=== PATIENT | female | born 1960 | race African-American/Black ===

== ENCOUNTER 2018-07-25 09:43 | Emergency (ER) | payer OTHER ==
[2018-07-25 09:51] VITALS: TEMP 98.4; BMI 38.4
[2018-07-25 10:44] LABS: BASO % 0.9 % (0-2.0); EOS % 3.1 % (0-4.5); HEMATOCRIT 34.9 % (32.4-45.2); HEMOGLOBIN 11.8 GM/dL (10.7-15.3); LYMPH % 41.3 % (8-40); MCHC 33.8 g/dl (32.0-36.0); MEAN CELL VOLUME 82.7 fl (80-96); MONO % 10.3 % (3.8-10.2); NEUT % 44.4 % (42.8-82.8); PLATELET COUNT 227 K/MM3 (134-434); RBC 4.22 M/mm3 (3.60-5.2); RDW 12.9 % (11.6-15.6); WHITE BLOOD COUNT 4.7 K/mm3 (4.0-10.0)
[2018-07-25 11:07] LABS: INR 0.94 (0.83-1.09); PROTHROMBIN TIME (PATIENT) 11.1 SEC (9.7-13.0)
[2018-07-25 11:10] LABS: ACTIVATED PTT 24.5 SECONDS (25.2-36.5)
[2018-07-25] MEDS ORDERED: ACETAMINOPHEN 1000 MG/100 ML VIAL (NON FORMULARY) IVPB ONE (11:18)
[2018-07-25 11:19] LABS: N-TERMINAL BNP 11.7 pg/ml (5-125)
[2018-07-25 11:36] LABS: ALBUMIN 3.7 g/dl (3.4-5.0); ALK PHOS 89 U/L (45-117); ANION GAP 11 MMOL/L (8-16); BILIRUBIN,TOTAL 0.4 mg/dL (0.2-1); BLOOD UREA NITROGEN 14 mg/dL (7-18); CALCIUM 9.1 mg/dL (8.5-10.1); CHLORIDE 97 mmol/L (98-107); CO2 27 mmol/L (21-32); CREATININE 1.1 mg/dL (0.55-1.3); POTASSIUM 4.6 mmol/L (3.5-5.1); SGOT/AST 25 U/L (15-37); SGPT/ALT 38 U/L (13-61); SODIUM 135 mmol/L (136-145); TOT PROT 7.6 g/dl (6.4-8.2)
[2018-07-25] MEDS ORDERED: ACETAMINOPHEN INJECTION 100 ML IVPB ONE (11:37)
[2018-07-25] MEDS ORDERED: FAMOTIDINE 20 MG/50 ML IVPB 20 MG/50 ML MG IVPB ONE ×2 (12:04→12:10)
[2018-07-25] MEDS ORDERED: MAG HYDROX/AL HYDROX/SIMETH 30 ML UNIT-DOSE CUP PO ONE (12:04)
[2018-07-25 12:06] LABS: GLUCOSE,RANDOM 386 mg/dL (74-106)
[2018-07-25] MEDS ORDERED: MAG HYDROX/AL HYDROX/SIMETH 30 ML UNIT-DOSE CUP ONE (12:10)
--- NOTE | 2018-07-25 12:11 | PDOC ---
History of Present Illness - General Chief Complaint: Pain, Acute Stated Complaint: CHEST PAIN Time Seen by Provider: 07/25/18 09:53 - History of Present Illness Initial Comments: 07/25/18 12:06 58 F with h/o HTN, HLD, DM presenting to ED with 2 days of L sided chest pain. Pt states that it radiates from her epigastric region to her throat. Denies SOB. Denies pleuritic nature or exertional component to pain. Denies leg swelling. Pt states that she has h/o GERD. Pt has had similar symptoms in the past and was evaluated in ED but does not know what the cause of her pain was. Pt is followed by a technical translator and states she had a recent stress test that was normal. Past History - Past Medical History Allergies/Adverse Reactions: Allergies Allergy/AdvReac Type Severity Reaction Status Date / Time duloxetine HCl AdvReac Intermediate jaw Verified 06/12/12 14:27 [From Cymbalta] locked, stiff joints Home Medications: Ambulatory Orders Montelukast Na [Singulair -] 10 mg PO HS #0 tablet 04/16/12 metFORMIN HCL [Glucophage -] 1,000 mg PO BIDAC #0 tablet 04/16/12 Dexlansoprazole [Dexilant] 60 mg PO DAILY 11/27/12 Insulin Lispro [Humalog] unit SQ ASDIR 11/27/12 Lisinopril/Hydrochlorothiazide [Lisinopril-Hctz 20-25 mg Tab] 1 each PO DAILY Pregabalin [Lyrica] 100 mg PO DAILY 11/27/12 Atorvastatin Ca [Lipitor] 20 mg PO HS 07/25/18 Anemia: No Asthma: Yes Cancer: No Cardiac Disorders: No CVA: No COPD: No CHF: No Dementia: No Diabetes: Yes (IDDM, uses pump) GI Disorders: No Disorders: No HTN: Yes Hypercholesterolemia: Yes Liver Disease: No Seizures: No Thyroid Disease: No - Surgical History Abdominal Surgery: No Appendectomy: No Cardiac Surgery: No Cholecystectomy: No Lung Surgery: No Neurologic Surgery: No Orthopedic Surgery: Yes (R Knee) - Suicide/Smoking/Psychosocial Hx Smoking Status: No Smoking History: Former smoker Have you smoked in the past 12 months: No Number of Cigarettes Smoked Daily: 0 Information on smoking cessation initiated: No Hx Alcohol Use: No Drug/Substance Use Hx: No Substance Use Type: None Hx Substance Use Treatment: No Review of Systems - Review of Systems Comments:: 07/25/18 12:11 "GENERAL/CONSTITUTIONAL: No fever or chills. No weakness. HEAD, EYES, EARS, NOSE AND THROAT: No change in vision. No ear pain or discharge. No sore throat. CARDIOVASCULAR: + L sided chest pain, no shortness of breath, no loss of consciousness RESPIRATORY: No cough, wheezing, or hemoptysis. GASTROINTESTINAL: + epigastric pain, No nausea, vomiting, diarrhea or constipation. GENITOURINARY: No dysuria, frequency, or change in urination. MUSCULOSKELETAL: No joint or muscle swelling or pain. No neck or back pain. SKIN: No rash NEUROLOGIC: No vertigo, no change in strength/sensation. ENDOCRINE: No increased thirst. No abnormal weight change. HEMATOLOGIC/LYMPHATIC: No anemia, easy bleeding, or history of blood clots. ALLERGIC/IMMUNOLOGIC: No hives or skin allergy. *Physical Exam - Vital Signs Last Vital Signs Temp Pulse Resp BP Pulse Ox 98.4 F 71 19 119/73 100 07/25/18 09:50 07/25/18 11:58 07/25/18 11:58 07/25/18 11:58 07/25/18 11:58 - Physical Exam Comments: 07/25/18 12:12 "GENERAL: Awake, alert, and fully oriented, in no acute distress. HEAD: No signs of trauma EYES: PERRLA, EOMI, sclera anicteric, conjunctiva clear ENT: Auricles normal inspection, hearing grossly normal, nares patent, oropharynx clear without exudates. Moist mucosa NECK: Nontender, no stepoffs, Normal ROM, supple, no lymphadenopathy, JVD, or masses LUNGS: Breath sounds equal, clear to auscultation bilaterally. No wheezes, and no crackles HEART: Regular rate and rhythm, normal S1 and S2, no murmurs, rubs or gallops ABDOMEN: + epigastric TTP, normoactive bowel sounds. No guarding, no rebound. No masses EXTREMITIES: Normal range of motion, no edema. No clubbing or cyanosis. No cords, erythema, or tenderness NEUROLOGICAL: Cranial nerves II through XII intact. 5/5 strength and sensation in all extremities, Normal speech, normal gait, normal cerebellar function SKIN: Warm, Dry, normal turgor, no rashes or lesions noted. Moderate Sedation - Procedure Monitoring Vital Signs: Procedure Monitoring Vital Signs Temperature 98.4 F 07/25/18 09:50 Pulse Rate 71 07/25/18 11:58 Respiratory Rate 19 07/25/18 11:58 Blood Pressure 119/73 07/25/18 11:58 O2 Sat by Pulse Oximetry (%) 100 07/25/18 11:58 Heart Score/ECG Review - History History: Slightly suspicious - Electrocardiogram EKG: Normal - Age Age: 45-65 - Risk Factors Risk Factors Heart Score: Yes Hx Hypercholesterolemia, Yes Hx Hypertension, Yes Hx Diabetes Based on the list above the patient has:: >/=3 risk factors or Hx atherosclerotic disease - Troponin Troponin: </= normal limit - Score Heart Score - Total: 3 - ECG Impressions Comment:: 07/25/18 12:13 NSR, no JONNY/STDs, no TWIs, no changes since prior EKG in 2011, rate 79 ED Treatment Course - LABORATORY CBC & Chemistry Diagram: 07/25/18 10:30 07/25/18 10:30 - ADDITIONAL ORDERS Additional order review: Laboratory Results 07/25/18 07/25/18 07/25/18 10:30 10:30 10:30 PT with INR 11.10 INR 0.94 PTT (Actin FS) 24.5 L Sodium 135 L Potassium 4.6 Chloride 97 L Carbon Dioxide 27 Anion Gap 11 BUN 14 Creatinine 1.1 Creat Clearance w eGFR 51.38 Random Glucose 386 H* Calcium 9.1 Total Bilirubin 0.4 AST 25 ALT 38 Alkaline Phosphatase 89 Creatine Kinase 103 Troponin I < 0.02 B-Natriuretic Peptide 11.7 Total Protein 7.6 Albumin 3.7 07/25/18 10:30 RBC 4.22 MCV 82.7 MCHC 33.8 RDW 12.9 MPV 12.0 H D Neutrophils % 44.4 D Lymphocytes % 41.3 H D Monocytes % 10.3 H Eosinophils % 3.1 D Basophils % 0.9 D - RADIOLOGY Radiology Studies Ordered: Category Date Time Status CHEST PA & LAT [RAD] Stat Radiology 07/25/18 10:30 Completed - Medications Given in the ED: ED Medications Discontinued Medications Generic Name Dose Route Start Last Admin Trade Name Freq PRN Reason Stop Dose Admin Acetaminophen 1,000 mg 07/25/18 11:18 07/25/18 11:47 Ofirmev Injection - IVPB 07/25/18 11:19 1,000 mg ONCE ONE Administration Medical Decision Making - Medical Decision Making 07/25/18 12:14 58 F with L sided chest pain radiating from epigastrum to throat. Likely gastritis vs GERD given epigastric TTP on exam. Pt with no ischemic changes on EKG. - Labs, trop, lipase - CXR - GI cocktail 07/25/18 12:39 Labs wnl Trop negative - given duration of symptoms for 48 hours, single trop sufficient to r/o ACS. Pt with some relief of pain with GI cocktail 07/25/18 12:54 Lipase negative Labs normal, EKG unchanged, CXR clear Pt reassessed - now feels significantly better. Suspect GI vs msk etiology of pt's pain. Given improvement with GI meds, likely gastritis vs PUD. No evidence of ACS on EKG or bloodwork. Ddimer negative, making PE and dissection unlikely. Pt is well appearing, with normal vitals. Clinically stable for DC at this time. I discussed the physical exam findings, ancillary test results and final diagnoses with the patient. I answered all of the patient's questions. The patient was satisfied with the care received and felt comfortable with the discharge plan and treatment plan. The patient agrees to follow up with the primary care physician within 24-72 hours. *DC/Admit/Observation/Transfer Diagnosis at time of Disposition: Epigastric pain, Chest pain, Gastritis - Discharge Dispostion Disposition: HOME - Referrals Referrals: Chino Balderrama MD [Primary Care Provider] - Reuben Huang MD [Staff Physician] - Ben Ibarra MD [Staff Physician] - - Patient Instructions Printed Discharge Instructions: DI for Abdominal Pain-Adult, DI for Atypical Chest Pain Additional Instructions: Your bloodwork, EKG, and chest X ray were all normal today. However, this does not rule out all serious heart problems. You must follow up with your technical translator within 48 hours for further evaluation of your chest pain. You may have gastritis or stomach ulcers. Call Dr. Huang to schedule a follow up appointment. If you experience worsening pain, shortness of breath, vomiting, fevers, or any other concerning symptoms, return to the ER immediately. - Post Discharge Activity - Attestations Physician Attestion: 07/25/18 13:03 I, Dr. Gerardo Gallego MD, attest that this document has been prepared under my direction and personally reviewed by me in its entirety. I further attest, that it accurately reflects all work, treatment, procedures and medical decision -making performed by me.
[2018-07-25 12:42] LABS: LIPASE 235 U/L (73-393)
[2018-07-25 14:07] VITALS: BP 101/71; PULSE 82
--- NOTE | 2018-07-26 19:03 | EKG ---
Test Reason : Blood Pressure : / mmHG Vent. Rate : 079 BPM Atrial Rate : 079 BPM P-R Int : 164 ms QRS Dur : 098 ms QT Int : 376 ms P-R-T Axes : 050 -03 008 degrees QTc Int : 431 ms NORMAL SINUS RHYTHM POSSIBLE LEFT ATRIAL ENLARGEMENT NONSPECIFIC T WAVE ABNORMALITY ABNORMAL ECG WHEN COMPARED WITH ECG OF 12-APR-2012 18:16, NONSPECIFIC T WAVE ABNORMALITY NOW EVIDENT IN LATERAL LEADS Confirmed by CONNIE BALBUENA, AYANNA ([id number]) on 07/26/2018 7:03:08 PM Referred By: Confirmed By:AYANNA ROSALES MD
== END 2018-07-25 14:08 | disposition home or self-care (01) ==
LOC: JER 09:43
PROC: 3E033GC Introduction of Other Therapeutic Substance into Peripheral Vein, Percutaneous Approach (ICD-10-PCS; principal; 2018-07-25)
PROC: 3E033NZ Introduction of Analgesics, Hypnotics, Sedatives into Peripheral Vein, Percutaneous Approach (ICD-10-PCS; 2018-07-25)
DX: K29.70 Gastritis, unspecified, without bleeding (principal); I10 Essential (primary) hypertension; E78.00 Pure hypercholesterolemia, unspecified; E11.9 Type 2 diabetes mellitus without complications; Z79.4 Long term (current) use of insulin; Z96.41 Presence of insulin pump (external) (internal); J45.909 Unspecified asthma, uncomplicated; Z87.891 Personal history of nicotine dependence
CPT/HCPCS: 36415; 71046-TC-FY; 80053; 82550; 83690; 83880; 84484; 85025; 85379; 85610; 85730; 93005; 93010; 99284-25; J0131

== ENCOUNTER 2018-10-10 11:49 | Inpatient (IN) | payer OTHER ==
[2018-10-10 12:53] LABS: BASO % 1.1 % (0-2.0); EOS % 4.9 % (0-4.5); HEMATOCRIT 34.2 % (32.4-45.2); HEMOGLOBIN 11.3 GM/dL (10.7-15.3); LYMPH % 32.1 % (8-40); MCH 28.3 pg (25.7-33.7); MEAN CELL VOLUME 85.8 fl (80-96); MEAN PLT VOLUME 9.7 fl (7.5-11.1); NEUT % 50.9 % (42.8-82.8); PLATELET COUNT 282 K/MM3 (134-434); RBC 3.99 M/mm3 (3.60-5.2); RDW 13.5 % (11.6-15.6); WHITE BLOOD COUNT 6.1 K/mm3 (4.0-10.0)
--- NOTE | 2018-10-10 12:56 | PDOC ---
History of Present Illness - General Chief Complaint: Chest Pain Stated Complaint: CHEST PAIN Time Seen by Provider: 10/10/18 12:11 History Source: Patient Exam Limitations: No Limitations - History of Present Illness Initial Comments: 10/10/18 12:38 58 yo female pmh of HTN, HLD, DM, GERD and Asthma BIBA with sudden onset CP while at work. 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 ASA and 1 sublingual Nitro given by EMS with relief of pain for 10 min. The pain is right sided, described as dull with radiation down the right arm and to the right upper back. Denies recent travel, calf tenderness, hx of WI or family hx of [place], F/C/N/V, abdominal pain or changes in bowel or bladder habits. Of note, pt seen in the ED 07/25/2018 with CP which feels similar in quality and intensity. Trops and EKG unremarkable and Stress test done which was normal. 10/10/18 12:56 Pt also admits to 2 days of cough with clear sputum and new onset OJEDA. Denies sore throat, ear pain/discharge, nasal congestion, sinus pain or sick contacts. Past History - Past Medical History Allergies/Adverse Reactions: Allergies Allergy/AdvReac Type Severity Reaction Status Date / Time duloxetine HCl AdvReac Intermediate jaw Verified 06/12/12 14:27 [From Cymbalta] locked, stiff joints Home Medications: Ambulatory Orders Montelukast Na [Singulair -] 10 mg PO HS #0 tablet 04/16/12 metFORMIN HCL [Glucophage -] 1,000 mg PO BIDAC #0 tablet 04/16/12 Dexlansoprazole [Dexilant] 60 mg PO DAILY 11/27/12 Insulin Lispro [Humalog] unit SQ ASDIR 11/27/12 Lisinopril/Hydrochlorothiazide [Lisinopril-Hctz 20-25 mg Tab] 1 each PO DAILY Pregabalin [Lyrica] 100 mg PO DAILY 11/27/12 Atorvastatin Ca [Lipitor] 20 mg PO HS 07/25/18 Anemia: No Asthma: Yes Cancer: No Cardiac Disorders: No CVA: No COPD: No CHF: No Dementia: No Diabetes: Yes GI Disorders: No Disorders: No HTN: Yes Hypercholesterolemia: Yes Liver Disease: No Seizures: No Thyroid Disease: No - Surgical History Abdominal Surgery: No Appendectomy: No Cardiac Surgery: No Cholecystectomy: No Lung Surgery: No Neurologic Surgery: No Orthopedic Surgery: Yes (R Knee) - Suicide/Smoking/Psychosocial Hx Smoking Status: No Smoking History: Unknown if ever smoked Have you smoked in the past 12 months: No Number of Cigarettes Smoked Daily: 0 Information on smoking cessation initiated: No Hx Alcohol Use: No Drug/Substance Use Hx: No Substance Use Type: None Hx Substance Use Treatment: No Review of Systems - Review of Systems Constitutional: No: Chills, Fever Respiratory: Yes: SOB with Exertion, Productive cough (clear sputum). No: Wheezing Cardiac (ROS): Yes: Chest Pain. No: Edema ABD/GI: Yes: Other (denies abdominal pain). No: Constipated, Diarrhea, Nausea, Vomiting : No: Burning, Dysuria, Flank Pain Musculoskeletal: Yes: Back Pain (right upper back new since yesterday) Neurological: Yes: Headache. No: Numbness, Paresthesia, Weakness *Physical Exam - Vital Signs Last Vital Signs Temp Pulse Resp BP Pulse Ox 98.2 F 93 H 16 158/67 99 10/10/18 11:50 10/10/18 11:50 10/10/18 11:50 10/10/18 11:50 10/10/18 11:50 - Physical Exam General Appearance: Yes: Nourished, Appropriately Dressed. No: Apparent Distress HEENT: positive: EOMI. negative: Pharyngeal Erythema, Nasal Congestion, TM Bulging, TM Erythema Neck: positive: Supple Respiratory/Chest: positive: Lungs Clear, Normal Breath Sounds. negative: Accessory Muscle Use, Crackles, Rales, Rhonchi, Stridor, Wheezing Cardiovascular: positive: Regular Rhythm, Regular Rate, S1, S2. negative: Edema , JVD, Murmur Vascular Pulses: Dorsalis-Pedis (R): 4+, Doralis-Pedis (L): 4+ Comments:: 10/10/18 14:35 equal radial pulses and BP bilateral Gastrointestinal/Abdominal: positive: Flat, Soft. negative: Pulsatile Mass, Distended, Guarding, Rebound, Tenderness Extremity: positive: Normal Capillary Refill Integumentary: positive: Normal Color, Dry, Warm Neurologic: positive: Fully Oriented, Alert, Normal Mood/Affect, Normal Response Moderate Sedation - Procedure Monitoring Vital Signs: Procedure Monitoring Vital Signs Temperature 98.2 F 10/10/18 11:50 Pulse Rate 93 H 10/10/18 11:50 Respiratory Rate 16 10/10/18 11:50 Blood Pressure 158/67 10/10/18 11:50 O2 Sat by Pulse Oximetry (%) 99 10/10/18 11:50 Heart Score/ECG Review - History History: Moderately suspicious - Electrocardiogram EKG: Normal - Age Age: 45-65 - Risk Factors Risk Factors Heart Score: Yes Hx Hypercholesterolemia, Yes Hx Hypertension, Yes Hx Diabetes, No Smoking History, No Positive family hx of cardiac disease, Yes Hx Obesity Based on the list above the patient has:: >/=3 risk factors or Hx atherosclerotic disease - Troponin Troponin: </= normal limit - Score Heart Score - Total: 4 - ECG Intrepretation Rhythm: Regular Rhythm - ECG Impressions Normal ECG: Yes Non-specific ST Elevation: No Ischemic Changes: No ED Treatment Course - LABORATORY CBC & Chemistry Diagram: 10/10/18 12:40 10/10/18 12:40 Medical Decision Making - Medical Decision Making 58 yo female with many cardiac risk factors presents to the ED with CP and radiation to upper back with SOB. Vitals stable Labs WNL, neg trop Admits to OJEDA CTA abdomen pelvis to R/O dissection was negative 10/10/18 18:34 Spoke with PCP who agrees to have pt admitted R/O ACS with heart score of 4 *DC/Admit/Observation/Transfer Diagnosis at time of Disposition: Chest pain Qualifiers: Chest pain type: unspecified Qualified Code(s): R07.9 - Chest pain, unspecified - Discharge Dispostion Decision to Admit order: Yes - Referrals - Patient Instructions - Post Discharge Activity
[2018-10-10] MEDS ORDERED: ACETAMINOPHEN 325 MG TABLET (FP) PO ONE (13:20)
--- NOTE | 2018-10-10 13:32 | PDOC ---
Attending Attestation - Resident Resident Name: Evens Andrade - ED Attending Attestation I have performed the following: I have examined & evaluated the patient, The case was reviewed & discussed with the resident, I agree w/resident's findings & plan, Exceptions are as noted - HPI HPI: 10/10/18 13:27 The patient is a 58 year old female, with a significant PMH of DM, HTN, GERD, HLD, who was BIBA to the emergency department for evaluation of sudden onset, intermittent, dull, R sided chest pain. 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 She also notes diaphoresis, SOB and a productive cough producing clear sputum. As per EMS, patient received aspirin and sublingual nitroglycerin, which the patient states relieved the pain but pain had returned upon arrival to the hospital. 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 Patient denies sick contact. The patient denies headache and dizziness. Denies fever, chills, nausea, vomit, diarrhea and constipation. Denies dysuria, frequency, urgency and hematuria. Allergies: Duloxetine Past surgical history: R knee surgery Social history: Former smoker PCP: Dr. Balderrama - Physicial Exam PE: 10/10/18 13:29 GENERAL: Awake, alert, and fully oriented, in no acute distress EYES: PERRLA, EOMI, sclera anicteric, conjunctiva clear ENT:Oropharynx clear without exudates. Moist mucosa NECK: Normal ROM, supple, no lymphadenopathy, JVD, or masses LUNGS: Breath sounds equal, clear to auscultation bilaterally. No wheezes, and no crackles HEART: Regular rate and rhythm, normal S1 and S2, no murmurs, rubs or gallops ABDOMEN: Soft, nontender, normoactive bowel sounds. No guarding, no rebound. No masses EXTREMITIES: Normal range of motion, no edema. No cords, erythema, or tenderness. 2+ pulses b/l. NEUROLOGICAL: Normal speech, cranial nerves intact, equal strength and sensation b/l SKIN: Warm, Dry, normal turgor, no rashes or lesions noted. - Medical Decision Making 10/10/18 13:31 58yo F hx DM, HTN, GERD, HLD presents to the ED with R sided chest pain. Pt poor historian and gives varying histories on multiple evaluations. Vitals unremarkable. Exam wnl. EKG with LVH, no change compared to previous EKG. DDx includes but not limited to ACS vs Aortic dissection vs PNA. Plan -labs -CTA chest, abd, pelvis -CXR -anticipate admission Heart Score/ECG Review - History History: Moderately suspicious - Electrocardiogram EKG: Normal - Age Age: 45-65 - Risk Factors Based on the list above the patient has:: >/=3 risk factors or Hx atherosclerotic disease - Troponin Troponin: </= normal limit - Score Heart Score - Total: 4 #1 10/10/18 13:33 Twelve-lead EKG was performed and reviewed by me. Normal sinus rhythm, rate 94. Normal axis. No ST elevations. +LVH. When compared to previous EKG, no significant changes.
[2018-10-10] MEDS ORDERED: ACETAMINOPHEN 325 MG TABLET (FP) ONE (13:37)
[2018-10-10 13:39] LABS: ALBUMIN 3.4 g/dl (3.4-5.0); ALK PHOS 63 U/L (45-117); ANION GAP 8 MMOL/L (8-16); BILIRUBIN,TOTAL 0.2 mg/dL (0.2-1); BLOOD UREA NITROGEN 22 mg/dL (7-18); CALCIUM 9.6 mg/dL (8.5-10.1); CHLORIDE 104 mmol/L (98-107); CO2 28 mmol/L (21-32); CREATININE 1.1 mg/dL (0.55-1.3); GLUCOSE,RANDOM 233 mg/dL (74-106); LIPASE 191 U/L (73-393); N-TERMINAL BNP 27.6 pg/ml (5-125); POTASSIUM 4.2 mmol/L (3.5-5.1); SGOT/AST 7 U/L (15-37); SGPT/ALT 23 U/L (13-61); SODIUM 140 mmol/L (136-145); TOT PROT 7.3 g/dl (6.4-8.2)
--- NOTE | 2018-10-10 15:36 | EKG ---
Test Reason : Blood Pressure : / mmHG Vent. Rate : 094 BPM Atrial Rate : 094 BPM P-R Int : 158 ms QRS Dur : 098 ms QT Int : 378 ms P-R-T Axes : 050 -08 077 degrees QTc Int : 472 ms NORMAL SINUS RHYTHM POSSIBLE LEFT ATRIAL ENLARGEMENT LEFT VENTRICULAR HYPERTROPHY ABNORMAL ECG WHEN COMPARED WITH ECG OF 25-JUL-2018 09:50, NO SIGNIFICANT CHANGE WAS FOUND Confirmed by STUART BALBUENA, CARMELO ([id number]) on 10/10/2018 3:36:26 PM Referred By: Confirmed By:CARMELO DAVIDSON MD
--- NOTE | 2018-10-11 00:50 | HP ---
Admitting History and Physical - Past Medical History ...: No - Smoking History Smoking history: Unknown if ever smoked Have you smoked in the past 12 months: No Aproximately how many cigarettes per day: 0 - Alcohol/Substance Use Hx Alcohol Use: No Home Medications - Allergies Allergies/Adverse Reactions: Allergies Allergy/AdvReac Type Severity Reaction Status Date / Time duloxetine HCl AdvReac Intermediate jaw Verified 06/12/12 14:27 [From Cymbalta] locked, stiff joints - Home Medications Home Medications: Ambulatory Orders Montelukast Na [Singulair -] 10 mg PO HS #0 tablet 04/16/12 metFORMIN HCL [Glucophage -] 1,000 mg PO BIDAC #0 tablet 04/16/12 Dexlansoprazole [Dexilant] 60 mg PO DAILY 11/27/12 Insulin Lispro [Humalog] unit SQ ASDIR 11/27/12 Lisinopril/Hydrochlorothiazide [Lisinopril-Hctz 20-25 mg Tab] 1 each PO DAILY Pregabalin [Lyrica] 100 mg PO DAILY 11/27/12 Atorvastatin Ca [Lipitor] 20 mg PO HS 07/25/18 Physical Examination Vital Signs: Vital Signs Temperature 98.1 F 10/10/18 18:16 Pulse Rate 94 H 10/10/18 18:16 Respiratory Rate 20 10/10/18 18:16 Blood Pressure 131/85 10/10/18 18:16 O2 Sat by Pulse Oximetry (%) 97 10/10/18 18:29 Labs: CBC, BMP 10/10/18 12:40 10/10/18 12:40
[2018-10-11] MEDS ORDERED: MECLIZINE HCL 25 MG TABLET (FP) PO PRN (02:04)
[2018-10-11] MEDS: INSULIN SLIDING SCALE (NOVOLOG) 1 VIAL SQ SCH ×4 (06:50→21:26)
[2018-10-11] MEDS ORDERED: metFORMIN HCL 500 MG TABLET (FP) PO SCH (07:00)
[2018-10-11 07:37] LABS: BASO % 0.7 % (0-2.0); EOS % 5.7 % (0-4.5); HEMATOCRIT 30.6 % (32.4-45.2); HEMOGLOBIN 10.2 GM/dL (10.7-15.3); LYMPH % 39.3 % (8-40); MCH 28.3 pg (25.7-33.7); MCHC 33.4 g/dl (32.0-36.0); MEAN CELL VOLUME 84.6 fl (80-96); MEAN PLT VOLUME 9.7 fl (7.5-11.1); MONO % 9.6 % (3.8-10.2); NEUT % 44.7 % (42.8-82.8); PLATELET COUNT 257 K/MM3 (134-434); RBC 3.62 M/mm3 (3.60-5.2); RDW 13.4 % (11.6-15.6); WHITE BLOOD COUNT 4.9 K/mm3 (4.0-10.0)
--- NOTE | 2018-10-11 08:37 | CON.CARD ---
Consult Consult Specialty:: Cardiology Referred by:: Dr. Flowers Reason for Consultation:: chest pain - History of Present Illness Chief Complaint: right sided chest pain, cough History of Present Illness: 58 F DM, HTN , non obstx CAD 2013 presents with right sided chest pressure, cough, headache for several days. + chronic CARRERA, denies palps or edema No PND/orthopnea No syncope. Describes right sided chest pain, with and without exertion for last 2-[address] Escobar as outpatient: nuclear stress 07/2018 mild apical ischemia--> managed medically due to atypical sx - History Source History Provided By: Patient, Medical Record - Past Medical History Cardio/Vascular: Yes: HTN Pulmonary: Yes: Asthma ...: No Endocrine: Yes: Diabetes Mellitus - Past Surgical History Additional Surgical History: knee surgery - Alcohol/Substance Use Hx Alcohol Use: No - Smoking History Smoking history: Unknown if ever smoked Have you smoked in the past 12 months: No Aproximately how many cigarettes per day: 0 - Social History Place of : [facility] Home Medications - Allergies Allergies/Adverse Reactions: Allergies Allergy/AdvReac Type Severity Reaction Status Date / Time duloxetine HCl AdvReac Intermediate jaw Verified 06/12/12 14:27 [From Cymbalta] locked, stiff joints - Home Medications Home Medications: Ambulatory Orders Montelukast Na [Singulair -] 10 mg PO HS #0 tablet 04/16/12 metFORMIN HCL [Glucophage -] 1,000 mg PO BIDAC #0 tablet 04/16/12 Dexlansoprazole [Dexilant] 60 mg PO DAILY 11/27/12 Insulin Lispro [Humalog] unit SQ ASDIR 11/27/12 Lisinopril/Hydrochlorothiazide [Lisinopril-Hctz 20-25 mg Tab] 1 each PO DAILY Pregabalin [Lyrica] 100 mg PO DAILY 11/27/12 Atorvastatin Ca [Lipitor] 20 mg PO HS 07/25/18 Family Disease History - Family Disease History Family History: Unremarkable (noncontributory) Review of Systems Findings/Remarks: see HPI - Review of Systems Constitutional: reports: No Symptoms Eyes: reports: No Symptoms HENT: reports: No Symptoms Cardiovascular: reports: Chest Pain, Shortness of Breath Respiratory: reports: Cough Gastrointestinal: denies: No Symptoms, Abdominal Pain, Bloating, Constipation, Diarrhea, Dysphagia, Indigestion, Melena, Nausea, Rectal Bleeding, Vomiting, Vomiting Blood, Other Genitourinary: denies: No Symptoms, Burning, Discharge, Dysuria, Flank Pain, Frequency, Hematuria, Incontinence, Lesions, Menses, Pain, Testicular Mass, Testicular Pain, Testicular Swelling, Urgency, Vaginal Bleeding, Other Breasts: denies: No Symptoms Reported, See HPI, Breast Implants, Discharge from Nipple, Lumps, Pain, Skin Changes, Other Musculoskeletal: denies: No Symptoms, Back Pain, Crepitus, Decreased ROM, Extremity Pain, Joint Pain, Joint Swelling, Muscle Pain, Muscle Cramps, Muscle Weakness, Other Integumentary: denies: No Symptoms, Blister, Bruising, Change in Color, Eczema, Erythema, Incision, Lesions, Lump, Pallor, Pruritis, Rash, Wound, Other Neurological: denies: No Symptoms, Change in LOC, Change in Speech, Confusion, Dizziness, Headache, Incoordination, Numbness, Parasthesia, Pre-Existing Deficit , Seizure, Syncope, Tremors, Unsteady Gait, Weakness, Other Endocrine: denies: No Symptoms, Excessive Sweating, Flushing, Increased Hunger, Increased Thirst, Intolerance to Cold, Intolerance to Heat, Unexplained Weight Gain, Unexplained Weight Loss, Other Psychiatric: denies: No Symptoms, Altered Sleep Pattern, Anxiety, Depression, Hallucinations, Panic, Paranoia, Suicidal, Other - Risk Factors Known Risk Factors: Yes: Diabetes Mellitus, Hypertension Vital Signs: Vital Signs Temperature 97.6 F 10/11/18 02:00 Pulse Rate 82 10/11/18 02:00 Respiratory Rate 18 10/11/18 02:00 Blood Pressure 145/86 10/11/18 02:00 O2 Sat by Pulse Oximetry (%) 96 10/11/18 00:03 Constitutional: Yes: No Distress, Calm Eyes: Yes: Conjunctiva Clear, EOM Intact Neck: Yes: Trachea Midline Respiratory: Yes: Rhonchi Gastrointestinal: Yes: Soft, Abdomen, Obese Cardiovascular: Yes: Regular Rate and Rhythm JVD: No Carotid Bruit: No PMI: Non-Displaced Heart Sounds: Yes: S1, S2 Edema: No Peripheral Pulses WNL: Yes Neurological: Yes: Alert, Oriented - Other Data Labs, Other Data: CBC, BMP 10/11/18 06:00 Troponin, BNP 10/10/18 10/11/18 12:40 01:30 Troponin I 0.03 0.02 B-Natriuretic Peptide 27.6 Troponin, BNP 10/10/18 10/11/18 12:40 01:30 Troponin I 0.03 0.02 B-Natriuretic Peptide 27.6 Laboratory Tests 07/25/18 10/10/18 10/10/18 10:30 12:40 13:31 WBC Hgb Plt Count D-Dimer 435 Sodium Potassium BUN Creatinine Creatine Kinase 105 Troponin I 0.03 Influenza A (Rapid) Negative Influenza B (Rapid) Negative 10/11/18 10/11/18 10/11/18 01:30 06:00 06:00 WBC 4.9 Hgb 10.2 L Plt Count 257 D-Dimer Sodium 141 Potassium 4.0 BUN 22 H Creatinine 0.9 Creatine Kinase 83 Troponin I 0.02 Influenza A (Rapid) Influenza B (Rapid) Echo: Pending Ejection Fraction %: LVEF > or = 40 % Imaging - Results Cat Scan: Image Reviewed EKG: Image Reviewed (TELE NSR ECG: NSR, LAE, LVH, no acute ST changes) Problem List - Problems (1) Chest pain Code(s): R07.9 - CHEST PAIN, UNSPECIFIED Qualifiers: Chest pain type: unspecified Qualified Code(s): R07.9 - Chest pain, unspecified (2) Hypercholesterolemia Code(s): E78.0 - PURE HYPERCHOLESTEROLEMIA * DO NOT USE * Assessment/Plan IMP: Atypical chest pain Suspected URI, mild bronchitis Multiple CV risk factors REC: 1. Serial cardiac enzymes and ECG 2. Echo 3. Recent stress MPI in 07/2018 was abnormal with mild apical ischemia. 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 Definitive coronary assessment with Cath recommended- timing to be determined based on clinical course over next 24 hours.
[2018-10-11 08:38] LABS: ALBUMIN 3.1 g/dl (3.4-5.0); ALK PHOS 57 U/L (45-117); ANION GAP 7 MMOL/L (8-16); BILIRUBIN,TOTAL 0.2 mg/dL (0.2-1); BLOOD UREA NITROGEN 22 mg/dL (7-18); CALCIUM 9.2 mg/dL (8.5-10.1); CHLORIDE 105 mmol/L (98-107); CO2 29 mmol/L (21-32); CREATININE 0.9 mg/dL (0.55-1.3); GLUCOSE,RANDOM 220 mg/dL (74-106); SGOT/AST 8 U/L (15-37); SGPT/ALT 20 U/L (13-61); SODIUM 141 mmol/L (136-145); TOT PROT 6.6 g/dl (6.4-8.2)
[2018-10-11] MEDS: HEPARIN NA (PORCINE) 5,000 UNITS/ML 1ML VIAL SQ SCH ×2 (09:52→21:26)
[2018-10-11] MEDS: PREGABALIN 100 MG CAPSULE PO SCH (09:52)
[2018-10-11] MEDS: PANTOPRAZOLE 40 MG TABLET (FP) PO SCH (09:52)
[2018-10-11] MEDS: HYDROCHLOROTHIAZIDE 25 MG TABLET (FP) PO SCH (09:52)
[2018-10-11] MEDS: LISINOPRIL 20 MG TABLET (FP) PO SCH (09:53)
[2018-10-11] MEDS ORDERED: PATIENT'S OWN MEDICATION (NON-FORMULARY) (Lisinopril/Hydrochlorothiazide [Lisinopril-Hctz PO SCH (10:00)
[2018-10-11] MEDS: guaiFENesin/D-M SUGAR-FREE/ACLHOL-FREE 118 ML BOTTLE PO PRN ×2 (11:05→18:13)
--- NOTE | 2018-10-11 12:52 | CONSULT ---
Consult - text type - Consultation Consultation Note: NEUROLOGY CONSULT APPRECIATED: This 58 yo single RH female lives with her son and works at [employer]. Examined with her daughter, Althea, at the bedside. She is well known to me with Migraines, Restless limb syndrome, B/L carpal tunnel syndrome and chronic low back pain. She reports 3-4 days of progressive cough and flu-like symptoms with episodic "dizziness" when bending down and getting up quickly as well as some lightheadedness with coughing. Yesterday while at work, she had coughing attack associated with "pains" in her chest that radiated to her right arm and felt "hot." She then leaned downward to grab something and felt "dizziness" and recurrence of brief R sided temporal headache with "pressure" and photophobia. The headache and dizziness remain with change in position, but are brief. She believes these are similar to the headaches she has had in the past which improved on topiramate. It was noted on previous hospitalization, there may have been adverse side effect that caused a "rash." PMHX:HTN, DM, asthma, GERD, OA Medications: metformin, diltiazem, singular, lisinopril, pregabalin Surgical hx: R TKR Review of systems significant for pain in L hip and constant "numbness" in left 3 middle toes. She recalls seeing ENT Dr. Quintero a few years ago, with reports that she may have hearing loss in the R ear. Head CT: mild atrophic changes Influenza negative CTA of the chest and pelvis Neg for dissection JOON: BPs 130/80 without orthostatic changes, Obese, Cor reg, (-) bruit, neck supple, (-) SLR, (-) Andrew's NEURO EXAM: In NAD Mentation/Speech: Normal. CN II-XII: EOM full without nystagmus. Full vazquez appreciated. Gross hearing intact. Motor: No drift. Normal strength, tone and bulk throughout. Areflexic at AJ' s B/L. Toes downgoing. Coordination: No FTN dystaxia. Romberg - Sensation: Normal to vibration. Gait: Normal including heels, toes. 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 Cardiac eval and Rx as per Dr. Villegas Due to the brief duration of Migraine, abortive treatment may not be effective, Can consider alternative prophylactic agent such as Depakote 250 ER qhs. Follow up with ENT as out patient Resumption of ropinirole 0.25 mg po qhs as discussed with patient at last office visit 10/02/18 and discontinue pregabalin. Neuro f/u as outpatient for EMG/NCS for carpal tunnel and RLS, also EEG Thank you very much, Pedro Mane MD
--- NOTE | 2018-10-11 15:00 | ECHO ---
Version: 1 Name: GIBRAN FRANCISCO Exam: Adult Echocardiogram Study Date: 10/11/2018, 2:15 PM Age: 58 Years MMode/2D Measurements & Calculations IVSd: 0.97 cm LVIDs: 2.9 cm LVIDd: 4.6 cm LVPWd: 1.07 cm LVOT diam: 2.02 cm Ao root diam: 2.7 cm LA dimension: 3.8 cm Doppler Measurements & Calculations MV E max elmer: 97.5 cm/sec Med E/e': 21.3 MV A max elmer: 105.7 cm/sec Med Peak E' Elmer: 4.6 cm/sec MV E/A: 0.92 Lat E/e': 16.0 Lat Peak E' Elmer: 6.1 cm/sec TR max elmer: 247.3 cm/sec TR max P.5 mmHg Left Ventricle Ejection Fraction = 55-60%. Right Ventricle The right ventricle is normal in size and function. Atria Normal left and right atrial size and function. Mitral Valve There is moderate mitral annular calcification. There is no mitral valve stenosis. There is mild marti ral regurgitation. Tricuspid Valve The tricuspid valve is normal in structure and function. There is mild tricuspid regurgitation. Aortic Valve There is mild aortic sclerosis.;. No hemodynamically significant valvular aortic stenosis. No aortic regurgitation is present. Pulmonic Valve The pulmonic valve is not well seen, but is grossly normal. There is no pulmonic valvular stenosis. Great Vessels The aortic root is normal size. Pericardium/Pleura There is no pericardial effusion. Summary Statements Ejection Fraction = 55-60%. The right ventricle is normal in size and function. There is moderate mitral annular calcification. There is mild mitral regurgitation. There is mild tricuspid regurgitation. The aortic root is normal size. There is no pericardial effusion. MD Hung *Nelly 10/11/2018, 3:00 PM Ordering Physician: Augusta Flowers Performed By: Marnie Copeland
[2018-10-11] MEDS: MONTELUKAST NA 10 MG TABLET PO SCH (21:26)
[2018-10-11] MEDS: ATORVASTATIN CA 20 MG TABLET (FP) PO SCH (21:26)
--- NOTE | 2018-10-11 21:58 | PN ---
Progress Note, Physician - Current Medication List Current Medications: Active Medications Atorvastatin Calcium (Lipitor -) 20 mg PO HS REPLACED BY [facility] Last Admin: 10/11/18 21:26 Dose: 20 mg Guaifenesin (Diabetic Tussin Dm -) 5 ml PO Q6H PRN PRN Reason: COUGH Last Admin: 10/11/18 18:13 Dose: 5 ml Heparin Sodium (Porcine) (Heparin -) 5,000 unit SQ BID REPLACED BY [facility] Last Admin: 10/11/18 21:26 Dose: 5,000 unit Hydrochlorothiazide (Hctz -) 25 mg PO DAILY REPLACED BY [facility] Last Admin: 10/11/18 09:52 Dose: 25 mg Insulin Aspart (Novolog Vial Sliding Scale -) 1 vial SQ [facility] REPLACED BY [facility]; Protocol Last Admin: 10/11/18 21:26 Dose: 8 units Lisinopril (Prinivil) 20 mg PO DAILY REPLACED BY [facility] Last Admin: 10/11/18 09:53 Dose: 20 mg Meclizine HCl (Antivert -) 25 mg PO TID PRN PRN Reason: VERTIGO Montelukast Sodium (Singulair -) 10 mg PO [facility] Last Admin: 10/11/18 21:26 Dose: 10 mg Pantoprazole Sodium (Protonix -) 40 mg PO DAILY REPLACED BY [facility] Last Admin: 10/11/18 09:52 Dose: 40 mg Pregabalin (Lyrica -) 100 mg PO DAILY REPLACED BY [facility] Last Admin: 10/11/18 09:52 Dose: 100 mg - Objective Vital Signs: Vital Signs Temperature 98.0 F 10/11/18 18:15 Pulse Rate 90 10/11/18 18:15 Respiratory Rate 18 10/11/18 18:15 Blood Pressure 149/78 10/11/18 18:15 O2 Sat by Pulse Oximetry (%) 97 10/11/18 10:00 Labs: CBC, BMP 10/11/18 06:00 10/11/18 06:00
[2018-10-12] MEDS: INSULIN SLIDING SCALE (NOVOLOG) 1 VIAL SQ SCH ×4 (07:00→22:23)
[2018-10-12] MEDS ORDERED: PT OWN MED DRAWER 7, Y5N ONE ×2 (09:19→22:13)
[2018-10-12] MEDS: HEPARIN NA (PORCINE) 5,000 UNITS/ML 1ML VIAL SQ SCH ×2 (09:23→22:23)
[2018-10-12] MEDS: PANTOPRAZOLE 40 MG TABLET (FP) PO SCH (09:23)
[2018-10-12] MEDS: HYDROCHLOROTHIAZIDE 25 MG TABLET (FP) PO SCH (09:23)
[2018-10-12] MEDS: guaiFENesin/D-M SUGAR-FREE/ACLHOL-FREE 118 ML BOTTLE PO PRN ×2 (09:23→22:24)
[2018-10-12] MEDS: LISINOPRIL 20 MG TABLET (FP) PO SCH (09:23)
[2018-10-12] MEDS: PREGABALIN 100 MG CAPSULE PO SCH (09:23)
--- NOTE | 2018-10-12 12:07 | PN ---
Progress Note, Physician Chief Complaint: Pt A&Ox3; + sharp chest pain when she coughs forcibly. History of Present Illness: 58 yo black female pmh of HTN, HLD, DM, GERD and Asthma BIBA with sudden onset CP while at work. 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 ASA and 1 sublingual Nitro given by EMS with relief of pain for 10 min. The pain is right sided, described as dull with radiation down the right arm and to the right upper back. Denies recent travel, calf tenderness, hx of [place] or family hx of [place], F/C/N/V, abdominal pain or changes in bowel or bladder habits. Of note, pt seen in the ED 07/25/2018 with CP which feels similar in quality and intensity. Trops and EKG unremarkable and Stress test done which was normal. 10/10/18 12:56 Pt also admits to 2 days of cough with clear sputum and new onset OJEDA. Denies sore throat, ear pain/discharge, nasal congestion, sinus pain or sick contacts. - Current Medication List Current Medications: Active Medications Atorvastatin Calcium (Lipitor -) 20 mg PO HS [facility] Last Admin: 10/11/18 21:26 Dose: 20 mg Guaifenesin (Diabetic Tussin Dm -) 5 ml PO Q6H PRN PRN Reason: COUGH Last Admin: 10/12/18 09:23 Dose: 5 ml Heparin Sodium (Porcine) (Heparin -) 5,000 unit SQ BID [facility] Last Admin: 10/12/18 09:23 Dose: 5,000 unit Hydrochlorothiazide (Hctz -) 25 mg PO DAILY [facility] Last Admin: 10/12/18 09:23 Dose: 25 mg Insulin Aspart (Novolog Vial Sliding Scale -) 1 vial SQ ACHS [facility]; Protocol Last Admin: 10/12/18 12:04 Dose: 6 units Lisinopril (Prinivil) 20 mg PO DAILY [facility] Last Admin: 10/12/18 09:23 Dose: 20 mg Meclizine HCl (Antivert -) 25 mg PO TID PRN PRN Reason: VERTIGO Montelukast Sodium (Singulair -) 10 mg PO HS [facility] Last Admin: 10/11/18 21:26 Dose: 10 mg Pantoprazole Sodium (Protonix -) 40 mg PO DAILY [facility] Last Admin: 10/12/18 09:23 Dose: 40 mg Pregabalin (Lyrica -) 100 mg PO DAILY [facility] Last Admin: 10/12/18 09:23 Dose: 100 mg - Objective Vital Signs: Vital Signs Temperature 98 F 10/12/18 06:00 Pulse Rate 88 10/12/18 06:00 Respiratory Rate 18 10/12/18 06:00 Blood Pressure 152/74 10/12/18 06:00 O2 Sat by Pulse Oximetry (%) 97 10/11/18 21:00 Constitutional: Yes: Anxious, Obese Eyes: Yes: WNL HENT: Yes: WNL Neck: Yes: WNL Cardiovascular: Yes: S1, S2, S4 Respiratory: Yes: WNL Gastrointestinal: Yes: Soft ...Rectal Exam: Yes: Deferred Genitourinary: No: Anuria Breast(s): Yes: WNL, Nipple Inversion Extremities: Yes: WNL Edema: No Peripheral Pulses WNL: Yes Integumentary: Yes: WNL Neurological: Yes: WNL Psychiatric: Yes: Alert, Oriented, Other (anxeity) Labs: CBC, BMP 10/11/18 06:00 10/11/18 06:00 Abnormal Lab Results 10/12/18 21:25 Troponin I 0.26 H - ....Imaging EKG: Image Reviewed Other: Image Reviewed (telemetry: NSR; no arrhythmias) Problem List - Problems (1) Atypical chest pain Assessment/Plan: Chest pain with coughing. TNI < 0.02 x 2 EKG NSR; LVH. Telemetry: no arrhythmias. ECHO: normal LVEF. Recent (07/2018) stress MIBI: mild ischemia. Plan: Continue lisinopirl; ASA; statin (f/u lipid profile). Serial EKGs. For coronary angiogram: timing dependent on evolution of signs, symptoms, cardiac enzymes, EKG. Code(s): R07.89 - OTHER CHEST PAIN (2) Hypercholesterolemia Assessment/Plan: on statin. Code(s): E78.0 - PURE HYPERCHOLESTEROLEMIA * DO NOT USE * (4) Low back pain Code(s): M54.5 - LOW BACK PAIN (6) Gastritis Code(s): K29.70 - GASTRITIS, UNSPECIFIED, WITHOUT BLEEDING (7) Obesity Assessment/Plan: Pt requests nutritional help to understand how to lose weight. She often skips breakfast. Code(s): E66.9 - OBESITY, UNSPECIFIED
--- NOTE | 2018-10-12 19:05 | PN ---
Progress Note (short form) - Note Progress Note: Neurology follow-up: Events reviewed, Pt. examined. No headaches, no vertigo today Pt c/o persistent cough with occ lightheadedness. Exam Unchanged. IMP: Post-tussive (vasovagal) presyncope Migraine headaches Restless Limbs Syndrome Suggest: Cough suppressant and Rx of Bronchitis Will resume topiramate 50 BID if migraines return Will resume Ropinirole as out patient once light headedness and cough resolve. Thank you very much, Pedro Mane MD
[2018-10-12] MEDS: MONTELUKAST NA 10 MG TABLET PO SCH (22:23)
[2018-10-12] MEDS: ATORVASTATIN CA 20 MG TABLET (FP) PO SCH (22:23)
[2018-10-12] MEDS ORDERED: ASPIRIN 325 MG TABLET PO ONE (22:37)
[2018-10-12] MEDS ORDERED: HEPARIN NA (PORCINE) 5,000 UNITS/ML 1ML VIAL IVPUSH PRN (22:38)
[2018-10-12] MEDS ORDERED: LISINOPRIL 20 MG TABLET (FP) PO ONE (22:45)
[2018-10-12] MEDS ORDERED: CLOPIDOGREL BISULFATE 75 MG TABLET (FP) PO ONE (22:48)
[2018-10-12] MEDS ORDERED: ATORVASTATIN CA 20 MG TABLET (FP) PO ONE (22:52)
--- NOTE | 2018-10-12 22:57 | PN ---
Progress Note, Physician - Current Medication List Current Medications: Active Medications Aspirin (Asa -) 81 mg PO DAILY [facility] Atorvastatin Calcium (Lipitor -) 60 mg PO ONCE ONE Stop: 10/12/18 22:53 Atorvastatin Calcium (Lipitor -) 80 mg PO HS [facility] Clopidogrel Bisulfate (Plavix -) 75 mg PO DAILY [facility] Clopidogrel Bisulfate (Plavix -) 75 mg PO ONCE ONE Stop: 10/12/18 22:49 Guaifenesin (Diabetic Tussin Dm -) 5 ml PO Q6H PRN PRN Reason: COUGH Last Admin: 10/12/18 22:24 Dose: 5 ml Heparin Sodium (Porcine) (Heparin -) 1,000 unit IVPUSH PRN PRN PRN Reason: Heparin Heparin Sodium (Porcine) (Heparin -) 5,000 unit IVPUSH PRN PRN PRN Reason: Heparin Hydrochlorothiazide (Hctz -) 25 mg PO DAILY [facility] Last Admin: 10/12/18 09:23 Dose: 25 mg Heparin Sodium/Dextrose (Heparin Infusion -) 25,000 units in 500 mls @ 20 mls/ hr IVPB TITR [facility]; Protocol Insulin Aspart (Novolog Vial Sliding Scale -) 1 vial SQ ACHS [facility]; Protocol Last Admin: 10/12/18 22:23 Dose: 10 units Lisinopril (Prinivil) 40 mg PO DAILY [facility] Meclizine HCl (Antivert -) 25 mg PO TID PRN PRN Reason: VERTIGO Montelukast Sodium (Singulair -) 10 mg PO HS [facility] Last Admin: 10/12/18 22:23 Dose: 10 mg Pantoprazole Sodium (Protonix -) 40 mg PO DAILY [facility] Last Admin: 10/12/18 09:23 Dose: 40 mg Pregabalin (Lyrica -) 100 mg PO DAILY [facility] Last Admin: 10/12/18 09:23 Dose: 100 mg - Objective Vital Signs: Vital Signs Temperature 97.8 F 10/12/18 18:00 Pulse Rate 91 H 10/12/18 18:00 Respiratory Rate 16 10/12/18 18:00 Blood Pressure 150/79 10/12/18 18:00 O2 Sat by Pulse Oximetry (%) 97 10/12/18 09:00 Labs: CBC, BMP 10/11/18 06:00 10/11/18 06:00
[2018-10-12] MEDS ORDERED: ISOSORBIDE MONONITRATE 60 MG TAB.SR.24H (FP) PO ONE (23:02)
[2018-10-12] MEDS ORDERED: NITROGLYCERIN SUBLINGUAL 1/150 0.4 MG TAB SL PRN (23:02)
[2018-10-12] MEDS: HEPARIN INFUSION - 25,000 UNITS/500 ML INFUS.BAG IVPB SCH (23:32)
[2018-10-13] MEDS: HEPARIN INFUSION - 25,000 UNITS/500 ML INFUS.BAG IVPB SCH ×2 (00:13→21:59)
[2018-10-13] MEDS: INSULIN SLIDING SCALE (NOVOLOG) 1 VIAL SQ SCH ×4 (06:07→21:59)
[2018-10-13] MEDS: HYDROCHLOROTHIAZIDE 25 MG TABLET (FP) PO SCH (09:57)
[2018-10-13] MEDS: PREGABALIN 100 MG CAPSULE PO SCH (09:57)
[2018-10-13] MEDS: LISINOPRIL 20 MG TABLET (FP) PO SCH (09:57)
[2018-10-13] MEDS: CLOPIDOGREL BISULFATE 75 MG TABLET (FP) PO SCH (09:57)
[2018-10-13] MEDS: ASPIRIN 81 MG CHEWABLE TABLETS PO SCH (09:57)
[2018-10-13] MEDS: ISOSORBIDE MONONITRATE 30 MG TAB.SR.24H (FP) PO SCH (09:57)
[2018-10-13] MEDS: PANTOPRAZOLE 40 MG TABLET (FP) PO SCH (09:57)
[2018-10-13] MEDS: HEPARIN NA (PORCINE) 5,000 UNITS/ML 1ML VIAL IVPUSH PRN ×2 (10:30→17:58)
[2018-10-13 12:53] VITALS: BMI 38.4
--- NOTE | 2018-10-13 16:49 | PN ---
Progress Note, Physician Chief Complaint: Pt A&Ox3; still with sharp chest pain when she coughs forcibly, as well as an occasionl dull chest ache. History of Present Illness: 58 yo black female pmh of HTN, HLD, DM, GERD, obesity, and Asthma BIBA with sudden onset CP while at work. 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 ASA and 1 sublingual Nitro given by EMS with relief of pain for 10 min. The pain is right sided, described as dull with radiation down the right arm and to the right upper back. Denies recent travel, calf tenderness, hx of [place] or family hx of [place], F/C/N/V, abdominal pain or changes in bowel or bladder habits. Of note , pt seen in the ED 07/25/2018 with CP which feels similar in quality and intensity. Trops and EKG unremarkable and Stress test done which was normal. 10/10/18 12:56 Pt also admits to 2 days of cough with clear sputum and new onset OJEDA. Denies sore throat, ear pain/discharge, nasal congestion, sinus pain or sick contacts. - Current Medication List Current Medications: Active Medications Aspirin (Asa -) 81 mg PO DAILY [facility] Last Admin: 10/13/18 09:57 Dose: 81 mg Atorvastatin Calcium (Lipitor -) 80 mg PO HS [facility] Clopidogrel Bisulfate (Plavix -) 75 mg PO DAILY [facility] Last Admin: 10/13/18 09:57 Dose: 75 mg Guaifenesin (Diabetic Tussin Dm -) 5 ml PO Q6H PRN PRN Reason: COUGH Last Admin: 10/12/18 22:24 Dose: 5 ml Heparin Sodium (Porcine) (Heparin -) 1,000 unit IVPUSH PRN PRN PRN Reason: Heparin Last Admin: 10/13/18 10:30 Dose: 1,000 unit Heparin Sodium (Porcine) (Heparin -) 5,000 unit IVPUSH PRN PRN PRN Reason: Heparin Hydrochlorothiazide (Hctz -) 25 mg PO DAILY [facility] Last Admin: 10/13/18 09:57 Dose: 25 mg Heparin Sodium/Dextrose (Heparin Infusion -) 25,000 units in 500 mls @ 20 mls/ hr IVPB TITR [facility]; Protocol Last Titration: 10/13/18 10:30 Dose: 1,100 units/hr, 22 mls/hr Insulin Aspart (Novolog Vial Sliding Scale -) 1 vial SQ ACHS [facility]; Protocol Last Admin: 10/13/18 12:00 Dose: 4 units Isosorbide Mononitrate (Imdur -) 30 mg PO DAILY [facility] Last Admin: 10/13/18 09:57 Dose: 30 mg Lisinopril (Prinivil) 40 mg PO DAILY [facility] Last Admin: 10/13/18 09:57 Dose: 40 mg Meclizine HCl (Antivert -) 25 mg PO TID PRN PRN Reason: VERTIGO Montelukast Sodium (Singulair -) 10 mg PO HS [facility] Last Admin: 10/12/18 22:23 Dose: 10 mg Nitroglycerin (Nitrostat -) 0.4 mg SL Q5M PRN PRN Reason: FOR CHEST PAIN Pantoprazole Sodium (Protonix -) 40 mg PO DAILY [facility] Last Admin: 10/13/18 09:57 Dose: 40 mg Pregabalin (Lyrica -) 100 mg PO DAILY [facility] Last Admin: 10/13/18 09:57 Dose: 100 mg - Objective Vital Signs: Vital Signs Temperature 97.7 F 10/13/18 05:52 Pulse Rate 98 H 10/13/18 05:52 Respiratory Rate 18 10/13/18 09:00 Blood Pressure 131/67 10/13/18 05:52 O2 Sat by Pulse Oximetry (%) 100 10/13/18 09:00 Constitutional: Yes: Anxious, Obese Eyes: Yes: WNL HENT: Yes: WNL Neck: Yes: WNL Cardiovascular: Yes: S1, S2 Respiratory: Yes: WNL Gastrointestinal: Yes: Soft, Abdomen, Obese ...Rectal Exam: Yes: Deferred Genitourinary: No: Anuria Breast(s): Yes: WNL Musculoskeletal: Yes: WNL Extremities: Yes: WNL Edema: No Peripheral Pulses WNL: Yes Integumentary: Yes: WNL Neurological: Yes: WNL Psychiatric: Yes: WNL Labs: CBC, BMP 10/11/18 06:00 10/11/18 06:00 Abnormal Lab Results 10/13/18 10/13/18 10/13/18 06:00 08:50 16:00 PTT (Actin FS) 45.5 H 46.0 H Troponin I 1.16 H* 10/14/18 00:01 PTT (Actin FS) 54.2 H Troponin I - ....Imaging EKG: Image Reviewed (Normal study) Problem List - Problems (1) Atypical chest pain Assessment/Plan: Pt had further chest pain overnight; TNI increased from 0.02-->0.26 last night-- >1.16 this morning. CK WNL. EKG today: NSR; no acute ST-T changes. On IV heparin, ASA, ACEI (dose increased), atorvastatin, clopidogrel, Imdur. ( Asthma precludes use of beta blockers). Plan for coronary angiogram. Code(s): R07.89 - OTHER CHEST PAIN (2) Hypercholesterolemia Assessment/Plan: Now on high-dose statin (LDL 87 mg/dL; triglycerides mildly elevated). Code(s): E78.0 - PURE HYPERCHOLESTEROLEMIA * DO NOT USE * (4) Low back pain Code(s): M54.5 - LOW BACK PAIN (6) Gastritis Code(s): K29.70 - GASTRITIS, UNSPECIFIED, WITHOUT BLEEDING (7) Obesity Assessment/Plan: Pt requests nutritional help to understand how to lose weight. She often skips breakfast. Code(s): E66.9 - OBESITY, UNSPECIFIED (8) Vascular calcification Assessment/Plan: CTA: vascular calcifications, including coronary arteries. Code(s): I99.8 - OTHER DISORDER OF CIRCULATORY SYSTEM (9) Bronchial asthma Code(s): J45.909 - UNSPECIFIED ASTHMA, UNCOMPLICATED (10) Acute bronchitis Assessment/Plan: On antibiotics. Code(s): J20.9 - ACUTE BRONCHITIS, UNSPECIFIED (11) HTN (hypertension) Assessment/Plan: On lisinopril (dose increased; BP now better-controlled) and HCTZ. Code(s): I10 - ESSENTIAL (PRIMARY) HYPERTENSION
[2018-10-13] MEDS ORDERED: PT OWN MED DRAWER 7, Y5N ONE (20:36)
[2018-10-13] MEDS: MONTELUKAST NA 10 MG TABLET PO SCH (21:59)
[2018-10-13] MEDS ORDERED: ATORVASTATIN CA 80 MG TABLET (FP) PO SCH (22:00)
[2018-10-13] MEDS: guaiFENesin/D-M SUGAR-FREE/ACLHOL-FREE 118 ML BOTTLE PO PRN (22:00)
--- NOTE | 2018-10-13 22:04 | EKG ---
Test Reason : Blood Pressure : / mmHG Vent. Rate : 099 BPM Atrial Rate : 099 BPM P-R Int : 154 ms QRS Dur : 094 ms QT Int : 358 ms P-R-T Axes : 061 004 051 degrees QTc Int : 459 ms NORMAL SINUS RHYTHM NORMAL ECG WHEN COMPARED WITH ECG OF 12-OCT-2018 21:15, NO SIGNIFICANT CHANGE WAS FOUND Confirmed by LIMA CHEEK MD ([id number]) on 10/13/2018 10:04:15 PM Referred By: Marah PIMENTEL Confirmed By:LIMA CHEEK MD
--- NOTE | 2018-10-13 22:10 | EKG ---
Test Reason : Blood Pressure : / mmHG Vent. Rate : 089 BPM Atrial Rate : 089 BPM P-R Int : 174 ms QRS Dur : 100 ms QT Int : 382 ms P-R-T Axes : 053 006 008 degrees QTc Int : 464 ms NORMAL SINUS RHYTHM NONSPECIFIC ST ABNORMALITY ABNORMAL ECG WHEN COMPARED WITH ECG OF 10-OCT-2018 12:00, Confirmed by LIMA CHEEK MD ([id number]) on 10/13/2018 10:09:52 PM Referred By: Confirmed By:LIMA CHEEK MD
--- NOTE | 2018-10-13 23:22 | PN ---
Progress Note, Physician History of Present Illness: Pt denies any chest pain - Current Medication List Current Medications: Active Medications Aspirin (Asa -) 81 mg PO DAILY [facility] Last Admin: 10/13/18 09:57 Dose: 81 mg Atorvastatin Calcium (Lipitor -) 80 mg PO HS [facility] Last Admin: 10/13/18 21:59 Dose: 80 mg Clopidogrel Bisulfate (Plavix -) 75 mg PO DAILY [facility] Last Admin: 10/13/18 09:57 Dose: 75 mg Guaifenesin (Diabetic Tussin Dm -) 5 ml PO Q6H PRN PRN Reason: COUGH Last Admin: 10/13/18 22:00 Dose: 5 ml Heparin Sodium (Porcine) (Heparin -) 1,000 unit IVPUSH PRN PRN PRN Reason: Heparin Last Admin: 10/13/18 17:58 Dose: 1,000 unit Heparin Sodium (Porcine) (Heparin -) 5,000 unit IVPUSH PRN PRN PRN Reason: Heparin Hydrochlorothiazide (Hctz -) 25 mg PO DAILY [facility] Last Admin: 10/13/18 09:57 Dose: 25 mg Heparin Sodium/Dextrose (Heparin Infusion -) 25,000 units in 500 mls @ 20 mls/ hr IVPB TITR [facility]; Protocol Last Admin: 10/13/18 21:59 Dose: 1,200 units/hr, 24 mls/hr Insulin Aspart (Novolog Vial Sliding Scale -) 1 vial SQ ACHS [facility]; Protocol Last Admin: 10/13/18 21:59 Dose: 8 units Isosorbide Mononitrate (Imdur -) 30 mg PO DAILY [facility] Last Admin: 10/13/18 09:57 Dose: 30 mg Lisinopril (Prinivil) 40 mg PO DAILY [facility] Last Admin: 10/13/18 09:57 Dose: 40 mg Meclizine HCl (Antivert -) 25 mg PO TID PRN PRN Reason: VERTIGO Montelukast Sodium (Singulair -) 10 mg PO HS [facility] Last Admin: 10/13/18 21:59 Dose: 10 mg Nitroglycerin (Nitrostat -) 0.4 mg SL Q5M PRN PRN Reason: FOR CHEST PAIN Pantoprazole Sodium (Protonix -) 40 mg PO DAILY [facility] Last Admin: 10/13/18 09:57 Dose: 40 mg Pregabalin (Lyrica -) 100 mg PO DAILY [facility] Last Admin: 10/13/18 09:57 Dose: 100 mg - Objective Vital Signs: Vital Signs Temperature 97.9 F 10/13/18 18:00 Pulse Rate 91 H 10/13/18 18:00 Respiratory Rate 18 10/13/18 18:00 Blood Pressure 131/72 10/13/18 18:00 O2 Sat by Pulse Oximetry (%) 100 10/13/18 09:00 Constitutional: Yes: Well Nourished Neck: Yes: WNL, Supple Cardiovascular: Yes: WNL, Regular Rate and Rhythm Respiratory: Yes: WNL, Regular, CTA Bilaterally Gastrointestinal: Yes: WNL, Normal Bowel Sounds, Soft Labs: CBC, BMP 10/11/18 06:00 10/11/18 06:00 Problem List - Problems (1) Chest pain Assessment/Plan: Pt w/ increased troponin Pt started on IV heparin Cont asa/plavix Possible cardiac cath as per cardio Code(s): R07.9 - CHEST PAIN, UNSPECIFIED Qualifiers: Chest pain type: unspecified Qualified Code(s): R07.9 - Chest pain, unspecified (2) HTN (hypertension) Assessment/Plan: BP stable Cont hctz//imdur/lisinopril Code(s): I10 - ESSENTIAL (PRIMARY) HYPERTENSION (3) HLD (hyperlipidemia) Assessment/Plan: Cont lipitor Code(s): E78.5 - HYPERLIPIDEMIA, UNSPECIFIED (4) Diabetes Assessment/Plan: Cont sliding scale w/ coverage Code(s): E11.9 - TYPE 2 DIABETES MELLITUS WITHOUT COMPLICATIONS (5) Vertigo Assessment/Plan: Cont meclizine CT scan head unremarkable Code(s): R42 - DIZZINESS AND GIDDINESS (6) Bronchitis Assessment/Plan: Will start levaquin Cont robitussin Code(s): J40 - BRONCHITIS, NOT SPECIFIED ACUTE OR CHRONIC
[2018-10-14 05:30] VITALS: BP 139/64; PULSE 87; TEMP 97.9
[2018-10-14] MEDS: INSULIN SLIDING SCALE (NOVOLOG) 1 VIAL SQ SCH ×2 (06:05→11:56)
[2018-10-14] MEDS: guaiFENesin/D-M SUGAR-FREE/ACLHOL-FREE 118 ML BOTTLE PO PRN (06:06)
[2018-10-14] MEDS ORDERED: PT OWN MED DRAWER 7, Y5N ONE (06:16)
[2018-10-14 07:55] LABS: BASO % 0.6 % (0-2.0); EOS % 5.9 % (0-4.5); HEMATOCRIT 31.4 % (32.4-45.2); HEMOGLOBIN 10.7 GM/dL (10.7-15.3); LYMPH % 47.2 % (8-40); MCH 28.9 pg (25.7-33.7); MCHC 34.1 g/dl (32.0-36.0); MEAN CELL VOLUME 84.7 fl (80-96); MONO % 7.7 % (3.8-10.2); NEUT % 38.6 % (42.8-82.8); PLATELET COUNT 246 K/MM3 (134-434); RBC 3.71 M/mm3 (3.60-5.2); RDW 13.1 % (11.6-15.6); WHITE BLOOD COUNT 4.9 K/mm3 (4.0-10.0)
[2018-10-14 08:17] LABS: ALBUMIN 3.1 g/dl (3.4-5.0); ALK PHOS 55 U/L (45-117); ANION GAP 4 MMOL/L (8-16); BILIRUBIN,TOTAL 0.2 mg/dL (0.2-1); BLOOD UREA NITROGEN 28 mg/dL (7-18); CHLORIDE 102 mmol/L (98-107); CO2 31 mmol/L (21-32); CREATININE 1.1 mg/dL (0.55-1.3); GLUCOSE,RANDOM 285 mg/dL (74-106); POTASSIUM 4.1 mmol/L (3.5-5.1); SGOT/AST 14 U/L (15-37); SGPT/ALT 24 U/L (13-61); SODIUM 137 mmol/L (136-145); TOT PROT 6.6 g/dl (6.4-8.2)
--- NOTE | 2018-10-14 08:34 | PN ---
Progress Note, Physician Chief Complaint: Over w/e, more chest pain and + TnI History of Present Illness: TELE: NSR - Current Medication List Current Medications: Active Medications Aspirin (Asa -) 81 mg PO DAILY [facility] Last Admin: 10/13/18 09:57 Dose: 81 mg Atorvastatin Calcium (Lipitor -) 80 mg PO HS [facility] Last Admin: 10/13/18 21:59 Dose: 80 mg Clopidogrel Bisulfate (Plavix -) 75 mg PO DAILY [facility] Last Admin: 10/13/18 09:57 Dose: 75 mg Guaifenesin (Diabetic Tussin Dm -) 5 ml PO Q6H PRN PRN Reason: COUGH Last Admin: 10/14/18 06:06 Dose: 5 ml Heparin Sodium (Porcine) (Heparin -) 1,000 unit IVPUSH PRN PRN PRN Reason: Heparin Last Admin: 10/13/18 17:58 Dose: 1,000 unit Heparin Sodium (Porcine) (Heparin -) 5,000 unit IVPUSH PRN PRN PRN Reason: Heparin Hydrochlorothiazide (Hctz -) 25 mg PO DAILY [facility] Last Admin: 10/13/18 09:57 Dose: 25 mg Heparin Sodium/Dextrose (Heparin Infusion -) 25,000 units in 500 mls @ 20 mls/ hr IVPB TITR [facility]; Protocol Last Admin: 10/13/18 21:59 Dose: 1,200 units/hr, 24 mls/hr Insulin Aspart (Novolog Vial Sliding Scale -) 1 vial SQ ACHS [facility]; Protocol Last Admin: 10/14/18 06:05 Dose: 6 units Isosorbide Mononitrate (Imdur -) 30 mg PO DAILY [facility] Last Admin: 10/13/18 09:57 Dose: 30 mg Levofloxacin (Levaquin -) 500 mg PO DAILY@0600 [facility] Last Admin: 10/14/18 06:03 Dose: 500 mg Lisinopril (Prinivil) 40 mg PO DAILY [facility] Last Admin: 10/13/18 09:57 Dose: 40 mg Meclizine HCl (Antivert -) 25 mg PO TID PRN PRN Reason: VERTIGO Montelukast Sodium (Singulair -) 10 mg PO HS [facility] Last Admin: 10/13/18 21:59 Dose: 10 mg Nitroglycerin (Nitrostat -) 0.4 mg SL Q5M PRN PRN Reason: FOR CHEST PAIN Pantoprazole Sodium (Protonix -) 40 mg PO DAILY [facility] Last Admin: 10/13/18 09:57 Dose: 40 mg Pregabalin (Lyrica -) 100 mg PO DAILY [facility] Last Admin: 10/13/18 09:57 Dose: 100 mg - Objective Vital Signs: Vital Signs Temperature 97.9 F 10/14/18 05:30 Pulse Rate 87 10/14/18 05:30 Respiratory Rate 18 10/14/18 08:31 Blood Pressure 139/64 10/14/18 05:30 O2 Sat by Pulse Oximetry (%) 97 10/14/18 08:31 Constitutional: Yes: No Distress Eyes: Yes: Conjunctiva Clear Cardiovascular: Yes: Regular Rate and Rhythm Respiratory: Yes: CTA Bilaterally Gastrointestinal: Yes: Soft Edema: No Neurological: Yes: Alert, Oriented Labs: CBC, BMP 10/14/18 06:40 10/14/18 06:40 Laboratory Tests 10/14/18 10/14/18 10/14/18 06:40 06:40 06:40 WBC 4.9 Hgb 10.7 Plt Count 246 PTT (Actin FS) 54.8 H Sodium 137 Potassium 4.1 BUN 28 H Creatinine 1.1 Creatine Kinase Troponin I 10/14/18 06:40 WBC Hgb Plt Count PTT (Actin FS) Sodium Potassium BUN Creatinine Creatine Kinase 49 Troponin I 0.16 H - ....Imaging EKG: Image Reviewed Problem List - Problems (1) Chest pain Code(s): R07.9 - CHEST PAIN, UNSPECIFIED Qualifiers: Chest pain type: unspecified Qualified Code(s): R07.9 - Chest pain, unspecified (2) Hypercholesterolemia Code(s): E78.0 - PURE HYPERCHOLESTEROLEMIA * DO NOT USE * Assessment/Plan IMP: Chest pain syndrome, + TnI Possible/ suspected NSTEMI REC: Case d/w Dr. Hyatt, covered weekend. Agree w/ DAPT, heparin gtts. Have d/w patient cardiac cath for definitive diagnosis presence/ extent CAD and she agrees to transfer
[2018-10-14] MEDS: CLOPIDOGREL BISULFATE 75 MG TABLET (FP) PO SCH (09:39)
[2018-10-14] MEDS: PANTOPRAZOLE 40 MG TABLET (FP) PO SCH (09:39)
[2018-10-14] MEDS: HYDROCHLOROTHIAZIDE 25 MG TABLET (FP) PO SCH (09:39)
[2018-10-14] MEDS: LISINOPRIL 20 MG TABLET (FP) PO SCH (09:39)
[2018-10-14] MEDS: ISOSORBIDE MONONITRATE 30 MG TAB.SR.24H (FP) PO SCH (09:39)
[2018-10-14] MEDS: ASPIRIN 81 MG CHEWABLE TABLETS PO SCH (09:39)
[2018-10-14] MEDS: PREGABALIN 100 MG CAPSULE PO SCH (09:39)
== END 2018-10-14 13:36 | disposition short-term general hospital (02) | DRG 282 ==
LOC: JER 11:49 → JERBED 16:04 → J4S 17:59 → OBSVTOIN 23:14
PROVIDERS: ADMIT Internal Medicine; ATTEND Internal Medicine
DX: I21.4 Non-ST elevation (NSTEMI) myocardial infarction (principal); I25.110 Atherosclerotic heart disease of native coronary artery with unstable angina pectoris; J20.9 Acute bronchitis, unspecified; E87.5 Hyperkalemia; I10 Essential (primary) hypertension; E11.9 Type 2 diabetes mellitus without complications; Z79.84 Long term (current) use of oral hypoglycemic drugs; Z79.4 Long term (current) use of insulin; R07.89 Other chest pain; E66.9 Obesity, unspecified; Z68.38 Body mass index [BMI] 38.0-38.9, adult; K21.9 Gastro-esophageal reflux disease without esophagitis; J45.909 Unspecified asthma, uncomplicated; E78.5 Hyperlipidemia, unspecified; K29.70 Gastritis, unspecified, without bleeding; G43.909 Migraine, unspecified, not intractable, without status migrainosus; G25.81 Restless legs syndrome; M54.5 Low back pain
CPT/HCPCS: 36415; 70450-TC; 71275-TC; 74174-TC; 80053; 80061; 82550; 82962; 83690; 83721; 83880; 84443; 84484; 85025; 85730; 87081; 87804; 93005; 93010; 93306-TC; 93880-TC; 99282-25; G0378; J1644

== ENCOUNTER 2019-05-06 10:09 | Inpatient (IN) | payer OTHER ==
--- NOTE | 2019-05-06 10:51 | PDOC ---
History of Present Illness - General Chief Complaint: Pain Stated Complaint: ABD PAIN Time Seen by Provider: 05/06/19 10:34 History Source: Patient Exam Limitations: No Limitations Past History - Past Medical History Allergies/Adverse Reactions: Allergies Allergy/AdvReac Type Severity Reaction Status Date / Time duloxetine HCl AdvReac Intermediate jaw Verified 06/12/12 14:27 [From Cymbalta] locked, stiff joints Home Medications: Ambulatory Orders Montelukast Na [Singulair -] 10 mg PO HS #0 tablet 04/16/12 metFORMIN HCL [Glucophage -] 1,000 mg PO BIDAC #0 tablet 04/16/12 Dexlansoprazole [Dexilant] 60 mg PO DAILY 11/27/12 Insulin Lispro [Humalog] unit SQ ASDIR 11/27/12 Lisinopril/Hydrochlorothiazide [Lisinopril-Hctz 20-25 mg Tab] 1 each PO DAILY Pregabalin [Lyrica] 100 mg PO DAILY 11/27/12 Atorvastatin Ca [Lipitor] 20 mg PO HS 07/25/18 Anemia: No Asthma: Yes Cancer: No Cardiac Disorders: No CVA: No COPD: No CHF: No Dementia: No Diabetes: Yes GI Disorders: No Disorders: No HTN: Yes Hypercholesterolemia: Yes Liver Disease: No Seizures: No Thyroid Disease: No - Surgical History Abdominal Surgery: No Appendectomy: No Cardiac Surgery: No Cholecystectomy: No Lung Surgery: No Neurologic Surgery: No Orthopedic Surgery: Yes (R Knee) - Suicide/Smoking/Psychosocial Hx Smoking Status: No Smoking History: Unknown if ever smoked Have you smoked in the past 12 months: No Number of Cigarettes Smoked Daily: 0 Information on smoking cessation initiated: No Hx Alcohol Use: No Drug/Substance Use Hx: No Substance Use Type: None Hx Substance Use Treatment: No *Physical Exam - Vital Signs Last Vital Signs Temp Pulse Resp BP Pulse Ox 97.4 F L 82 16 167/63 100 05/06/19 10:10 05/06/19 10:10 05/06/19 10:10 05/06/19 10:10 05/06/19 10:10 *DC/Admit/Observation/Transfer - Referrals Referrals: Chino Balderrama MD [Primary Care Provider] - - Patient Instructions - Post Discharge Activity
[2019-05-06] MEDS ORDERED: ONDANSETRON 4 MG/2 ML VIAL IVPUSH ONE (10:54)
[2019-05-06] MEDS ORDERED: ACETAMINOPHEN 1000 MG/100 ML VIAL (NON FORMULARY) IVPB ONE (10:54)
[2019-05-06] MEDS ORDERED: ACETAMINOPHEN INJECTION 100 ML IVPB ONE (11:09)
[2019-05-06] MEDS ORDERED: ONDANSETRON 4 MG/2 ML VIAL ONE (11:10)
[2019-05-06 11:44] LABS: BASO % 0.4 % (0-2.0); EOS % 3.4 % (0-4.5); HEMATOCRIT 30.9 % (32.4-45.2); HEMOGLOBIN 10.1 GM/dL (10.7-15.3); LYMPH % 28.7 % (8-40); MCH 27.3 pg (25.7-33.7); MCHC 32.5 g/dl (32.0-36.0); MEAN CELL VOLUME 83.9 fl (80-96); MEAN PLT VOLUME 9.8 fl (7.5-11.1); MONO % 8.1 % (3.8-10.2); NEUT % 59.4 % (42.8-82.8); PLATELET COUNT 274 K/MM3 (134-434); RBC 3.68 M/mm3 (3.60-5.2); RDW 14.1 % (11.6-15.6); WHITE BLOOD COUNT 5.8 K/mm3 (4.0-10.0)
[2019-05-06 11:56] LABS: ALBUMIN 3.4 g/dl (3.4-5.0); BILIRUBIN,TOTAL 0.2 mg/dL (0.2-1); BLOOD UREA NITROGEN 26.6 mg/dL (7-18); CALCIUM 9.5 mg/dL (8.5-10.1); POTASSIUM 4.1 mmol/L (3.5-5.1); TOT PROT 6.6 g/dl (6.4-8.2)
[2019-05-06] MEDS ORDERED: DEXTROSE 50%-WATER - 25 GM/50 ML VIAL IVPUSH ONE (13:38)
--- NOTE | 2019-05-06 15:02 | PDOC ---
Documentation entered by Felix Qiu SCRIBE, acting as scribe for Deepak Murry MD. Deepak Murry MD: This documentation has been prepared by the Lazarus kaur Renju, SCRIBE, under my direction and personally reviewed by me in its entirety. I confirm that the documentation accurately reflects all work, treatment, procedures, and medical decision making performed by me. Attending Attestation - Resident Resident Name: Rodger Winchester - ED Attending Attestation I have performed the following: I have examined & evaluated the patient, The case was reviewed & discussed with the resident, I agree w/resident's findings & plan, Exceptions are as noted - HPI HPI: 05/06/19 11:16 The patient is a 59 year old female with a past medical history of HTN, DM, GERD , gastritis, HLD, and who presents to the emergency department for evaluation of abdominal pain which started this morning. Patient reports acute onset of diffuse epigastric pain which started this morning. Patient also endorses mild substernal chest pain which radiates to her abdomen and back. Denies shortness of breath, headache, dizziness, vomiting, diarrhea, and constipation. Allergies: Duloxetine HCl - Physicial Exam PE: 05/06/19 11:15 ROS: A complete review of 10 out of 10 review of systems is taken and is negative apart from what is previously mentioned below and in the HPI. Vitals: Triage Vital signs reviewed General Appearance: no acute distress, well nourished well developed, Head: Atraumatic, Eyes: Pupils equal reactive round, extraocular movement intact Neck: Supple; Chest Wall: Nontender Cardiac: Regular rate and rhythm, no murmurs, no rubs, no gallops, Lungs: Clear to auscultation bilaterally, good air movement bilaterally, Abdomen: (+)Diffuse upper abdominal tenderness, RUQ > LUQ. Extremities: Full range of motion to all extremities, no cyanosis, clubbing, or edema Skin: Warm and dry, no rashes or lesions, no rash, no petechiae Neuro: Strength intact to all extremities, Sensation intact to all extremities, gait normal Psych: normal mood, normal affect - Medical Decision Making 05/06/19 17:34 The patient is a 59 year old female with a past medical history of HTN, DM, GERD , gastritis, HLD, and who presents to the emergency department for evaluation of abdominal pain which started this morning. Patient reports acute onset of diffuse epigastric pain which started this morning. Patient also endorses mild substernal chest pain which radiates to her abdomen and back. Denies shortness of breath, headache, dizziness, vomiting, diarrhea, and constipation. Differential Dx: Includes ACS, GI, Dissection Plan: Labs imaging pain meds MDM: No acute pathology on CT, labs wnl Reval continued RUQ pain, given US with dilated CBD will admit to medicine for GI consultation for evaluation for choledocolithiasis
[2019-05-06 15:21] LABS: PH,URINE 5.5 (5.0-8.0); URINE APPEARANCE CLEAR; URINE BILIRUBIN NEGATIVE (NEGATIVE); URINE COLOR YELLOW; URINE GLUCOSE (UA) 3+ (NEGATIVE); URINE KETONE NEGATIVE (NEGATIVE); URINE LEUK ESTERASE NEGATIVE (NEGATIVE); URINE NITRITE NEGATIVE (NEGATIVE); URINE PROTEIN TRACE (NEGATIVE); URINE UROBILINOGEN 0.2 mg/dL (0.2-1.0)
[2019-05-06] MEDS ORDERED: ONDANSETRON 4 MG/2 ML VIAL IVPUSH PRN (15:42)
[2019-05-06 16:27] VITALS: BMI 39.4
--- NOTE | 2019-05-06 16:28 | EKG ---
Test Reason : Blood Pressure : / mmHG Vent. Rate : 086 BPM Atrial Rate : 086 BPM P-R Int : 166 ms QRS Dur : 094 ms QT Int : 404 ms P-R-T Axes : -03 055 115 degrees QTc Int : 483 ms NORMAL SINUS RHYTHM NONSPECIFIC ST AND T WAVE ABNORMALITY PROLONGED QT ABNORMAL ECG WHEN COMPARED WITH ECG OF 13-OCT-2018 09:39, ST ELEVATION NOW PRESENT IN INFERIOR LEADS NONSPECIFIC T WAVE ABNORMALITY NOW EVIDENT IN INFERIOR LEADS NONSPECIFIC T WAVE ABNORMALITY, WORSE IN LATERAL LEADS Confirmed by Damián Rebollar ([id number]) on 05/06/2019 4:28:06 PM Referred By: Confirmed By:Damián Rebollar
[2019-05-06] MEDS: DEXTROSE 5%-0.45% SALINE 1,000 ML IV SCH (16:47)
[2019-05-06] MEDS: INSULIN SLIDING SCALE (NOVOLOG) 1 VIAL SQ SCH ×2 (16:48→21:49)
[2019-05-06] MEDS ORDERED: DEXTROSE 50%-WATER 25 GM/50 ML DISP.SYRIN ONE (16:57)
[2019-05-06] MEDS ORDERED: DEXTROSE 50%-WATER 25 GM/50 ML DISP.SYRIN IVPUSH STA (17:06)
[2019-05-06] MEDS ORDERED: PNEUMOCOCCAL 23 VACCINE 0.5 ML VIAL IM ONE (19:30)
[2019-05-06] MEDS: HEPARIN NA (PORCINE) 5,000 UNITS/ML 1ML VIAL SQ SCH (21:40)
[2019-05-06] MEDS: PANTOPRAZOLE SODIUM 40 MG VIAL IVPB SCH (21:40)
[2019-05-06] MEDS ORDERED: PNEUMOC 13-VAL CONJ-DIP CRM/PF 0.5 ML DISP.SYRIN IM ONE (22:00)
[2019-05-06] MEDS ORDERED: PANTOPRAZOLE SODIUM 40 MG in SODIUM CHLORIDE 100 ML IVPB SCH (22:00)
--- NOTE | 2019-05-06 23:42 | HP ---
Admitting History and Physical - Past Medical History Cardiovascular: Yes: HTN, Hyperlipdemia Pulmonary: Yes: Asthma Gastrointestinal: Yes: GERD ...LMP Comment: post menapuase ...: No Endocrine: Yes: Diabetes Mellitus - Smoking History Smoking history: Unknown if ever smoked Have you smoked in the past 12 months: No Aproximately how many cigarettes per day: 0 - Alcohol/Substance Use Hx Alcohol Use: No Home Medications - Allergies Allergies/Adverse Reactions: Allergies Allergy/AdvReac Type Severity Reaction Status Date / Time duloxetine HCl AdvReac Intermediate jaw Verified 06/12/12 14:27 [From Cymbalta] locked, stiff joints - Home Medications Home Medications: Ambulatory Orders Montelukast Na [Singulair -] 10 mg PO HS #0 tablet 04/16/12 metFORMIN HCL [Glucophage -] 1,000 mg PO BIDAC #0 tablet 04/16/12 Dexlansoprazole [Dexilant] 60 mg PO DAILY 11/27/12 Insulin Lispro [Humalog] 2 unit SQ ASDIR PRN 11/27/12 Lisinopril/Hydrochlorothiazide [Lisinopril-Hctz 20-25 mg Tab] 1 each PO DAILY Pregabalin [Lyrica] 100 mg PO DAILY 11/27/12 Atorvastatin Ca [Lipitor] 20 mg PO HS 07/25/18 Physical Examination Vital Signs: Vital Signs Temperature 98.8 F 05/06/19 14:15 Pulse Rate 76 05/06/19 16:13 Respiratory Rate 20 05/06/19 16:13 Blood Pressure 146/76 05/06/19 16:13 O2 Sat by Pulse Oximetry (%) 99 05/06/19 18:53 Labs: CBC, BMP 05/06/19 11:15 05/06/19 11:15
[2019-05-07] MEDS: DEXTROSE 5%-0.45% SALINE 1,000 ML IV SCH ×2 (06:33→15:45)
[2019-05-07] MEDS: INSULIN SLIDING SCALE (NOVOLOG) 1 VIAL SQ SCH ×5 (06:34→23:57)
[2019-05-07 07:22] LABS: BASO % 0.6 % (0-2.0); EOS % 3.7 % (0-4.5); HEMATOCRIT 27.8 % (32.4-45.2); LYMPH % 44.6 % (8-40); MCH 27.5 pg (25.7-33.7); MCHC 32.4 g/dl (32.0-36.0); MEAN CELL VOLUME 84.8 fl (80-96); MEAN PLT VOLUME 10.1 fl (7.5-11.1); MONO % 8.1 % (3.8-10.2); PLATELET COUNT 235 K/MM3 (134-434); RBC 3.28 M/mm3 (3.60-5.2); RDW 13.7 % (11.6-15.6); WHITE BLOOD COUNT 4.9 K/mm3 (4.0-10.0)
[2019-05-07 07:39] LABS: BILIRUBIN,TOTAL 0.2 mg/dL (0.2-1); BLOOD UREA NITROGEN 16.8 mg/dL (7-18); CALCIUM 8.8 mg/dL (8.5-10.1); CREATININE 0.9 mg/dL (0.55-1.3); POTASSIUM 4.1 mmol/L (3.5-5.1)
--- NOTE | 2019-05-07 07:56 | CON.GI ---
Consult Consult Specialty:: GI Referred by:: Dr. Flowers Reason for Consultation:: Abdominal Pain - History of Present Illness Chief Complaint: Abdominal Pain History of Present Illness: Patient is a 59 y/o female with past medical history of HTN, DM, GERD, gastritis , HLD. Patient complain of RUQ pain that began yesterday morning. Pain is described as sharp, non-radiating and accompanied with nausea, poor appetite and bloating. She says there are no alleviating or exacerbating factors for her pain. Abdominal CTA results reviewed. Ultrasound shows borderline hepatomegaly with fatty infiltration vs hepatocellular disease, adenomyomatosis of gallbladder, and dilated CBD at 9mm. No elevated of LFTs noted in lab results. - History Source History Provided By: Patient Limitations to Obtaining History: No Limitations - Past Medical History Cardio/Vascular: Yes: HTN, Hyperlipdemia Pulmonary: Yes: Asthma Gastrointestinal: Yes: GERD ...LMP Comment: post menapuase ...: No Endocrine: Yes: Diabetes Mellitus - Past Surgical History Past Surgical History: Yes: - Alcohol/Substance Use Hx Alcohol Use: No - Smoking History Smoking history: Unknown if ever smoked Have you smoked in the past 12 months: No Aproximately how many cigarettes per day: 0 - Social History ADL: Independent History of Recent Travel: No Home Medications - Allergies Allergies/Adverse Reactions: Allergies Allergy/AdvReac Type Severity Reaction Status Date / Time duloxetine HCl AdvReac Intermediate jaw Verified 06/12/12 14:27 [From Cymbalta] locked, stiff joints - Home Medications Home Medications: Ambulatory Orders Montelukast Na [Singulair -] 10 mg PO HS #0 tablet 04/16/12 metFORMIN HCL [Glucophage -] 1,000 mg PO BIDAC #0 tablet 04/16/12 Dexlansoprazole [Dexilant] 60 mg PO DAILY 11/27/12 Insulin Lispro [Humalog] 2 unit SQ ASDIR PRN 11/27/12 Lisinopril/Hydrochlorothiazide [Lisinopril-Hctz 20-25 mg Tab] 1 each PO DAILY Pregabalin [Lyrica] 100 mg PO DAILY 11/27/12 Atorvastatin Ca [Lipitor] 20 mg PO HS 07/25/18 Review of Systems - Review of Systems Constitutional: reports: Loss of Appetite Eyes: reports: No Symptoms HENT: reports: No Symptoms Neck: reports: No Symptoms Cardiovascular: reports: No Symptoms Respiratory: reports: No Symptoms Gastrointestinal: reports: Abdominal Pain, Bloating, Nausea Genitourinary: reports: No Symptoms Breasts: reports: No Symptoms Reported Musculoskeletal: reports: No Symptoms Integumentary: reports: No Symptoms Neurological: reports: Headache Endocrine: reports: No Symptoms Hematology/Lymphatic: reports: No Symptoms Psychiatric: reports: No Symptoms Physical Exam-GI Vital Signs: Vital Signs Temperature 97.8 F 05/07/19 06:00 Pulse Rate 83 05/07/19 06:00 Respiratory Rate 20 05/07/19 06:00 Blood Pressure 138/68 05/07/19 06:00 O2 Sat by Pulse Oximetry (%) 99 05/06/19 22:00 Constitutional: Yes: No Distress, Calm Eyes: Yes: Conjunctiva Clear HENT: Yes: Atraumatic Cardiovascular: Yes: Regular Rate and Rhythm Respiratory: Yes: Regular, CTA Bilaterally Gastrointestinal Inspection: Yes: WNL. No: Ascites, Distention, Hernia, Scars, Other ...Auscultate: Yes: Normoactive Bowel Sounds. No: Hyperactive Bowel Sounds, Hypoactive Bowel Sounds, No Bowel Sounds, Other ...Palpate: Yes: Soft, Tenderness (RUQ), Tenderness, Epigastium. No: Firm/Rigid , Guarding, Hepatomegaly, Mass, Pulsatile Mass, Splenomegaly, Tenderness, Rebound, Other ...Percussion: Yes: Tympanitic. No: Dullness, Fluid Wave, Other Neurological: Yes: Alert, Oriented Psychiatric: Yes: Alert, Oriented Labs: CBC, BMP 05/07/19 06:20 05/07/19 06:20 Active Medications Generic Name Dose Route Start Last Admin Trade Name Freq PRN Reason Stop Dose Admin Heparin Sodium (Porcine) 5,000 unit 05/06/19 22:00 05/06/19 21:40 Heparin - SQ 5,000 unit BID [facility] Administration Hydrochlorothiazide 25 mg 05/07/19 10:00 Hctz - PO DAILY [facility] Dextrose/Sodium Chloride 1,000 mls @ 75 mls/hr 05/06/19 15:45 05/07/19 06:33 D5-1/2ns - IV 75 mls/hr ASDIR [facility] Administration Insulin Aspart 1 vial 05/06/19 16:30 05/07/19 06:34 Novolog Vial Sliding Scale - SQ 4 units ACHS [facility] Administration Protocol Lisinopril 20 mg 05/07/19 10:00 Prinivil PO DAILY [facility] Pantoprazole Sodium 40 mg 05/06/19 22:00 05/06/19 21:40 Protonix Iv IVPB 40 mg BID [facility] Administration Pregabalin 100 mg 05/07/19 10:00 Lyrica - PO DAILY [facility] Imaging - Results Cat Scan: Report Reviewed Ultrasound: Report Reviewed Problem List - Problems (1) Abdominal pain Assessment/Plan: >US results reviewed >clear liquid diet >IV hydration >pending Abdominal MRI, if MRI with negative results will order HIDA scan with EF to R/O Gallbladder Dyskinesia Code(s): R10.9 - UNSPECIFIED ABDOMINAL PAIN (2) Dilated cbd, acquired Assessment/Plan: >pending Abdominal MRI Code(s): K83.8 - OTHER SPECIFIED DISEASES OF BILIARY TRACT
[2019-05-07] MEDS ORDERED: HYDROCHLOROTHIAZIDE 12.5 MG CAPSULE (FP) PO SCH (10:00)
[2019-05-07] MEDS ORDERED: PATIENT'S OWN MEDICATION (NON-FORMULARY) (Lisinopril/Hydrochlorothiazide [Lisinopril-Hctz PO SCH (10:00)
[2019-05-07] MEDS: SIMETHICONE 80 MG TAB.CHEW (FP) PO PRN ×2 (10:36→21:57)
[2019-05-07] MEDS: PANTOPRAZOLE SODIUM 40 MG VIAL IVPB SCH ×2 (10:40→21:58)
[2019-05-07] MEDS: HEPARIN NA (PORCINE) 5,000 UNITS/ML 1ML VIAL SQ SCH ×2 (10:40→21:57)
[2019-05-07] MEDS: ACETAMINOPHEN 1000 MG/100 ML VIAL (NON FORMULARY) IVPB PRN ×2 (10:49→21:55)
[2019-05-07] MEDS: LISINOPRIL 20 MG TABLET (FP) PO SCH ×2 (10:50→11:22)
[2019-05-07] MEDS: HYDROCHLOROTHIAZIDE 25 MG TABLET (FP) PO SCH ×2 (10:50→11:22)
[2019-05-07] MEDS: PREGABALIN 100 MG CAPSULE PO SCH ×2 (10:50→11:22)
--- NOTE | 2019-05-07 15:41 | CON.CARD ---
Cardiology Consult (text) - Consultation Consultation Note: Chief Complaint: abd pain History of Present Illness: 59 F DM, HTN ,cad s/p nstemi 09/2018 and cath then w/o stenting (no stent needed per pt) here with abd pain. Also with n/v. No cp sob palps dizzy loc pnd orthopnea le edema. Evaluating for dilated cbd. - History Source History Provided By: Patient, Medical Record - Past Medical History Cardio/Vascular: Yes: HTN Pulmonary: Yes: Asthma ...: No Endocrine: Yes: Diabetes Mellitus - Past Surgical History Additional Surgical History: knee surgery - Alcohol/Substance Use Hx Alcohol Use: No Have you smoked in the past 12 months: No Aproximately how many cigarettes per day: 0 - Social History Place of : [facility] Home Medications - Allergies Allergies/Adverse Reactions: Allergies Allergy/AdvReac Type Severity Reaction Status Date / Time duloxetine HCl AdvReac Intermediate jaw Verified 06/12/12 14:27 [From Cymbalta] locked, stiff joints Home Medications Medication Instructions Recorded Montelukast Na [Singulair -] 10 mg PO HS #0 tablet 04/16/12 metFORMIN HCL [Glucophage -] 1,000 mg PO BIDAC #0 tablet 04/16/12 Dexlansoprazole [Dexilant] 60 mg PO DAILY 11/27/12 Insulin Lispro [Humalog] 2 unit SQ ASDIR PRN 11/27/12 Lisinopril/Hydrochlorothiazide 1 each PO DAILY 11/27/12 [Lisinopril-Hctz 20-25 mg Tab] Pregabalin [Lyrica] 100 mg PO DAILY 11/27/12 Atorvastatin Ca [Lipitor] 20 mg PO HS 07/25/18 Family Disease History - Family Disease History Family History: Unremarkable (noncontributory) Review of Systems Findings/Remarks: see HPI, all others nl - Risk Factors Known Risk Factors: Yes: Diabetes Mellitus, Hypertension Vital Signs: Vital Signs Period Temp Pulse Resp BP Sys/Brothers Pulse Ox Last 24 Hr 97.6 F-97.8 F 70-92 20-20 138-164/68-79 99-99 Constitutional: Yes: No Distress, Calm Eyes: Yes: Conjunctiva Clear Neck: Yes: Trachea Midline Respiratory: Yes: Rhonchi Gastrointestinal: Yes: Soft, Abdomen, Obese Cardiovascular: Yes: Regular Rate and Rhythm JVD: No Carotid Bruit: No PMI: Non-Displaced Heart Sounds: Yes: S1, S2 Edema: No Peripheral Pulses WNL: Yes Neurological: Yes: Alert, Oriented no jaundice diaphoresis - Other Data Labs, Other Data: Laboratory Last Values WBC 4.9 K/mm3 (4.0-10.0) 05/07/19 06:20 RBC 3.28 M/mm3 (3.60-5.2) L 05/07/19 06:20 Hgb 9.0 GM/dL (10.7-15.3) L 05/07/19 06:20 Hct 27.8 % (32.4-45.2) L 05/07/19 06:20 MCV 84.8 fl (80-96) 05/07/19 06:20 MCH 27.5 pg (25.7-33.7) 05/07/19 06:20 MCHC 32.4 g/dl (32.0-36.0) 05/07/19 06:20 RDW 13.7 % (11.6-15.6) 05/07/19 06:20 Plt Count 235 K/MM3 (134-434) 05/07/19 06:20 MPV 10.1 fl (7.5-11.1) 05/07/19 06:20 Absolute Neuts (auto) 2.1 K/mm3 (1.5-8.0) 05/07/19 06:20 Neutrophils % 43.0 % (42.8-82.8) D 05/07/19 06:20 Lymphocytes % 44.6 % (8-40) H D 05/07/19 06:20 Monocytes % 8.1 % (3.8-10.2) 05/07/19 06:20 Eosinophils % 3.7 % (0-4.5) 05/07/19 06:20 Basophils % 0.6 % (0-2.0) 05/07/19 06:20 Nucleated RBC % 0 % (0-0) 05/07/19 06:20 Sodium 139 mmol/L (136-145) 05/07/19 06:20 Potassium 4.1 mmol/L (3.5-5.1) 05/07/19 06:20 Chloride 105 mmol/L (98-107) 05/07/19 06:20 Carbon Dioxide 31 mmol/L (21-32) 05/07/19 06:20 Anion Gap 3 MMOL/L (8-16) L 05/07/19 06:20 BUN 16.8 mg/dL (7-18) 05/07/19 06:20 Creatinine 0.9 mg/dL (0.55-1.3) 05/07/19 06:20 Est GFR (CKD-EPI)AfAm 82.26 05/07/19 06:20 Est GFR (CKD-EPI)NonAf 70.98 05/07/19 06:20 POC Glucometer 316 UNITS (80-120) 05/07/19 12:07 Random Glucose 242 mg/dL (74-106) H 05/07/19 06:20 Calcium 8.8 mg/dL (8.5-10.1) 05/07/19 06:20 Total Bilirubin 0.2 mg/dL (0.2-1) 05/07/19 06:20 AST 20 U/L (15-37) 05/07/19 06:20 ALT 31 U/L (13-61) 05/07/19 06:20 Alkaline Phosphatase 56 U/L (45-117) 05/07/19 06:20 Creatine Kinase 122 U/L (26-192) 05/06/19 11:15 Troponin I < 0.02 ng/ml (0.00-0.05) 05/06/19 11:15 Total Protein 6.0 g/dl (6.4-8.2) L 05/07/19 06:20 Albumin 3.0 g/dl (3.4-5.0) L 05/07/19 06:20 Lipase 80 U/L (73-393) 05/06/19 11:15 Urine Color Yellow 05/06/19 14:30 Urine Appearance Clear 05/06/19 14:30 Urine pH 5.5 (5.0-8.0) 05/06/19 14:30 Ur Specific [place] 1.019 (1.010-1.035) 05/06/19 14:30 Urine Protein Trace (NEGATIVE) 05/06/19 14:30 Urine Glucose (UA) 3+ (NEGATIVE) H 05/06/19 14:30 Urine Ketones Negative (NEGATIVE) 05/06/19 14:30 Urine Blood Negative (NEGATIVE) 05/06/19 14:30 Urine Nitrite Negative (NEGATIVE) 05/06/19 14:30 Urine Bilirubin Negative (NEGATIVE) 05/06/19 14:30 Urine Urobilinogen 0.2 mg/dL (0.2-1.0) 05/06/19 14:30 Ur Leukocyte Esterase Negative (NEGATIVE) 05/06/19 14:30 cta chest: no dissection, aneurysm, chf, pe ecg: sr nl intervals (nl manual qtc) nonspec tw changes, no st changes Assessment/Plan 59 F DM, HTN ,cad s/p nstemi 09/2018 and cath then w/o stenting (no stent needed per pt) here with abd pain. abd pain: -has dilated cbd -eval per GI -ecg reviewed and by manual calculation qtc wnl. zofran can be used if needed, would repeat ecg day after starting to monitor for change in qtc. htn: -cont current meds hld: -statin held for now due to GI issues cad, nstemi: -no angina, no signs acs -cont bp control. resume statin and asa when possible.
--- NOTE | 2019-05-07 17:17 | CONSULT ---
Consult Consult Specialty:: Surgery Reason for Consultation:: dilated CBD - History of Present Illness Chief Complaint: abdominal pain History of Present Illness: The patient is a 59 year old female with a past medical history of HTN, DM, GERD , gastritis, HLD, and who presents to the emergency department for evaluation of abdominal pain. Patient reports acute onset of diffuse epigastric pain and mild substernal chest pain which radiates to her abdomen and back. Denies shortness of breath, headache, dizziness, vomiting, diarrhea, and constipation. - Past Medical History Cardio/Vascular: Yes: HTN, Hyperlipdemia Pulmonary: Yes: Asthma Gastrointestinal: Yes: GERD ...LMP Comment: post menapuase ...: No Endocrine: Yes: Diabetes Mellitus - Past Surgical History Past Surgical History: Yes: - Alcohol/Substance Use Hx Alcohol Use: No - Smoking History Smoking history: Unknown if ever smoked Have you smoked in the past 12 months: No Aproximately how many cigarettes per day: 0 - Social History ADL: Independent History of Recent Travel: No Home Medications - Allergies Allergies/Adverse Reactions: Allergies Allergy/AdvReac Type Severity Reaction Status Date / Time duloxetine HCl AdvReac Intermediate jaw Verified 06/12/12 14:27 [From Cymbalta] locked, stiff joints - Home Medications Home Medications: Ambulatory Orders Montelukast Na [Singulair -] 10 mg PO HS #0 tablet 04/16/12 metFORMIN HCL [Glucophage -] 1,000 mg PO BIDAC #0 tablet 04/16/12 Dexlansoprazole [Dexilant] 60 mg PO DAILY 11/27/12 Insulin Lispro [Humalog] 2 unit SQ ASDIR PRN 11/27/12 Lisinopril/Hydrochlorothiazide [Lisinopril-Hctz 20-25 mg Tab] 1 each PO DAILY Pregabalin [Lyrica] 100 mg PO DAILY 11/27/12 Atorvastatin Ca [Lipitor] 20 mg PO HS 07/25/18 Review of Systems - Review of Systems Eyes: reports: No Symptoms Neck: reports: No Symptoms Cardiovascular: reports: No Symptoms Respiratory: reports: No Symptoms Gastrointestinal: reports: Abdominal Pain (RUQ and epigastric) Genitourinary: reports: No Symptoms Physical Exam Vital Signs: Vital Signs Temperature 97.9 F 05/07/19 14:00 Pulse Rate 87 05/07/19 14:00 Respiratory Rate 20 05/07/19 14:00 Blood Pressure 148/82 05/07/19 14:00 O2 Sat by Pulse Oximetry (%) 96 05/07/19 10:00 Constitutional: Yes: Obese Eyes: Yes: Conjunctiva Clear HENT: Yes: Normocephalic Neck: Yes: Supple Cardiovascular: Yes: Regular Rate and Rhythm Respiratory: Yes: CTA Bilaterally Gastrointestinal: Yes: Soft, Abdomen, Obese, Tenderness (RUQ and epigastric regions) ...Rectal Exam: Yes: Deferred Extremities: Yes: WNL Labs: CBC, BMP 05/07/19 06:20 05/07/19 06:20 Imaging - Results Cat Scan: Report Reviewed, Image Reviewed Ultrasound: Report Reviewed, Image Reviewed MRI: Report Reviewed (No CBD dilatation, no choledocholithiasis, focal adenomyosis of the GB), Image Reviewed Problem List - Problems (1) Abdominal pain Assessment/Plan: Gallbladder adenomyomatosis - unclear if cause of symptoms Agree with HIDA scan with EF to r/o biliary dyskinesia Code(s): R10.9 - UNSPECIFIED ABDOMINAL PAIN
--- NOTE | 2019-05-07 20:56 | PN ---
Progress Note, Physician History of Present Illness: Pt still w/ abdominal pain mostly left sided - Current Medication List Current Medications: Active Medications Acetaminophen (Ofirmev Injection -) 1,000 mg IVPB Q6H PRN PRN Reason: PAIN LEVEL 4 - 6 Last Admin: 05/07/19 10:49 Dose: 1,000 mg Heparin Sodium (Porcine) (Heparin -) 5,000 unit SQ BID [facility] Last Admin: 05/07/19 10:40 Dose: 5,000 unit Hydrochlorothiazide (Hctz -) 25 mg PO DAILY [facility] Last Admin: 05/07/19 11:22 Dose: 25 mg Dextrose/Sodium Chloride (D5-1/2ns -) 1,000 mls @ 75 mls/hr IV ASDIR [facility] Last Admin: 05/07/19 15:45 Dose: Not Given Insulin Aspart (Novolog Vial Sliding Scale -) 1 vial SQ ACHS [facility]; Protocol Last Admin: 05/07/19 17:40 Dose: 6 units Lisinopril (Prinivil) 20 mg PO DAILY [facility] Last Admin: 05/07/19 11:22 Dose: 20 mg Pantoprazole Sodium (Protonix Iv) 40 mg IVPB BID [facility] Last Admin: 05/07/19 10:40 Dose: 40 mg Pregabalin (Lyrica -) 100 mg PO DAILY [facility] Last Admin: 05/07/19 11:22 Dose: 100 mg Simethicone (Mylicon -) 80 mg PO QID PRN PRN Reason: NAUSEA Last Admin: 05/07/19 10:36 Dose: 80 mg - Objective Vital Signs: Vital Signs Temperature 97.4 F L 05/07/19 18:42 Pulse Rate 67 05/07/19 18:42 Respiratory Rate 20 05/07/19 18:42 Blood Pressure 152/91 05/07/19 18:42 O2 Sat by Pulse Oximetry (%) 96 05/07/19 10:00 HENT: Yes: WNL Neck: Yes: WNL, Supple Cardiovascular: Yes: WNL, Regular Rate and Rhythm Respiratory: Yes: WNL, Regular, CTA Bilaterally Gastrointestinal: Yes: Normal Bowel Sounds, Soft, Abdomen, Obese, Other ((+) minimal tenderness on palpation Lt side of abdomen) Extremities: Yes: WNL Labs: CBC, BMP 05/07/19 06:20 05/07/19 06:20 Problem List - Problems (1) Abdominal pain Assessment/Plan: Dilated CBD MRCP did not show any gallstones ?Gastroparesis component Surgical/GI consults noted Cont clear liquids Check HIDA scan Code(s): R10.9 - UNSPECIFIED ABDOMINAL PAIN (2) IDDM Assessment/Plan: Pt's insulin pump was dc'ed No further hypoglycemia Cont sliding scale w/ coverage Check HgA1c in am (3) HTN (hypertension) Assessment/Plan: BP stable Cont lisinopril/hctz Code(s): I10 - ESSENTIAL (PRIMARY) HYPERTENSION (4) Obesity Code(s): E66.9 - OBESITY, UNSPECIFIED
[2019-05-08] MEDS ORDERED: INSULIN SLIDING SCALE (NOVOLOG) 1 VIAL SQ SCH (07:00)
--- NOTE | 2019-05-08 07:46 | PN ---
Progress Note, Physician History of Present Illness: GI FOLLOW UP NOTE Patient examined and case discussed with Dr Huang Patient continues to have RUQ pain accompanied with nausea. MRCP done yesterday showing no evidence of cholelithiasis or choledocolithiasis, no CBD or panreatic ductal dilatation, 3mm pancreatic tail cyst in additional few scattered tiny cyst likely minimally ectatic pancreatic side branches, findings could be benign or represent early IPMNT. Patient to have HIDA scan with EF today. Denies vomiting, diarrhea, rectal bleeding, or melena. - Current Medication List Current Medications: Active Medications Acetaminophen (Ofirmev Injection -) 1,000 mg IVPB Q6H PRN PRN Reason: PAIN LEVEL 4 - 6 Last Admin: 05/07/19 21:55 Dose: 1,000 mg Heparin Sodium (Porcine) (Heparin -) 5,000 unit SQ BID [facility] Last Admin: 05/07/19 21:57 Dose: 5,000 unit Hydrochlorothiazide (Hctz -) 25 mg PO DAILY [facility] Last Admin: 05/07/19 11:22 Dose: 25 mg Dextrose/Sodium Chloride (D5-1/2ns -) 1,000 mls @ 75 mls/hr IV ASDIR [facility] Last Admin: 05/07/19 15:45 Dose: Not Given Insulin Aspart (Novolog Vial Sliding Scale -) 1 vial SQ ACHS [facility]; Protocol Last Admin: 05/08/19 06:51 Dose: Not Given Lisinopril (Prinivil) 20 mg PO DAILY [facility] Last Admin: 05/07/19 11:22 Dose: 20 mg Pantoprazole Sodium (Protonix Iv) 40 mg IVPB BID [facility] Last Admin: 05/07/19 21:58 Dose: 40 mg Pregabalin (Lyrica -) 100 mg PO DAILY [facility] Last Admin: 05/07/19 11:22 Dose: 100 mg Simethicone (Mylicon -) 80 mg PO QID PRN PRN Reason: NAUSEA Last Admin: 05/07/19 21:57 Dose: 80 mg - Objective Vital Signs: Vital Signs Temperature 97.6 F 05/08/19 06:00 Pulse Rate 77 05/08/19 06:00 Respiratory Rate 20 05/08/19 06:00 Blood Pressure 130/69 05/08/19 06:00 O2 Sat by Pulse Oximetry (%) 96 09/18/19 10:00 Constitutional: Yes: No Distress, Calm Eyes: Yes: Conjunctiva Clear HENT: Yes: Atraumatic Cardiovascular: Yes: Regular Rate and Rhythm Respiratory: Yes: Regular, CTA Bilaterally Gastrointestinal: Yes: Normal Bowel Sounds, Soft, Tenderness (RUQ, LUQ), Tenderness, Epigastrium Neurological: Yes: Alert, Oriented Psychiatric: Yes: Alert, Oriented Labs: CBC, BMP 05/07/19 06:20 05/07/19 06:20 Problem List - Problems (1) Abdominal pain Assessment/Plan: >MRCP reviewed >Surgery on board, recommendation appreciated >patient for HIDA Scan with EF to R/O Gallbladder Dyskinesia >mild dilatation of common hepatic duct etiology clear unknown, most likely secondary to dilatation sphincter of [place] dyskinesia Code(s): R10.9 - UNSPECIFIED ABDOMINAL PAIN (2) Dilated cbd, acquired Assessment/Plan: >MRCP reviewed and show no evidence CBD dilatation Code(s): K83.8 - OTHER SPECIFIED DISEASES OF BILIARY TRACT (3) Pancreatic cyst Assessment/Plan: >will repeat MRCP in 1 year >will need outpatient follow up for endoscopic US >AFP, CEA, CA 19-9 Code(s): K86.2 - CYST OF PANCREAS
[2019-05-08 08:36] LABS: BASO % 0.6 % (0-2.0); EOS % 4.6 % (0-4.5); HEMATOCRIT 27.7 % (32.4-45.2); LYMPH % 49.9 % (8-40); MCH 27.4 pg (25.7-33.7); MCHC 32.5 g/dl (32.0-36.0); MEAN CELL VOLUME 84.2 fl (80-96); NEUT % 34.9 % (42.8-82.8); PLATELET COUNT 242 K/MM3 (134-434); RBC 3.29 M/mm3 (3.60-5.2); RDW 13.4 % (11.6-15.6); WHITE BLOOD COUNT 3.8 K/mm3 (4.0-10.0)
[2019-05-08 09:07] LABS: ALBUMIN 3.2 g/dl (3.4-5.0); BILIRUBIN,TOTAL 0.4 mg/dL (0.2-1); BLOOD UREA NITROGEN 9.9 mg/dL (7-18); CALCIUM 9.4 mg/dL (8.5-10.1); CREATININE 0.9 mg/dL (0.55-1.3); POTASSIUM 4.2 mmol/L (3.5-5.1); TOT PROT 6.3 g/dl (6.4-8.2)
[2019-05-08] MEDS: SIMETHICONE 80 MG TAB.CHEW (FP) PO PRN ×2 (11:10→22:04)
[2019-05-08] MEDS: PANTOPRAZOLE SODIUM 40 MG VIAL IVPB SCH ×2 (11:10→21:59)
[2019-05-08] MEDS: ACETAMINOPHEN 1000 MG/100 ML VIAL (NON FORMULARY) IVPB PRN ×2 (11:20→22:03)
[2019-05-08] MEDS: PREGABALIN 100 MG CAPSULE PO SCH (11:22)
[2019-05-08] MEDS: HEPARIN NA (PORCINE) 5,000 UNITS/ML 1ML VIAL SQ SCH ×2 (11:22→22:00)
[2019-05-08] MEDS: LISINOPRIL 20 MG TABLET (FP) PO SCH (11:22)
[2019-05-08] MEDS: HYDROCHLOROTHIAZIDE 25 MG TABLET (FP) PO SCH (11:22)
[2019-05-08] MEDS: INSULIN SLIDING SCALE (NOVOLOG) 1 VIAL SQ SCH ×3 (11:32→21:59)
[2019-05-08] MEDS: DEXTROSE 5%-0.45% SALINE 1,000 ML IV SCH (14:51)
--- NOTE | 2019-05-08 15:46 | PN ---
Progress Note (short form) - Note Progress Note: s: no chest pain, palps, dizziness, dyspnea. nausea improving, still has abd pain Vital Signs Period Temp Pulse Resp BP Sys/Brothers Pulse Ox Last 24 Hr 97.4 F-98.6 F 67-95 20-20 130-171/69-95 Constitutional: Yes: No Distress, Calm Eyes: Yes: Conjunctiva Clear Neck: Yes: Trachea Midline Respiratory: Yes: Rhonchi Gastrointestinal: Yes: Soft, Abdomen, Obese Cardiovascular: Yes: Regular Rate and Rhythm JVD: No Carotid Bruit: No PMI: Non-Displaced Heart Sounds: Yes: S1, S2 Edema: No Peripheral Pulses WNL: Yes Neurological: Yes: Alert, Oriented no jaundice diaphoresis Current Medications Acetaminophen (Ofirmev Injection -) 1,000 mg IVPB Q6H PRN PRN Reason: PAIN LEVEL 4 - 6 Last Admin: 05/08/19 11:20 Dose: 1,000 mg Heparin Sodium (Porcine) (Heparin -) 5,000 unit SQ BID [facility] Last Admin: 05/08/19 11:22 Dose: 5,000 unit Hydrochlorothiazide (Hctz -) 25 mg PO DAILY [facility] Last Admin: 05/08/19 11:22 Dose: 25 mg Dextrose/Sodium Chloride (D5-1/2ns -) 1,000 mls @ 75 mls/hr IV ASDIR [facility] Last Admin: 05/08/19 14:51 Dose: 75 mls/hr Insulin Aspart (Novolog Vial Sliding Scale -) 1 vial SQ ACHS [facility]; Protocol Last Admin: 05/08/19 11:32 Dose: 6 units Ketorolac Tromethamine (Toradol Injection -) 30 mg IVPUSH Q8H-IV [facility] Stop: 05/13/19 15:29 Lisinopril (Prinivil) 20 mg PO DAILY [facility] Last Admin: 05/08/19 11:22 Dose: 20 mg Pantoprazole Sodium (Protonix Iv) 40 mg IVPB BID [facility] Last Admin: 05/08/19 11:10 Dose: 40 mg Pregabalin (Lyrica -) 100 mg PO DAILY [facility] Last Admin: 05/08/19 11:22 Dose: 100 mg Simethicone (Mylicon -) 80 mg PO QID PRN PRN Reason: NAUSEA Last Admin: 05/08/19 11:10 Dose: 80 mg cta chest: no dissection, aneurysm, chf, pe ecg: sr nl intervals (nl manual qtc) nonspec tw changes, no st changes Assessment/Plan 59 F DM, HTN ,cad s/p nstemi 09/2018 and cath then w/o stenting (no stent needed per pt) here with abd pain. abd pain: -has dilated cbd -eval per GI -ecg reviewed and by manual calculation qtc wnl. - zofran can be used if needed, has not taken. would repeat ecg day if starting to monitor for change in qtc. htn: -cont current meds hld: -statin held for now due to GI issues cad, nstemi: -no angina, no signs acs -cont bp control. resume statin and asa when possible.
[2019-05-08] MEDS: KETOROLAC TROMETHAMINE 30 MG/1 ML VIAL IVPUSH SCH ×2 (15:49→17:26)
--- NOTE | 2019-05-08 22:56 | PN ---
Progress Note, Physician - Current Medication List Current Medications: Active Medications Heparin Sodium (Porcine) (Heparin -) 5,000 unit SQ BID [facility] Last Admin: 05/08/19 22:00 Dose: 5,000 unit Hydrochlorothiazide (Hctz -) 25 mg PO DAILY [facility] Last Admin: 05/08/19 11:22 Dose: 25 mg Dextrose/Sodium Chloride (D5-1/2ns -) 1,000 mls @ 75 mls/hr IV ASDIR [facility] Last Admin: 05/08/19 14:51 Dose: 75 mls/hr Insulin Aspart (Novolog Vial Sliding Scale -) 1 vial SQ ACHS [facility]; Protocol Last Admin: 05/08/19 21:59 Dose: 6 units Ketorolac Tromethamine (Toradol Injection -) 30 mg IVPUSH Q8H-IV [facility] Stop: 05/13/19 15:29 Last Admin: 05/08/19 17:26 Dose: Not Given Lisinopril (Prinivil) 20 mg PO DAILY [facility] Last Admin: 05/08/19 11:22 Dose: 20 mg Pantoprazole Sodium (Protonix Iv) 40 mg IVPB BID [facility] Last Admin: 05/08/19 21:59 Dose: 40 mg Pregabalin (Lyrica -) 100 mg PO DAILY [facility] Last Admin: 05/08/19 11:22 Dose: 100 mg Simethicone (Mylicon -) 80 mg PO QID PRN PRN Reason: NAUSEA Last Admin: 05/08/19 22:04 Dose: 80 mg - Objective Vital Signs: Vital Signs Temperature 97.6 F 05/08/19 18:30 Pulse Rate 74 05/08/19 18:30 Respiratory Rate 20 05/08/19 18:30 Blood Pressure 144/63 05/08/19 18:30 O2 Sat by Pulse Oximetry (%) 96 05/08/19 11:05 Labs: CBC, BMP 05/08/19 07:50 05/08/19 07:50 Problem List - Problems (1) Abdominal pain Code(s): R10.9 - UNSPECIFIED ABDOMINAL PAIN (3) HTN (hypertension) Code(s): I10 - ESSENTIAL (PRIMARY) HYPERTENSION (4) Obesity Code(s): E66.9 - OBESITY, UNSPECIFIED
[2019-05-09] MEDS: DEXTROSE 5%-0.45% SALINE 1,000 ML IV SCH ×2 (01:27→19:44)
[2019-05-09] MEDS: KETOROLAC TROMETHAMINE 30 MG/1 ML VIAL IVPUSH SCH ×3 (01:29→19:43)
[2019-05-09] MEDS: INSULIN SLIDING SCALE (NOVOLOG) 1 VIAL SQ SCH ×4 (06:41→21:44)
--- NOTE | 2019-05-09 08:36 | PN ---
Progress Note, Physician History of Present Illness: GI FOLLOW UP NOTE Patient examined and case discussed with Dr Huang Patient continues to have RUQ pain accompanied with nausea. HIDA scan performed yesterday. Patient complains of constipation. Denies vomiting, rectal bleeding , blood in stool. - Current Medication List Current Medications: Active Medications Heparin Sodium (Porcine) (Heparin -) 5,000 unit SQ BID [facility] Last Admin: 05/08/19 22:00 Dose: 5,000 unit Hydrochlorothiazide (Hctz -) 25 mg PO DAILY [facility] Last Admin: 05/08/19 11:22 Dose: 25 mg Dextrose/Sodium Chloride (D5-1/2ns -) 1,000 mls @ 75 mls/hr IV ASDIR [facility] Last Admin: 05/09/19 01:27 Dose: 75 mls/hr Insulin Aspart (Novolog Vial Sliding Scale -) 1 vial SQ ACHS [facility]; Protocol Last Admin: 05/09/19 06:41 Dose: 4 units Ketorolac Tromethamine (Toradol Injection -) 30 mg IVPUSH Q8H-IV [facility] Stop: 05/13/19 15:29 Last Admin: 05/09/19 01:29 Dose: 30 mg Lisinopril (Prinivil) 20 mg PO DAILY [facility] Last Admin: 05/08/19 11:22 Dose: 20 mg Pantoprazole Sodium (Protonix Iv) 40 mg IVPB BID [facility] Last Admin: 05/08/19 21:59 Dose: 40 mg Pregabalin (Lyrica -) 100 mg PO DAILY [facility] Last Admin: 05/08/19 11:22 Dose: 100 mg Simethicone (Mylicon -) 80 mg PO QID PRN PRN Reason: NAUSEA Last Admin: 05/08/19 22:04 Dose: 80 mg - Objective Vital Signs: Vital Signs Temperature 98.1 F 05/09/19 07:09 Pulse Rate 70 05/09/19 07:09 Respiratory Rate 20 05/09/19 07:09 Blood Pressure 171/93 H 05/09/19 07:09 O2 Sat by Pulse Oximetry (%) 96 05/08/19 21:00 Constitutional: Yes: No Distress, Calm Eyes: Yes: Conjunctiva Clear HENT: Yes: Atraumatic Cardiovascular: Yes: Regular Rate and Rhythm Respiratory: Yes: Regular, CTA Bilaterally Gastrointestinal: Yes: Normal Bowel Sounds, Soft, Tenderness (RUQ), Tenderness, Epigastrium Neurological: Yes: Alert, Oriented Psychiatric: Yes: Alert, Oriented Labs: CBC, BMP 05/08/19 07:50 05/08/19 07:50 Problem List - Problems (1) Abdominal pain Code(s): R10.9 - UNSPECIFIED ABDOMINAL PAIN (2) Dilated cbd, acquired Code(s): K83.8 - OTHER SPECIFIED DISEASES OF BILIARY TRACT (3) Pancreatic cyst Code(s): K86.2 - CYST OF PANCREAS
[2019-05-09] MEDS ORDERED: PT OWN MED DRAWER 7, Y5N ONE (10:31)
[2019-05-09] MEDS: LISINOPRIL 20 MG TABLET (FP) PO SCH (10:50)
[2019-05-09] MEDS: HEPARIN NA (PORCINE) 5,000 UNITS/ML 1ML VIAL SQ SCH ×2 (10:50→21:45)
[2019-05-09] MEDS: SIMETHICONE 80 MG TAB.CHEW (FP) PO PRN (10:50)
[2019-05-09] MEDS: HYDROCHLOROTHIAZIDE 25 MG TABLET (FP) PO SCH (10:50)
[2019-05-09] MEDS: PREGABALIN 100 MG CAPSULE PO SCH (10:50)
[2019-05-09] MEDS: PANTOPRAZOLE SODIUM 40 MG VIAL IVPB SCH ×2 (10:50→21:45)
[2019-05-09] MEDS ORDERED: INSULIN (NOVOLOG) ASPART 100 UNITS/ML 10ML VIAL ONE (12:31)
--- NOTE | 2019-05-09 14:19 | PN ---
Progress Note (short form) - Note Progress Note: s: no chest pain, palps, dizziness, dyspnea. nausea improving, still has abd pain, less Current Medications Generic Name Dose Route Start Last Admin Trade Name Rylee PRN Reason Stop Dose Admin Heparin Sodium (Porcine) 5,000 unit 05/06/19 22:00 05/09/19 10:50 Heparin - SQ 5,000 unit BID [facility] Administration Hydrochlorothiazide 25 mg 05/07/19 10:00 05/09/19 10:50 Hctz - PO 25 mg DAILY [facility] Administration Dextrose/Sodium Chloride 1,000 mls @ 75 mls/hr 05/06/19 15:45 05/09/19 01:27 D5-1/2ns - IV 75 mls/hr ASDIR [facility] Administration Insulin Aspart 1 vial 05/08/19 11:00 05/09/19 12:32 Novolog Vial Sliding Scale - SQ 6 units ACHS [facility] Administration Protocol Ketorolac Tromethamine 30 mg 05/08/19 15:30 05/09/19 10:56 Toradol Injection - IVPUSH 05/13/19 15:29 30 mg Q8H-IV [facility] Administration Lisinopril 20 mg 05/07/19 10:00 05/09/19 10:50 Prinivil PO 20 mg DAILY [facility] Administration Pantoprazole Sodium 40 mg 05/06/19 22:00 05/09/19 10:50 Protonix Iv IVPB 40 mg BID [facility] Administration Pregabalin 100 mg 05/07/19 10:00 05/09/19 10:50 Lyrica - PO 100 mg DAILY [facility] Administration Simethicone 80 mg 05/07/19 09:55 05/09/19 10:50 Mylicon - PO 80 mg QID PRN Administration NAUSEA Vital Signs Period Temp Pulse Resp BP Sys/Brothers Pulse Ox Last 24 Hr 97.6 F-98.1 F 70-74 20-20 144-171/63-93 96-96 Constitutional: Yes: No Distress, Calm Eyes: Yes: Conjunctiva Clear Neck: Yes: Trachea Midline Respiratory: Yes: Rhonchi Gastrointestinal: Yes: Soft, Abdomen, Obese Cardiovascular: Yes: Regular Rate and Rhythm JVD: No Carotid Bruit: No PMI: Non-Displaced Heart Sounds: Yes: S1, S2 Edema: No Peripheral Pulses WNL: Yes Neurological: Yes: Alert, Oriented no jaundice diaphoresis CBC, BMP 05/08/19 07:50 05/08/19 07:50 cta chest: no dissection, aneurysm, chf, pe ecg: sr nl intervals (nl manual qtc) nonspec tw changes, no st changes Assessment/Plan 59 F DM, HTN ,cad s/p nstemi 09/2018 and cath then w/o stenting (no stent needed per pt) here with abd pain. abd pain: -Gi following, HIDA unremarkable -ok to stop asa if felt adding to GI upset htn: -cont current meds hld: -statin held for now due to GI issues cad, nstemi: -no angina, no signs acs -cont current meds -will resume plavix (holding asa now)
--- NOTE | 2019-05-09 23:27 | PN ---
Progress Note, Physician - Current Medication List Current Medications: Active Medications Clopidogrel Bisulfate (Plavix -) 75 mg PO DAILY [facility] Heparin Sodium (Porcine) (Heparin -) 5,000 unit SQ BID [facility] Last Admin: 05/09/19 21:45 Dose: 5,000 unit Hydrochlorothiazide (Hctz -) 25 mg PO DAILY [facility] Last Admin: 05/09/19 10:50 Dose: 25 mg Dextrose/Sodium Chloride (D5-1/2ns -) 1,000 mls @ 75 mls/hr IV ASDIR [facility] Last Admin: 05/09/19 19:44 Dose: 75 mls/hr Insulin Aspart (Novolog Vial Sliding Scale -) 1 vial SQ ACHS [facility]; Protocol Last Admin: 05/09/19 21:44 Dose: 10 units Ketorolac Tromethamine (Toradol Injection -) 30 mg IVPUSH Q8H-IV [facility] Stop: 05/13/19 15:29 Last Admin: 05/09/19 19:43 Dose: 30 mg Lisinopril (Prinivil) 20 mg PO DAILY [facility] Last Admin: 05/09/19 10:50 Dose: 20 mg Pantoprazole Sodium (Protonix Iv) 40 mg IVPB BID [facility] Last Admin: 05/09/19 21:45 Dose: 40 mg Pregabalin (Lyrica -) 100 mg PO DAILY [facility] Last Admin: 05/09/19 10:50 Dose: 100 mg Simethicone (Mylicon -) 80 mg PO QID PRN PRN Reason: NAUSEA Last Admin: 05/09/19 10:50 Dose: 80 mg - Objective Vital Signs: Vital Signs Temperature 98.1 F 05/09/19 21:41 Pulse Rate 82 05/09/19 21:41 Respiratory Rate 18 05/09/19 21:41 Blood Pressure 179/108 H 05/09/19 21:41 O2 Sat by Pulse Oximetry (%) 96 05/09/19 09:00 Labs: CBC, BMP 05/08/19 07:50 05/08/19 07:50 Problem List - Problems (1) Abdominal pain Code(s): R10.9 - UNSPECIFIED ABDOMINAL PAIN (3) HTN (hypertension) Code(s): I10 - ESSENTIAL (PRIMARY) HYPERTENSION (4) Obesity Code(s): E66.9 - OBESITY, UNSPECIFIED
[2019-05-10] MEDS: DOCUSATE SODIUM 100 MG CAPSULE (FP) PO SCH ×4 (00:15→13:31)
[2019-05-10] MEDS: KETOROLAC TROMETHAMINE 30 MG/1 ML VIAL IVPUSH SCH ×2 (02:45→11:19)
[2019-05-10] MEDS: INSULIN SLIDING SCALE (NOVOLOG) 1 VIAL SQ SCH ×3 (06:53→17:43)
[2019-05-10 08:07] LABS: CARCINOEMBRYONIC ANTIGEN 1.3 ng/mL (0.0-4.7)
[2019-05-10] MEDS ORDERED: CLOPIDOGREL BISULFATE 75 MG TABLET (FP) PO SCH (10:00)
[2019-05-10] MEDS ORDERED: PANTOPRAZOLE 40 MG TABLET (FP) PO SCH (10:00)
[2019-05-10] MEDS: HYDROCHLOROTHIAZIDE 25 MG TABLET (FP) PO SCH (11:18)
[2019-05-10] MEDS: PREGABALIN 100 MG CAPSULE PO SCH (11:18)
[2019-05-10] MEDS: SIMETHICONE 80 MG TAB.CHEW (FP) PO PRN (11:18)
[2019-05-10] MEDS: HEPARIN NA (PORCINE) 5,000 UNITS/ML 1ML VIAL SQ SCH (11:18)
[2019-05-10] MEDS: LISINOPRIL 20 MG TABLET (FP) PO SCH (11:18)
[2019-05-10 15:26] VITALS: BP 178/89; PULSE 80; TEMP 97.1
[2019-05-10] MEDS ORDERED: SODIUM PHOSPHATE/NA BIPHOS 133 ML ENEMA RC ONE (16:15)
== END 2019-05-10 17:45 | disposition home or self-care (01) | DRG 392 ==
LOC: JER 10:09 → JERBED 14:09 → J5S 15:50
PROVIDERS: ADMIT Internal Medicine; ATTEND Internal Medicine
DX: R10.11 Right upper quadrant pain (principal); K86.2 Cyst of pancreas; K83.8 Other specified diseases of biliary tract; I10 Essential (primary) hypertension; K21.9 Gastro-esophageal reflux disease without esophagitis; E11.9 Type 2 diabetes mellitus without complications; E78.5 Hyperlipidemia, unspecified; J45.909 Unspecified asthma, uncomplicated; I25.10 Atherosclerotic heart disease of native coronary artery without angina pectoris; K59.09 Other constipation; I25.2 Old myocardial infarction; K29.70 Gastritis, unspecified, without bleeding; E66.8 Other obesity; Z68.39 Body mass index [BMI] 39.0-39.9, adult
CPT/HCPCS: 36415; 71275-TC; 74175-TC; 74182-TC; 76705-TC; 78226-TC; 80053; 81003; 82105; 82378; 82550; 82962; 83036; 83690; 84484; 85025; 86301; 87086; 90732; 93005; 93010; 99284-25; A9537; G0009; J0131; J1644

== ENCOUNTER 2019-07-07 00:48 | Observation (INO) | payer OTHER ==
--- NOTE | 2019-07-07 01:28 | PDOC ---
Documentation entered by Litzy Borrego SCRIBE, acting as scribe for Deepak Murry MD. Deepak Murry MD: This documentation has been prepared by the ignaciaibElmo briggs Lincy, SCRIBE, under my direction and personally reviewed by me in its entirety. I confirm that the documentation accurately reflects all work, treatment, procedures, and medical decision making performed by me. History of Present Illness - General Chief Complaint: Chest Pain Stated Complaint: CHEST PAIN Time Seen by Provider: 07/07/19 01:05 - History of Present Illness Initial Comments: 07/07/19 08:51 59 years old with past medical history significant for hypertension high cholesterol diabetes non-STEMI in September was cath but no stents were placed on Plavix but has missed last few doses of Plavix was walking a short distance after which she developed bilateral arm and chest discomfort as well as generalized weakness Symptoms lasted greater than 30 minutes associated very mild nausea relieved with time Past History - Past Medical History Allergies/Adverse Reactions: Allergies Allergy/AdvReac Type Severity Reaction Status Date / Time duloxetine HCl AdvReac Intermediate jaw Verified 07/07/19 01:05 [From [facility]] locked, stiff joints Home Medications: Ambulatory Orders Montelukast Na [Singulair -] 10 mg PO HS #0 tablet 04/16/12 metFORMIN HCL [Glucophage -] 1,000 mg PO BIDAC #0 tablet 04/16/12 Insulin Lispro [Humalog] 2 unit SQ ASDIR PRN 11/27/12 Pregabalin [Lyrica] 100 mg PO DAILY 11/27/12 Atorvastatin Ca [Lipitor] 40 mg PO HS 07/25/18 Aspirin [Aspirin EC] 81 mg PO DAILY 05/09/19 Clopidogrel Bisulfate [Clopidogrel] 75 mg PO DAILY 05/09/19 Fenofibrate Nanocrystallized [Fenofibrate] 145 mg PO DAILY 05/09/19 Furosemide [Lasix] 40 mg PO DAILY 05/09/19 Losartan Potassium 50 mg PO DAILY 05/09/19 Meclizine HCl 25 mg PO BID 05/09/19 Ropinirole HCl 0.5 mg PO BID 05/09/19 Spironolactone 25 mg PO DAILY 05/09/19 Clopidogrel Bisulfate [Plavix -] 75 mg PO DAILY #30 tablet 05/10/19 Docusate Sodium [Colace -] 100 mg PO TID #90 capsule 05/10/19 Hydrochlorothiazide [Hctz -] 25 mg PO DAILY #30 tablet 05/10/19 Lisinopril [Prinivil] 20 mg PO DAILY #30 tablet 05/10/19 Pantoprazole Sodium [Protonix -] 40 mg PO DAILY #30 tablet.ec 05/10/19 Polyethylene Glycol 3350 [Miralax (For Daily Use) -] 17 gm PO BID #1 bottle Anemia: No Asthma: Yes Cancer: No Cardiac Disorders: No CVA: No COPD: No CHF: No Dementia: No Diabetes: Yes GI Disorders: No Disorders: No HTN: Yes Hypercholesterolemia: Yes Liver Disease: No Seizures: No Thyroid Disease: No - Surgical History Abdominal Surgery: No Appendectomy: No Cardiac Surgery: No Cholecystectomy: No Lung Surgery: No Neurologic Surgery: No Orthopedic Surgery: Yes (R Knee) - Psycho Social/Smoking Cessation Hx Smoking Status: No Smoking History: Never smoked Have you smoked in the past 12 months: No Number of Cigarettes Smoked Daily: 0 Hx Alcohol Use: No Drug/Substance Use Hx: No Substance Use Type: None Hx Substance Use Treatment: No Cardiac Specific PMH - Complaint Specific PMHX Angina: No Cardiac Arrhythmia: No GERD: No Pacemaker: No Peripheral Vascular Disease: No Review of Systems - Review of Systems Comments:: 07/07/19 08:51 ROS: A complete review of 10 out of 10 review of systems is taken and is negative apart from what is previously mentioned below and in the HPI. *Physical Exam - Vital Signs Last Vital Signs Temp Pulse Resp BP Pulse Ox 98.8 F 80 18 126/60 99 07/07/19 07:14 07/07/19 07:14 07/07/19 07:14 07/07/19 07:14 07/07/19 07:14 - Physical Exam Comments: 07/07/19 08:49 Vitals: Triage Vital signs reviewed General Appearance: No acute distress, well nourished well developed, Head: Atraumatic, Cardiac: Regular rate and rhythym, no murmurs, no rubs, no gallops, Lungs: Clear to auscultation bilateral, good air movement bilaterally, Abdomen: Soft, non distended, normal bowel sounds, non tender to palpation Extremities: Full range of motion to all extremities, no cyanosis, clubbing, or edema Skin: Warm and dry, no rashes or lesions, no rash, no petechiae Psych: Normal mood, normal affect Heart Score/ECG Review - ECG Impressions Comment:: 07/07/19 08:52 EKG performed at 109 demonstrates sinus rhythm 86 beats per minutes no ST elevations or T wave inversions Interpreted by me. ED Treatment Course - LABORATORY CBC & Chemistry Diagram: 07/07/19 02:20 07/07/19 02:20 - ADDITIONAL ORDERS Additional order review: Laboratory Results 07/07/19 02:20 Sodium 138 Potassium 4.1 Chloride 104 Carbon Dioxide 28 Anion Gap 6 L BUN 32.4 H Creatinine 1.3 Est GFR (CKD-EPI)AfAm 52.74 Est GFR (CKD-EPI)NonAf 45.50 Random Glucose 286 H Calcium 9.4 Total Bilirubin 0.1 L AST 18 ALT 27 Alkaline Phosphatase 55 Creatine Kinase 133 Troponin I 0.02 Total Protein 6.8 Albumin 3.4 07/07/19 02:20 RBC 3.62 MCV 84.7 MCHC 32.4 RDW 13.4 MPV 9.8 Neutrophils % 34.6 L Lymphocytes % 52.4 H Monocytes % 9.2 Eosinophils % 2.9 Basophils % 0.9 - RADIOLOGY Radiology Studies Ordered: Category Date Time Status CXRPORT [CHEST X-RAY PORTABLE*] [RAD] Stat Radiology 07/07/19 01:15 Completed Medical Decision Making - Medical Decision Making 07/07/19 08:48 59 years old with multiple risk factors presents with somewhat exertional chest pressure Nonischemic EKG Interpreted by me No ST elevations or T wave inversions Heart score 4 first troponin negative Will observe for further management and cardiac workup Discharge - Discharge Information Problems reviewed: Yes Clinical Impression/Diagnosis: Chest pain Qualifiers: Chest pain type: unspecified Qualified Code(s): R07.9 - Chest pain, unspecified Condition: Fair - Admission Yes - Follow up/Referral - Patient Discharge Instructions - Post Discharge Activity
--- NOTE | 2019-07-07 01:29 | PDOC ---
History of Present Illness - General Chief Complaint: Chest Pain Stated Complaint: CHEST PAIN Time Seen by Provider: 07/07/19 01:05 - History of Present Illness Initial Comments: 07/07/19 01:28 59 years old with past medical history significant for diabetes, hypertension, CAD status post non-STEMI September 2018 cath without stenting presents to the emergency department with chest discomfort Past History - Past Medical History Allergies/Adverse Reactions: Allergies Allergy/AdvReac Type Severity Reaction Status Date / Time duloxetine HCl AdvReac Intermediate jaw Verified 07/07/19 01:05 [From [facility]] locked, stiff joints Home Medications: Ambulatory Orders Montelukast Na [Singulair -] 10 mg PO HS #0 tablet 04/16/12 metFORMIN HCL [Glucophage -] 1,000 mg PO BIDAC #0 tablet 04/16/12 Insulin Lispro [Humalog] 2 unit SQ ASDIR PRN 11/27/12 Pregabalin [Lyrica] 100 mg PO DAILY 11/27/12 Atorvastatin Ca [Lipitor] 40 mg PO HS 07/25/18 Aspirin [Aspirin EC] 81 mg PO DAILY 05/09/19 Clopidogrel Bisulfate [Clopidogrel] 75 mg PO DAILY 05/09/19 Fenofibrate Nanocrystallized [Fenofibrate] 145 mg PO DAILY 05/09/19 Furosemide [Lasix] 40 mg PO DAILY 05/09/19 Losartan Potassium 50 mg PO DAILY 05/09/19 Meclizine HCl 25 mg PO BID 05/09/19 Ropinirole HCl 0.5 mg PO BID 05/09/19 Spironolactone 25 mg PO DAILY 05/09/19 Clopidogrel Bisulfate [Plavix -] 75 mg PO DAILY #30 tablet 05/10/19 Docusate Sodium [Colace -] 100 mg PO TID #90 capsule 05/10/19 Hydrochlorothiazide [Hctz -] 25 mg PO DAILY #30 tablet 05/10/19 Lisinopril [Prinivil] 20 mg PO DAILY #30 tablet 05/10/19 Pantoprazole Sodium [Protonix -] 40 mg PO DAILY #30 tablet.ec 05/10/19 Polyethylene Glycol 3350 [Miralax (For Daily Use) -] 17 gm PO BID #1 bottle Anemia: No Asthma: Yes Cancer: No Cardiac Disorders: No CVA: No COPD: No CHF: No Dementia: No Diabetes: Yes GI Disorders: No Disorders: No HTN: Yes Hypercholesterolemia: Yes Liver Disease: No Seizures: No Thyroid Disease: No - Surgical History Abdominal Surgery: No Appendectomy: No Cardiac Surgery: No Cholecystectomy: No Lung Surgery: No Neurologic Surgery: No Orthopedic Surgery: Yes (R Knee) - Psycho Social/Smoking Cessation Hx Smoking Status: No Smoking History: Never smoked Have you smoked in the past 12 months: No Number of Cigarettes Smoked Daily: 0 Hx Alcohol Use: No Drug/Substance Use Hx: No Substance Use Type: None Hx Substance Use Treatment: No Review of Systems - Review of Systems Comments:: 07/07/19 01:28 ROS: A complete review of 10 out of 10 review of systems is taken and is negative apart from what is previously mentioned below and in the HPI. *Physical Exam - Vital Signs Last Vital Signs Temp Pulse Resp BP Pulse Ox 99.0 F 85 20 118/98 97 07/07/19 01:02 07/07/19 01:02 07/07/19 01:02 07/07/19 01:02 07/07/19 01:02 - Physical Exam Comments: 07/07/19 01:28 Vitals: Triage Vital signs reviewed General Appearance: No acute distress, well nourished well developed, Cardiac: Regular rate and rhythym, no murmurs, no rubs, no gallops, Lungs: Clear to auscultation bilateral, good air movement bilaterally, Abdomen: Soft, non distended, normal bowel sounds, non tender to palpation Extremities: Full range of motion to all extremities, no cyanosis, clubbing, or edema Skin: Warm and dry, no rashes or lesions, no rash, no petechiae Psych: Normal mood, normal affect Heart Score/ECG Review - History History: Moderately suspicious - Electrocardiogram EKG: Normal - Age Age: 45-65 - Risk Factors Risk Factors Heart Score: Yes Hx Hypercholesterolemia, Yes Hx Hypertension, Yes Hx Diabetes, Yes Hx Obesity Based on the list above the patient has:: >/=3 risk factors or Hx atherosclerotic disease - Troponin Troponin: </= normal limit - Score Heart Score - Total: 4 - ECG Impressions Comment:: 07/07/19 01:29 EKG performed at 109 demonstrates sinus rhythm [address] elevations no T wave inversions Interpreted by me. ED Treatment Course - LABORATORY CBC & Chemistry Diagram: 07/07/19 02:20 07/07/19 02:20 - RADIOLOGY Radiology Studies Ordered: Category Date Time Status CXRPORT [CHEST X-RAY PORTABLE*] [RAD] Stat Radiology 07/07/19 01:15 Ordered Medical Decision Making - Medical Decision Making 07/07/19 07:36 59 years old with exertional arm and chest discomfort nonischemic EKG recent non -STEMI was not not stented in September Troponin negative heart score 4 Will observe for further management 07/07/19 07:37 Discharge - Discharge Information Problems reviewed: Yes Clinical Impression/Diagnosis: Chest pain Qualifiers: Chest pain type: unspecified Qualified Code(s): R07.9 - Chest pain, unspecified Condition: Fair - Admission Yes - Follow up/Referral - Patient Discharge Instructions - Post Discharge Activity
[2019-07-07 02:42] LABS: BASO % 0.9 % (0-2.0); EOS % 2.9 % (0-4.5); HEMATOCRIT 30.7 % (32.4-45.2); LYMPH % 52.4 % (8-40); MCH 27.5 pg (25.7-33.7); MCHC 32.4 g/dl (32.0-36.0); MEAN CELL VOLUME 84.7 fl (80-96); MEAN PLT VOLUME 9.8 fl (7.5-11.1); MONO % 9.2 % (3.8-10.2); NEUT % 34.6 % (42.8-82.8); PLATELET COUNT 284 K/MM3 (134-434); RBC 3.62 M/mm3 (3.60-5.2); RDW 13.4 % (11.6-15.6)
[2019-07-07 03:06] LABS: ALBUMIN 3.4 g/dl (3.4-5.0); BILIRUBIN,TOTAL 0.1 mg/dL (0.2-1); BLOOD UREA NITROGEN 32.4 mg/dL (7-18); CALCIUM 9.4 mg/dL (8.5-10.1); CREATININE 1.3 mg/dL (0.55-1.3); POTASSIUM 4.1 mmol/L (3.5-5.1); TOT PROT 6.8 g/dl (6.4-8.2)
[2019-07-07] MEDS ORDERED: ASPIRIN 325 MG ENTERIC COATED TABLET (FP) PO ONE ×2 (07:02→12:10)
[2019-07-07] MEDS ORDERED: ASPIRIN 325 MG ENTERIC COATED TABLET (FP) ONE (07:48)
[2019-07-07] MEDS ORDERED: HEPARIN NA (PORCINE) 5,000 UNITS/ML 1ML VIAL SQ SCH (10:00)
[2019-07-07] MEDS ORDERED: FUROSEMIDE 40 MG TABLET (FP) PO SCH (10:00)
[2019-07-07] MEDS ORDERED: LOSARTAN POTASSIUM 50 MG TABLET (FP) PO SCH (10:00)
--- NOTE | 2019-07-07 10:01 | EKG ---
Test Reason : Blood Pressure : / mmHG Vent. Rate : 086 BPM Atrial Rate : 086 BPM P-R Int : 158 ms QRS Dur : 098 ms QT Int : 400 ms P-R-T Axes : 044 -06 015 degrees QTc Int : 478 ms NORMAL SINUS RHYTHM POSSIBLE LEFT ATRIAL ENLARGEMENT LEFT VENTRICULAR HYPERTROPHY ABNORMAL ECG WHEN COMPARED WITH ECG OF 06-MAY-2019 15:05, Confirmed by LIMA CHEEK MD ([id number]) on 07/07/2019 10:00:55 AM Referred By: Confirmed By:LIMA CHEEK MD
[2019-07-07] MEDS: ASPIRIN COATED 81 MG TABLET.EC PO SCH (11:47)
[2019-07-07] MEDS: PANTOPRAZOLE 40 MG TABLET (FP) PO SCH (11:47)
[2019-07-07] MEDS: FENOFIBRIC ACID 135 MG CAP PO SCH (11:48)
[2019-07-07] MEDS: SPIRONOLACTONE 25 MG TABLET (FP) PO SCH (11:48)
[2019-07-07] MEDS: LISINOPRIL 20 MG TABLET (FP) PO SCH (11:48)
[2019-07-07] MEDS: CLOPIDOGREL BISULFATE 75 MG TABLET (FP) PO SCH (11:48)
[2019-07-07] MEDS: PREGABALIN 100 MG CAPSULE PO SCH (11:48)
[2019-07-07] MEDS: POLYETHYLENE GLYCOL 3350 119 GM BTL PO SCH ×2 (11:49→22:50)
[2019-07-07 11:50] VITALS: BMI 38.5
--- NOTE | 2019-07-07 12:11 | CON.CARD ---
Consult Consult Specialty:: Cardiology - History of Present Illness History of Present Illness: 59 years old with past medical history significant for hypertension high cholesterol diabetes non-STEMI in September was cath but no stents were placed on Plavix but has missed last few doses of Plavix was walking a short distance after which she developed bilateral arm and chest discomfort as well as generalized weakness Symptoms lasted greater than 30 minutes associated very mild nausea relieved with time - History Source History Provided By: Patient, Medical Record - Past Medical History Cardio/Vascular: Yes: HTN, Hyperlipdemia Pulmonary: Yes: Asthma Gastrointestinal: Yes: GERD Endocrine: Yes: Diabetes Mellitus - Past Surgical History Past Surgical History: Yes: - Alcohol/Substance Use Hx Alcohol Use: No - Smoking History Smoking history: Never smoked Have you smoked in the past 12 months: No Aproximately how many cigarettes per day: 0 - Social History ADL: Independent History of Recent Travel: No Home Medications - Allergies Allergies/Adverse Reactions: Allergies Allergy/AdvReac Type Severity Reaction Status Date / Time duloxetine HCl AdvReac Intermediate jaw Verified 07/07/19 01:05 [From [facility]] locked, stiff joints - Home Medications Home Medications: Ambulatory Orders Montelukast Na [Singulair -] 10 mg PO HS #0 tablet 04/16/12 metFORMIN HCL [Glucophage -] 1,000 mg PO BIDAC #0 tablet 04/16/12 Insulin Lispro [Humalog] 2 unit SQ ASDIR PRN 11/27/12 Pregabalin [Lyrica] 100 mg PO DAILY 11/27/12 Atorvastatin Ca [Lipitor] 40 mg PO HS 07/25/18 Aspirin [Aspirin EC] 81 mg PO DAILY 05/09/19 Clopidogrel Bisulfate [Clopidogrel] 75 mg PO DAILY 05/09/19 Fenofibrate Nanocrystallized [Fenofibrate] 145 mg PO DAILY 05/09/19 Furosemide [Lasix] 40 mg PO DAILY 05/09/19 Losartan Potassium 50 mg PO DAILY 05/09/19 Meclizine HCl 25 mg PO BID 05/09/19 Ropinirole HCl 0.5 mg PO BID 05/09/19 Spironolactone 25 mg PO DAILY 05/09/19 Clopidogrel Bisulfate [Plavix -] 75 mg PO DAILY #30 tablet 05/10/19 Docusate Sodium [Colace -] 100 mg PO TID #90 capsule 05/10/19 Hydrochlorothiazide [Hctz -] 25 mg PO DAILY #30 tablet 05/10/19 Lisinopril [Prinivil] 20 mg PO DAILY #30 tablet 05/10/19 Pantoprazole Sodium [Protonix -] 40 mg PO DAILY #30 tablet.ec 05/10/19 Polyethylene Glycol 3350 [Miralax (For Daily Use) -] 17 gm PO BID #1 bottle Review of Systems - Review of Systems Constitutional: reports: No Symptoms Eyes: reports: No Symptoms HENT: reports: No Symptoms Neck: reports: No Symptoms Cardiovascular: reports: Chest Pain Respiratory: reports: No Symptoms Gastrointestinal: reports: No Symptoms Genitourinary: reports: No Symptoms Breasts: reports: No Symptoms Reported Musculoskeletal: reports: No Symptoms Integumentary: reports: No Symptoms Neurological: reports: No Symptoms Endocrine: reports: No Symptoms Hematology/Lymphatic: reports: No Symptoms Psychiatric: reports: No Symptoms Vital Signs: Vital Signs Temperature 98.8 F 07/07/19 11:19 Pulse Rate 78 07/07/19 11:19 Respiratory Rate 18 07/07/19 11:19 Blood Pressure 155/84 07/07/19 11:19 O2 Sat by Pulse Oximetry (%) 99 07/07/19 11:19 Constitutional: Yes: Well Nourished, No Distress, Calm Eyes: Yes: WNL, Conjunctiva Clear, EOM Intact HENT: Yes: WNL, Atraumatic, Normocephalic Neck: Yes: WNL, Supple, Trachea Midline Respiratory: Yes: WNL, Regular, CTA Bilaterally Gastrointestinal: Yes: WNL, Normal Bowel Sounds Renal/: Yes: WNL Cardiovascular: Yes: WNL, Regular Rate and Rhythm Heart Sounds: Yes: S1, S2 Musculoskeletal: Yes: WNL Extremities: Yes: WNL Integumentary: Yes: WNL Neurological: Yes: WNL, Alert, Oriented ...Motor Strength: WNL Psychiatric: Yes: WNL, Alert, Oriented - Other Data Labs, Other Data: CBC, BMP 07/07/19 02:20 07/07/19 02:20 Troponin, BNP 07/07/19 07/07/19 02:20 10:45 Troponin I 0.02 0.09 H Troponin, BNP 07/07/19 07/07/19 02:20 10:45 Troponin I 0.02 0.09 H Imaging - Results Chest X-ray: Image Reviewed (no i/e) EKG: Image Reviewed (sr lvh rep abn) Problem List - Problems (1) Chest pain Code(s): R07.9 - CHEST PAIN, UNSPECIFIED Qualifiers: Chest pain type: unspecified Qualified Code(s): R07.9 - Chest pain, unspecified (2) Carpal tunnel syndrome Code(s): G56.00 - CARPAL TUNNEL SYNDROME, UNSPECIFIED UPPER LIMB (4) Hypercholesterolemia Code(s): E78.0 - PURE HYPERCHOLESTEROLEMIA * DO NOT USE * (6) Knee pain Code(s): M25.569 - PAIN IN UNSPECIFIED KNEE (7) Low back pain Code(s): M54.5 - LOW BACK PAIN (9) Abdominal pain Code(s): R10.9 - UNSPECIFIED ABDOMINAL PAIN (10) Acute bronchitis Code(s): J20.9 - ACUTE BRONCHITIS, UNSPECIFIED (11) Atypical chest pain Code(s): R07.89 - OTHER CHEST PAIN (12) Bronchial asthma Code(s): J45.909 - UNSPECIFIED ASTHMA, UNCOMPLICATED (13) Bronchitis Code(s): J40 - BRONCHITIS, NOT SPECIFIED ACUTE OR CHRONIC (14) Diabetes Code(s): E11.9 - TYPE 2 DIABETES MELLITUS WITHOUT COMPLICATIONS (15) Dilated cbd, acquired Code(s): K83.8 - OTHER SPECIFIED DISEASES OF BILIARY TRACT (16) Epigastric pain Code(s): R10.13 - EPIGASTRIC PAIN (17) Gastritis Code(s): K29.70 - GASTRITIS, UNSPECIFIED, WITHOUT BLEEDING (18) HLD (hyperlipidemia) Code(s): E78.5 - HYPERLIPIDEMIA, UNSPECIFIED (19) HTN (hypertension) Code(s): I10 - ESSENTIAL (PRIMARY) HYPERTENSION (20) Obesity Code(s): E66.9 - OBESITY, UNSPECIFIED (21) Pancreatic cyst Code(s): K86.2 - CYST OF PANCREAS (22) Vascular calcification Code(s): I99.8 - OTHER DISORDER OF CIRCULATORY SYSTEM (23) Vertigo Code(s): R42 - DIZZINESS AND GIDDINESS Assessment/Plan hypertension high cholesterol diabetes non-STEMI in September was cath but no stents were placed on asa/Plavix subsequently ASA stopped admitted with r arm/chest pain first tni 0.02 second increased to 0.09 Plan restart asa plavix LMWH 1 mg/kg BID until tnis normalize trend tnis and ekgs records from [facility] regarding cardiac anatomy telemetry
[2019-07-07] MEDS ORDERED: ENOXAPARIN NA (PORCINE) 80 MG/0.8 ML DISP.SYRIN SQ SCH (12:15)
[2019-07-07] MEDS ORDERED: MECLIZINE HCL 12.5 MG TABLET PO PRN (13:15)
[2019-07-07] MEDS: DOCUSATE SODIUM 100 MG CAPSULE (FP) PO SCH ×2 (14:56→22:50)
[2019-07-07] MEDS: metFORMIN HCL 500 MG TABLET (FP) PO SCH (16:43)
[2019-07-07] MEDS: INSULIN SLIDING SCALE (NOVOLOG) 1 VIAL SQ SCH ×2 (17:17→22:50)
[2019-07-07] MEDS ORDERED: ATORVASTATIN CA 20 MG TABLET (FP) PO SCH (22:00)
[2019-07-07] MEDS ORDERED: MONTELUKAST NA 10 MG TABLET PO SCH (22:00)
--- NOTE | 2019-07-07 22:08 | HP ---
Admitting History and Physical - Admission History of Present Illness: Pt is a 59 y/o morbidly obese female w/ PMH significant for HTN, HLD,GERD, asthma and diabetes. Pt had [facility] in 10/08 and underwent cardiac cath w/out stenting. Pt now presented to the ER w/ acute onset of chest pain. Pt states that the chest pain starts in her hands/arms and then goes up to her chest/ heart. Pt denies any sob/palpitations but also complains of weakness. - Past Medical History Cardiovascular: Yes: HTN, Hyperlipdemia Pulmonary: Yes: Asthma Gastrointestinal: Yes: GERD Endocrine: Yes: Diabetes Mellitus - Past Surgical History Past Surgical History: Yes: - Smoking History Smoking history: Never smoked Have you smoked in the past 12 months: No Aproximately how many cigarettes per day: 0 - Alcohol/Substance Use Hx Alcohol Use: No - Social History ADL: Independent History of Recent Travel: No Home Medications - Allergies Allergies/Adverse Reactions: Allergies Allergy/AdvReac Type Severity Reaction Status Date / Time duloxetine HCl AdvReac Intermediate jaw Verified 07/07/19 01:05 [From [facility]] locked, stiff joints - Home Medications Home Medications: Ambulatory Orders Montelukast Na [Singulair -] 10 mg PO HS #0 tablet 04/16/12 metFORMIN HCL [Glucophage -] 1,000 mg PO BIDAC #0 tablet 04/16/12 Insulin Lispro [Humalog] 2 unit SQ ASDIR PRN 11/27/12 Pregabalin [Lyrica] 100 mg PO DAILY 11/27/12 Atorvastatin Ca [Lipitor] 40 mg PO HS 07/25/18 Aspirin [Aspirin EC] 81 mg PO DAILY 05/09/19 Clopidogrel Bisulfate [Clopidogrel] 75 mg PO DAILY 05/09/19 Fenofibrate Nanocrystallized [Fenofibrate] 145 mg PO DAILY 05/09/19 Furosemide [Lasix] 40 mg PO DAILY 05/09/19 Losartan Potassium 50 mg PO DAILY 05/09/19 Meclizine HCl 25 mg PO BID 05/09/19 Ropinirole HCl 0.5 mg PO BID 05/09/19 Spironolactone 25 mg PO DAILY 05/09/19 Clopidogrel Bisulfate [Plavix -] 75 mg PO DAILY #30 tablet 05/10/19 Docusate Sodium [Colace -] 100 mg PO TID #90 capsule 05/10/19 Hydrochlorothiazide [Hctz -] 25 mg PO DAILY #30 tablet 05/10/19 Lisinopril [Prinivil] 20 mg PO DAILY #30 tablet 05/10/19 Pantoprazole Sodium [Protonix -] 40 mg PO DAILY #30 tablet.ec 05/10/19 Polyethylene Glycol 3350 [Miralax (For Daily Use) -] 17 gm PO BID #1 bottle Family Medical History Family History: Unremarkable Review of Systems - Review of Systems Constitutional: reports: Weakness Eyes: reports: No Symptoms HENT: reports: No Symptoms Neck: reports: No Symptoms Cardiovascular: reports: Chest Pain Respiratory: reports: No Symptoms Gastrointestinal: reports: No Symptoms Genitourinary: reports: No Symptoms Physical Examination Vital Signs: Vital Signs Temperature 98.0 F 07/07/19 20:30 Pulse Rate 82 07/07/19 20:30 Respiratory Rate 18 07/07/19 20:30 Blood Pressure 110/65 07/07/19 20:30 O2 Sat by Pulse Oximetry (%) 99 07/07/19 17:00 Labs: CBC, BMP 07/07/19 02:20 07/07/19 02:20
[2019-07-07] MEDS ORDERED: INSULIN (NOVOLOG) ASPART 100 UNITS/ML 10ML VIAL ONE (22:19)
[2019-07-08] MEDS ORDERED: ACETAMINOPHEN 325 MG TABLET (FP) PO PRN (06:32)
[2019-07-08] MEDS: metFORMIN HCL 500 MG TABLET (FP) PO SCH (06:46)
[2019-07-08] MEDS: INSULIN SLIDING SCALE (NOVOLOG) 1 VIAL SQ SCH ×2 (06:46→11:19)
[2019-07-08] MEDS: DOCUSATE SODIUM 100 MG CAPSULE (FP) PO SCH ×2 (06:47→14:00)
[2019-07-08 07:04] LABS: BASO % 0.7 % (0-2.0); EOS % 3.5 % (0-4.5); HEMATOCRIT 31.7 % (32.4-45.2); HEMOGLOBIN 10.3 GM/dL (10.7-15.3); LYMPH % 43.2 % (8-40); MCH 27.3 pg (25.7-33.7); MCHC 32.4 g/dl (32.0-36.0); MEAN CELL VOLUME 84.4 fl (80-96); MEAN PLT VOLUME 10.2 fl (7.5-11.1); MONO % 9.5 % (3.8-10.2); NEUT % 43.1 % (42.8-82.8); PLATELET COUNT 285 K/MM3 (134-434); RBC 3.76 M/mm3 (3.60-5.2); RDW 13.6 % (11.6-15.6); WHITE BLOOD COUNT 4.4 K/mm3 (4.0-10.0)
[2019-07-08 08:03] LABS: ALBUMIN 3.4 g/dl (3.4-5.0); BILIRUBIN,TOTAL 0.2 mg/dL (0.2-1); BLOOD UREA NITROGEN 32.3 mg/dL (7-18); CALCIUM 9.4 mg/dL (8.5-10.1); CREATININE 1.2 mg/dL (0.55-1.3); POTASSIUM 4.8 mmol/L (3.5-5.1); TOT PROT 6.9 g/dl (6.4-8.2)
--- NOTE | 2019-07-08 08:18 | PN ---
Progress Note, Physician Chief Complaint: Pt A&Ox3; c/o central chest tenderness History of Present Illness: 59 year old woman with past medical history significant for diabetes, hypertension, CAD status post non-STEMI September 2018 cath without stenting, now presents to the emergency department with chest discomfort. - Current Medication List Current Medications: Active Medications Acetaminophen (Tylenol -) 650 mg PO Q6H PRN PRN Reason: PAIN LEVEL 1-5 Last Admin: 07/08/19 06:48 Dose: 650 mg Aspirin (Ecotrin -) 81 mg PO DAILY [facility] Last Admin: 07/07/19 11:47 Dose: Not Given Atorvastatin Calcium (Lipitor -) 40 mg PO HS [facility] Last Admin: 07/07/19 22:50 Dose: 40 mg Clopidogrel Bisulfate (Plavix -) 75 mg PO DAILY [facility] Last Admin: 07/07/19 11:48 Dose: 75 mg Docusate Sodium (Colace -) 100 mg PO TID [facility] Last Admin: 07/08/19 06:47 Dose: 100 mg Enoxaparin Sodium (Lovenox -) 80 mg SQ BID [facility] Fenofibric Acid (Trilipix -) 135 mg PO DAILY [facility] Last Admin: 07/07/19 11:48 Dose: 135 mg Furosemide (Lasix -) 40 mg PO DAILY [facility] Last Admin: 07/07/19 11:48 Dose: 40 mg Insulin Aspart (Novolog Vial Sliding Scale -) 1 vial SQ ACHS [facility]; Protocol Last Admin: 07/08/19 06:46 Dose: 8 units Lisinopril (Prinivil) 20 mg PO DAILY [facility] Last Admin: 07/07/19 11:48 Dose: 20 mg Losartan Potassium (Cozaar -) 50 mg PO DAILY [facility] Last Admin: 07/07/19 11:48 Dose: 50 mg Meclizine HCl (Antivert -) 12.5 mg PO BID PRN PRN Reason: VERTIGO Metformin HCl (Glucophage -) 1,000 mg PO BIDAC [facility] Last Admin: 07/08/19 06:46 Dose: 1,000 mg Montelukast Sodium (Singulair -) 10 mg PO HS [facility] Last Admin: 07/07/19 22:50 Dose: 10 mg Pantoprazole Sodium (Protonix -) 40 mg PO DAILY [facility] Last Admin: 07/07/19 11:47 Dose: 40 mg Polyethylene Glycol (Miralax (For Daily Use) -) 17 gm PO BID [facility] Last Admin: 07/07/19 22:50 Dose: 17 grams Pregabalin (Lyrica -) 100 mg PO DAILY [facility] Last Admin: 07/07/19 11:48 Dose: 100 mg Spironolactone (Aldactone -) 25 mg PO DAILY [facility] Last Admin: 07/07/19 11:48 Dose: 25 mg - Objective Vital Signs: Vital Signs Temperature 97.4 F L 07/08/19 06:00 Pulse Rate 81 07/08/19 06:00 Respiratory Rate 18 07/08/19 06:00 Blood Pressure 134/65 07/08/19 06:00 O2 Sat by Pulse Oximetry (%) 97 07/07/19 21:00 Constitutional: Yes: Anxious, Obese Eyes: Yes: WNL HENT: Yes: WNL Neck: Yes: WNL Cardiovascular: Yes: S1, S2 Respiratory: Yes: WNL Gastrointestinal: Yes: Soft, Abdomen, Obese ...Rectal Exam: Yes: Deferred Genitourinary: No: Anuria Breast(s): Yes: WNL Musculoskeletal: Yes: Back Pain, Other (anterior diffuse chest wall tenderness; no rash) Extremities: Yes: WNL Labs: CBC, BMP 07/08/19 06:05 07/08/19 06:05 Problem List - Problems (1) CAD (coronary artery disease) Assessment/Plan: Report of kandy [place] coronary angiorgram 09/2018 notes PTCA without stent of a small vessel (ramus); major arteries had no significant disease. Normal LVEF. EKG: NSR; no acute STT changes. TNI this admission 0.02-->0.09-->0.06; CK wnl. Pt with other contributing factors for demand ischemia, including pain, stress, CHF, HTN. echo today: no wall motion abnormalities. Plan: Discussed with pt's skein winder (Dr. Escobar). Pt will be followed up in her office Start Imdur 30 mg daily. Continue ASA and clopidogrel. Code(s): I25.10 - ATHSCL HEART DISEASE OF [place] CORONARY ARTERY W/O ANG PCTRS (3) Hypercholesterolemia Assessment/Plan: on atorvastatin and fibrate. Keep LDL < 50 mg/dl. Code(s): E78.0 - PURE HYPERCHOLESTEROLEMIA * DO NOT USE * (5) Knee pain Code(s): M25.569 - PAIN IN UNSPECIFIED KNEE (6) Low back pain Code(s): M54.5 - LOW BACK PAIN (8) Abdominal pain Code(s): R10.9 - UNSPECIFIED ABDOMINAL PAIN (9) Atypical chest pain Code(s): R07.89 - OTHER CHEST PAIN (10) Bronchial asthma Code(s): J45.909 - UNSPECIFIED ASTHMA, UNCOMPLICATED (11) HLD (hyperlipidemia) Code(s): E78.5 - HYPERLIPIDEMIA, UNSPECIFIED (12) HTN (hypertension) Code(s): I10 - ESSENTIAL (PRIMARY) HYPERTENSION (13) Obesity Assessment/Plan: nutrition consult. Code(s): E66.9 - OBESITY, UNSPECIFIED
[2019-07-08] MEDS ORDERED: ISOSORBIDE MONONITRATE 30 MG TAB.SR.24H (FP) PO SCH (10:00)
[2019-07-08 10:36] VITALS: BP 144/68; PULSE 88; TEMP 98
[2019-07-08] MEDS: ASPIRIN COATED 81 MG TABLET.EC PO SCH (10:47)
[2019-07-08] MEDS: SPIRONOLACTONE 25 MG TABLET (FP) PO SCH (10:47)
[2019-07-08] MEDS: FENOFIBRIC ACID 135 MG CAP PO SCH (10:48)
[2019-07-08] MEDS: LISINOPRIL 20 MG TABLET (FP) PO SCH (10:48)
[2019-07-08] MEDS: CLOPIDOGREL BISULFATE 75 MG TABLET (FP) PO SCH (10:48)
[2019-07-08] MEDS: PANTOPRAZOLE 40 MG TABLET (FP) PO SCH (10:48)
[2019-07-08] MEDS: PREGABALIN 100 MG CAPSULE PO SCH (10:48)
[2019-07-08] MEDS ORDERED: ACETAMINOPHEN 500 MG TABLET (FP) PO ONE (10:49)
[2019-07-08] MEDS: POLYETHYLENE GLYCOL 3350 119 GM BTL PO SCH (10:53)
[2019-07-08] MEDS ORDERED: ACETAMINOPHEN 500 MG TABLET (FP) PO SCH (11:00)
--- NOTE | 2019-07-08 11:45 | ECHO ---
Version: 1 Name: GIBRAN FRANCISCO Exam: Adult Echocardiogram Study Date: 07/08/2019, 9:25 AM Age: 59 Years MMode/2D Measurements & Calculations IVSd: 1.68 cm LVIDs: 2.08 cm LVIDd: 3.0 cm LVPWd: 1.40 cm ACS: 1.76 cm Ao root diam: 2.5 cm LVOT diam: 1.88 cm LA dimension: 4.1 cm Doppler Measurements & Calculations MV E max elmer: 81.6 cm/sec Med E/e': 8.4 MV A max elmer: 120.0 cm/sec Med Peak E' Elmer: 9.7 cm/sec MV E/A: 0.68 Lat E/e': 8.5 Lat Peak E' Elmer: 9.6 cm/sec Ao max P.0 mmHg CHRISTINA(I,D): 2.19 cm Ao mean P.9 mmHg LV V1 mean: 74.9 cm/sec Ao V2 max: 165.6 cm/sec LV V1 mean P.6 mmHg TR max elmer: 251.1 cm/sec TR max P.2 mmHg Procedure The study was technically limited with all images being suboptimal in quality. Left Ventricle The left ventricle is normal in size. The left ventricle is hyperdynamic. Ejection Fraction = >70%. The transmitral spectral Doppler flow pattern is suggestive of impaired LV relaxation. Right Ventricle The right ventricle is normal in size and function. Atria The left atrium is mildly dilated. The right atrium is mildly dilated. Mitral Valve There is mild mitral annular calcification. There is mild mitral regurgitation. Tricuspid Valve The tricuspid valve is normal. There is mild tricuspid regurgitation. Aortic Valve There is mild aortic valve thickening. Mild aortic regurgitation. Pulmonic Valve The pulmonic valve is not well visualized. Great Vessels The aortic root is normal size. Normal aortic arch, descending and ascending aorta. Pericardium/Pleura There is no pericardial effusion. Summary Statements The study was technically limited with all images being suboptimal in quality. The left ventricle is normal in size. The left ventricle is hyperdynamic. The transmitral spectral Doppler flow pattern is suggestive of impaired LV relaxation. The right ventricle is normal in size and function. The left atrium is mildly dilated. The right atrium is mildly dilated. There is mild mitral annular calcification. There is mild mitral regurgitation. The tricuspid valve is normal. There is mild tricuspid regurgitation. There is mild aortic valve thickening. Mild aortic regurgitation. The pulmonic valve is not well visualized. The aortic root is normal size. Normal aortic arch, descending and ascending aorta There is no pericardial effusion. Cr Ocasio 07/08/2019, 11:45 AM Ordering Physician: Augusta Flowers Performed By: Thea Herring
--- NOTE | 2019-07-08 12:11 | EKG ---
Test Reason : Blood Pressure : / mmHG Vent. Rate : 082 BPM Atrial Rate : 082 BPM P-R Int : 156 ms QRS Dur : 102 ms QT Int : 406 ms P-R-T Axes : 056 002 007 degrees QTc Int : 474 ms NORMAL SINUS RHYTHM NORMAL ECG WHEN COMPARED WITH ECG OF 07-JUL-2019 01:09, NO SIGNIFICANT CHANGE WAS FOUND Confirmed by MD Bill, Bart ([id number]) on 07/08/2019 12:11:24 PM Referred By: [facility] Confirmed By:Bart Khan MD
== END 2019-07-08 15:10 | disposition home health service (06) ==
LOC: JER 00:48 → UNDOADMOB 03:30 → JERBED 03:30 → OBSVTOIN 08:58 → INTOOBSV 08:58 → JERBED 10:57 → J4W 10:57 → JERBED 13:02 → J4W 13:02
PROVIDERS: ADMIT Internal Medicine; ATTEND Internal Medicine
PROC: 3E013VG Introduction of Insulin into Subcutaneous Tissue, Percutaneous Approach (ICD-10-PCS; principal; 2019-07-07)
DX: R07.89 Other chest pain (principal); I10 Essential (primary) hypertension; E78.5 Hyperlipidemia, unspecified; E11.9 Type 2 diabetes mellitus without complications; I25.2 Old myocardial infarction; I25.10 Atherosclerotic heart disease of native coronary artery without angina pectoris; J45.909 Unspecified asthma, uncomplicated; K21.9 Gastro-esophageal reflux disease without esophagitis; M54.5 Low back pain; E66.9 Obesity, unspecified; Z68.38 Body mass index [BMI] 38.0-38.9, adult; Z79.4 Long term (current) use of insulin; Z79.82 Long term (current) use of aspirin; Z79.84 Long term (current) use of oral hypoglycemic drugs; Z98.61 Coronary angioplasty status; Z79.02 Long term (current) use of antithrombotics/antiplatelets; Z88.8 Allergy status to other drugs, medicaments and biological substances
CPT/HCPCS: 36415; 71045-TC-FY; 80053; 80061; 82550; 82962; 83721; 84484; 85025; 93005; 93010; 93306-TC; 96372; 99284-25; G0378; J1644

== ENCOUNTER 2020-09-03 14:21 | Inpatient (IN) | payer OTHER ==
[2020-09-03 14:40] VITALS: BMI 43.9
[2020-09-03] MEDS ORDERED: SODIUM CHLORIDE 1,000 ML IV STA ×2 (14:44→19:57)
[2020-09-03] MEDS ORDERED: ACETAMINOPHEN 1000 MG/100 ML VIAL (NON FORMULARY) IVPB ONE ×2 (14:44→23:55)
[2020-09-03] MEDS ORDERED: ACETAMINOPHEN INJECTION 100 ML IVPB ONE (15:03)
[2020-09-03] MEDS ORDERED: morphine CARPU-JECT 4 MG/1 ML DISP.SYRIN IVPUSH ONE (16:04)
[2020-09-03] MEDS ORDERED: ONDANSETRON 4 MG/2 ML VIAL IVPUSH ONE (16:04)
[2020-09-03 16:06] LABS: EPI CELLS 23 /uL (0-25.1); HYALINE CASTS 1 /uL (0-3.1); PH,URINE 5.5 (5.0-8.0); URINE APPEARANCE CLEAR; URINE BACTERIA 208 /uL (0-1359); URINE BILIRUBIN NEGATIVE (NEGATIVE); URINE COLOR YELLOW; URINE GLUCOSE (UA) NEGATIVE (NEGATIVE); URINE KETONE NEGATIVE (NEGATIVE); URINE LEUK ESTERASE TRACE (NEGATIVE); URINE NITRITE NEGATIVE (NEGATIVE); URINE PROTEIN 3+ (NEGATIVE); URINE RBC 16 /uL (0-23.9); URINE UROBILINOGEN 0.2 mg/dL (0.2-1.0); URINE WBC 33 /uL (0-25.8)
[2020-09-03 16:06] LABS: BASO % 0.8 % (0-2.0); EOS % 3.9 % (0-4.5); HEMATOCRIT 30.5 % (32.4-45.2); HEMOGLOBIN 9.9 GM/dL (10.7-15.3); LYMPH % 35.6 % (8-40); MCH 28.1 pg (25.7-33.7); MCHC 32.6 g/dl (32.0-36.0); MEAN CELL VOLUME 86.1 fl (80-96); MEAN PLT VOLUME 9.7 fl (7.5-11.1); NEUT % 49.7 % (42.8-82.8); PLATELET COUNT 295 K/MM3 (134-434); RBC 3.54 M/mm3 (3.60-5.2); RDW 13.3 % (11.6-15.6); WHITE BLOOD COUNT 7.7 K/mm3 (4.0-10.0)
[2020-09-03 16:17] LABS: INR 0.94 (0.83-1.09); PROTHROMBIN TIME (PATIENT) 11.4 SEC (9.7-13.0)
[2020-09-03 16:23] LABS: CHLORIDE 104 mmol/L (98-107); POTASSIUM 4.2 mmol/L (3.5-5.1); SODIUM 141 mmol/L (136-145)
[2020-09-03 16:25] LABS: ALBUMIN 3.2 g/dl (3.4-5.0); CALCIUM 9.4 mg/dL (8.5-10.1); LIPASE 172 U/L (73-393)
[2020-09-03 16:26] LABS: ANION GAP 4 MMOL/L (8-16); CO2 34 mmol/L (21-32); GLUCOSE,RANDOM 57 mg/dL (74-106)
[2020-09-03 16:28] LABS: SGOT/AST 13 U/L (15-37); SGPT/ALT 24 U/L (13-61)
[2020-09-03 16:29] LABS: CREATININE 1.8 mg/dL (0.55-1.3)
[2020-09-03 16:30] LABS: BILIRUBIN,TOTAL 0.1 mg/dL (0.2-1); TOT PROT 7.2 g/dl (6.4-8.2)
[2020-09-03] MEDS ORDERED: DEXTROSE 50%-WATER 25 GM/50 ML DISP.SYRIN ONE ×2 (16:30→20:44)
[2020-09-03] MEDS ORDERED: DEXTROSE 50%-WATER - 25 GM/50 ML VIAL IVPUSH ONE ×2 (16:30→20:44)
[2020-09-03 16:32] LABS: ALK PHOS 92 U/L (45-117)
[2020-09-03] MEDS ORDERED: ONDANSETRON 4 MG/2 ML VIAL ONE (16:35)
[2020-09-03] MEDS ORDERED: morphine SULFATE 4 MG/ML VIAL ONE (16:35)
[2020-09-03] MEDS ORDERED: MAG HYDROX/AL HYDROX/SIMETH -MYLANTA- ORAL SUSPENSION PO ONE (17:03)
[2020-09-03] MEDS ORDERED: FAMOTIDINE 20 MG/50 ML IVPB 20 MG/50 ML MG IVPB ONE ×2 (17:04→17:26)
[2020-09-03] MEDS ORDERED: MAG HYDROX/AL HYDROX/SIMETH 30 ML UNIT-DOSE CUP ONE (17:26)
[2020-09-03] MEDS ORDERED: LIDOCAINE 5% TOPICAL PATCH ONE (23:44)
[2020-09-03] MEDS ORDERED: LIDOCAINE 5% TOPICAL PATCH TP ONE (23:55)
[2020-09-04] MEDS ORDERED: ACETAMINOPHEN INJECTION 100 ML IVPB ONE (00:01)
[2020-09-04] MEDS ORDERED: DOCUSATE SODIUM 100 MG CAPSULE (FP) PO ONE ×3 (06:01→13:49)
[2020-09-04] MEDS: DOCUSATE SODIUM 100 MG CAPSULE (FP) PO SCH ×3 (06:03→22:04)
[2020-09-04 08:03] LABS: BASO % 0.5 % (0-2.0); EOS % 3.8 % (0-4.5); HEMATOCRIT 28.6 % (32.4-45.2); HEMOGLOBIN 9.3 GM/dL (10.7-15.3); MCH 28.3 pg (25.7-33.7); MCHC 32.7 g/dl (32.0-36.0); MEAN CELL VOLUME 86.6 fl (80-96); MONO % 9.2 % (3.8-10.2); NEUT % 62.5 % (42.8-82.8); PLATELET COUNT 261 K/MM3 (134-434); RDW 13.2 % (11.6-15.6); WHITE BLOOD COUNT 7.3 K/mm3 (4.0-10.0)
[2020-09-04] MEDS: INSULIN SLIDING SCALE (NOVOLOG) 1 VIAL SQ SCH ×4 (08:08→22:14)
[2020-09-04 08:19] LABS: POTASSIUM 4.5 mmol/L (3.5-5.1)
[2020-09-04 08:22] LABS: CALCIUM 8.7 mg/dL (8.5-10.1)
[2020-09-04 08:23] LABS: BLOOD UREA NITROGEN 23.9 mg/dL (7-18)
[2020-09-04 08:28] LABS: BILIRUBIN,TOTAL 0.2 mg/dL (0.2-1); CREATININE 1.6 mg/dL (0.55-1.3); TOT PROT 6.6 g/dl (6.4-8.2)
[2020-09-04] MEDS ORDERED: PANTOPRAZOLE 40 MG TABLET PO SCH (10:00)
[2020-09-04] MEDS ORDERED: PREGABALIN 100 MG CAPSULE ONE (10:19)
[2020-09-04] MEDS ORDERED: FUROSEMIDE 40 MG TABLET (FP) ONE (10:19)
[2020-09-04] MEDS ORDERED: ASPIRIN COATED 81 MG TABLET.EC ONE (10:19)
[2020-09-04] MEDS ORDERED: CLOPIDOGREL BISULFATE 75 MG TABLET (FP) ONE (10:20)
[2020-09-04] MEDS ORDERED: LOSARTAN POTASSIUM 50 MG TABLET ONE (10:20)
[2020-09-04] MEDS ORDERED: ISOSORBIDE MONONITRATE 60 MG TAB.SR.24H (FP) PO ONE (10:20)
[2020-09-04] MEDS ORDERED: SPIRONOLACTONE 25 MG TABLET ONE (10:21)
[2020-09-04] MEDS: PREGABALIN 100 MG CAPSULE PO SCH (10:30)
[2020-09-04] MEDS: CLOPIDOGREL BISULFATE 75 MG TABLET (FP) PO SCH (10:30)
[2020-09-04] MEDS: ASPIRIN COATED 81 MG TABLET.EC PO SCH (10:30)
[2020-09-04] MEDS: ISOSORBIDE MONONITRATE 30 MG TAB.SR.24H (FP) PO SCH (10:30)
[2020-09-04] MEDS: FENOFIBRIC ACID 135 MG CAP PO SCH (10:30)
[2020-09-04] MEDS: LOSARTAN POTASSIUM 50 MG TABLET PO SCH (10:30)
[2020-09-04] MEDS: LISINOPRIL 20 MG TABLET PO SCH (10:30)
[2020-09-04] MEDS: SPIRONOLACTONE 25 MG TABLET PO SCH (10:30)
[2020-09-04] MEDS: FUROSEMIDE 40 MG TABLET (FP) PO SCH (10:30)
[2020-09-04] MEDS ORDERED: MORPHINE SULFATE 2 MG/ML VIAL ONE (15:22)
[2020-09-04] MEDS: MORPHINE SULFATE 2 MG/ML VIAL IVPUSH PRN ×2 (15:24→21:03)
[2020-09-04] MEDS: RIFAXIMIN 550 MG TABLET (UD) PO SCH (22:04)
[2020-09-04] MEDS: ATORVASTATIN CA 20 MG TABLET (FP) PO SCH (22:04)
[2020-09-04] MEDS: PANTOPRAZOLE 40 MG TABLET PO SCH (22:04)
[2020-09-04] MEDS: SIMETHICONE 80 MG TAB.CHEW (FP) PO SCH (22:04)
[2020-09-05] MEDS: DOCUSATE SODIUM 100 MG CAPSULE (FP) PO SCH ×3 (05:58→22:17)
[2020-09-05] MEDS: INSULIN SLIDING SCALE (NOVOLOG) 1 VIAL SQ SCH ×4 (06:04→22:38)
[2020-09-05] MEDS ORDERED: PT OWN MED DRAWER 7, Y5N ONE ×4 (08:50→16:49)
[2020-09-05] MEDS: LIPASE/PROTEASE/AMYLASE 36,000 UNIT CAPSULE PO SCH ×4 (08:54→19:40)
[2020-09-05] MEDS: LOSARTAN POTASSIUM 50 MG TABLET PO SCH (09:47)
[2020-09-05] MEDS: SPIRONOLACTONE 25 MG TABLET PO SCH (09:47)
[2020-09-05] MEDS: ASPIRIN COATED 81 MG TABLET.EC PO SCH (09:47)
[2020-09-05] MEDS: SIMETHICONE 80 MG TAB.CHEW (FP) PO SCH ×5 (09:48→22:17)
[2020-09-05] MEDS: ISOSORBIDE MONONITRATE 30 MG TAB.SR.24H (FP) PO SCH (09:48)
[2020-09-05] MEDS: FUROSEMIDE 40 MG TABLET (FP) PO SCH (09:48)
[2020-09-05] MEDS: PREGABALIN 100 MG CAPSULE PO SCH (09:48)
[2020-09-05] MEDS: FENOFIBRIC ACID 135 MG CAP PO SCH (09:49)
[2020-09-05] MEDS: CLOPIDOGREL BISULFATE 75 MG TABLET (FP) PO SCH (09:49)
[2020-09-05] MEDS: RIFAXIMIN 550 MG TABLET (UD) PO SCH ×2 (09:49→22:19)
[2020-09-05] MEDS: PANTOPRAZOLE 40 MG TABLET PO SCH ×2 (09:49→22:17)
[2020-09-05] MEDS: LISINOPRIL 20 MG TABLET PO SCH (09:49)
[2020-09-05 10:30] LABS: BASO % 0.6 % (0-2.0); EOS % 6.4 % (0-4.5); HEMATOCRIT 26.5 % (32.4-45.2); HEMOGLOBIN 8.7 GM/dL (10.7-15.3); LYMPH % 34.8 % (8-40); MCH 28.3 pg (25.7-33.7); MCHC 32.8 g/dl (32.0-36.0); MEAN CELL VOLUME 86.5 fl (80-96); MONO % 9.9 % (3.8-10.2); NEUT % 48.3 % (42.8-82.8); PLATELET COUNT 238 K/MM3 (134-434); RBC 3.06 M/mm3 (3.60-5.2); WHITE BLOOD COUNT 5.2 K/mm3 (4.0-10.0)
[2020-09-05 10:49] LABS: POTASSIUM 4.4 mmol/L (3.5-5.1)
[2020-09-05 11:05] LABS: ALBUMIN 2.8 g/dl (3.4-5.0); BLOOD UREA NITROGEN 24.7 mg/dL (7-18); CALCIUM 8.9 mg/dL (8.5-10.1)
[2020-09-05 11:08] LABS: BILIRUBIN,TOTAL 0.4 mg/dL (0.2-1); CREATININE 1.6 mg/dL (0.55-1.3)
[2020-09-05 11:09] LABS: TOT PROT 6.2 g/dl (6.4-8.2)
[2020-09-05] MEDS ORDERED: INSULIN (NOVOLOG) ASPART 100 UNITS/ML 10ML VIAL ONE (12:07)
[2020-09-05] MEDS: MORPHINE SULFATE 2 MG/ML VIAL IVPUSH PRN ×2 (12:10→22:21)
[2020-09-05] MEDS: ATORVASTATIN CA 20 MG TABLET (FP) PO SCH (22:16)
[2020-09-06] MEDS: DOCUSATE SODIUM 100 MG CAPSULE (FP) PO SCH ×3 (06:30→21:42)
[2020-09-06] MEDS: INSULIN SLIDING SCALE (NOVOLOG) 1 VIAL SQ SCH ×4 (06:41→21:40)
[2020-09-06] MEDS ORDERED: PT OWN MED DRAWER 7, Y5N ONE ×2 (09:14→21:35)
[2020-09-06] MEDS: ISOSORBIDE MONONITRATE 30 MG TAB.SR.24H (FP) PO SCH (09:21)
[2020-09-06] MEDS: SPIRONOLACTONE 25 MG TABLET PO SCH (09:21)
[2020-09-06] MEDS: FUROSEMIDE 40 MG TABLET (FP) PO SCH (09:21)
[2020-09-06] MEDS: SIMETHICONE 80 MG TAB.CHEW (FP) PO SCH ×4 (09:21→21:43)
[2020-09-06] MEDS: PREGABALIN 100 MG CAPSULE PO SCH (09:22)
[2020-09-06] MEDS: LOSARTAN POTASSIUM 50 MG TABLET PO SCH (09:22)
[2020-09-06] MEDS: LIPASE/PROTEASE/AMYLASE 36,000 UNIT CAPSULE PO SCH ×3 (09:22→16:52)
[2020-09-06] MEDS: CLOPIDOGREL BISULFATE 75 MG TABLET (FP) PO SCH (09:22)
[2020-09-06] MEDS: LISINOPRIL 20 MG TABLET PO SCH (09:22)
[2020-09-06] MEDS: ASPIRIN COATED 81 MG TABLET.EC PO SCH (09:22)
[2020-09-06] MEDS: PANTOPRAZOLE 40 MG TABLET PO SCH ×2 (09:22→21:43)
[2020-09-06] MEDS: FENOFIBRIC ACID 135 MG CAP PO SCH (09:22)
[2020-09-06] MEDS: RIFAXIMIN 550 MG TABLET (UD) PO SCH ×2 (09:22→21:43)
[2020-09-06] MEDS: MORPHINE SULFATE 2 MG/ML VIAL IVPUSH PRN ×2 (09:34→16:58)
[2020-09-06 10:04] LABS: BASO % 0.7 % (0-2.0); EOS % 6.1 % (0-4.5); HEMATOCRIT 29.3 % (32.4-45.2); HEMOGLOBIN 9.6 GM/dL (10.7-15.3); LYMPH % 27.6 % (8-40); MCH 28.2 pg (25.7-33.7); MCHC 32.6 g/dl (32.0-36.0); MEAN CELL VOLUME 86.6 fl (80-96); MEAN PLT VOLUME 9.9 fl (7.5-11.1); MONO % 8.8 % (3.8-10.2); NEUT % 56.8 % (42.8-82.8); PLATELET COUNT 260 K/MM3 (134-434); RBC 3.39 M/mm3 (3.60-5.2); RDW 13.2 % (11.6-15.6); WHITE BLOOD COUNT 5.8 K/mm3 (4.0-10.0)
[2020-09-06 10:20] LABS: POTASSIUM 4.4 mmol/L (3.5-5.1)
[2020-09-06 10:23] LABS: CALCIUM 9.8 mg/dL (8.5-10.1)
[2020-09-06 10:24] LABS: ALBUMIN 3.2 g/dl (3.4-5.0); BLOOD UREA NITROGEN 28.7 mg/dL (7-18)
[2020-09-06 10:27] LABS: CREATININE 1.7 mg/dL (0.55-1.3)
[2020-09-06 10:28] LABS: BILIRUBIN,TOTAL 0.7 mg/dL (0.2-1)
[2020-09-06 10:29] LABS: TOT PROT 6.6 g/dl (6.4-8.2)
[2020-09-06] MEDS: METOCLOPRAMIDE HCL 10 MG TABLET (FP) PO SCH ×2 (11:13→17:01)
[2020-09-06] MEDS: ACETAMINOPHEN 325 MG TABLET (FP) PO PRN (17:32)
[2020-09-06] MEDS ORDERED: INSULIN (NOVOLOG) ASPART 100 UNITS/ML 10ML VIAL ONE (21:36)
[2020-09-06] MEDS: ATORVASTATIN CA 20 MG TABLET (FP) PO SCH (21:45)
[2020-09-06] MEDS: CYCLOBENZAPRINE HCL 10 MG TABLET (FP) PO PRN (21:52)
[2020-09-07] MEDS: INSULIN SLIDING SCALE (NOVOLOG) 1 VIAL SQ SCH ×4 (06:13→21:07)
[2020-09-07] MEDS: METOCLOPRAMIDE HCL 10 MG TABLET (FP) PO SCH ×3 (06:14→16:56)
[2020-09-07] MEDS: DOCUSATE SODIUM 100 MG CAPSULE (FP) PO SCH ×3 (06:17→21:06)
[2020-09-07] MEDS ORDERED: INSULIN (NOVOLOG) ASPART 100 UNITS/ML 10ML VIAL ONE ×2 (07:34→11:37)
[2020-09-07] MEDS ORDERED: PT OWN MED DRAWER 7, Y5N ONE ×3 (08:54→16:55)
[2020-09-07] MEDS: LIPASE/PROTEASE/AMYLASE 36,000 UNIT CAPSULE PO SCH ×3 (09:00→16:56)
[2020-09-07] MEDS: FENOFIBRIC ACID 135 MG CAP PO SCH (09:04)
[2020-09-07] MEDS: ASPIRIN COATED 81 MG TABLET.EC PO SCH (09:04)
[2020-09-07] MEDS: LISINOPRIL 20 MG TABLET PO SCH (09:04)
[2020-09-07] MEDS: FUROSEMIDE 40 MG TABLET (FP) PO SCH (09:04)
[2020-09-07] MEDS: ISOSORBIDE MONONITRATE 30 MG TAB.SR.24H (FP) PO SCH (09:05)
[2020-09-07] MEDS: CLOPIDOGREL BISULFATE 75 MG TABLET (FP) PO SCH (09:05)
[2020-09-07] MEDS: LOSARTAN POTASSIUM 50 MG TABLET PO SCH (09:05)
[2020-09-07] MEDS: PREGABALIN 100 MG CAPSULE PO SCH (09:17)
[2020-09-07] MEDS: SPIRONOLACTONE 25 MG TABLET PO SCH (09:17)
[2020-09-07] MEDS: PANTOPRAZOLE 40 MG TABLET PO SCH ×2 (09:17→21:04)
[2020-09-07] MEDS: RIFAXIMIN 550 MG TABLET (UD) PO SCH ×2 (09:17→21:04)
[2020-09-07] MEDS: SIMETHICONE 80 MG TAB.CHEW (FP) PO SCH ×4 (09:17→21:04)
[2020-09-07] MEDS: ACETAMINOPHEN 325 MG TABLET (FP) PO PRN ×2 (15:07→21:05)
[2020-09-07] MEDS: CYCLOBENZAPRINE HCL 10 MG TABLET (FP) PO PRN ×2 (15:12→21:04)
[2020-09-07] MEDS: ATORVASTATIN CA 20 MG TABLET (FP) PO SCH (21:03)
[2020-09-08] MEDS: CYCLOBENZAPRINE HCL 10 MG TABLET (FP) PO PRN ×2 (06:18→12:02)
[2020-09-08] MEDS: DOCUSATE SODIUM 100 MG CAPSULE (FP) PO SCH ×2 (06:18→15:06)
[2020-09-08] MEDS: METOCLOPRAMIDE HCL 10 MG TABLET (FP) PO SCH ×3 (06:19→16:15)
[2020-09-08] MEDS: ACETAMINOPHEN 325 MG TABLET (FP) PO PRN ×2 (06:19→12:02)
[2020-09-08] MEDS: INSULIN SLIDING SCALE (NOVOLOG) 1 VIAL SQ SCH ×3 (06:20→16:39)
[2020-09-08] MEDS ORDERED: PT OWN MED DRAWER 7, Y5N ONE ×4 (07:50→17:15)
[2020-09-08] MEDS: PANTOPRAZOLE 40 MG TABLET PO SCH (09:14)
[2020-09-08] MEDS: LIPASE/PROTEASE/AMYLASE 36,000 UNIT CAPSULE PO SCH ×3 (09:14→17:18)
[2020-09-08] MEDS: SPIRONOLACTONE 25 MG TABLET PO SCH (09:14)
[2020-09-08] MEDS: LISINOPRIL 20 MG TABLET PO SCH (09:15)
[2020-09-08] MEDS: FUROSEMIDE 40 MG TABLET (FP) PO SCH (09:15)
[2020-09-08] MEDS: PREGABALIN 100 MG CAPSULE PO SCH (09:15)
[2020-09-08] MEDS: SIMETHICONE 80 MG TAB.CHEW (FP) PO SCH ×3 (09:15→17:18)
[2020-09-08] MEDS: ASPIRIN COATED 81 MG TABLET.EC PO SCH (09:16)
[2020-09-08] MEDS: LOSARTAN POTASSIUM 50 MG TABLET PO SCH (09:17)
[2020-09-08] MEDS: ISOSORBIDE MONONITRATE 30 MG TAB.SR.24H (FP) PO SCH (09:17)
[2020-09-08] MEDS: CLOPIDOGREL BISULFATE 75 MG TABLET (FP) PO SCH (09:17)
[2020-09-08] MEDS: RIFAXIMIN 550 MG TABLET (UD) PO SCH (09:17)
[2020-09-08] MEDS: FENOFIBRIC ACID 135 MG CAP PO SCH (09:18)
[2020-09-08] MEDS ORDERED: INSULIN (NOVOLOG) ASPART 100 UNITS/ML 10ML VIAL ONE ×2 (12:06→16:35)
[2020-09-08 14:35] VITALS: BP 157/76; PULSE 92; TEMP 98.2
[2020-09-08] MEDS ORDERED: MAGNESIUM CITRATE 300 ML BOTTLE PO ONE (15:02)
[2020-09-09] MEDS ORDERED: POLYETHYLENE GLYCOL 3350 119 GM BTL PO SCH (10:00)
== END 2020-09-08 18:25 | disposition home or self-care (01) | DRG 439 ==
LOC: JER 14:21 → JERBED 20:22 → J5S 09-04 19:05 → J8W 09-04 21:39
PROVIDERS: ADMIT Internal Medicine; ATTEND Internal Medicine
DX: K86.2 Cyst of pancreas (principal); Z68.41 Body mass index [BMI] 40.0-44.9, adult; J44.9 Chronic obstructive pulmonary disease, unspecified; K21.9 Gastro-esophageal reflux disease without esophagitis; I10 Essential (primary) hypertension; E66.9 Obesity, unspecified; I25.10 Atherosclerotic heart disease of native coronary artery without angina pectoris; E11.42 Type 2 diabetes mellitus with diabetic polyneuropathy; Z79.4 Long term (current) use of insulin; D64.9 Anemia, unspecified; K59.00 Constipation, unspecified
CPT/HCPCS: 36415; 71046-TC-FY; 71275-TC; 72148-TC; 74174-TC; 74181-TC; 76700-TC; 80053; 81003; 82150; 82272; 82550; 82962; 83605; 83690; 84484; 85025; 85610; 87077; 87086; 93005; 93010; 99285-25; C9803; J0131; U0003

== ENCOUNTER 2020-09-14 14:43 | Inpatient (IN) | payer OTHER ==
[2020-09-14] MEDS ORDERED: ONDANSETRON 4 MG/2 ML VIAL IVPUSH ONE (15:52)
[2020-09-14] MEDS ORDERED: MAG HYDROX/AL HYDROX/SIMETH 30 ML UNIT-DOSE CUP PO ONE (15:53)
[2020-09-14] MEDS ORDERED: PANTOPRAZOLE SODIUM 40 MG VIAL IVPB ONE (15:53)
[2020-09-14] MEDS ORDERED: ACETAMINOPHEN 1000 MG/100 ML VIAL (NON FORMULARY) IVPB ONE (15:53)
[2020-09-14] MEDS ORDERED: LIDOCAINE VISCOUS 2% ORAL/TOP 20 ML UNIT-DOSE CUP MM ONE (15:53)
[2020-09-14] MEDS ORDERED: ACETAMINOPHEN INJECTION 100 ML IVPB ONE (16:20)
[2020-09-14] MEDS ORDERED: LIDOCAINE VISCOUS 2% ORAL/TOP 20 ML UNIT-DOSE CUP ONE (16:20)
[2020-09-14] MEDS ORDERED: ONDANSETRON 4 MG/2 ML VIAL ONE (16:21)
[2020-09-14] MEDS ORDERED: PANTOPRAZOLE SODIUM 40 MG/100 ML BAG IVPB ONE (16:21)
[2020-09-14] MEDS ORDERED: MAG HYDROX/AL HYDROX/SIMETH 30 ML UNIT-DOSE CUP ONE (16:21)
[2020-09-14 16:40] LABS: BASO % 1.1 % (0-2.0); EOS % 2.6 % (0-4.5); HEMATOCRIT 36.2 % (32.4-45.2); HEMOGLOBIN 11.9 GM/dL (10.7-15.3); LYMPH % 29.2 % (8-40); MCH 28.3 pg (25.7-33.7); MCHC 32.7 g/dl (32.0-36.0); MEAN CELL VOLUME 86.4 fl (80-96); MEAN PLT VOLUME 10.7 fl (7.5-11.1); MONO % 13.8 % (3.8-10.2); NEUT % 53.3 % (42.8-82.8); PLATELET COUNT 274 K/MM3 (134-434); RBC 4.19 M/mm3 (3.60-5.2); RDW 13.1 % (11.6-15.6); WHITE BLOOD COUNT 5.5 K/mm3 (4.0-10.0)
[2020-09-14 16:44] LABS: EPI CELLS 14 /uL (0-25.1); HYALINE CASTS 1 /uL (0-3.1); PH,URINE 5.5 (5.0-8.0); URINE APPEARANCE CLEAR; URINE BACTERIA 79 /uL (0-1359); URINE BILIRUBIN NEGATIVE (NEGATIVE); URINE COLOR YELLOW; URINE GLUCOSE (UA) 3+ (NEGATIVE); URINE KETONE NEGATIVE (NEGATIVE); URINE LEUK ESTERASE NEGATIVE (NEGATIVE); URINE NITRITE NEGATIVE (NEGATIVE); URINE PROTEIN 3+ (NEGATIVE); URINE RBC 16 /uL (0-23.9); URINE UROBILINOGEN 0.2 mg/dL (0.2-1.0); URINE WBC 8 /uL (0-25.8)
[2020-09-14 16:48] LABS: CHLORIDE 94 mmol/L (98-107); POTASSIUM 4.3 mmol/L (3.5-5.1); SODIUM 136 mmol/L (136-145)
[2020-09-14 16:49] LABS: INR 0.97 (0.83-1.09); PROTHROMBIN TIME (PATIENT) 11.9 SEC (9.7-13.0)
[2020-09-14 16:50] LABS: ALBUMIN 3.6 g/dl (3.4-5.0); CALCIUM 12.6 mg/dL (8.5-10.1); LIPASE 65 U/L (73-393)
[2020-09-14 16:51] LABS: ANION GAP 12 MMOL/L (8-16); BLOOD UREA NITROGEN 32.3 mg/dL (7-18); CO2 31 mmol/L (21-32)
[2020-09-14 16:53] LABS: SGOT/AST 23 U/L (15-37); SGPT/ALT 46 U/L (13-61)
[2020-09-14 16:54] LABS: CREATININE 2.2 mg/dL (0.55-1.3)
[2020-09-14 16:55] LABS: BILIRUBIN,TOTAL 0.4 mg/dL (0.2-1)
[2020-09-14 16:56] LABS: ALK PHOS 99 U/L (45-117)
[2020-09-14 17:01] LABS: GLUCOSE,RANDOM 454 mg/dL (74-106)
[2020-09-14] MEDS ORDERED: SODIUM CHLORIDE 0.9% 500 ML INFUS.BAG IV ONE (17:21)
[2020-09-14] MEDS ORDERED: INSULIN SLIDING SCALE (NOVOLOG) 1 VIAL SQ SCH (17:30)
[2020-09-14] MEDS ORDERED: hydrALAZINE HCL 20 MG/ML VIAL IVPUSH ONE (18:47)
[2020-09-14] MEDS ORDERED: hydrALAZINE HCL 20 MG/ML VIAL ONE (18:52)
[2020-09-14] MEDS: INSULIN SLIDING SCALE (NOVOLOG) 1 VIAL SQ SCH (19:20)
[2020-09-14] MEDS ORDERED: morphine CARPU-JECT 4 MG/1 ML DISP.SYRIN IVPUSH STA (20:14)
[2020-09-14] MEDS ORDERED: morphine CARPU-JECT 4 MG/1 ML DISP.SYRIN IVPUSH ONE (20:20)
[2020-09-14] MEDS ORDERED: morphine SULFATE 4 MG/ML VIAL ONE (20:25)
[2020-09-14 21:40] LABS: AMYLASE 44 U/L (25-115)
[2020-09-14] MEDS ORDERED: ONDANSETRON 4 MG/2 ML VIAL IVPUSH PRN (22:34)
[2020-09-14] MEDS ORDERED: SODIUM CHLORIDE 0.45% 1,000 ML IV SCH (22:45)
[2020-09-15] MEDS: METOCLOPRAMIDE HCL 10 MG TABLET (FP) PO SCH ×3 (06:02→16:55)
[2020-09-15] MEDS: INSULIN SLIDING SCALE (NOVOLOG) 1 VIAL SQ SCH ×3 (06:03→17:19)
[2020-09-15 08:38] LABS: BASO % 0.9 % (0-2.0); EOS % 3.5 % (0-4.5); HEMATOCRIT 32.1 % (32.4-45.2); HEMOGLOBIN 10.6 GM/dL (10.7-15.3); MCH 28.1 pg (25.7-33.7); MCHC 32.9 g/dl (32.0-36.0); MEAN CELL VOLUME 85.2 fl (80-96); MEAN PLT VOLUME 9.9 fl (7.5-11.1); MONO % 16.7 % (3.8-10.2); NEUT % 41.9 % (42.8-82.8); PLATELET COUNT 223 K/MM3 (134-434); RBC 3.76 M/mm3 (3.60-5.2); RDW 12.8 % (11.6-15.6); WHITE BLOOD COUNT 3.8 K/mm3 (4.0-10.0)
[2020-09-15 08:57] LABS: ALBUMIN 3.1 g/dl (3.4-5.0); BLOOD UREA NITROGEN 36.7 mg/dL (7-18)
[2020-09-15 09:00] LABS: CREATININE 2.2 mg/dL (0.55-1.3)
[2020-09-15 09:01] LABS: BILIRUBIN,TOTAL 0.3 mg/dL (0.2-1); TOT PROT 6.8 g/dl (6.4-8.2)
[2020-09-15] MEDS ORDERED: FLU VACCINE (FLULAVAL) PF 60 MCG/0.5 ML SYRINGE 2020-2021 IM ONE (10:00)
[2020-09-15] MEDS: ISOSORBIDE MONONITRATE 60 MG TAB.SR.24H (FP) PO SCH (11:45)
[2020-09-15] MEDS: CYCLOBENZAPRINE HCL 10 MG TABLET (FP) PO PRN (11:46)
[2020-09-15] MEDS: CLOPIDOGREL BISULFATE 75 MG TABLET (FP) PO SCH (11:46)
[2020-09-15] MEDS: LIPASE/PROTEASE/AMYLASE 36,000 UNIT CAPSULE PO SCH ×3 (11:46→17:20)
[2020-09-15] MEDS: ENOXAPARIN NA (PORCINE) 40 MG/0.4 ML DISP.SYRIN SQ SCH (11:47)
[2020-09-15] MEDS: PANTOPRAZOLE SODIUM 40 MG VIAL IVPUSH SCH (11:47)
[2020-09-15] MEDS: SIMETHICONE 80 MG TAB.CHEW (FP) PO SCH ×4 (11:48→21:23)
[2020-09-15] MEDS: FUROSEMIDE 40 MG TABLET (FP) PO SCH (11:48)
[2020-09-15] MEDS ORDERED: SODIUM CHLORIDE 1,000 ML IV SCH ×2 (17:30)
[2020-09-15] MEDS: ATORVASTATIN CA 40 MG TABLET (FP) PO SCH (21:23)
[2020-09-16] MEDS: INSULIN (LEVEMIR) 100 UNITS/ML UNITS SQ SCH (06:06)
[2020-09-16] MEDS: INSULIN SLIDING SCALE (NOVOLOG) 1 VIAL SQ SCH ×4 (06:09→21:44)
[2020-09-16] MEDS: CYCLOBENZAPRINE HCL 10 MG TABLET (FP) PO PRN ×2 (06:11→10:52)
[2020-09-16] MEDS: METOCLOPRAMIDE HCL 10 MG TABLET (FP) PO SCH ×3 (06:12→17:53)
[2020-09-16] MEDS: PANTOPRAZOLE SODIUM 40 MG VIAL IVPUSH SCH (10:52)
[2020-09-16] MEDS: CLOPIDOGREL BISULFATE 75 MG TABLET (FP) PO SCH (10:52)
[2020-09-16] MEDS: ISOSORBIDE MONONITRATE 60 MG TAB.SR.24H (FP) PO SCH (10:52)
[2020-09-16] MEDS: ENOXAPARIN NA (PORCINE) 40 MG/0.4 ML DISP.SYRIN SQ SCH (10:52)
[2020-09-16] MEDS: FUROSEMIDE 40 MG TABLET (FP) PO SCH (10:52)
[2020-09-16] MEDS: LIPASE/PROTEASE/AMYLASE 36,000 UNIT CAPSULE PO SCH ×3 (10:53→17:52)
[2020-09-16] MEDS: SIMETHICONE 80 MG TAB.CHEW (FP) PO SCH ×4 (10:53→21:43)
[2020-09-16 15:01] VITALS: BMI 41.1
[2020-09-16] MEDS ORDERED: SODIUM CHLORIDE 1,000 ML IV SCH ×2 (18:17→18:19)
[2020-09-16 19:27] LABS: EPI CELLS 18 /uL (0-25.1); HYALINE CASTS 1 /uL (0-3.1); URINE APPEARANCE CLEAR; URINE BACTERIA 1025 /uL (0-1359); URINE BILIRUBIN NEGATIVE (NEGATIVE); URINE COLOR YELLOW; URINE GLUCOSE (UA) 2+ (NEGATIVE); URINE KETONE TRACE (NEGATIVE); URINE LEUK ESTERASE NEGATIVE (NEGATIVE); URINE NITRITE NEGATIVE (NEGATIVE); URINE PROTEIN 3+ (NEGATIVE); URINE RBC 12 /uL (0-23.9); URINE UROBILINOGEN 0.2 mg/dL (0.2-1.0); URINE WBC 26 /uL (0-25.8)
[2020-09-16] MEDS: ATORVASTATIN CA 40 MG TABLET (FP) PO SCH (21:43)
[2020-09-17] MEDS: CYCLOBENZAPRINE HCL 10 MG TABLET (FP) PO PRN ×2 (05:40→10:06)
[2020-09-17] MEDS: INSULIN (LEVEMIR) 100 UNITS/ML UNITS SQ SCH (06:10)
[2020-09-17] MEDS: INSULIN SLIDING SCALE (NOVOLOG) 1 VIAL SQ SCH ×4 (06:10→21:35)
[2020-09-17] MEDS: METOCLOPRAMIDE HCL 10 MG TABLET (FP) PO SCH ×3 (06:11→17:16)
[2020-09-17] MEDS: LIPASE/PROTEASE/AMYLASE 36,000 UNIT CAPSULE PO SCH ×3 (10:05→17:16)
[2020-09-17] MEDS: CLOPIDOGREL BISULFATE 75 MG TABLET (FP) PO SCH (10:06)
[2020-09-17] MEDS: SIMETHICONE 80 MG TAB.CHEW (FP) PO SCH ×4 (10:06→21:34)
[2020-09-17] MEDS: FUROSEMIDE 40 MG TABLET (FP) PO SCH (10:06)
[2020-09-17] MEDS: ENOXAPARIN NA (PORCINE) 40 MG/0.4 ML DISP.SYRIN SQ SCH (10:06)
[2020-09-17] MEDS: PANTOPRAZOLE SODIUM 40 MG VIAL IVPUSH SCH (10:07)
[2020-09-17] MEDS: ISOSORBIDE MONONITRATE 60 MG TAB.SR.24H (FP) PO SCH (10:07)
[2020-09-17 10:31] LABS: POTASSIUM 3.9 mmol/L (3.5-5.1)
[2020-09-17 10:49] LABS: CALCIUM 9.5 mg/dL (8.5-10.1)
[2020-09-17 10:51] LABS: ALBUMIN 3.1 g/dl (3.4-5.0)
[2020-09-17 10:53] LABS: CREATININE 1.6 mg/dL (0.55-1.3)
[2020-09-17 10:56] LABS: BILIRUBIN,TOTAL 0.4 mg/dL (0.2-1)
[2020-09-17] MEDS: ACETAMINOPHEN 325 MG TABLET (FP) PO PRN (21:34)
[2020-09-17] MEDS: ATORVASTATIN CA 40 MG TABLET (FP) PO SCH (21:34)
[2020-09-18] MEDS: ACETAMINOPHEN 325 MG TABLET (FP) PO PRN (06:12)
[2020-09-18] MEDS: CYCLOBENZAPRINE HCL 10 MG TABLET (FP) PO PRN (06:13)
[2020-09-18] MEDS: METOCLOPRAMIDE HCL 10 MG TABLET (FP) PO SCH ×2 (06:13→10:18)
[2020-09-18] MEDS: INSULIN SLIDING SCALE (NOVOLOG) 1 VIAL SQ SCH ×2 (06:14→11:21)
[2020-09-18] MEDS: INSULIN (LEVEMIR) 100 UNITS/ML UNITS SQ SCH (06:14)
[2020-09-18 08:47] LABS: BASO % 0.5 % (0-2.0); EOS % 3.4 % (0-4.5); HEMATOCRIT 28.9 % (32.4-45.2); HEMOGLOBIN 9.6 GM/dL (10.7-15.3); LYMPH % 20.5 % (8-40); MCH 28.3 pg (25.7-33.7); MCHC 33.1 g/dl (32.0-36.0); MEAN CELL VOLUME 85.5 fl (80-96); MEAN PLT VOLUME 9.8 fl (7.5-11.1); MONO % 13.4 % (3.8-10.2); NEUT % 62.2 % (42.8-82.8); PLATELET COUNT 213 K/MM3 (134-434); RBC 3.38 M/mm3 (3.60-5.2); RDW 12.7 % (11.6-15.6); WHITE BLOOD COUNT 3.5 K/mm3 (4.0-10.0)
[2020-09-18 09:25] LABS: CALCIUM 9.2 mg/dL (8.5-10.1)
[2020-09-18 09:26] LABS: BLOOD UREA NITROGEN 24.3 mg/dL (7-18)
[2020-09-18 09:29] LABS: CREATININE 1.5 mg/dL (0.55-1.3)
[2020-09-18 09:30] LABS: BILIRUBIN,TOTAL 0.4 mg/dL (0.2-1); TOT PROT 6.5 g/dl (6.4-8.2)
[2020-09-18] MEDS: LIPASE/PROTEASE/AMYLASE 36,000 UNIT CAPSULE PO SCH ×2 (10:15→11:21)
[2020-09-18] MEDS: ISOSORBIDE MONONITRATE 60 MG TAB.SR.24H (FP) PO SCH (10:16)
[2020-09-18] MEDS: PANTOPRAZOLE SODIUM 40 MG VIAL IVPUSH SCH (10:16)
[2020-09-18] MEDS: SIMETHICONE 80 MG TAB.CHEW (FP) PO SCH ×2 (10:17→14:28)
[2020-09-18] MEDS: CLOPIDOGREL BISULFATE 75 MG TABLET (FP) PO SCH (10:17)
[2020-09-18] MEDS: ENOXAPARIN NA (PORCINE) 40 MG/0.4 ML DISP.SYRIN SQ SCH (10:18)
[2020-09-18] MEDS: FUROSEMIDE 40 MG TABLET (FP) PO SCH (10:18)
[2020-09-18 14:59] VITALS: BP 142/69; PULSE 90; TEMP 97.8
== END 2020-09-18 18:15 | disposition home or self-care (01) | DRG 178 ==
LOC: JER 14:43 → JERBED 17:39 → J5WEST-2 22:28
PROVIDERS: ADMIT Internal Medicine; ATTEND Internal Medicine
DX: U07.1 COVID-19 (principal); N17.9 Acute kidney failure, unspecified; N39.0 Urinary tract infection, site not specified; I13.0 Hypertensive heart and chronic kidney disease with heart failure and stage 1 through stage 4 chronic kidney disease, or unspecified chronic kidney disease; K86.1 Other chronic pancreatitis; J44.9 Chronic obstructive pulmonary disease, unspecified; R16.0 Hepatomegaly, not elsewhere classified; K21.9 Gastro-esophageal reflux disease without esophagitis; E78.5 Hyperlipidemia, unspecified; E83.52 Hypercalcemia; G56.00 Carpal tunnel syndrome, unspecified upper limb; B96.4 Proteus (mirabilis) (morganii) as the cause of diseases classified elsewhere; E11.22 Type 2 diabetes mellitus with diabetic chronic kidney disease; N18.9 Chronic kidney disease, unspecified; I50.9 Heart failure, unspecified
CPT/HCPCS: 36415; 76705-TC; 80053; 81003; 82150; 82310; 82436; 82550; 82565; 82962; 83036; 83690; 83970; 84133; 84300; 84484; 85025; 85610; 87086; 87186; 93005; 93010; 99285-25; C9803; G0008; J0131; Q2036; U0003

== ENCOUNTER 2020-12-29 01:09 | Observation (INO) | payer OTHER ==
[2020-12-29 01:30] VITALS: BMI 32.6
[2020-12-29] MEDS ORDERED: ACETAMINOPHEN 1000 MG/100 ML BAG IVPB ONE (01:33)
[2020-12-29] MEDS ORDERED: SODIUM CHLORIDE 0.9% 500 ML INFUS.BAG IV ONE (01:33)
[2020-12-29] MEDS ORDERED: FAMOTIDINE 20 MG/50 ML IVPB 20 MG/50 ML MG IVPB ONE ×2 (01:36→01:46)
[2020-12-29] MEDS ORDERED: ACETAMINOPHEN INJECTION 100 ML IVPB ONE ×2 (01:37→10:19)
[2020-12-29 02:25] LABS: EOS % 4.7 % (0-4.5); HEMATOCRIT 30.6 % (32.4-45.2); HEMOGLOBIN 10.2 GM/dL (10.7-15.3); LYMPH % 36.5 % (8-40); MCHC 33.3 g/dl (32.0-36.0); MEAN PLT VOLUME 10.1 fl (7.5-11.1); MONO % 6.5 % (3.8-10.2); NEUT % 51.3 % (42.8-82.8); PLATELET COUNT 346 K/MM3 (134-434); RBC 3.64 M/mm3 (3.60-5.2); WHITE BLOOD COUNT 7.3 K/mm3 (4.0-10.0)
[2020-12-29 02:31] LABS: INR 0.87 (0.83-1.09); PROTHROMBIN TIME (PATIENT) 10.6 SEC (9.7-13.0)
[2020-12-29 02:33] LABS: ACTIVATED PTT 26.9 SECONDS (25.2-36.5)
[2020-12-29 02:45] LABS: CHLORIDE 100 mmol/L (98-107); SODIUM 134 mmol/L (136-145)
[2020-12-29 02:47] LABS: BLOOD UREA NITROGEN 41.8 mg/dL (7-18); CALCIUM 8.6 mg/dL (8.5-10.1)
[2020-12-29 02:48] LABS: ANION GAP 8 MMOL/L (8-16); CO2 27 mmol/L (21-32); GLUCOSE,RANDOM 287 mg/dL (74-106); LIPASE 63 U/L (73-393); MAGNESIUM 2.3 mg/dL (1.8-2.4)
[2020-12-29 02:50] LABS: SGOT/AST 31 U/L (15-37); SGPT/ALT 28 U/L (13-61)
[2020-12-29 02:51] LABS: CREATININE 2.1 mg/dL (0.55-1.3)
[2020-12-29 02:52] LABS: BILIRUBIN,TOTAL 0.2 mg/dL (0.2-1); TOT PROT 7.5 g/dl (6.4-8.2)
[2020-12-29 02:53] LABS: ALK PHOS 120 U/L (45-117)
[2020-12-29 02:56] LABS: N-TERMINAL BNP 142.9 pg/ml (5-125)
[2020-12-29] MEDS ORDERED: LIDOCAINE HCL 2% JELLY 10 ML CARTRIDGE ONE (02:57)
[2020-12-29] MEDS ORDERED: SODIUM CHLORIDE 1,000 ML IV SCH (06:00)
[2020-12-29] MEDS ORDERED: MECLIZINE HCL 12.5 MG TABLET PO PRN (08:34)
[2020-12-29] MEDS ORDERED: ONDANSETRON 4 MG/2 ML VIAL IVPUSH PRN (08:37)
[2020-12-29] MEDS ORDERED: DEXTROSE 5%-0.45% SALINE 1,000 ML IV SCH (08:45)
[2020-12-29] MEDS ORDERED: FUROSEMIDE 40 MG TABLET (FP) PO SCH (10:00)
[2020-12-29] MEDS: ACETAMINOPHEN 1000 MG/100 ML BAG IVPB PRN ×2 (10:24→19:58)
[2020-12-29 10:46] LABS: EPI CELLS 23 /uL (0-25.1); HYALINE CASTS 1 /uL (0-3.1); PH,URINE 5.5 (5.0-8.0); URINE APPEARANCE CLEAR; URINE BACTERIA 283 /uL (0-1359); URINE BILIRUBIN NEGATIVE (NEGATIVE); URINE COLOR YELLOW; URINE GLUCOSE (UA) 2+ (NEGATIVE); URINE KETONE NEGATIVE (NEGATIVE); URINE LEUK ESTERASE NEGATIVE (NEGATIVE); URINE NITRITE NEGATIVE (NEGATIVE); URINE PROTEIN 3+ (NEGATIVE); URINE RBC 11 /uL (0-23.9); URINE UROBILINOGEN 0.2 mg/dL (0.2-1.0); URINE WBC 47 /uL (0-25.8)
[2020-12-29] MEDS ORDERED: CLOPIDOGREL BISULFATE 75 MG TABLET (FP) ONE (10:52)
[2020-12-29] MEDS: CLOPIDOGREL BISULFATE 75 MG TABLET (FP) PO SCH (10:55)
[2020-12-29] MEDS: INSULIN SLIDING SCALE (NOVOLOG) 1 VIAL SQ SCH ×3 (11:22→21:14)
[2020-12-29] MEDS: LACTATED RINGERS SOLUTION 1,000 ML/1,000 ML INFUS.BAG IV SCH (12:05)
[2020-12-29] MEDS: LIPASE/PROTEASE/AMYLASE 36,000 UNIT CAPSULE PO SCH ×2 (12:50→17:39)
[2020-12-29] MEDS: ISOSORBIDE MONONITRATE 60 MG TAB.SR.24H (FP) PO SCH (12:59)
[2020-12-29] MEDS: ENOXAPARIN NA (PORCINE) 40 MG/0.4 ML DISP.SYRIN SQ SCH (13:20)
[2020-12-29] MEDS ORDERED: ENOXAPARIN NA (PORCINE) 40 MG/0.4 ML DISP.SYRIN SQ ONE (13:22)
[2020-12-29] MEDS: SIMETHICONE 80 MG TAB.CHEW (FP) PO SCH ×2 (17:37→21:13)
[2020-12-29] MEDS ORDERED: INSULIN (NOVOLOG) ASPART 100 UNITS/ML 10ML VIAL ONE (21:02)
[2020-12-29] MEDS: INSULIN (LEVEMIR) 100 UNITS/ML UNITS SQ SCH (21:13)
[2020-12-29] MEDS: ATORVASTATIN CA 20 MG TABLET (FP) PO SCH (21:13)
[2020-12-30] MEDS: INSULIN SLIDING SCALE (NOVOLOG) 1 VIAL SQ SCH ×4 (06:47→21:30)
[2020-12-30 07:07] LABS: BASO % 0.8 % (0-2.0); EOS % 6.3 % (0-4.5); HEMATOCRIT 30.8 % (32.4-45.2); HEMOGLOBIN 10.1 GM/dL (10.7-15.3); LYMPH % 33.3 % (8-40); MCH 27.8 pg (25.7-33.7); MCHC 32.9 g/dl (32.0-36.0); MEAN CELL VOLUME 84.7 fl (80-96); MEAN PLT VOLUME 10.3 fl (7.5-11.1); MONO % 11.4 % (3.8-10.2); NEUT % 48.2 % (42.8-82.8); PLATELET COUNT 303 K/MM3 (134-434); RBC 3.63 M/mm3 (3.60-5.2); RDW 14.2 % (11.6-15.6); WHITE BLOOD COUNT 4.8 K/mm3 (4.0-10.0)
[2020-12-30 07:27] LABS: CHLORIDE 103 mmol/L (98-107); SODIUM 140 mmol/L (136-145)
[2020-12-30 07:35] LABS: CALCIUM 9.2 mg/dL (8.5-10.1); GLUCOSE,RANDOM 288 mg/dL (74-106)
[2020-12-30 07:36] LABS: ALBUMIN 2.9 g/dl (3.4-5.0); ANION GAP 8 MMOL/L (8-16); BLOOD UREA NITROGEN 32.1 mg/dL (7-18); CO2 29 mmol/L (21-32)
[2020-12-30 07:38] LABS: CREATININE 1.4 mg/dL (0.55-1.3)
[2020-12-30 07:39] LABS: SGOT/AST 15 U/L (15-37); SGPT/ALT 25 U/L (13-61)
[2020-12-30 07:40] LABS: BILIRUBIN,TOTAL 0.3 mg/dL (0.2-1)
[2020-12-30 07:41] LABS: TOT PROT 6.7 g/dl (6.4-8.2)
[2020-12-30 07:45] LABS: ALK PHOS 108 U/L (45-117)
[2020-12-30] MEDS: LIPASE/PROTEASE/AMYLASE 36,000 UNIT CAPSULE PO SCH ×3 (09:12→17:39)
[2020-12-30] MEDS: SIMETHICONE 80 MG TAB.CHEW (FP) PO SCH ×4 (09:37→21:24)
[2020-12-30] MEDS: ENOXAPARIN NA (PORCINE) 40 MG/0.4 ML DISP.SYRIN SQ SCH (09:37)
[2020-12-30] MEDS: ISOSORBIDE MONONITRATE 60 MG TAB.SR.24H (FP) PO SCH (09:37)
[2020-12-30] MEDS: PANTOPRAZOLE 40 MG TABLET PO SCH (09:37)
[2020-12-30] MEDS: CLOPIDOGREL BISULFATE 75 MG TABLET (FP) PO SCH (09:37)
[2020-12-30] MEDS: LACTATED RINGERS SOLUTION 1,000 ML/1,000 ML INFUS.BAG IV SCH (12:16)
[2020-12-30] MEDS: METOCLOPRAMIDE HCL 10 MG TABLET (FP) PO SCH (18:26)
[2020-12-30] MEDS ORDERED: PT OWN MED DRAWER 7, Y5N ONE (20:32)
[2020-12-30] MEDS: ATORVASTATIN CA 20 MG TABLET (FP) PO SCH (21:24)
[2020-12-30] MEDS: RIFAXIMIN 550 MG TABLET PO SCH (21:25)
[2020-12-30] MEDS ORDERED: INSULIN (NOVOLOG) ASPART 100 UNITS/ML 10ML VIAL ONE (21:29)
[2020-12-30] MEDS: INSULIN (LEVEMIR) 100 UNITS/ML UNITS SQ SCH (21:30)
[2020-12-31] MEDS: RIFAXIMIN 550 MG TABLET PO SCH ×3 (06:41→21:34)
[2020-12-31] MEDS: INSULIN SLIDING SCALE (NOVOLOG) 1 VIAL SQ SCH ×4 (06:43→21:35)
[2020-12-31] MEDS: METOCLOPRAMIDE HCL 10 MG TABLET (FP) PO SCH ×3 (06:43→16:46)
[2020-12-31 06:53] LABS: BASO % 0.6 % (0-2.0); EOS % 4.7 % (0-4.5); HEMATOCRIT 28.2 % (32.4-45.2); HEMOGLOBIN 9.4 GM/dL (10.7-15.3); LYMPH % 20.9 % (8-40); MCH 27.9 pg (25.7-33.7); MCHC 33.3 g/dl (32.0-36.0); MEAN CELL VOLUME 83.9 fl (80-96); MEAN PLT VOLUME 9.7 fl (7.5-11.1); MONO % 10.6 % (3.8-10.2); NEUT % 63.2 % (42.8-82.8); PLATELET COUNT 303 K/MM3 (134-434); RBC 3.36 M/mm3 (3.60-5.2); RDW 13.8 % (11.6-15.6); WHITE BLOOD COUNT 5.7 K/mm3 (4.0-10.0)
[2020-12-31] MEDS ORDERED: INSULIN (LEVEMIR) 100 UNITS/ML UNITS SQ SCH ×2 (07:00→22:00)
[2020-12-31 07:19] LABS: CALCIUM 9.1 mg/dL (8.5-10.1)
[2020-12-31 07:20] LABS: ALBUMIN 2.9 g/dl (3.4-5.0); BLOOD UREA NITROGEN 24.5 mg/dL (7-18)
[2020-12-31 07:23] LABS: CREATININE 1.4 mg/dL (0.55-1.3)
[2020-12-31 07:24] LABS: BILIRUBIN,TOTAL 0.3 mg/dL (0.2-1); TOT PROT 6.6 g/dl (6.4-8.2)
[2020-12-31] MEDS: LIPASE/PROTEASE/AMYLASE 36,000 UNIT CAPSULE PO SCH ×3 (07:34→16:46)
[2020-12-31] MEDS: PANTOPRAZOLE 40 MG TABLET PO SCH (09:44)
[2020-12-31] MEDS: ENOXAPARIN NA (PORCINE) 40 MG/0.4 ML DISP.SYRIN SQ SCH (09:45)
[2020-12-31] MEDS: CLOPIDOGREL BISULFATE 75 MG TABLET (FP) PO SCH (09:45)
[2020-12-31] MEDS: ISOSORBIDE MONONITRATE 60 MG TAB.SR.24H (FP) PO SCH (09:45)
[2020-12-31] MEDS: SIMETHICONE 80 MG TAB.CHEW (FP) PO SCH ×4 (09:45→21:34)
[2020-12-31] MEDS: LACTATED RINGERS SOLUTION 1,000 ML/1,000 ML INFUS.BAG IV SCH (11:11)
[2020-12-31] MEDS ORDERED: cefTRIAXone SODIUM 1 GM VIAL ONE (11:17)
[2020-12-31] MEDS ORDERED: DEXTROSE 5%-WATER - 50 ML IVPB ONE (11:17)
[2020-12-31] MEDS: ACETAMINOPHEN 1000 MG/100 ML BAG IVPB PRN (11:27)
[2020-12-31] MEDS: CEFTRIAXONE 1 GM in DEXTROSE 5%-WATER - 50 ML IVPB SCH (12:33)
[2020-12-31] MEDS: ATORVASTATIN CA 20 MG TABLET (FP) PO SCH (21:34)
[2021-01-01] MEDS: RIFAXIMIN 550 MG TABLET PO SCH ×3 (05:36→21:32)
[2021-01-01] MEDS: METOCLOPRAMIDE HCL 10 MG TABLET (FP) PO SCH ×3 (06:02→17:13)
[2021-01-01] MEDS: INSULIN SLIDING SCALE (NOVOLOG) 1 VIAL SQ SCH ×4 (06:12→21:25)
[2021-01-01] MEDS: LIPASE/PROTEASE/AMYLASE 36,000 UNIT CAPSULE PO SCH ×3 (07:56→17:13)
[2021-01-01] MEDS: ACETAMINOPHEN 1000 MG/100 ML BAG IVPB PRN (08:18)
[2021-01-01] MEDS ORDERED: DEXTROSE 5%-WATER - 50 ML IVPB ONE (08:55)
[2021-01-01] MEDS ORDERED: cefTRIAXone SODIUM 1 GM VIAL ONE (08:55)
[2021-01-01] MEDS: CEFTRIAXONE 1 GM in DEXTROSE 5%-WATER - 50 ML IVPB SCH (09:13)
[2021-01-01] MEDS: ISOSORBIDE MONONITRATE 60 MG TAB.SR.24H (FP) PO SCH (09:13)
[2021-01-01] MEDS: SIMETHICONE 80 MG TAB.CHEW (FP) PO SCH ×4 (09:13→21:31)
[2021-01-01] MEDS: ENOXAPARIN NA (PORCINE) 40 MG/0.4 ML DISP.SYRIN SQ SCH (09:13)
[2021-01-01] MEDS: CLOPIDOGREL BISULFATE 75 MG TABLET (FP) PO SCH (09:13)
[2021-01-01] MEDS: PANTOPRAZOLE 40 MG TABLET PO SCH (09:13)
[2021-01-01] MEDS: INSULIN (LEVEMIR) 100 UNITS/ML UNITS SQ SCH ×2 (09:15→21:27)
[2021-01-01] MEDS ORDERED: PT OWN MED DRAWER 7, Y5N ONE ×2 (11:36→20:27)
[2021-01-01 11:53] LABS: BASO % 0.8 % (0-2.0); EOS % 4.6 % (0-4.5); HEMATOCRIT 26.1 % (32.4-45.2); HEMOGLOBIN 8.6 GM/dL (10.7-15.3); LYMPH % 23.1 % (8-40); MCH 27.8 pg (25.7-33.7); MEAN CELL VOLUME 84.2 fl (80-96); MEAN PLT VOLUME 9.3 fl (7.5-11.1); MONO % 10.5 % (3.8-10.2); PLATELET COUNT 283 K/MM3 (134-434); RDW 13.6 % (11.6-15.6)
[2021-01-01 12:11] LABS: ALBUMIN 2.6 g/dl (3.4-5.0); BLOOD UREA NITROGEN 21.9 mg/dL (7-18)
[2021-01-01 12:15] LABS: CREATININE 1.5 mg/dL (0.55-1.3)
[2021-01-01 12:16] LABS: BILIRUBIN,TOTAL 0.4 mg/dL (0.2-1); TOT PROT 6.4 g/dl (6.4-8.2)
[2021-01-01] MEDS: LOSARTAN 50MG/HCTZ 12.5MG 1 TAB PO SCH (13:59)
[2021-01-01] MEDS: LIDOCAINE 5% TOPICAL PATCH TP SCH (14:00)
[2021-01-01] MEDS: ATORVASTATIN CA 20 MG TABLET (FP) PO SCH (21:31)
[2021-01-01] MEDS: LIDOCAINE PATCH REMOVAL MC SCH (21:39)
[2021-01-02] MEDS: RIFAXIMIN 550 MG TABLET PO SCH ×3 (05:33→21:19)
[2021-01-02] MEDS: METOCLOPRAMIDE HCL 10 MG TABLET (FP) PO SCH ×3 (06:00→17:22)
[2021-01-02] MEDS: INSULIN SLIDING SCALE (NOVOLOG) 1 VIAL SQ SCH ×4 (06:02→21:21)
[2021-01-02 07:10] LABS: BASO % 0.6 % (0-2.0); EOS % 5.8 % (0-4.5); HEMATOCRIT 26.5 % (32.4-45.2); HEMOGLOBIN 8.8 GM/dL (10.7-15.3); LYMPH % 24.7 % (8-40); MCH 27.8 pg (25.7-33.7); MCHC 33.1 g/dl (32.0-36.0); MEAN PLT VOLUME 9.6 fl (7.5-11.1); MONO % 11.2 % (3.8-10.2); NEUT % 57.7 % (42.8-82.8); PLATELET COUNT 293 K/MM3 (134-434); RBC 3.16 M/mm3 (3.60-5.2); RDW 13.6 % (11.6-15.6); WHITE BLOOD COUNT 6.5 K/mm3 (4.0-10.0)
[2021-01-02 07:46] LABS: ALBUMIN 2.8 g/dl (3.4-5.0); BLOOD UREA NITROGEN 27.7 mg/dL (7-18); CALCIUM 8.4 mg/dL (8.5-10.1); MAGNESIUM 1.9 mg/dL (1.8-2.4)
[2021-01-02 07:49] LABS: CREATININE 1.6 mg/dL (0.55-1.3)
[2021-01-02 07:51] LABS: BILIRUBIN,TOTAL 0.3 mg/dL (0.2-1); TOT PROT 6.4 g/dl (6.4-8.2)
[2021-01-02] MEDS: LIPASE/PROTEASE/AMYLASE 36,000 UNIT CAPSULE PO SCH ×3 (08:33→17:22)
[2021-01-02] MEDS ORDERED: cefTRIAXone SODIUM 1 GM VIAL ONE (09:57)
[2021-01-02] MEDS ORDERED: DEXTROSE 5%-WATER - 50 ML IVPB ONE (09:58)
[2021-01-02] MEDS: LOSARTAN 50MG/HCTZ 12.5MG 1 TAB PO SCH (10:02)
[2021-01-02] MEDS: ISOSORBIDE MONONITRATE 60 MG TAB.SR.24H (FP) PO SCH (10:03)
[2021-01-02] MEDS: SIMETHICONE 80 MG TAB.CHEW (FP) PO SCH ×3 (10:03→21:23)
[2021-01-02] MEDS: PANTOPRAZOLE 40 MG TABLET PO SCH (10:03)
[2021-01-02] MEDS: CLOPIDOGREL BISULFATE 75 MG TABLET (FP) PO SCH (10:03)
[2021-01-02] MEDS: ENOXAPARIN NA (PORCINE) 40 MG/0.4 ML DISP.SYRIN SQ SCH (10:03)
[2021-01-02] MEDS: CEFTRIAXONE 1 GM in DEXTROSE 5%-WATER - 50 ML IVPB SCH (10:03)
[2021-01-02] MEDS: LIDOCAINE 5% TOPICAL PATCH TP SCH (10:06)
[2021-01-02] MEDS: ACETAMINOPHEN 1000 MG/100 ML BAG IVPB PRN (10:06)
[2021-01-02] MEDS: INSULIN (LEVEMIR) 100 UNITS/ML UNITS SQ SCH ×2 (11:37→21:19)
[2021-01-02] MEDS ORDERED: ACETAMINOPHEN 500 MG TABLET (FP) PO PRN (16:01)
[2021-01-02] MEDS ORDERED: PT OWN MED DRAWER 7, Y5N ONE ×2 (17:30→20:27)
[2021-01-02] MEDS: LIDOCAINE PATCH REMOVAL MC SCH (21:20)
[2021-01-02] MEDS: ATORVASTATIN CA 20 MG TABLET (FP) PO SCH (21:20)
[2021-01-03] MEDS ORDERED: PT OWN MED DRAWER 7, Y5N ONE ×5 (05:24→12:52)
[2021-01-03] MEDS: RIFAXIMIN 550 MG TABLET PO SCH ×2 (05:55→13:02)
[2021-01-03] MEDS: METOCLOPRAMIDE HCL 10 MG TABLET (FP) PO SCH ×2 (06:02→10:47)
[2021-01-03] MEDS: INSULIN SLIDING SCALE (NOVOLOG) 1 VIAL SQ SCH ×2 (06:02→10:44)
[2021-01-03 07:36] LABS: BLOOD UREA NITROGEN 26.4 mg/dL (7-18); CALCIUM 8.3 mg/dL (8.5-10.1)
[2021-01-03 07:40] LABS: CREATININE 1.7 mg/dL (0.55-1.3)
[2021-01-03] MEDS ORDERED: cefTRIAXone SODIUM 1 GM VIAL ONE (07:44)
[2021-01-03] MEDS ORDERED: DEXTROSE 5%-WATER - 50 ML IVPB ONE (07:44)
[2021-01-03] MEDS: LIPASE/PROTEASE/AMYLASE 36,000 UNIT CAPSULE PO SCH ×2 (07:57→11:08)
[2021-01-03 08:43] VITALS: TEMP 98.2
[2021-01-03] MEDS: ENOXAPARIN NA (PORCINE) 40 MG/0.4 ML DISP.SYRIN SQ SCH (09:15)
[2021-01-03] MEDS: LIDOCAINE 5% TOPICAL PATCH TP SCH (09:15)
[2021-01-03] MEDS: CLOPIDOGREL BISULFATE 75 MG TABLET (FP) PO SCH (09:16)
[2021-01-03] MEDS: SIMETHICONE 80 MG TAB.CHEW (FP) PO SCH ×2 (09:16→13:02)
[2021-01-03] MEDS: PANTOPRAZOLE 40 MG TABLET PO SCH (09:17)
[2021-01-03] MEDS: ISOSORBIDE MONONITRATE 60 MG TAB.SR.24H (FP) PO SCH (09:17)
[2021-01-03] MEDS: LOSARTAN 50MG/HCTZ 12.5MG 1 TAB PO SCH (09:17)
[2021-01-03] MEDS: CEFTRIAXONE 1 GM in DEXTROSE 5%-WATER - 50 ML IVPB SCH (09:17)
[2021-01-03] MEDS: INSULIN (LEVEMIR) 100 UNITS/ML UNITS SQ SCH (09:23)
[2021-01-03 14:32] VITALS: BP 156/84; PULSE 89
== END 2021-01-03 16:49 | disposition home or self-care (01) ==
LOC: JER 01:09 → JERBED 04:26 → UNDOADMOB 04:26 → INTOOBSV 04:26 → JERBED 15:25 → J4W 15:25
PROVIDERS: ADMIT Internal Medicine; ATTEND Internal Medicine
PROC: 3E0337Z Introduction of Electrolytic and Water Balance Substance into Peripheral Vein, Percutaneous Approach (ICD-10-PCS; principal; 2020-12-30)
PROC: 3E033NZ Introduction of Analgesics, Hypnotics, Sedatives into Peripheral Vein, Percutaneous Approach (ICD-10-PCS; 2020-12-30)
PROC: 3E03329 Introduction of Other Anti-infective into Peripheral Vein, Percutaneous Approach (ICD-10-PCS; 2020-12-30)
PROC: 3E013VG Introduction of Insulin into Subcutaneous Tissue, Percutaneous Approach (ICD-10-PCS; 2020-12-30)
DX: I13.0 Hypertensive heart and chronic kidney disease with heart failure and stage 1 through stage 4 chronic kidney disease, or unspecified chronic kidney disease (principal); J44.9 Chronic obstructive pulmonary disease, unspecified; N18.9 Chronic kidney disease, unspecified; R10.84 Generalized abdominal pain; R07.9 Chest pain, unspecified; R06.02 Shortness of breath; K85.90 Acute pancreatitis without necrosis or infection, unspecified; N17.9 Acute kidney failure, unspecified; E11.9 Type 2 diabetes mellitus without complications; D64.9 Anemia, unspecified; K76.0 Fatty (change of) liver, not elsewhere classified; I25.2 Old myocardial infarction; Z87.891 Personal history of nicotine dependence; Z99.81 Dependence on supplemental oxygen; U07.1 COVID-19
CPT/HCPCS: 36415; 71045-TC-FY; 71250-TC; 72131-TC; 74176-TC; 76775-TC; 80048; 80053; 81003; 82436; 82550; 82570; 82962; 83036; 83605; 83690; 83735; 83880; 84133; 84156; 84300; 84484; 85025; 85610; 85730; 87086; 87186; 93005; 93010; 96361; 96372; 96374; 96376; 99285-25; C9803; G0378; J0131; U0003; U0005

== ENCOUNTER 2021-01-08 01:17 | Inpatient (IN) | payer OTHER ==
[2021-01-08] MEDS ORDERED: LACTATED RINGERS SOLUTION 1000 ML INFUS.BAG IV ONE (01:36)
[2021-01-08] MEDS ORDERED: ALBUTEROL SO4 HFA INHALER IH ONE ×2 (01:54→02:09)
[2021-01-08] MEDS ORDERED: ACETAMINOPHEN 1000 MG/100 ML VIAL (NON FORMULARY) IVPB ONE (01:56)
[2021-01-08] MEDS ORDERED: ACETAMINOPHEN INJECTION 100 ML IVPB ONE (02:09)
[2021-01-08] MEDS ORDERED: FAMOTIDINE 20 MG/50 ML IVPB 20 MG/50 ML MG IVPB ONE ×2 (02:10→02:41)
[2021-01-08 02:38] LABS: BASO % 0.3 % (0-2.0); EOS % 2.3 % (0-4.5); HEMATOCRIT 24.9 % (32.4-45.2); HEMOGLOBIN 8.1 GM/dL (10.7-15.3); LYMPH % 11.9 % (8-40); MCH 27.8 pg (25.7-33.7); MCHC 32.4 g/dl (32.0-36.0); MEAN CELL VOLUME 85.7 fl (80-96); MEAN PLT VOLUME 9.5 fl (7.5-11.1); NEUT % 76.5 % (42.8-82.8); PLATELET COUNT 343 K/MM3 (134-434); RBC 2.91 M/mm3 (3.60-5.2); RDW 14.1 % (11.6-15.6); WHITE BLOOD COUNT 9.7 K/mm3 (4.0-10.0)
[2021-01-08 02:46] LABS: INR 0.96 (0.83-1.09); PROTHROMBIN TIME (PATIENT) 11.6 SEC (9.7-13.0)
[2021-01-08 02:49] LABS: ACTIVATED PTT 28.4 SECONDS (25.2-36.5)
[2021-01-08 02:57] LABS: CHLORIDE 102 mmol/L (98-107); SODIUM 138 mmol/L (136-145)
[2021-01-08 02:58] LABS: EPI CELLS 5 /uL (0-25.1); HYALINE CASTS 1 /uL (0-3.1); URINE APPEARANCE CLEAR; URINE BACTERIA 80 /uL (0-1359); URINE BILIRUBIN NEGATIVE (NEGATIVE); URINE COLOR YELLOW; URINE GLUCOSE (UA) 3+ (NEGATIVE); URINE KETONE NEGATIVE (NEGATIVE); URINE LEUK ESTERASE NEGATIVE (NEGATIVE); URINE NITRITE NEGATIVE (NEGATIVE); URINE PROTEIN 3+ (NEGATIVE); URINE RBC 31 /uL (0-23.9); URINE UROBILINOGEN 0.2 mg/dL (0.2-1.0); URINE WBC 26 /uL (0-25.8)
[2021-01-08 02:59] LABS: ALBUMIN 3.1 g/dl (3.4-5.0); CALCIUM 8.6 mg/dL (8.5-10.1); LIPASE 70 U/L (73-393)
[2021-01-08 03:00] LABS: ANION GAP 10 MMOL/L (8-16); BLOOD UREA NITROGEN 32.5 mg/dL (7-18); CO2 26 mmol/L (21-32); MAGNESIUM 1.8 mg/dL (1.8-2.4)
[2021-01-08 03:02] LABS: SGOT/AST 16 U/L (15-37); SGPT/ALT 31 U/L (13-61)
[2021-01-08 03:03] LABS: CREATININE 1.7 mg/dL (0.55-1.3)
[2021-01-08 03:04] LABS: BILIRUBIN,TOTAL 0.2 mg/dL (0.2-1)
[2021-01-08 03:05] LABS: ALK PHOS 123 U/L (45-117)
[2021-01-08 03:08] LABS: N-TERMINAL BNP 387.3 pg/ml (5-125)
[2021-01-08 03:15] LABS: GLUCOSE,RANDOM 501 mg/dL (74-106)
[2021-01-08] MEDS ORDERED: AZITHROMYCIN IVPB 500 MG in DEXTROSE 5%-WATER - 250 ML IVPB ONE (03:18)
[2021-01-08] MEDS ORDERED: INSULIN REGULAR HUMAN 100 UNITS/ML *VIAL SQ ONE ×2 (03:18→05:17)
[2021-01-08] MEDS ORDERED: CEFTRIAXONE 1,000 MG in DEXTROSE 5%-WATER - 50 ML IVPB ONE (03:18)
[2021-01-08] MEDS ORDERED: ALBUTEROL SO4 2.5/IPRATROPIUM 0.5 INH SOL 3 ML VIAL.NEB. NEB ONE ×2 (03:25→03:33)
[2021-01-08] MEDS ORDERED: CEFTRIAXONE 1 GM/50 ML BAG ONE (03:33)
[2021-01-08] MEDS ORDERED: INSULIN REGULAR HUMAN 100 UNITS/ML *VIAL ONE (03:34)
[2021-01-08] MEDS ORDERED: AZITHROMYCIN IVPB 500 MG/250 ML BAG IVPB ONE (03:50)
[2021-01-08] MEDS ORDERED: LACTATED RINGERS SOLUTION 1,000 ML/1,000 ML INFUS.BAG IV STA (05:17)
[2021-01-08] MEDS ORDERED: ONDANSETRON 4 MG/2 ML VIAL IVPUSH PRN (08:42)
[2021-01-08] MEDS ORDERED: ACETAMINOPHEN 325 MG TABLET (FP) PO PRN (08:42)
[2021-01-08] MEDS ORDERED: ENOXAPARIN NA (PORCINE) 40 MG/0.4 ML DISP.SYRIN SQ SCH (10:00)
[2021-01-08] MEDS ORDERED: methylPREDNISolone NA SUCC 125 MG/2 ML VIAL IVPUSH SCH (10:00)
[2021-01-08] MEDS ORDERED: LOSARTAN 50MG/HCTZ 12.5MG 1 TAB PO SCH (10:45)
[2021-01-08] MEDS ORDERED: PATIENT'S OWN MEDICATION (NON-FORMULARY) (Metformin Hcl [Glucophage] 1,000 MG Tablet) PO SCH (10:45)
[2021-01-08] MEDS ORDERED: CEFTRIAXONE 1 GM in DEXTROSE 5%-WATER - 50 ML IVPB SCH (11:00)
[2021-01-08] MEDS ORDERED: AZITHROMYCIN IVPB 250 MG in DEXTROSE 5%-WATER - 250 ML IVPB SCH (11:00)
[2021-01-08] MEDS ORDERED: DEXTROSE 5%-WATER - 50 ML IVPB ONE (11:40)
[2021-01-08] MEDS ORDERED: cefTRIAXone SODIUM 1 GM VIAL ONE (11:40)
[2021-01-08] MEDS ORDERED: PT OWN MED DRAWER 7, Y5N ONE ×2 (11:40→18:09)
[2021-01-08] MEDS: CLOPIDOGREL BISULFATE 75 MG TABLET (FP) PO SCH (11:47)
[2021-01-08] MEDS: PANTOPRAZOLE 40 MG TABLET PO SCH (11:47)
[2021-01-08] MEDS: LIPASE/PROTEASE/AMYLASE 36,000 UNIT CAPSULE PO SCH ×2 (11:50→18:10)
[2021-01-08] MEDS: METOCLOPRAMIDE HCL 10 MG TABLET (FP) PO SCH ×2 (11:51→15:57)
[2021-01-08] MEDS: INSULIN SLIDING SCALE (NOVOLOG) 1 VIAL SQ SCH ×3 (11:51→21:08)
[2021-01-08] MEDS: ALBUTEROL SO4 2.5/IPRATROPIUM 0.5 INH SOL 3 ML VIAL.NEB. NEB PRN ×2 (12:10→15:52)
[2021-01-08] MEDS ORDERED: predniSONE 20 MG TABLET (UD) PO SCH (12:15)
[2021-01-08] MEDS: RIFAXIMIN 550 MG TABLET (UD) PO SCH ×2 (14:03→21:09)
[2021-01-08 14:40] LABS: VENOUS BASE EXCESS 2.2 mmol/L (-2-2); VENOUS O2 SATURATION 99.1 % (70-80); VENOUS PCO2 49.8 mmHg (38-52)
[2021-01-08 14:41] LABS: VENOUS PH 7.367 (7.310-7.410)
[2021-01-08] MEDS ORDERED: hydrALAZINE HCL 10 MG TABLET PO ONE (15:45)
[2021-01-08] MEDS ORDERED: METOPROLOL TARTRATE 5 MG/5 ML VIAL IVPB ONE (19:33)
[2021-01-08] MEDS ORDERED: INSULIN (NOVOLOG) ASPART 100 UNITS/ML 10ML VIAL ONE (20:47)
[2021-01-08] MEDS ORDERED: INSULIN (LEVEMIR) 100 UNITS/ML UNITS SQ SCH (22:00)
[2021-01-08] MEDS ORDERED: ATORVASTATIN CA 40 MG TABLET (FP) PO SCH (22:00)
[2021-01-08] MEDS ORDERED: ATORVASTATIN CA 20 MG TABLET (FP) PO SCH (22:00)
[2021-01-09] MEDS: RIFAXIMIN 550 MG TABLET (UD) PO SCH ×3 (06:11→21:18)
[2021-01-09] MEDS: METOCLOPRAMIDE HCL 10 MG TABLET (FP) PO SCH ×3 (06:11→16:45)
[2021-01-09] MEDS: INSULIN SLIDING SCALE (NOVOLOG) 1 VIAL SQ SCH ×5 (06:24→22:52)
[2021-01-09] MEDS ORDERED: INSULIN (NOVOLOG) ASPART 100 UNITS/ML 10ML VIAL ONE (06:26)
[2021-01-09 07:41] LABS: CHLORIDE 100 mmol/L (98-107); SODIUM 136 mmol/L (136-145)
[2021-01-09 07:43] LABS: CALCIUM 8.6 mg/dL (8.5-10.1)
[2021-01-09 07:44] LABS: ALBUMIN 2.8 g/dl (3.4-5.0); ANION GAP 9 MMOL/L (8-16); BLOOD UREA NITROGEN 45.6 mg/dL (7-18); CO2 28 mmol/L (21-32)
[2021-01-09 07:47] LABS: SGOT/AST 9 U/L (15-37); SGPT/ALT 25 U/L (13-61)
[2021-01-09 07:48] LABS: BILIRUBIN,TOTAL 0.2 mg/dL (0.2-1); TOT PROT 6.6 g/dl (6.4-8.2)
[2021-01-09 07:50] LABS: ALK PHOS 117 U/L (45-117)
[2021-01-09 08:01] LABS: GLUCOSE,RANDOM 603 mg/dL (74-106)
[2021-01-09] MEDS ORDERED: INSULIN (LEVEMIR) 100 UNITS/ML UNITS SQ ONE ×2 (08:45→23:00)
[2021-01-09] MEDS: LIPASE/PROTEASE/AMYLASE 36,000 UNIT CAPSULE PO SCH ×3 (09:47→16:45)
[2021-01-09] MEDS: SODIUM CHLORIDE 0.45% 1,000 ML IV SCH ×2 (09:47→21:31)
[2021-01-09] MEDS: ENOXAPARIN NA (PORCINE) 40 MG/0.4 ML DISP.SYRIN SQ SCH (09:49)
[2021-01-09] MEDS: LOSARTAN POTASSIUM 50 MG TABLET PO SCH (09:50)
[2021-01-09] MEDS: PANTOPRAZOLE 40 MG TABLET PO SCH (09:50)
[2021-01-09] MEDS: CLOPIDOGREL BISULFATE 75 MG TABLET (FP) PO SCH (09:51)
[2021-01-09] MEDS: HYDROCHLOROTHIAZIDE 12.5 MG CAPSULE (FP) PO SCH (09:55)
[2021-01-09] MEDS ORDERED: predniSONE 20 MG TABLET (UD) PO SCH (10:00)
[2021-01-09 10:57] LABS: HEMATOCRIT 24.5 % (32.4-45.2); HEMOGLOBIN 7.8 GM/dL (10.7-15.3); LYMPH % 7.9 % (8-40); MCH 27.4 pg (25.7-33.7); MCHC 31.9 g/dl (32.0-36.0); MEAN CELL VOLUME 85.9 fl (80-96); MEAN PLT VOLUME 9.2 fl (7.5-11.1); MONO % 5.2 % (3.8-10.2); NEUT % 86.9 % (42.8-82.8); PLATELET COUNT 346 K/MM3 (134-434); RBC 2.85 M/mm3 (3.60-5.2); RDW 14.2 % (11.6-15.6); WHITE BLOOD COUNT 13.1 K/mm3 (4.0-10.0)
[2021-01-09 11:22] LABS: GLUCOSE,RANDOM 579 mg/dL (74-106)
[2021-01-09] MEDS: predniSONE 20 MG TABLET (UD) PO SCH (11:29)
[2021-01-09] MEDS ORDERED: hydrALAZINE HCL 10 MG TABLET PO ONE (12:15)
[2021-01-09] MEDS ORDERED: PT OWN MED DRAWER 7, Y5N ONE (12:38)
[2021-01-09] MEDS ORDERED: INSULIN (NOVOLOG) ASPART 100 UNITS/ML 10ML VIAL SQ ONE (19:03)
[2021-01-09 20:53] LABS: CHLORIDE 96 mmol/L (98-107); SODIUM 132 mmol/L (136-145)
[2021-01-09 20:54] LABS: CALCIUM 8.2 mg/dL (8.5-10.1)
[2021-01-09 20:55] LABS: ANION GAP 10 MMOL/L (8-16); BLOOD UREA NITROGEN 56.5 mg/dL (7-18); CO2 26 mmol/L (21-32)
[2021-01-09 20:58] LABS: CREATININE 2.6 mg/dL (0.55-1.3)
[2021-01-09 21:06] LABS: GLUCOSE,RANDOM 668 mg/dL (74-106)
[2021-01-09] MEDS ORDERED: INSULIN (LEVEMIR) 100 UNITS/ML UNITS SQ SCH (22:00)
[2021-01-09] MEDS ORDERED: METOPROLOL TARTRATE 5 MG/5 ML VIAL IVPB ONE (22:15)
[2021-01-10] MEDS: INSULIN SLIDING SCALE (NOVOLOG) 1 VIAL SQ SCH ×6 (02:19→21:42)
[2021-01-10 02:54] LABS: CALCIUM 8.7 mg/dL (8.5-10.1)
[2021-01-10 02:55] LABS: BLOOD UREA NITROGEN 52.4 mg/dL (7-18)
[2021-01-10 02:58] LABS: CREATININE 2.2 mg/dL (0.55-1.3)
[2021-01-10] MEDS ORDERED: PT OWN MED DRAWER 7, Y5N ONE ×4 (06:02→17:02)
[2021-01-10] MEDS: INSULIN (LEVEMIR) 100 UNITS/ML UNITS SQ SCH ×2 (06:09→21:41)
[2021-01-10] MEDS: METOCLOPRAMIDE HCL 10 MG TABLET (FP) PO SCH ×3 (06:13→17:18)
[2021-01-10] MEDS: RIFAXIMIN 550 MG TABLET (UD) PO SCH ×3 (06:14→21:42)
[2021-01-10] MEDS ORDERED: INSULIN (LEVEMIR) 100 UNITS/ML UNITS SQ ONE (06:17)
[2021-01-10] MEDS ORDERED: INSULIN (NOVOLOG MIX 70/30) 100 UNITS/ML MDV SQ ONE (06:17)
[2021-01-10] MEDS: INSULIN (NOVOLOG MIX 70/30) 100 UNITS/ML MDV SQ SCH ×2 (06:18→17:19)
[2021-01-10] MEDS ORDERED: INSULIN (NOVOLOG) ASPART 100 UNITS/ML 10ML VIAL ONE ×2 (09:29→21:22)
[2021-01-10] MEDS: predniSONE 20 MG TABLET (UD) PO SCH (09:40)
[2021-01-10] MEDS: PANTOPRAZOLE 40 MG TABLET PO SCH (09:40)
[2021-01-10] MEDS: CLOPIDOGREL BISULFATE 75 MG TABLET (FP) PO SCH (09:41)
[2021-01-10] MEDS: ENOXAPARIN NA (PORCINE) 40 MG/0.4 ML DISP.SYRIN SQ SCH (09:41)
[2021-01-10] MEDS: HYDROCHLOROTHIAZIDE 12.5 MG CAPSULE (FP) PO SCH (09:42)
[2021-01-10] MEDS: LIPASE/PROTEASE/AMYLASE 36,000 UNIT CAPSULE PO SCH ×3 (09:42→17:18)
[2021-01-10] MEDS: SODIUM CHLORIDE 0.45% 1,000 ML IV SCH (09:44)
[2021-01-10] MEDS: LOSARTAN POTASSIUM 50 MG TABLET PO SCH (09:45)
[2021-01-10 09:52] LABS: BASO % 0.2 % (0-2.0); EOS % 0.5 % (0-4.5); HEMATOCRIT 23.4 % (32.4-45.2); HEMOGLOBIN 7.7 GM/dL (10.7-15.3); MCH 27.8 pg (25.7-33.7); MEAN CELL VOLUME 84.2 fl (80-96); MEAN PLT VOLUME 8.8 fl (7.5-11.1); MONO % 6.6 % (3.8-10.2); NEUT % 75.7 % (42.8-82.8); PLATELET COUNT 367 K/MM3 (134-434); RBC 2.78 M/mm3 (3.60-5.2); WHITE BLOOD COUNT 15.8 K/mm3 (4.0-10.0)
[2021-01-10 10:06] LABS: ALBUMIN 2.9 g/dl (3.4-5.0)
[2021-01-10 10:09] LABS: CREATININE 1.8 mg/dL (0.55-1.3)
[2021-01-10 10:10] LABS: BILIRUBIN,TOTAL 0.2 mg/dL (0.2-1)
[2021-01-10] MEDS: ALBUTEROL SO4 2.5/IPRATROPIUM 0.5 INH SOL 3 ML VIAL.NEB. NEB PRN (11:00)
[2021-01-10] MEDS: ALBUTEROL SO4 2.5/IPRATROPIUM 0.5 INH SOL 3 ML VIAL.NEB. NEB SCH ×2 (15:00→20:05)
[2021-01-11] MEDS: INSULIN SLIDING SCALE (NOVOLOG) 1 VIAL SQ SCH ×6 (02:18→21:52)
[2021-01-11] MEDS: RIFAXIMIN 550 MG TABLET (UD) PO SCH ×3 (06:34→21:52)
[2021-01-11] MEDS: METOCLOPRAMIDE HCL 10 MG TABLET (FP) PO SCH ×3 (06:34→17:56)
[2021-01-11] MEDS: ALBUTEROL SO4 2.5/IPRATROPIUM 0.5 INH SOL 3 ML VIAL.NEB. NEB SCH ×3 (08:00→20:07)
[2021-01-11] MEDS ORDERED: PT OWN MED DRAWER 7, Y5N ONE ×2 (08:53→11:38)
[2021-01-11] MEDS: INSULIN (LEVEMIR) 100 UNITS/ML UNITS SQ SCH ×2 (08:59→21:53)
[2021-01-11] MEDS: PANTOPRAZOLE 40 MG TABLET PO SCH (09:00)
[2021-01-11] MEDS: predniSONE 20 MG TABLET (UD) PO SCH (09:00)
[2021-01-11] MEDS: MECLIZINE HCL 12.5 MG TABLET PO PRN (09:01)
[2021-01-11] MEDS: ENOXAPARIN NA (PORCINE) 40 MG/0.4 ML DISP.SYRIN SQ SCH (09:01)
[2021-01-11] MEDS: CLOPIDOGREL BISULFATE 75 MG TABLET (FP) PO SCH (09:01)
[2021-01-11] MEDS: LOSARTAN POTASSIUM 50 MG TABLET PO SCH (09:01)
[2021-01-11] MEDS: LIPASE/PROTEASE/AMYLASE 36,000 UNIT CAPSULE PO SCH ×3 (09:10→17:56)
[2021-01-11] MEDS: INSULIN (NOVOLOG MIX 70/30) 100 UNITS/ML MDV SQ SCH ×2 (09:10→18:01)
[2021-01-11 09:18] LABS: BASO % 0.3 % (0-2.0); EOS % 1.1 % (0-4.5); HEMATOCRIT 22.4 % (32.4-45.2); HEMOGLOBIN 7.2 GM/dL (10.7-15.3); LYMPH % 22.6 % (8-40); MCH 27.1 pg (25.7-33.7); MEAN CELL VOLUME 84.6 fl (80-96); MEAN PLT VOLUME 9.1 fl (7.5-11.1); PLATELET COUNT 343 K/MM3 (134-434); RBC 2.65 M/mm3 (3.60-5.2); RDW 13.9 % (11.6-15.6); WHITE BLOOD COUNT 12.6 K/mm3 (4.0-10.0)
[2021-01-11 10:10] LABS: ALBUMIN 2.7 g/dl (3.4-5.0)
[2021-01-11 10:12] LABS: BLOOD UREA NITROGEN 48.7 mg/dL (7-18); CALCIUM 8.6 mg/dL (8.5-10.1)
[2021-01-11 10:13] LABS: CO2 29 mmol/L (21-32)
[2021-01-11 10:16] LABS: CREATININE 1.6 mg/dL (0.55-1.3); SGOT/AST 13 U/L (15-37); SGPT/ALT 49 U/L (13-61)
[2021-01-11 10:18] LABS: BILIRUBIN,TOTAL 0.3 mg/dL (0.2-1); TOT PROT 6.5 g/dl (6.4-8.2)
[2021-01-11 10:19] LABS: ALK PHOS 128 U/L (45-117)
[2021-01-11 10:22] LABS: ANION GAP 7 MMOL/L (8-16); CHLORIDE 105 mmol/L (98-107); GLUCOSE,RANDOM 45 mg/dL (74-106); SODIUM 141 mmol/L (136-145)
[2021-01-11] MEDS: HYDROCHLOROTHIAZIDE 12.5 MG CAPSULE (FP) PO SCH (10:34)
[2021-01-11] MEDS ORDERED: FUROSEMIDE 40 MG/4 ML INJECTABLE VIAL IVPUSH ONE ×2 (11:10→19:00)
[2021-01-11 16:53] LABS: IRON SERUM 25 ug/dL (50-175)
[2021-01-11 16:54] LABS: TOTAL IRON BINDING CAPACITY 200 ug/dL (250-450)
[2021-01-11] MEDS ORDERED: POTASSIUM CHLORIDE ORAL LIQUID 20 MEQ/15 ML PO ONE (19:00)
[2021-01-11] MEDS ORDERED: INSULIN (NOVOLOG) ASPART 100 UNITS/ML 10ML VIAL ONE (21:34)
[2021-01-12] MEDS: INSULIN SLIDING SCALE (NOVOLOG) 1 VIAL SQ SCH ×5 (01:40→17:15)
[2021-01-12] MEDS: RIFAXIMIN 550 MG TABLET (UD) PO SCH ×3 (06:25→23:13)
[2021-01-12] MEDS: METOCLOPRAMIDE HCL 10 MG TABLET (FP) PO SCH ×3 (06:25→17:28)
[2021-01-12] MEDS: ALBUTEROL SO4 2.5/IPRATROPIUM 0.5 INH SOL 3 ML VIAL.NEB. NEB SCH ×3 (08:00→20:17)
[2021-01-12 08:50] LABS: BASO % 0.4 % (0-2.0); EOS % 1.5 % (0-4.5); HEMATOCRIT 23.6 % (32.4-45.2); HEMOGLOBIN 7.9 GM/dL (10.7-15.3); LYMPH % 25.6 % (8-40); MCH 28.2 pg (25.7-33.7); MCHC 33.3 g/dl (32.0-36.0); MEAN CELL VOLUME 84.5 fl (80-96); MEAN PLT VOLUME 9.4 fl (7.5-11.1); MONO % 9.8 % (3.8-10.2); NEUT % 62.7 % (42.8-82.8); PLATELET COUNT 311 K/MM3 (134-434); RBC 2.79 M/mm3 (3.60-5.2); RDW 13.6 % (11.6-15.6); WHITE BLOOD COUNT 9.7 K/mm3 (4.0-10.0)
[2021-01-12 09:55] LABS: ALBUMIN 2.5 g/dl (3.4-5.0); CALCIUM 8.7 mg/dL (8.5-10.1)
[2021-01-12 09:59] LABS: CREATININE 1.5 mg/dL (0.55-1.3)
[2021-01-12 10:00] LABS: BILIRUBIN,TOTAL 0.2 mg/dL (0.2-1); TOT PROT 6.2 g/dl (6.4-8.2)
[2021-01-12] MEDS ORDERED: PT OWN MED DRAWER 7, Y5N ONE ×2 (10:59→12:26)
[2021-01-12] MEDS: LIPASE/PROTEASE/AMYLASE 36,000 UNIT CAPSULE PO SCH ×3 (11:01→17:28)
[2021-01-12] MEDS: LOSARTAN POTASSIUM 50 MG TABLET PO SCH (11:01)
[2021-01-12] MEDS: ENOXAPARIN NA (PORCINE) 40 MG/0.4 ML DISP.SYRIN SQ SCH (11:01)
[2021-01-12] MEDS: PANTOPRAZOLE 40 MG TABLET PO SCH (11:01)
[2021-01-12] MEDS: CLOPIDOGREL BISULFATE 75 MG TABLET (FP) PO SCH (11:01)
[2021-01-12] MEDS: predniSONE 20 MG TABLET (UD) PO SCH (11:01)
[2021-01-12] MEDS: HYDROCHLOROTHIAZIDE 12.5 MG CAPSULE (FP) PO SCH (11:01)
[2021-01-12] MEDS ORDERED: INSULIN (NOVOLOG MIX 70/30) 100 UNITS/ML MDV SQ ONE (11:30)
[2021-01-12] MEDS ORDERED: INSULIN (NOVOLOG) ASPART 100 UNITS/ML 10ML VIAL ONE ×2 (11:30→17:39)
[2021-01-12] MEDS ORDERED: INSULIN (LEVEMIR) 100 UNITS/ML UNITS SQ ONE (11:30)
[2021-01-12] MEDS: INSULIN (LEVEMIR) 100 UNITS/ML UNITS SQ SCH ×2 (11:32→23:13)
[2021-01-12] MEDS: INSULIN (NOVOLOG MIX 70/30) 100 UNITS/ML MDV SQ SCH ×2 (11:33→17:28)
[2021-01-12] MEDS ORDERED: HYDROCHLOROTHIAZIDE 12.5 MG CAPSULE (FP) PO ONE (12:05)
[2021-01-12] MEDS ORDERED: FUROSEMIDE 40 MG/4 ML INJECTABLE VIAL IVPUSH ONE (12:15)
[2021-01-12] MEDS ORDERED: IRON SUCROSE INJECTION 100 MG in SODIUM CHLORIDE 95 ML IVPB ONE (16:54)
[2021-01-13] MEDS ORDERED: INSULIN (NOVOLOG) ASPART 100 UNITS/ML 10ML VIAL SQ ONE (00:42)
[2021-01-13] MEDS: RIFAXIMIN 550 MG TABLET (UD) PO SCH ×3 (06:09→21:45)
[2021-01-13] MEDS: METOCLOPRAMIDE HCL 10 MG TABLET (FP) PO SCH ×3 (06:09→16:43)
[2021-01-13] MEDS: INSULIN (NOVOLOG MIX 70/30) 100 UNITS/ML MDV SQ SCH ×2 (06:14→19:45)
[2021-01-13] MEDS: INSULIN (LEVEMIR) 100 UNITS/ML UNITS SQ SCH ×2 (06:15→21:44)
[2021-01-13 08:35] LABS: BASO % 0.4 % (0-2.0); EOS % 2.1 % (0-4.5); HEMATOCRIT 25.1 % (32.4-45.2); HEMOGLOBIN 8.4 GM/dL (10.7-15.3); LYMPH % 24.5 % (8-40); MCH 28.3 pg (25.7-33.7); MCHC 33.4 g/dl (32.0-36.0); MEAN CELL VOLUME 84.7 fl (80-96); MONO % 8.2 % (3.8-10.2); NEUT % 64.8 % (42.8-82.8); PLATELET COUNT 343 K/MM3 (134-434); RBC 2.96 M/mm3 (3.60-5.2)
[2021-01-13] MEDS: ALBUTEROL SO4 2.5/IPRATROPIUM 0.5 INH SOL 3 ML VIAL.NEB. NEB SCH ×3 (08:42→20:40)
[2021-01-13 08:57] LABS: ALBUMIN 2.7 g/dl (3.4-5.0); BLOOD UREA NITROGEN 45.7 mg/dL (7-18)
[2021-01-13 08:59] LABS: CALCIUM 8.8 mg/dL (8.5-10.1)
[2021-01-13 09:00] LABS: CREATININE 1.6 mg/dL (0.55-1.3)
[2021-01-13 09:01] LABS: BILIRUBIN,TOTAL 0.3 mg/dL (0.2-1); TOT PROT 6.4 g/dl (6.4-8.2)
[2021-01-13] MEDS: LIPASE/PROTEASE/AMYLASE 36,000 UNIT CAPSULE PO SCH ×3 (09:30→16:45)
[2021-01-13] MEDS: ENOXAPARIN NA (PORCINE) 40 MG/0.4 ML DISP.SYRIN SQ SCH (09:30)
[2021-01-13] MEDS: CLOPIDOGREL BISULFATE 75 MG TABLET (FP) PO SCH (09:31)
[2021-01-13] MEDS: predniSONE 20 MG TABLET (UD) PO SCH (09:31)
[2021-01-13] MEDS: HYDROCHLOROTHIAZIDE 25 MG TABLET (FP) PO SCH (09:31)
[2021-01-13] MEDS: LOSARTAN POTASSIUM 50 MG TABLET PO SCH (09:31)
[2021-01-13] MEDS: PANTOPRAZOLE 40 MG TABLET PO SCH (09:32)
[2021-01-13] MEDS ORDERED: FUROSEMIDE 40 MG/4 ML INJECTABLE VIAL IVPUSH ONE (10:35)
[2021-01-13] MEDS: FUROSEMIDE 40 MG/4 ML INJECTABLE VIAL IVPUSH SCH (16:42)
[2021-01-13 17:06] LABS: FREE KAPPA,SERUM 66.4 mg/L (3.3-19.4)
[2021-01-14] MEDS: RIFAXIMIN 550 MG TABLET (UD) PO SCH ×3 (06:03→21:25)
[2021-01-14] MEDS: FUROSEMIDE 40 MG/4 ML INJECTABLE VIAL IVPUSH SCH ×2 (06:03→13:15)
[2021-01-14] MEDS: METOCLOPRAMIDE HCL 10 MG TABLET (FP) PO SCH ×3 (06:03→17:19)
[2021-01-14] MEDS ORDERED: PT OWN MED DRAWER 7, Y5N ONE ×4 (07:02→17:10)
[2021-01-14] MEDS: INSULIN (NOVOLOG MIX 70/30) 100 UNITS/ML MDV SQ SCH ×2 (07:03→17:22)
[2021-01-14] MEDS: INSULIN (LEVEMIR) 100 UNITS/ML UNITS SQ SCH ×2 (07:03→21:25)
[2021-01-14] MEDS: LOSARTAN POTASSIUM 50 MG TABLET PO SCH ×2 (07:06→09:53)
[2021-01-14] MEDS: HYDROCHLOROTHIAZIDE 25 MG TABLET (FP) PO SCH ×2 (07:07→09:53)
[2021-01-14] MEDS: ALBUTEROL SO4 2.5/IPRATROPIUM 0.5 INH SOL 3 ML VIAL.NEB. NEB SCH ×3 (07:50→20:10)
[2021-01-14] MEDS: PANTOPRAZOLE 40 MG TABLET PO SCH (09:52)
[2021-01-14] MEDS: CLOPIDOGREL BISULFATE 75 MG TABLET (FP) PO SCH (09:52)
[2021-01-14] MEDS: LIPASE/PROTEASE/AMYLASE 36,000 UNIT CAPSULE PO SCH ×3 (09:52→17:19)
[2021-01-14] MEDS: ENOXAPARIN NA (PORCINE) 40 MG/0.4 ML DISP.SYRIN SQ SCH (09:52)
[2021-01-14] MEDS ORDERED: amLODIPine BESYLATE 2.5 MG TABLET (FP) PO ONE (19:15)
[2021-01-14] MEDS ORDERED: INSULIN (LEVEMIR) 100 UNITS/ML UNITS SQ ONE (20:42)
[2021-01-14] MEDS ORDERED: IRON SUCROSE INJECTION 100 MG in SODIUM CHLORIDE 95 ML IVPB ONE (21:38)
[2021-01-14] MEDS ORDERED: METOPROLOL TARTRATE 5 MG/5 ML VIAL IVPB ONE (23:30)
[2021-01-15] MEDS: RIFAXIMIN 550 MG TABLET (UD) PO SCH (06:07)
[2021-01-15] MEDS: METOCLOPRAMIDE HCL 10 MG TABLET (FP) PO SCH ×3 (06:07→16:41)
[2021-01-15] MEDS: FUROSEMIDE 40 MG/4 ML INJECTABLE VIAL IVPUSH SCH ×2 (06:08→13:59)
[2021-01-15] MEDS: INSULIN (LEVEMIR) 100 UNITS/ML UNITS SQ SCH ×3 (06:14→21:43)
[2021-01-15] MEDS: INSULIN (NOVOLOG MIX 70/30) 100 UNITS/ML MDV SQ SCH ×2 (06:14→16:41)
[2021-01-15] MEDS: ALBUTEROL SO4 2.5/IPRATROPIUM 0.5 INH SOL 3 ML VIAL.NEB. NEB SCH (08:26)
[2021-01-15] MEDS: LOSARTAN POTASSIUM 50 MG TABLET PO SCH (09:00)
[2021-01-15] MEDS: PANTOPRAZOLE 40 MG TABLET PO SCH (09:01)
[2021-01-15] MEDS: CLOPIDOGREL BISULFATE 75 MG TABLET (FP) PO SCH (09:01)
[2021-01-15] MEDS: HYDROCHLOROTHIAZIDE 25 MG TABLET (FP) PO SCH (09:01)
[2021-01-15] MEDS: ENOXAPARIN NA (PORCINE) 40 MG/0.4 ML DISP.SYRIN SQ SCH (09:01)
[2021-01-15] MEDS ORDERED: hydrALAZINE HCL 20 MG/ML VIAL IVPUSH ONE (09:21)
[2021-01-15] MEDS ORDERED: PT OWN MED DRAWER 7, Y5N ONE ×2 (09:32→11:29)
[2021-01-15 09:34] LABS: BASO % 0.8 % (0-2.0); EOS % 5.7 % (0-4.5); HEMATOCRIT 28.9 % (32.4-45.2); HEMOGLOBIN 9.6 GM/dL (10.7-15.3); LYMPH % 22.6 % (8-40); MCH 28.3 pg (25.7-33.7); MCHC 33.3 g/dl (32.0-36.0); MEAN CELL VOLUME 84.9 fl (80-96); MEAN PLT VOLUME 8.6 fl (7.5-11.1); MONO % 9.2 % (3.8-10.2); NEUT % 61.7 % (42.8-82.8); PLATELET COUNT 415 K/MM3 (134-434); RDW 13.8 % (11.6-15.6); WHITE BLOOD COUNT 10.1 K/mm3 (4.0-10.0)
[2021-01-15] MEDS: METOPROLOL TARTRATE 25 MG TABLET (FP) PO SCH ×2 (09:35→21:38)
[2021-01-15] MEDS: LIPASE/PROTEASE/AMYLASE 36,000 UNIT CAPSULE PO SCH ×3 (09:35→16:41)
[2021-01-15] MEDS: hydrALAZINE HCL 50 MG TABLET (FP) PO SCH ×2 (09:35→21:38)
[2021-01-15] MEDS ORDERED: hydrALAZINE HCL 20 MG/ML VIAL IVPB ONE (09:45)
[2021-01-15 09:57] LABS: CALCIUM 9.5 mg/dL (8.5-10.1)
[2021-01-15 09:58] LABS: ALBUMIN 2.9 g/dl (3.4-5.0); BLOOD UREA NITROGEN 40.5 mg/dL (7-18); CREATININE 1.6 mg/dL (0.55-1.3)
[2021-01-15 09:59] LABS: BILIRUBIN,TOTAL 0.3 mg/dL (0.2-1); TOT PROT 6.9 g/dl (6.4-8.2)
[2021-01-15] MEDS ORDERED: METOPROLOL TARTRATE 50 MG TABLET (FP) PO SCH (10:00)
[2021-01-15 19:06] VITALS: BMI 45.6
[2021-01-16] MEDS: FUROSEMIDE 40 MG/4 ML INJECTABLE VIAL IVPUSH SCH ×2 (06:47→14:55)
[2021-01-16] MEDS: METOCLOPRAMIDE HCL 10 MG TABLET (FP) PO SCH ×3 (07:01→16:42)
[2021-01-16] MEDS: INSULIN (LEVEMIR) 100 UNITS/ML UNITS SQ SCH ×2 (07:03→21:21)
[2021-01-16 09:10] LABS: ALBUMIN 2.7 g/dl (3.4-5.0)
[2021-01-16 09:11] LABS: CALCIUM 8.3 mg/dL (8.5-10.1)
[2021-01-16 09:14] LABS: BLOOD UREA NITROGEN 41.8 mg/dL (7-18)
[2021-01-16 09:15] LABS: BILIRUBIN,TOTAL 0.3 mg/dL (0.2-1); CREATININE 1.8 mg/dL (0.55-1.3)
[2021-01-16 09:16] LABS: TOT PROT 6.2 g/dl (6.4-8.2)
[2021-01-16] MEDS ORDERED: PT OWN MED DRAWER 7, Y5N ONE (09:23)
[2021-01-16] MEDS: HYDROCHLOROTHIAZIDE 25 MG TABLET (FP) PO SCH (09:46)
[2021-01-16] MEDS: LOSARTAN POTASSIUM 50 MG TABLET PO SCH (09:46)
[2021-01-16] MEDS: ENOXAPARIN NA (PORCINE) 40 MG/0.4 ML DISP.SYRIN SQ SCH (09:46)
[2021-01-16] MEDS: hydrALAZINE HCL 50 MG TABLET (FP) PO SCH ×2 (09:46→21:28)
[2021-01-16] MEDS: LIPASE/PROTEASE/AMYLASE 36,000 UNIT CAPSULE PO SCH ×3 (09:46→16:43)
[2021-01-16] MEDS: METOPROLOL TARTRATE 25 MG TABLET (FP) PO SCH ×2 (09:47→21:27)
[2021-01-16] MEDS: CLOPIDOGREL BISULFATE 75 MG TABLET (FP) PO SCH (09:47)
[2021-01-16] MEDS: PANTOPRAZOLE 40 MG TABLET PO SCH (09:47)
[2021-01-16] MEDS: INSULIN (NOVOLOG MIX 70/30) 100 UNITS/ML MDV SQ SCH ×2 (09:47→16:47)
[2021-01-17] MEDS: METOCLOPRAMIDE HCL 10 MG TABLET (FP) PO SCH ×3 (06:15→17:27)
[2021-01-17] MEDS: CLOPIDOGREL BISULFATE 75 MG TABLET (FP) PO SCH (09:19)
[2021-01-17] MEDS: hydrALAZINE HCL 50 MG TABLET (FP) PO SCH ×2 (09:20→21:54)
[2021-01-17] MEDS: LOSARTAN POTASSIUM 50 MG TABLET PO SCH (09:20)
[2021-01-17] MEDS: METOPROLOL TARTRATE 25 MG TABLET (FP) PO SCH ×2 (09:20→21:54)
[2021-01-17] MEDS: ENOXAPARIN NA (PORCINE) 40 MG/0.4 ML DISP.SYRIN SQ SCH (09:20)
[2021-01-17] MEDS: LIPASE/PROTEASE/AMYLASE 36,000 UNIT CAPSULE PO SCH ×3 (09:20→17:27)
[2021-01-17] MEDS: PANTOPRAZOLE 40 MG TABLET PO SCH (09:20)
[2021-01-17] MEDS: HYDROCHLOROTHIAZIDE 25 MG TABLET (FP) PO SCH (09:20)
[2021-01-17] MEDS: INSULIN (NOVOLOG MIX 70/30) 100 UNITS/ML MDV SQ SCH ×2 (09:21→17:27)
[2021-01-17] MEDS: INSULIN (LEVEMIR) 100 UNITS/ML UNITS SQ SCH ×2 (09:22→21:54)
[2021-01-17 09:32] LABS: BILIRUBIN,TOTAL 0.3 mg/dL (0.2-1)
[2021-01-17 09:33] LABS: ALBUMIN 2.7 g/dl (3.4-5.0); CREATININE 1.7 mg/dL (0.55-1.3)
[2021-01-17 09:35] LABS: TOT PROT 6.3 g/dl (6.4-8.2)
[2021-01-17] MEDS ORDERED: FUROSEMIDE 40 MG/4 ML INJECTABLE VIAL IVPUSH SCH (10:00)
[2021-01-17] MEDS ORDERED: PT OWN MED DRAWER 7, Y5N ONE (17:19)
[2021-01-18] MEDS: INSULIN (LEVEMIR) 100 UNITS/ML UNITS SQ SCH ×2 (06:26→21:05)
[2021-01-18] MEDS: METOCLOPRAMIDE HCL 10 MG TABLET (FP) PO SCH ×3 (06:27→17:52)
[2021-01-18] MEDS: INSULIN (NOVOLOG MIX 70/30) 100 UNITS/ML MDV SQ SCH ×2 (08:21→17:52)
[2021-01-18] MEDS: ENOXAPARIN NA (PORCINE) 40 MG/0.4 ML DISP.SYRIN SQ SCH (09:18)
[2021-01-18] MEDS: METOPROLOL TARTRATE 25 MG TABLET (FP) PO SCH ×2 (09:18→21:04)
[2021-01-18] MEDS: HYDROCHLOROTHIAZIDE 25 MG TABLET (FP) PO SCH (09:18)
[2021-01-18] MEDS: LOSARTAN POTASSIUM 50 MG TABLET PO SCH (09:18)
[2021-01-18] MEDS: FUROSEMIDE 40 MG TABLET (FP) PO SCH (09:18)
[2021-01-18] MEDS: hydrALAZINE HCL 50 MG TABLET (FP) PO SCH ×2 (09:18→21:04)
[2021-01-18] MEDS: CLOPIDOGREL BISULFATE 75 MG TABLET (FP) PO SCH (09:18)
[2021-01-18] MEDS: PANTOPRAZOLE 40 MG TABLET PO SCH (09:19)
[2021-01-18] MEDS: LIPASE/PROTEASE/AMYLASE 36,000 UNIT CAPSULE PO SCH ×3 (09:19→17:54)
[2021-01-18] MEDS: MECLIZINE HCL 12.5 MG TABLET PO PRN (09:20)
[2021-01-19] MEDS: METOCLOPRAMIDE HCL 10 MG TABLET (FP) PO SCH ×2 (06:02→12:03)
[2021-01-19] MEDS: INSULIN (LEVEMIR) 100 UNITS/ML UNITS SQ SCH (06:02)
[2021-01-19 07:17] VITALS: TEMP 98
[2021-01-19] MEDS: INSULIN (NOVOLOG MIX 70/30) 100 UNITS/ML MDV SQ SCH (07:23)
[2021-01-19] MEDS: LIPASE/PROTEASE/AMYLASE 36,000 UNIT CAPSULE PO SCH ×2 (09:57→12:04)
[2021-01-19] MEDS: PANTOPRAZOLE 40 MG TABLET PO SCH (09:58)
[2021-01-19] MEDS: HYDROCHLOROTHIAZIDE 25 MG TABLET (FP) PO SCH (09:58)
[2021-01-19] MEDS: METOPROLOL TARTRATE 25 MG TABLET (FP) PO SCH (09:58)
[2021-01-19] MEDS: LOSARTAN POTASSIUM 50 MG TABLET PO SCH (09:58)
[2021-01-19] MEDS: CLOPIDOGREL BISULFATE 75 MG TABLET (FP) PO SCH (09:59)
[2021-01-19] MEDS: FUROSEMIDE 40 MG TABLET (FP) PO SCH (09:59)
[2021-01-19] MEDS: ENOXAPARIN NA (PORCINE) 40 MG/0.4 ML DISP.SYRIN SQ SCH (09:59)
[2021-01-19] MEDS: hydrALAZINE HCL 50 MG TABLET (FP) PO SCH (09:59)
[2021-01-19 13:39] VITALS: BP 144/64; PULSE 80
== END 2021-01-19 13:54 | disposition home or self-care (01) | DRG 291 ==
LOC: JER 01:17 → JERBED 03:19 → J5S 09:48
PROVIDERS: ADMIT Internal Medicine; ATTEND Internal Medicine
PROC: 30233N1 Transfusion of Nonautologous Red Blood Cells into Peripheral Vein, Percutaneous Approach (ICD-10-PCS; principal; 2021-01-11)
DX: I13.0 Hypertensive heart and chronic kidney disease with heart failure and stage 1 through stage 4 chronic kidney disease, or unspecified chronic kidney disease (principal); I50.33 Acute on chronic diastolic (congestive) heart failure; J98.11 Atelectasis; K86.2 Cyst of pancreas; J44.1 Chronic obstructive pulmonary disease with (acute) exacerbation; Z68.41 Body mass index [BMI] 40.0-44.9, adult; N17.9 Acute kidney failure, unspecified; N39.0 Urinary tract infection, site not specified; K21.9 Gastro-esophageal reflux disease without esophagitis; E78.5 Hyperlipidemia, unspecified; R09.02 Hypoxemia; E11.65 Type 2 diabetes mellitus with hyperglycemia; J44.9 Chronic obstructive pulmonary disease, unspecified; G56.00 Carpal tunnel syndrome, unspecified upper limb; M54.5 Low back pain; J20.9 Acute bronchitis, unspecified; J45.909 Unspecified asthma, uncomplicated; K83.8 Other specified diseases of biliary tract; E66.01 Morbid (severe) obesity due to excess calories; E11.51 Type 2 diabetes mellitus with diabetic peripheral angiopathy without gangrene; E11.618 Type 2 diabetes mellitus with other diabetic arthropathy; K58.9 Irritable bowel syndrome, unspecified; D63.1 Anemia in chronic kidney disease; R10.84 Generalized abdominal pain; M25.569 Pain in unspecified knee; K59.09 Other constipation; R07.89 Other chest pain; Z95.5 Presence of coronary angioplasty implant and graft; E11.22 Type 2 diabetes mellitus with diabetic chronic kidney disease; N18.9 Chronic kidney disease, unspecified; I25.119 Atherosclerotic heart disease of native coronary artery with unspecified angina pectoris
CPT/HCPCS: 36415; 36430; 71045-TC-FY; 71250-TC; 76856-TC; 80048; 80053; 81003; 82010; 82607; 82728; 82746; 82784; 82803; 82947; 82962; 83540; 83550; 83605; 83690; 83735; 83880; 83883; 84443; 84484; 85025; 85045; 85610; 85730; 86769; 86850; 86900; 86901; 86922; 87040; 87086; 93005; 93010; 93306-TC; 94640; 94761; 97116-GP; 97161-GP; 99285-25; C9803; J0131; J1756; P9058; U0003; U0005

== ENCOUNTER 2021-03-28 11:54 | Emergency (ER) | payer OTHER ==
[2021-03-28 12:22] VITALS: TEMP 98.8; BMI 36.6
[2021-03-28] MEDS ORDERED: FAMOTIDINE 20 MG/50 ML IVPB 20 MG/50 ML MG IVPB ONE ×2 (13:09→13:15)
[2021-03-28 13:42] LABS: BASO % 0.7 % (0-2.0); EOS % 3.5 % (0-4.5); HEMATOCRIT 31.1 % (32.4-45.2); HEMOGLOBIN 10.3 GM/dL (10.7-15.3); LYMPH % 35.5 % (8-40); MCH 27.4 pg (25.7-33.7); MCHC 33.1 g/dl (32.0-36.0); MEAN CELL VOLUME 82.7 fl (80-96); MEAN PLT VOLUME 9.7 fl (7.5-11.1); MONO % 10.8 % (3.8-10.2); NEUT % 49.5 % (42.8-82.8); PLATELET COUNT 297 10^3/uL (134-434); RBC 3.77 M/mm3 (3.60-5.2); RDW 14.5 % (11.6-15.6); WHITE BLOOD COUNT 5.7 K/mm3 (4.0-10.0)
[2021-03-28] MEDS ORDERED: ACETAMINOPHEN 1000 MG/100 ML VIAL (NON FORMULARY) IVPB ONE (13:54)
[2021-03-28] MEDS ORDERED: MAG HYDROX/AL HYDROX/SIMETH 30 ML UNIT-DOSE CUP PO ONE (13:55)
[2021-03-28 14:00] LABS: CHLORIDE 104 mmol/L (98-107); SODIUM 142 mmol/L (136-145)
[2021-03-28] MEDS ORDERED: ONDANSETRON 4 MG/2 ML VIAL IVPUSH ONE (14:00)
[2021-03-28 14:01] LABS: CALCIUM 9.5 mg/dL (8.5-10.1)
[2021-03-28 14:03] LABS: ALBUMIN 3.5 g/dl (3.4-5.0); ANION GAP 6 MMOL/L (8-16); BLOOD UREA NITROGEN 58.1 mg/dL (7-18); CO2 32 mmol/L (21-32); GLUCOSE,RANDOM 75 mg/dL (74-106)
[2021-03-28 14:06] LABS: CREATININE 2.1 mg/dL (0.55-1.3); SGOT/AST 14 U/L (15-37); SGPT/ALT 21 U/L (13-61)
[2021-03-28 14:07] LABS: TOT PROT 7.4 g/dl (6.4-8.2)
[2021-03-28 14:09] LABS: ALK PHOS 100 U/L (45-117)
[2021-03-28 14:11] LABS: N-TERMINAL BNP 120.6 pg/ml (5-125)
[2021-03-28 14:17] LABS: BILIRUBIN,TOTAL 0.2 mg/dL (0.2-1)
[2021-03-28] MEDS ORDERED: ACETAMINOPHEN INJECTION 100 ML IVPB ONE (14:23)
[2021-03-28] MEDS ORDERED: MAG HYDROX/AL HYDROX/SIMETH 30 ML UNIT-DOSE CUP ONE (14:23)
[2021-03-28] MEDS ORDERED: ONDANSETRON 4 MG/2 ML VIAL ONE (14:24)
[2021-03-28 15:37] LABS: VENOUS PCO2 57.4 mmHg (38-52); VENOUS PH 7.364 (7.310-7.410)
[2021-03-28 17:59] VITALS: BP 109/59; PULSE 69
== END 2021-03-28 18:40 | disposition home or self-care (01) ==
LOC: JER 11:54
PROC: 3E0333Z Introduction of Anti-inflammatory into Peripheral Vein, Percutaneous Approach (ICD-10-PCS; principal; 2021-03-28)
PROC: 3E033GC Introduction of Other Therapeutic Substance into Peripheral Vein, Percutaneous Approach (ICD-10-PCS; 2021-03-28)
PROC: 3E033GC Introduction of Other Therapeutic Substance into Peripheral Vein, Percutaneous Approach (ICD-10-PCS; 2021-03-28)
DX: J06.9 Acute upper respiratory infection, unspecified (principal); R05 Cough; R09.81 Nasal congestion; Z11.52 Encounter for screening for COVID-19
CPT/HCPCS: 36415; 71045-TC-FY; 80053; 82550; 82803; 82962; 83690; 83880; 84484; 85025; 87804; 93005; 93010; 96374; 96375; 99285-25; C9803; J0131; U0003; U0005

== ENCOUNTER 2021-04-09 10:29 | Emergency (ER) | payer OTHER ==
[2021-04-09 10:47] VITALS: BP 155/83; PULSE 69; TEMP 97.9; BMI 41.1
[2021-04-09] MEDS ORDERED: SODIUM CHLORIDE 1,000 ML IV STA (11:46)
[2021-04-09] MEDS ORDERED: ACETAMINOPHEN 1000 MG/100 ML VIAL (NON FORMULARY) IVPB ONE (11:46)
[2021-04-09] MEDS ORDERED: ACETAMINOPHEN INJECTION 100 ML IVPB ONE (11:51)
[2021-04-09 12:44] LABS: BASO % 1.2 % (0-2.0); EOS % 3.2 % (0-4.5); HEMATOCRIT 30.6 % (32.4-45.2); HEMOGLOBIN 10.2 GM/dL (10.7-15.3); LYMPH % 29.4 % (8-40); MCH 27.4 pg (25.7-33.7); MCHC 33.2 g/dl (32.0-36.0); MEAN CELL VOLUME 82.4 fl (80-96); MEAN PLT VOLUME 9.1 fl (7.5-11.1); NEUT % 55.2 % (42.8-82.8); PLATELET COUNT 285 10^3/uL (134-434); RBC 3.71 M/mm3 (3.60-5.2); RDW 14.5 % (11.6-15.6); WHITE BLOOD COUNT 6.2 K/mm3 (4.0-10.0)
[2021-04-09 12:57] LABS: EPI CELLS 15 /uL (0-25.1); HYALINE CASTS 3 /uL (0-3.1); URINE APPEARANCE CLOUDY; URINE BACTERIA 141 /uL (0-1359); URINE BILIRUBIN NEGATIVE (NEGATIVE); URINE COLOR YELLOW; URINE GLUCOSE (UA) NEGATIVE (NEGATIVE); URINE KETONE NEGATIVE (NEGATIVE); URINE LEUK ESTERASE TRACE (NEGATIVE); URINE NITRITE NEGATIVE (NEGATIVE); URINE PROTEIN 3+ (NEGATIVE); URINE RBC 15 /uL (0-23.9); URINE UROBILINOGEN 0.2 mg/dL (0.2-1.0); URINE WBC 30 /uL (0-25.8)
[2021-04-09 13:01] LABS: CHLORIDE 105 mmol/L (98-107); SODIUM 142 mmol/L (136-145)
[2021-04-09 13:03] LABS: ALBUMIN 3.4 g/dl (3.4-5.0); ANION GAP 7 MMOL/L (8-16); BLOOD UREA NITROGEN 42.8 mg/dL (7-18); CALCIUM 9.5 mg/dL (8.5-10.1); CO2 30 mmol/L (21-32); LIPASE 49 U/L (73-393)
[2021-04-09 13:04] LABS: GLUCOSE,RANDOM 117 mg/dL (74-106)
[2021-04-09 13:06] LABS: CREATININE 1.8 mg/dL (0.55-1.3); SGOT/AST 15 U/L (15-37); SGPT/ALT 20 U/L (13-61)
[2021-04-09 13:08] LABS: BILIRUBIN,TOTAL 0.2 mg/dL (0.2-1); TOT PROT 7.6 g/dl (6.4-8.2)
[2021-04-09 13:09] LABS: ALK PHOS 98 U/L (45-117)
[2021-04-09 13:32] LABS: INR 0.97 (0.83-1.09)
[2021-04-09] MEDS ORDERED: MAG HYDROX/AL HYDROX/SIMETH 30 ML UNIT-DOSE CUP PO ONE (14:34)
[2021-04-09] MEDS ORDERED: FAMOTIDINE 20 MG/50 ML IVPB 20 MG/50 ML MG IVPB ONE ×2 (14:34→15:05)
[2021-04-09] MEDS ORDERED: morphine CARPU-JECT 4 MG/1 ML DISP.SYRIN IVPUSH ONE (14:35)
[2021-04-09] MEDS ORDERED: morphine SULFATE 4 MG/ML VIAL ONE (15:04)
[2021-04-09] MEDS ORDERED: MAG HYDROX/AL HYDROX/SIMETH 30 ML UNIT-DOSE CUP ONE (15:04)
[2021-04-09] MEDS ORDERED: LORATADINE 10 MG TABLET PO ONE (16:34)
[2021-04-09] MEDS ORDERED: LORATADINE 10 MG TABLET ONE (16:41)
== END 2021-04-09 16:51 | disposition home or self-care (01) ==
LOC: JER 10:29
PROC: 3E033GC Introduction of Other Therapeutic Substance into Peripheral Vein, Percutaneous Approach (ICD-10-PCS; principal; 2021-04-09)
DX: R10.13 Epigastric pain (principal)
CPT/HCPCS: 36415; 76705-TC; 80053; 81003; 82550; 83605; 83690; 84484; 85025; 85610; 87086; 93005; 93010; 96361; 96365; 96375; 99285-25; J0131

== ENCOUNTER 2021-04-13 13:24 | Emergency (ER) | payer OTHER ==
[2021-04-13 13:53] VITALS: BP 135/56; PULSE 68; TEMP 99; BMI 43.0
[2021-04-13] MEDS ORDERED: LACTATED RINGERS SOLUTION 1000 ML INFUS.BAG IV ONE (14:54)
[2021-04-13] MEDS ORDERED: FAMOTIDINE 20 MG/50 ML IVPB 20 MG/50 ML MG IVPB ONE ×2 (14:54→15:06)
[2021-04-13] MEDS ORDERED: MAG HYDROX/AL HYDROX/SIMETH -MYLANTA- ORAL SUSPENSION PO ONE (14:54)
[2021-04-13] MEDS ORDERED: MAG HYDROX/AL HYDROX/SIMETH 30 ML UNIT-DOSE CUP ONE (15:06)
[2021-04-13 15:37] LABS: BASO % 1.1 % (0-2.0); EOS % 2.6 % (0-4.5); HEMATOCRIT 28.9 % (32.4-45.2); HEMOGLOBIN 9.5 GM/dL (10.7-15.3); LYMPH % 26.6 % (8-40); MCH 27.6 pg (25.7-33.7); MEAN CELL VOLUME 83.4 fl (80-96); MEAN PLT VOLUME 8.1 fl (7.5-11.1); MONO % 10.8 % (3.8-10.2); NEUT % 58.9 % (42.8-82.8); PLATELET COUNT 269 10^3/uL (134-434); RBC 3.46 M/mm3 (3.60-5.2); RDW 14.8 % (11.6-15.6); WHITE BLOOD COUNT 6.6 K/mm3 (4.0-10.0)
[2021-04-13 15:48] LABS: EPI CELLS 15 /uL (0-25.1); HYALINE CASTS 3 /uL (0-3.1); URINE APPEARANCE CLOUDY; URINE BACTERIA 20 /uL (0-1359); URINE BILIRUBIN NEGATIVE (NEGATIVE); URINE COLOR YELLOW; URINE GLUCOSE (UA) NEGATIVE (NEGATIVE); URINE KETONE NEGATIVE (NEGATIVE); URINE LEUK ESTERASE 1+ (NEGATIVE); URINE NITRITE NEGATIVE (NEGATIVE); URINE PROTEIN 3+ (NEGATIVE); URINE RBC 21 /uL (0-23.9); URINE UROBILINOGEN 0.2 mg/dL (0.2-1.0); URINE WBC 73 /uL (0-25.8)
[2021-04-13 16:08] LABS: CHLORIDE 106 mmol/L (98-107); SODIUM 143 mmol/L (136-145)
[2021-04-13 16:10] LABS: CALCIUM 9.1 mg/dL (8.5-10.1)
[2021-04-13 16:11] LABS: ALBUMIN 3.3 g/dl (3.4-5.0); ANION GAP 7 MMOL/L (8-16); BLOOD UREA NITROGEN 20.9 mg/dL (7-18); CO2 30 mmol/L (21-32); GLUCOSE,RANDOM 63 mg/dL (74-106); LIPASE 43 U/L (73-393)
[2021-04-13 16:14] LABS: CREATININE 1.8 mg/dL (0.55-1.3); SGOT/AST 13 U/L (15-37); SGPT/ALT 21 U/L (13-61)
[2021-04-13 16:15] LABS: BILIRUBIN,TOTAL 0.2 mg/dL (0.2-1)
[2021-04-13 16:16] LABS: TOT PROT 7.5 g/dl (6.4-8.2)
[2021-04-13 16:17] LABS: ALK PHOS 84 U/L (45-117)
[2021-04-13] MEDS ORDERED: LIDOCAINE 5% TOPICAL PATCH TP ONE (16:50)
[2021-04-13] MEDS ORDERED: LIDOCAINE 5% TOPICAL PATCH ONE (16:50)
[2021-04-13] MEDS ORDERED: DEXTROSE 50%-WATER - 25 GM/50 ML VIAL IVPUSH ONE (16:58)
[2021-04-13] MEDS ORDERED: DEXTROSE 50%-WATER 25 GM/50 ML DISP.SYRIN ONE (16:59)
[2021-04-13 18:09] LABS: N-TERMINAL BNP 226.6 pg/ml (5-125)
[2021-04-13] MEDS ORDERED: LIDOCAINE PATCH REMOVAL MC SCH (22:00)
== END 2021-04-13 19:10 | disposition home or self-care (01) ==
LOC: JER 13:24
PROC: 3E033GC Introduction of Other Therapeutic Substance into Peripheral Vein, Percutaneous Approach (ICD-10-PCS; principal; 2021-04-13)
DX: K59.00 Constipation, unspecified (principal)
CPT/HCPCS: 36415; 71046-TC-FY; 74177-TC; 80053; 81003; 83690; 83880; 84484; 85025; 87086; 93005; 93010; 96365; 96375; 99285-25; Q9967

== ENCOUNTER 2021-05-03 07:14 | Inpatient (IN) | payer OTHER ==
[2021-05-03] MEDS ORDERED: NITROGLYCERIN 2% OINTMENT - 1GM PACKET TD ONE ×2 (07:31→08:47)
[2021-05-03 08:04] LABS: BASO % 0.7 % (0-2.0); EOS % 1.9 % (0-4.5); HEMATOCRIT 28.1 % (32.4-45.2); HEMOGLOBIN 9.2 GM/dL (10.7-15.3); LYMPH % 10.8 % (8-40); MCH 27.5 pg (25.7-33.7); MCHC 32.8 g/dl (32.0-36.0); MEAN PLT VOLUME 9.2 fl (7.5-11.1); MONO % 4.9 % (3.8-10.2); NEUT % 81.7 % (42.8-82.8); PLATELET COUNT 302 10^3/uL (134-434); RBC 3.34 M/mm3 (3.60-5.2); RDW 14.7 % (11.6-15.6); WHITE BLOOD COUNT 9.9 K/mm3 (4.0-10.0)
[2021-05-03 08:27] LABS: CALCIUM 8.6 mg/dL (8.5-10.1)
[2021-05-03] MEDS ORDERED: FUROSEMIDE 40 MG/4 ML INJECTABLE VIAL IVPUSH ONE (08:27)
[2021-05-03 08:28] LABS: ALBUMIN 3.1 g/dl (3.4-5.0); BLOOD UREA NITROGEN 24.7 mg/dL (7-18); MAGNESIUM 1.8 mg/dL (1.8-2.4)
[2021-05-03 08:31] LABS: CREATININE 1.7 mg/dL (0.55-1.3); PHOSPHOROUS 4.2 mg/dL (2.5-4.9)
[2021-05-03 08:32] LABS: BILIRUBIN,TOTAL 0.3 mg/dL (0.2-1)
[2021-05-03 08:33] LABS: TOT PROT 7.1 g/dl (6.4-8.2)
[2021-05-03 08:36] LABS: N-TERMINAL BNP 230.2 pg/ml (5-125)
[2021-05-03] MEDS ORDERED: MAGNESIUM SULF 50% (8.12 MEQ/2 ML-1 GM VIAL) IVPB ONE (08:42)
[2021-05-03 08:47] LABS: INR 0.89 (0.83-1.09)
[2021-05-03 08:50] LABS: ACTIVATED PTT 27.2 SECONDS (25.2-36.5)
[2021-05-03 09:18] LABS: BLOOD UREA NITROGEN 26.4 mg/dL (7-18); CALCIUM 8.5 mg/dL (8.5-10.1)
[2021-05-03 09:21] LABS: ARTERIAL BLOOD GAS BASE EXCESS -3.2 mmol/L (-2-2); ARTERIAL BLOOD GAS PO2 158.9 mmHg (80-100); ARTERIAL BLOOD GAS pH 7.361 (7.350-7.450)
[2021-05-03 09:22] LABS: CREATININE 1.7 mg/dL (0.55-1.3)
[2021-05-03] MEDS ORDERED: FUROSEMIDE 40 MG/4 ML INJECTABLE VIAL ONE ×2 (10:10→10:11)
[2021-05-03] MEDS ORDERED: MAGNESIUM SULFATE IN WATER 2 GM/50 ML IVPB IVPB ONE (10:10)
[2021-05-03 21:13] LABS: EPI CELLS 15 /uL (0-25.1); HYALINE CASTS 1 /uL (0-3.1); PH,URINE 5.5 (5.0-8.0); URINE APPEARANCE CLEAR; URINE BACTERIA 14 /uL (0-1359); URINE BILIRUBIN NEGATIVE (NEGATIVE); URINE COLOR YELLOW; URINE GLUCOSE (UA) 2+ (NEGATIVE); URINE KETONE NEGATIVE (NEGATIVE); URINE LEUK ESTERASE NEGATIVE (NEGATIVE); URINE NITRITE NEGATIVE (NEGATIVE); URINE PROTEIN 3+ (NEGATIVE); URINE RBC 16 /uL (0-23.9); URINE UROBILINOGEN 0.2 mg/dL (0.2-1.0); URINE WBC 23 /uL (0-25.8)
[2021-05-03] MEDS ORDERED: METOPROLOL TARTRATE 25 MG TABLET (FP) ONE (21:15)
[2021-05-03] MEDS ORDERED: ATORVASTATIN CA 40 MG TABLET (FP) ONE (21:16)
[2021-05-03] MEDS: METOPROLOL TARTRATE 25 MG TABLET (FP) PO SCH (21:34)
[2021-05-03] MEDS: ATORVASTATIN CA 40 MG TABLET (FP) PO SCH (21:34)
[2021-05-03] MEDS: hydrALAZINE HCL 50 MG TABLET (FP) PO SCH (21:34)
[2021-05-04] MEDS ORDERED: FUROSEMIDE 40 MG/4 ML INJECTABLE VIAL IVPUSH SCH (10:00)
[2021-05-04] MEDS: PANTOPRAZOLE 40 MG TABLET PO SCH (10:17)
[2021-05-04] MEDS: hydrALAZINE HCL 50 MG TABLET (FP) PO SCH ×2 (10:18→22:42)
[2021-05-04] MEDS: METOPROLOL TARTRATE 25 MG TABLET (FP) PO SCH (10:18)
[2021-05-04] MEDS: CLOPIDOGREL BISULFATE 75 MG TABLET (FP) PO SCH (10:18)
[2021-05-04] MEDS: FUROSEMIDE 40 MG/4 ML INJECTABLE VIAL IVPUSH SCH (14:18)
[2021-05-04] MEDS: METOPROLOL TARTRATE 50 MG TABLET (FP) PO SCH ×2 (14:19→22:42)
[2021-05-04] MEDS ORDERED: INSULIN (NOVOLOG) ASPART 100 UNITS/ML 10ML VIAL SQ ONE (14:45)
[2021-05-04] MEDS: INSULIN SLIDING SCALE (NOVOLOG) 1 VIAL SQ SCH ×2 (18:13→22:46)
[2021-05-04] MEDS: ATORVASTATIN CA 40 MG TABLET (FP) PO SCH (22:42)
[2021-05-04] MEDS: INSULIN (LEVEMIR) 100 UNITS/ML UNITS SQ SCH (22:45)
[2021-05-05] MEDS: INSULIN (LEVEMIR) 100 UNITS/ML UNITS SQ SCH ×2 (06:22→23:15)
[2021-05-05] MEDS: INSULIN SLIDING SCALE (NOVOLOG) 1 VIAL SQ SCH ×4 (06:22→23:16)
[2021-05-05] MEDS: FUROSEMIDE 40 MG/4 ML INJECTABLE VIAL IVPUSH SCH ×2 (06:23→15:13)
[2021-05-05 08:13] LABS: BASO % 0.4 % (0-2.0); EOS % 4.1 % (0-4.5); HEMATOCRIT 24.7 % (32.4-45.2); HEMOGLOBIN 8.2 GM/dL (10.7-15.3); LYMPH % 27.6 % (8-40); MCH 27.9 pg (25.7-33.7); MCHC 33.3 g/dl (32.0-36.0); MEAN CELL VOLUME 83.9 fl (80-96); MEAN PLT VOLUME 9.1 fl (7.5-11.1); NEUT % 56.9 % (42.8-82.8); PLATELET COUNT 248 10^3/uL (134-434); RBC 2.94 M/mm3 (3.60-5.2); RDW 14.2 % (11.6-15.6); WHITE BLOOD COUNT 5.7 K/mm3 (4.0-10.0)
[2021-05-05 09:08] LABS: ALBUMIN 2.8 g/dl (3.4-5.0); BLOOD UREA NITROGEN 35.9 mg/dL (7-18); CALCIUM 8.9 mg/dL (8.5-10.1); CREATININE 1.8 mg/dL (0.55-1.3)
[2021-05-05] MEDS: CLOPIDOGREL BISULFATE 75 MG TABLET (FP) PO SCH (09:08)
[2021-05-05] MEDS: ENOXAPARIN NA (PORCINE) 40 MG/0.4 ML DISP.SYRIN SQ SCH (09:08)
[2021-05-05] MEDS: hydrALAZINE HCL 50 MG TABLET (FP) PO SCH ×2 (09:08→22:37)
[2021-05-05] MEDS: PANTOPRAZOLE 40 MG TABLET PO SCH (09:08)
[2021-05-05] MEDS: METOPROLOL TARTRATE 50 MG TABLET (FP) PO SCH ×2 (09:08→22:37)
[2021-05-05 09:09] LABS: BILIRUBIN,TOTAL 0.2 mg/dL (0.2-1); TOT PROT 6.5 g/dl (6.4-8.2)
[2021-05-05] MEDS: ATORVASTATIN CA 40 MG TABLET (FP) PO SCH (22:37)
[2021-05-06] MEDS: INSULIN (LEVEMIR) 100 UNITS/ML UNITS SQ SCH ×2 (06:08→22:01)
[2021-05-06] MEDS: INSULIN SLIDING SCALE (NOVOLOG) 1 VIAL SQ SCH ×4 (06:09→22:02)
[2021-05-06] MEDS: FUROSEMIDE 40 MG/4 ML INJECTABLE VIAL IVPUSH SCH ×2 (06:12→13:22)
[2021-05-06 08:21] LABS: BASO % 0.4 % (0-2.0); HEMATOCRIT 24.2 % (32.4-45.2); LYMPH % 27.3 % (8-40); MCH 27.7 pg (25.7-33.7); MCHC 33.1 g/dl (32.0-36.0); MEAN CELL VOLUME 83.8 fl (80-96); MEAN PLT VOLUME 9.7 fl (7.5-11.1); NEUT % 57.3 % (42.8-82.8); PLATELET COUNT 228 10^3/uL (134-434); RBC 2.89 M/mm3 (3.60-5.2); RDW 14.1 % (11.6-15.6); WHITE BLOOD COUNT 5.3 K/mm3 (4.0-10.0)
[2021-05-06 08:45] LABS: CALCIUM 8.6 mg/dL (8.5-10.1)
[2021-05-06 08:46] LABS: ALBUMIN 2.7 g/dl (3.4-5.0); BLOOD UREA NITROGEN 39.9 mg/dL (7-18)
[2021-05-06 08:49] LABS: CREATININE 1.9 mg/dL (0.55-1.3)
[2021-05-06 08:51] LABS: TOT PROT 6.2 g/dl (6.4-8.2)
[2021-05-06 09:16] LABS: BILIRUBIN,TOTAL 0.5 mg/dL (0.2-1)
[2021-05-06] MEDS: hydrALAZINE HCL 50 MG TABLET (FP) PO SCH ×2 (09:53→22:01)
[2021-05-06] MEDS: CLOPIDOGREL BISULFATE 75 MG TABLET (FP) PO SCH (09:53)
[2021-05-06] MEDS: PANTOPRAZOLE 40 MG TABLET PO SCH (09:53)
[2021-05-06] MEDS: METOPROLOL TARTRATE 50 MG TABLET (FP) PO SCH ×2 (09:53→22:01)
[2021-05-06] MEDS: ENOXAPARIN NA (PORCINE) 40 MG/0.4 ML DISP.SYRIN SQ SCH (09:54)
[2021-05-06 10:03] LABS: IRON SERUM 31 ug/dL (50-175); TOTAL IRON BINDING CAPACITY 173 ug/dL (250-450)
[2021-05-06] MEDS: ATORVASTATIN CA 40 MG TABLET (FP) PO SCH (22:01)
[2021-05-07] MEDS: FUROSEMIDE 40 MG/4 ML INJECTABLE VIAL IVPUSH SCH ×2 (06:42→15:49)
[2021-05-07] MEDS: INSULIN (LEVEMIR) 100 UNITS/ML UNITS SQ SCH ×2 (06:43→21:32)
[2021-05-07] MEDS: INSULIN SLIDING SCALE (NOVOLOG) 1 VIAL SQ SCH ×4 (06:44→21:32)
[2021-05-07 07:55] LABS: BASO % 0.6 % (0-2.0); EOS % 3.8 % (0-4.5); HEMATOCRIT 25.6 % (32.4-45.2); HEMOGLOBIN 8.4 GM/dL (10.7-15.3); LYMPH % 24.7 % (8-40); MCH 27.3 pg (25.7-33.7); MCHC 32.9 g/dl (32.0-36.0); MEAN CELL VOLUME 82.9 fl (80-96); MEAN PLT VOLUME 9.2 fl (7.5-11.1); MONO % 10.6 % (3.8-10.2); NEUT % 60.3 % (42.8-82.8); PLATELET COUNT 235 10^3/uL (134-434); RBC 3.08 M/mm3 (3.60-5.2); WHITE BLOOD COUNT 5.7 K/mm3 (4.0-10.0)
[2021-05-07 08:15] LABS: BLOOD UREA NITROGEN 37.2 mg/dL (7-18); CALCIUM 8.8 mg/dL (8.5-10.1)
[2021-05-07 08:17] LABS: CREATININE 1.6 mg/dL (0.55-1.3)
[2021-05-07 08:19] LABS: BILIRUBIN,TOTAL 0.2 mg/dL (0.2-1); TOT PROT 6.4 g/dl (6.4-8.2)
[2021-05-07] MEDS: ENOXAPARIN NA (PORCINE) 40 MG/0.4 ML DISP.SYRIN SQ SCH (09:37)
[2021-05-07] MEDS: METOPROLOL TARTRATE 50 MG TABLET (FP) PO SCH ×2 (09:38→21:31)
[2021-05-07] MEDS: CLOPIDOGREL BISULFATE 75 MG TABLET (FP) PO SCH (09:38)
[2021-05-07] MEDS: hydrALAZINE HCL 50 MG TABLET (FP) PO SCH ×2 (11:38→21:31)
[2021-05-07] MEDS: PANTOPRAZOLE 40 MG TABLET PO SCH (11:38)
[2021-05-07 13:21] LABS: ALBUMIN 2.8 g/dl (3.4-5.0)
[2021-05-07] MEDS ORDERED: FLUTICASONE PROP 0.05% 16 GM NASAL SPRAY NS SCH (20:54)
[2021-05-07] MEDS ORDERED: FLUTICASONE PROP 0.05% 16 GM NASAL SPRAY NS PRN (21:01)
[2021-05-07] MEDS: ATORVASTATIN CA 40 MG TABLET (FP) PO SCH (21:31)
[2021-05-07] MEDS: NYSTATIN 100,000 UNIT/GM TOPICAL CREAM 15 GM TUBE TP SCH (22:43)
[2021-05-08] MEDS: FUROSEMIDE 40 MG/4 ML INJECTABLE VIAL IVPUSH SCH ×2 (06:26→13:06)
[2021-05-08] MEDS: INSULIN SLIDING SCALE (NOVOLOG) 1 VIAL SQ SCH ×4 (06:27→21:20)
[2021-05-08] MEDS: INSULIN (LEVEMIR) 100 UNITS/ML UNITS SQ SCH ×2 (06:28→21:19)
[2021-05-08 07:39] LABS: BASO % 0.5 % (0-2.0); EOS % 3.8 % (0-4.5); HEMATOCRIT 25.3 % (32.4-45.2); HEMOGLOBIN 8.4 GM/dL (10.7-15.3); LYMPH % 28.6 % (8-40); MCH 27.5 pg (25.7-33.7); MCHC 33.2 g/dl (32.0-36.0); MEAN CELL VOLUME 82.6 fl (80-96); MEAN PLT VOLUME 9.1 fl (7.5-11.1); MONO % 11.1 % (3.8-10.2); PLATELET COUNT 239 10^3/uL (134-434); RBC 3.06 M/mm3 (3.60-5.2); WHITE BLOOD COUNT 5.4 K/mm3 (4.0-10.0)
[2021-05-08] MEDS: METOPROLOL TARTRATE 50 MG TABLET (FP) PO SCH ×2 (09:48→21:19)
[2021-05-08] MEDS: ENOXAPARIN NA (PORCINE) 40 MG/0.4 ML DISP.SYRIN SQ SCH (09:48)
[2021-05-08] MEDS: NYSTATIN 100,000 UNIT/GM TOPICAL CREAM 15 GM TUBE TP SCH ×2 (09:49→21:21)
[2021-05-08] MEDS: FLUTICASONE PROP 0.05% 16 GM NASAL SPRAY NS SCH (09:49)
[2021-05-08] MEDS: hydrALAZINE HCL 50 MG TABLET (FP) PO SCH ×2 (09:49→21:19)
[2021-05-08] MEDS: PANTOPRAZOLE 40 MG TABLET PO SCH (09:49)
[2021-05-08] MEDS: CLOPIDOGREL BISULFATE 75 MG TABLET (FP) PO SCH (09:49)
[2021-05-08] MEDS: ATORVASTATIN CA 40 MG TABLET (FP) PO SCH (21:20)
[2021-05-09] MEDS: FUROSEMIDE 40 MG/4 ML INJECTABLE VIAL IVPUSH SCH ×2 (05:51→15:00)
[2021-05-09] MEDS: INSULIN SLIDING SCALE (NOVOLOG) 1 VIAL SQ SCH ×4 (06:11→22:14)
[2021-05-09] MEDS: INSULIN (LEVEMIR) 100 UNITS/ML UNITS SQ SCH ×2 (06:11→22:14)
[2021-05-09 07:50] LABS: CALCIUM 8.8 mg/dL (8.5-10.1)
[2021-05-09 07:51] LABS: ALBUMIN 2.8 g/dl (3.4-5.0); BLOOD UREA NITROGEN 37.3 mg/dL (7-18)
[2021-05-09 07:54] LABS: CREATININE 1.9 mg/dL (0.55-1.3)
[2021-05-09 07:55] LABS: BILIRUBIN,TOTAL 0.3 mg/dL (0.2-1); TOT PROT 6.7 g/dl (6.4-8.2)
[2021-05-09] MEDS: hydrALAZINE HCL 50 MG TABLET (FP) PO SCH ×2 (10:42→22:10)
[2021-05-09] MEDS: PANTOPRAZOLE 40 MG TABLET PO SCH (10:43)
[2021-05-09] MEDS: CLOPIDOGREL BISULFATE 75 MG TABLET (FP) PO SCH (10:43)
[2021-05-09] MEDS: METOPROLOL TARTRATE 50 MG TABLET (FP) PO SCH ×2 (10:43→22:10)
[2021-05-09] MEDS: ENOXAPARIN NA (PORCINE) 40 MG/0.4 ML DISP.SYRIN SQ SCH (10:43)
[2021-05-09] MEDS: NYSTATIN 100,000 UNIT/GM TOPICAL CREAM 15 GM TUBE TP SCH ×2 (10:44→22:15)
[2021-05-09] MEDS: FLUTICASONE PROP 0.05% 16 GM NASAL SPRAY NS SCH (10:44)
[2021-05-09] MEDS ORDERED: FERRIC CARBOXYMALTOSE 750 MG in SODIUM CHLORIDE 250 ML IVPB ONE (15:45)
[2021-05-09] MEDS: ATORVASTATIN CA 40 MG TABLET (FP) PO SCH (22:10)
[2021-05-10] MEDS: INSULIN SLIDING SCALE (NOVOLOG) 1 VIAL SQ SCH ×4 (06:32→21:01)
[2021-05-10] MEDS: INSULIN (LEVEMIR) 100 UNITS/ML UNITS SQ SCH ×2 (06:32→21:00)
[2021-05-10] MEDS: FUROSEMIDE 40 MG/4 ML INJECTABLE VIAL IVPUSH SCH ×2 (06:32→13:59)
[2021-05-10] MEDS: hydrALAZINE HCL 50 MG TABLET (FP) PO SCH ×2 (09:16→21:00)
[2021-05-10] MEDS: METOPROLOL TARTRATE 50 MG TABLET (FP) PO SCH ×2 (09:17→21:01)
[2021-05-10] MEDS: PANTOPRAZOLE 40 MG TABLET PO SCH (09:17)
[2021-05-10] MEDS: CLOPIDOGREL BISULFATE 75 MG TABLET (FP) PO SCH (09:17)
[2021-05-10] MEDS: ENOXAPARIN NA (PORCINE) 40 MG/0.4 ML DISP.SYRIN SQ SCH (09:17)
[2021-05-10] MEDS: NYSTATIN 100,000 UNIT/GM TOPICAL CREAM 15 GM TUBE TP SCH ×2 (09:18→21:01)
[2021-05-10] MEDS: FLUTICASONE PROP 0.05% 16 GM NASAL SPRAY NS SCH (09:18)
[2021-05-10] MEDS ORDERED: POLYETHYLENE GLYCOL (HEALTHYLAX) 3350 17 GM PACKET PO ONE (12:45)
[2021-05-10] MEDS: ALBUTEROL SO4 2.5/IPRATROPIUM 0.5 INH SOL 3 ML VIAL.NEB. NEB SCH ×2 (15:32→20:15)
[2021-05-10] MEDS: ATORVASTATIN CA 40 MG TABLET (FP) PO SCH (21:01)
[2021-05-11] MEDS: FUROSEMIDE 40 MG/4 ML INJECTABLE VIAL IVPUSH SCH ×2 (06:08→13:53)
[2021-05-11] MEDS: INSULIN SLIDING SCALE (NOVOLOG) 1 VIAL SQ SCH ×4 (06:09→21:33)
[2021-05-11] MEDS: ALBUTEROL SO4 2.5/IPRATROPIUM 0.5 INH SOL 3 ML VIAL.NEB. NEB SCH ×3 (07:42→20:36)
[2021-05-11 08:17] LABS: ALBUMIN 2.9 g/dl (3.4-5.0); BLOOD UREA NITROGEN 41.6 mg/dL (7-18); CALCIUM 8.9 mg/dL (8.5-10.1)
[2021-05-11 08:20] LABS: CREATININE 1.9 mg/dL (0.55-1.3)
[2021-05-11 08:22] LABS: BILIRUBIN,TOTAL 0.6 mg/dL (0.2-1); TOT PROT 6.6 g/dl (6.4-8.2)
[2021-05-11] MEDS: CLOPIDOGREL BISULFATE 75 MG TABLET (FP) PO SCH (09:41)
[2021-05-11] MEDS: METOPROLOL TARTRATE 50 MG TABLET (FP) PO SCH ×2 (09:41→21:28)
[2021-05-11] MEDS: hydrALAZINE HCL 50 MG TABLET (FP) PO SCH ×2 (09:41→21:28)
[2021-05-11] MEDS: POLYETHYLENE GLYCOL (HEALTHYLAX) 3350 17 GM PACKET PO SCH (09:41)
[2021-05-11] MEDS: ENOXAPARIN NA (PORCINE) 40 MG/0.4 ML DISP.SYRIN SQ SCH (09:41)
[2021-05-11] MEDS: PANTOPRAZOLE 40 MG TABLET PO SCH (09:41)
[2021-05-11] MEDS: NYSTATIN 100,000 UNIT/GM TOPICAL CREAM 15 GM TUBE TP SCH ×2 (09:42→21:28)
[2021-05-11] MEDS: FLUTICASONE PROP 0.05% 16 GM NASAL SPRAY NS SCH (09:42)
[2021-05-11 19:56] VITALS: BMI 42.0
[2021-05-11] MEDS: ATORVASTATIN CA 40 MG TABLET (FP) PO SCH (21:28)
[2021-05-11] MEDS: INSULIN (LEVEMIR) 100 UNITS/ML UNITS SQ SCH (21:32)
[2021-05-12] MEDS: FUROSEMIDE 40 MG/4 ML INJECTABLE VIAL IVPUSH SCH ×2 (05:58→15:23)
[2021-05-12] MEDS: INSULIN SLIDING SCALE (NOVOLOG) 1 VIAL SQ SCH ×4 (05:59→23:40)
[2021-05-12] MEDS: ALBUTEROL SO4 2.5/IPRATROPIUM 0.5 INH SOL 3 ML VIAL.NEB. NEB SCH ×3 (08:03→20:23)
[2021-05-12] MEDS: MULTIVITAMINS (DAILY MVI) TABLET (FP) PO SCH (09:36)
[2021-05-12] MEDS: PANTOPRAZOLE 40 MG TABLET PO SCH (09:36)
[2021-05-12] MEDS: METOPROLOL TARTRATE 50 MG TABLET (FP) PO SCH ×2 (09:36→23:35)
[2021-05-12] MEDS: POLYETHYLENE GLYCOL (HEALTHYLAX) 3350 17 GM PACKET PO SCH (09:36)
[2021-05-12] MEDS: hydrALAZINE HCL 50 MG TABLET (FP) PO SCH ×2 (09:36→23:35)
[2021-05-12] MEDS: CLOPIDOGREL BISULFATE 75 MG TABLET (FP) PO SCH (09:36)
[2021-05-12] MEDS: FLUTICASONE PROP 0.05% 16 GM NASAL SPRAY NS SCH (09:37)
[2021-05-12] MEDS: NYSTATIN 100,000 UNIT/GM TOPICAL CREAM 15 GM TUBE TP SCH ×2 (09:37→23:35)
[2021-05-12] MEDS: ATORVASTATIN CA 40 MG TABLET (FP) PO SCH (23:35)
[2021-05-12] MEDS: INSULIN (LEVEMIR) 100 UNITS/ML UNITS SQ SCH (23:36)
[2021-05-13] MEDS: FUROSEMIDE 40 MG TABLET (FP) PO SCH ×2 (05:22→15:29)
[2021-05-13] MEDS: INSULIN SLIDING SCALE (NOVOLOG) 1 VIAL SQ SCH ×2 (06:26→12:01)
[2021-05-13] MEDS: ALBUTEROL SO4 2.5/IPRATROPIUM 0.5 INH SOL 3 ML VIAL.NEB. NEB SCH ×2 (07:53→14:17)
[2021-05-13 08:16] LABS: ALBUMIN 2.8 g/dl (3.4-5.0); BLOOD UREA NITROGEN 44.1 mg/dL (7-18); CALCIUM 8.7 mg/dL (8.5-10.1)
[2021-05-13 08:20] LABS: CREATININE 1.9 mg/dL (0.55-1.3)
[2021-05-13 08:21] LABS: BILIRUBIN,TOTAL 0.3 mg/dL (0.2-1); TOT PROT 6.5 g/dl (6.4-8.2)
[2021-05-13] MEDS: hydrALAZINE HCL 50 MG TABLET (FP) PO SCH (09:44)
[2021-05-13] MEDS: POLYETHYLENE GLYCOL (HEALTHYLAX) 3350 17 GM PACKET PO SCH (09:44)
[2021-05-13] MEDS: METOPROLOL TARTRATE 50 MG TABLET (FP) PO SCH (09:45)
[2021-05-13] MEDS: MULTIVITAMINS (DAILY MVI) TABLET (FP) PO SCH (09:45)
[2021-05-13] MEDS: CLOPIDOGREL BISULFATE 75 MG TABLET (FP) PO SCH (09:45)
[2021-05-13] MEDS: PANTOPRAZOLE 40 MG TABLET PO SCH (09:45)
[2021-05-13] MEDS: FLUTICASONE PROP 0.05% 16 GM NASAL SPRAY NS SCH (09:46)
[2021-05-13] MEDS: NYSTATIN 100,000 UNIT/GM TOPICAL CREAM 15 GM TUBE TP SCH (09:47)
[2021-05-13 12:41] VITALS: PULSE 74
[2021-05-13 12:47] VITALS: BP 154/59; TEMP 97.7
== END 2021-05-13 17:26 | disposition home or self-care (01) | DRG 291 ==
LOC: JER 07:14 → JERBED 07:28 → J4W 21:55
PROVIDERS: ADMIT Internal Medicine; ATTEND Internal Medicine
DX: I13.0 Hypertensive heart and chronic kidney disease with heart failure and stage 1 through stage 4 chronic kidney disease, or unspecified chronic kidney disease (principal); I50.33 Acute on chronic diastolic (congestive) heart failure; J96.01 Acute respiratory failure with hypoxia; Z68.41 Body mass index [BMI] 40.0-44.9, adult; I24.8 Other forms of acute ischemic heart disease; J44.1 Chronic obstructive pulmonary disease with (acute) exacerbation; N17.9 Acute kidney failure, unspecified; B48.8 Other specified mycoses; E11.22 Type 2 diabetes mellitus with diabetic chronic kidney disease; N18.9 Chronic kidney disease, unspecified; I25.10 Atherosclerotic heart disease of native coronary artery without angina pectoris; E78.00 Pure hypercholesterolemia, unspecified; J44.9 Chronic obstructive pulmonary disease, unspecified; K21.9 Gastro-esophageal reflux disease without esophagitis; I25.2 Old myocardial infarction; E66.01 Morbid (severe) obesity due to excess calories; R07.89 Other chest pain; D64.9 Anemia, unspecified; K86.89 Other specified diseases of pancreas; G47.33 Obstructive sleep apnea (adult) (pediatric); F41.9 Anxiety disorder, unspecified; Z95.5 Presence of coronary angioplasty implant and graft
CPT/HCPCS: 36415; 36600; 71045-TC-FY; 80048; 80053; 81003; 82272; 82550; 82607; 82728; 82746; 82747; 82803; 82962; 83540; 83550; 83735; 83880; 84100; 84484; 85014; 85025; 85610; 85730; 87040; 87086; 87186; 93005; 93010; 94010; 94640; 94660; 94761; 99291; C9803; J1439; U0003; U0005

== ENCOUNTER 2021-07-20 16:24 | Emergency (ER) | payer OTHER ==
[2021-07-20 16:30] VITALS: TEMP 98.2; BMI 41.1
[2021-07-20 18:28] LABS: BASO % 0.6 % (0-2.0); EOS % 4.4 % (0-4.5); HEMOGLOBIN 8.8 GM/dL (10.7-15.3); LYMPH % 24.4 % (8-40); MCH 27.6 pg (25.7-33.7); MCHC 32.6 g/dl (32.0-36.0); MEAN CELL VOLUME 84.9 fl (80-96); MEAN PLT VOLUME 8.8 fl (7.5-11.1); MONO % 8.7 % (3.8-10.2); NEUT % 61.9 % (42.8-82.8); PLATELET COUNT 247 10^3/uL (134-434); RBC 3.18 M/mm3 (3.60-5.2); RDW 13.1 % (11.6-15.6); WHITE BLOOD COUNT 5.9 K/mm3 (4.0-10.0)
[2021-07-20 18:46] LABS: CHLORIDE 102 mmol/L (98-107); SODIUM 138 mmol/L (136-145)
[2021-07-20 18:48] LABS: CALCIUM 8.5 mg/dL (8.5-10.1)
[2021-07-20 18:49] LABS: ALBUMIN 2.5 g/dl (3.4-5.0); ANION GAP 11 MMOL/L (8-16); CO2 26 mmol/L (21-32)
[2021-07-20 18:52] LABS: CREATININE 2.2 mg/dL (0.55-1.3); SGOT/AST 13 U/L (15-37); SGPT/ALT 13 U/L (13-61)
[2021-07-20 18:53] LABS: TOT PROT 6.7 g/dl (6.4-8.2)
[2021-07-20 18:54] LABS: BILIRUBIN,TOTAL 0.1 mg/dL (0.2-1)
[2021-07-20 18:55] LABS: ALK PHOS 92 U/L (45-117); BLOOD UREA NITROGEN 25.3 mg/dL (7-18)
[2021-07-20] MEDS ORDERED: AZITHROMYCIN 250 MG TABLET PO ONE (19:00)
[2021-07-20] MEDS ORDERED: AMOX TR/POT CLAV 875MG/125MG TABLETS (FP) PO ONE (19:00)
[2021-07-20 19:15] VITALS: PULSE 89
[2021-07-20] MEDS ORDERED: AZITHROMYCIN IVPB 500 MG/250 ML BAG IVPB ONE (19:20)
[2021-07-20] MEDS ORDERED: AMOX TR/POT CLAV 875MG/125MG TABLETS (FP) ONE (19:20)
[2021-07-20 19:21] LABS: GLUCOSE,RANDOM 490 mg/dL (74-106)
[2021-07-20] MEDS ORDERED: AZITHROMYCIN 250 MG TABLET ONE (19:21)
[2021-07-20] MEDS ORDERED: SODIUM CHLORIDE 0.9% 1000 ML INFUS.BAG IV ONE (19:47)
[2021-07-20 22:06] LABS: CHLORIDE 107 mmol/L (98-107); SODIUM 143 mmol/L (136-145)
[2021-07-20 22:09] LABS: CALCIUM 8.2 mg/dL (8.5-10.1)
[2021-07-20 22:10] LABS: ANION GAP 10 MMOL/L (8-16); BLOOD UREA NITROGEN 24.2 mg/dL (7-18); CO2 27 mmol/L (21-32); GLUCOSE,RANDOM 255 mg/dL (74-106)
[2021-07-20] MEDS ORDERED: Insulin (LOG) Aspart 100 UNITS/ML VIAL SQ ONE (22:13)
[2021-07-20] MEDS ORDERED: hydrALAZINE HCL 50 MG TABLET (FP) PO ONE (22:40)
[2021-07-20] MEDS ORDERED: METOPROLOL TARTRATE 50 MG TABLET (FP) PO ONE (22:40)
[2021-07-20] MEDS ORDERED: hydrALAZINE HCL 25 MG TABLET (FP) ONE (22:42)
[2021-07-20] MEDS ORDERED: metoPROLOL SUCCINATE 25 MG TAB.SR.24H (FP) ONE (22:42)
[2021-07-20 22:55] VITALS: BP 157/78
[2021-07-21] MEDS ORDERED: Insulin (LOG) Aspart 100 UNITS/ML VIAL SQ ONE ×2 (19:31→22:12)
== END 2021-07-20 22:54 | disposition home or self-care (01) ==
LOC: JER 16:24
DX: J18.9 Pneumonia, unspecified organism (principal)
CPT/HCPCS: 36415; 71046-TC-FY; 80048; 80053; 82550; 82962; 84484; 85025; 87804; 93005; 93010; 99285-25; C9803; U0003; U0005

== ENCOUNTER 2022-08-31 20:16 | Inpatient (IN) | payer OTHER ==
[2022-08-31 20:51] VITALS: BMI 38.7
[2022-08-31] MEDS ORDERED: ONDANSETRON 4 MG/2 ML VIAL IVPUSH ONE (21:44)
[2022-08-31] MEDS ORDERED: ACETAMINOPHEN 1000 MG/100 ML BAG IVPB ONE (21:44)
[2022-08-31] MEDS ORDERED: FAMOTIDINE 20 MG/50 ML IVPB 20 MG/50 ML MG IVPB ONE ×2 (21:44→22:04)
[2022-08-31 21:59] LABS: BASO % 0.5 % (0-2.0); EOS % 4.1 % (0-4.5); HEMATOCRIT 22.1 % (32.4-45.2); HEMOGLOBIN 7.2 GM/dL (10.7-15.3); LYMPH % 24.1 % (8-40); MCHC 32.6 g/dl (32.0-36.0); MEAN CELL VOLUME 82.9 fl (80-96); MEAN PLT VOLUME 9.1 fl (7.5-11.1); MONO % 7.3 % (3.8-10.2); PLATELET COUNT 235 10^3/uL (134-434); RBC 2.66 M/mm3 (3.60-5.2); RDW 15.4 % (11.6-15.6); WHITE BLOOD COUNT 6.8 K/mm3 (4.0-10.0)
[2022-08-31] MEDS ORDERED: ONDANSETRON 4 MG/2 ML VIAL ONE (22:04)
[2022-08-31] MEDS ORDERED: ACETAMINOPHEN INJECTION 100 ML IVPB ONE (22:04)
[2022-08-31 22:13] LABS: INR 1.12 (0.83-1.09); PROTHROMBIN TIME (PATIENT) 12.9 SEC (9.7-13.0)
[2022-08-31 22:16] LABS: ACTIVATED PTT 30.4 SECONDS (25.2-36.5)
[2022-08-31 22:24] LABS: CALCIUM 8.8 mg/dL (8.5-10.1)
[2022-08-31 22:25] LABS: ALBUMIN 2.8 g/dl (3.4-5.0); BLOOD UREA NITROGEN 45.6 mg/dL (7-18); MAGNESIUM 2.4 mg/dL (1.8-2.4)
[2022-08-31 22:28] LABS: CREATININE 2.2 mg/dL (0.55-1.3)
[2022-08-31 22:29] LABS: BILIRUBIN,TOTAL 0.4 mg/dL (0.2-1); TOT PROT 6.2 g/dl (6.4-8.2)
[2022-09-01] MEDS ORDERED: PIPERACILLIN/TAZOB 3.375 GM 3.375 GM in DEXTROSE 5%-WATER - 50 ML IVPB ONE (01:31)
[2022-09-01] MEDS ORDERED: PIPERACILLIN/TAZOB 3.375 GM 3.375 GM/50 ML BAG IVPB ONE (02:12)
[2022-09-01] MEDS ORDERED: DEXTROSE 50%-WATER 25 GM/50 ML DISP.SYRIN ONE (02:35)
[2022-09-01] MEDS ORDERED: DEXTROSE 50%-WATER - 25 GM/50 ML VIAL IVPUSH ONE (02:38)
[2022-09-01] MEDS ORDERED: ONDANSETRON 4 MG/2 ML VIAL IVPUSH ONE (02:44)
[2022-09-01] MEDS ORDERED: ONDANSETRON 4 MG/2 ML VIAL ONE (03:01)
[2022-09-01] MEDS ORDERED: DEXTROSE 5%-0.45% SALINE 1,000 ML IV SCH (10:30)
[2022-09-01] MEDS ORDERED: ALBUTEROL SO4 HFA INHALER IH PRN (10:38)
[2022-09-01] MEDS ORDERED: ONDANSETRON 4 MG/2 ML VIAL IVPUSH PRN (11:02)
[2022-09-01] MEDS: ACETAMINOPHEN 1000 MG/100 ML BAG IVPB PRN ×2 (11:50→21:54)
[2022-09-01] MEDS ORDERED: PIPERACILLIN/TAZOB 3.375 GM 3.375 GM in DEXTROSE 5%-WATER - 50 ML IVPB SCH (12:15)
[2022-09-01] MEDS: INSULIN SLIDING SCALE (NOVOLOG) 1 VIAL SQ SCH ×3 (12:26→21:58)
[2022-09-01] MEDS: hydrALAZINE HCL 50 MG TABLET (FP) PO SCH ×2 (12:44→21:50)
[2022-09-01 12:46] LABS: BASO % 0.8 % (0-2.0); EOS % 5.5 % (0-4.5); HEMOGLOBIN 7.1 GM/dL (10.7-15.3); LYMPH % 21.2 % (8-40); MCH 26.9 pg (25.7-33.7); MCHC 32.3 g/dl (32.0-36.0); MEAN CELL VOLUME 83.5 fl (80-96); MEAN PLT VOLUME 10.3 fl (7.5-11.1); MONO % 7.2 % (3.8-10.2); NEUT % 65.3 % (42.8-82.8); PLATELET COUNT 178 10^3/uL (134-434); RBC 2.64 M/mm3 (3.60-5.2); RDW 15.3 % (11.6-15.6); WHITE BLOOD COUNT 6.6 K/mm3 (4.0-10.0)
[2022-09-01 13:38] LABS: BLOOD UREA NITROGEN 40.3 mg/dL (7-18)
[2022-09-01 13:39] LABS: ALBUMIN 2.8 g/dl (3.4-5.0); BILIRUBIN,TOTAL 0.3 mg/dL (0.2-1); TOT PROT 5.9 g/dl (6.4-8.2)
[2022-09-01 13:49] LABS: CALCIUM 8.8 mg/dL (8.5-10.1)
[2022-09-01] MEDS: PIPERACILLIN/TAZOB 2.25 GM 2.25 GM in DEXTROSE 5%-WATER - 50 ML IVPB SCH (17:21)
[2022-09-01 17:46] LABS: RETICULOCYTES 1.84 % (0.5-1.5)
[2022-09-01] MEDS: ATORVASTATIN CA 40 MG TABLET (FP) PO SCH (21:53)
[2022-09-01] MEDS ORDERED: ATORVASTATIN CA 40 MG TABLET (FP) PO SCH (22:00)
[2022-09-01] MEDS ORDERED: LABETALOL HCL 200 MG TABLET (FP) PO SCH (22:00)
[2022-09-01] MEDS ORDERED: hydrALAZINE HCL 50 MG TABLET (FP) PO SCH (22:00)
[2022-09-01] MEDS: LABETALOL HCL 200 MG TABLET (FP) PO SCH (23:45)
[2022-09-01] MEDS: HEPARIN NA (PORCINE) 5,000 UNITS/ML 1ML VIAL SQ SCH (23:45)
[2022-09-01] MEDS: BUDESONIDE/FORMETEROL FUMARATE 160/4.5 mcg INHALER IH SCH (23:45)
[2022-09-01] MEDS: NIFEdipine E.R. 90 MG TABLET PO SCH (23:45)
[2022-09-02] MEDS: PIPERACILLIN/TAZOB 2.25 GM 2.25 GM in DEXTROSE 5%-WATER - 50 ML IVPB SCH ×3 (02:22→18:30)
[2022-09-02] MEDS: INSULIN SLIDING SCALE (NOVOLOG) 1 VIAL SQ SCH ×4 (06:33→22:07)
[2022-09-02] MEDS: CLOPIDOGREL BISULFATE 75 MG TABLET (FP) PO SCH (10:00)
[2022-09-02] MEDS: LABETALOL HCL 200 MG TABLET (FP) PO SCH ×2 (10:00→21:34)
[2022-09-02] MEDS: SPIRONOLACTONE 25 MG TABLET PO SCH (10:00)
[2022-09-02] MEDS: ISOSORBIDE MONONITRATE 60 MG TAB.SR.24H (FP) PO SCH (10:00)
[2022-09-02] MEDS: PANTOPRAZOLE 40 MG TABLET PO SCH (10:00)
[2022-09-02] MEDS: hydrALAZINE HCL 50 MG TABLET (FP) PO SCH ×2 (10:00→21:35)
[2022-09-02] MEDS: HEPARIN NA (PORCINE) 5,000 UNITS/ML 1ML VIAL SQ SCH ×2 (10:01→21:35)
[2022-09-02] MEDS: NIFEdipine E.R. 90 MG TABLET PO SCH (10:01)
[2022-09-02] MEDS: BUDESONIDE/FORMETEROL FUMARATE 160/4.5 mcg INHALER IH SCH ×2 (11:18→22:08)
[2022-09-02 11:52] LABS: CALCIUM 8.7 mg/dL (8.5-10.1)
[2022-09-02 11:53] LABS: ALBUMIN 2.7 g/dl (3.4-5.0); BLOOD UREA NITROGEN 35.3 mg/dL (7-18)
[2022-09-02 11:56] LABS: BASO % 0.7 % (0-2.0); BILIRUBIN,DIRECT 0.1 mg/dL (0.0-0.2); EOS % 8.2 % (0-4.5); HEMATOCRIT 21.6 % (32.4-45.2); HEMOGLOBIN 7.2 GM/dL (10.7-15.3); LYMPH % 20.8 % (8-40); MCH 27.3 pg (25.7-33.7); MCHC 33.2 g/dl (32.0-36.0); MEAN CELL VOLUME 82.5 fl (80-96); MEAN PLT VOLUME 9.3 fl (7.5-11.1); NEUT % 63.3 % (42.8-82.8); PLATELET COUNT 263 10^3/uL (134-434); RBC 2.62 M/mm3 (3.60-5.2); RDW 14.9 % (11.6-15.6); WHITE BLOOD COUNT 5.5 K/mm3 (4.0-10.0)
[2022-09-02 11:57] LABS: TOT PROT 5.8 g/dl (6.4-8.2)
[2022-09-02 11:58] LABS: BILIRUBIN,TOTAL 0.3 mg/dL (0.2-1)
[2022-09-02] MEDS ORDERED: EPOETIN ALFA 10,000 UNIT/1 ML VIAL SQ ONE (17:30)
[2022-09-02 17:37] LABS: N-TERMINAL BNP 1761.9 pg/ml (5-125)
[2022-09-02] MEDS ORDERED: PIPERACILLIN/TAZOB 3.375 GM 3.375 GM in DEXTROSE 5%-WATER - 50 ML IVPB SCH (18:00)
[2022-09-02] MEDS: ATORVASTATIN CA 40 MG TABLET (FP) PO SCH (21:34)
[2022-09-03] MEDS: PIPERACILLIN/TAZOB 2.25 GM 2.25 GM in DEXTROSE 5%-WATER - 50 ML IVPB SCH ×4 (00:41→17:03)
[2022-09-03] MEDS ORDERED: ACETAMINOPHEN 1000 MG/100 ML BAG IVPB ONE (03:04)
[2022-09-03] MEDS: INSULIN SLIDING SCALE (NOVOLOG) 1 VIAL SQ SCH ×4 (06:24→21:36)
[2022-09-03] MEDS: LABETALOL HCL 200 MG TABLET (FP) PO SCH ×2 (09:52→21:21)
[2022-09-03] MEDS: HEPARIN NA (PORCINE) 5,000 UNITS/ML 1ML VIAL SQ SCH ×2 (09:52→21:20)
[2022-09-03] MEDS: NIFEdipine E.R. 90 MG TABLET PO SCH (09:52)
[2022-09-03] MEDS: SPIRONOLACTONE 25 MG TABLET PO SCH (09:52)
[2022-09-03] MEDS: BUDESONIDE/FORMETEROL FUMARATE 160/4.5 mcg INHALER IH SCH ×2 (09:52→21:35)
[2022-09-03] MEDS: hydrALAZINE HCL 50 MG TABLET (FP) PO SCH ×2 (09:52→21:20)
[2022-09-03] MEDS: CLOPIDOGREL BISULFATE 75 MG TABLET (FP) PO SCH (09:52)
[2022-09-03] MEDS: ISOSORBIDE MONONITRATE 60 MG TAB.SR.24H (FP) PO SCH (09:52)
[2022-09-03] MEDS: PANTOPRAZOLE 40 MG TABLET PO SCH (09:52)
[2022-09-03 10:42] LABS: BASO % 0.8 % (0-2.0); EOS % 7.2 % (0-4.5); HEMATOCRIT 25.3 % (32.4-45.2); HEMOGLOBIN 8.4 GM/dL (10.7-15.3); LYMPH % 21.8 % (8-40); MCH 27.4 pg (25.7-33.7); MCHC 33.3 g/dl (32.0-36.0); MEAN CELL VOLUME 82.5 fl (80-96); MEAN PLT VOLUME 9.2 fl (7.5-11.1); MONO % 8.5 % (3.8-10.2); NEUT % 61.7 % (42.8-82.8); PLATELET COUNT 278 10^3/uL (134-434); RBC 3.07 M/mm3 (3.60-5.2); RDW 15.2 % (11.6-15.6); WHITE BLOOD COUNT 6.7 K/mm3 (4.0-10.0)
[2022-09-03 10:56] LABS: CALCIUM 8.4 mg/dL (8.5-10.1)
[2022-09-03 10:57] LABS: ALBUMIN 2.8 g/dl (3.4-5.0); BLOOD UREA NITROGEN 35.1 mg/dL (7-18)
[2022-09-03 10:59] LABS: BILIRUBIN,DIRECT 0.1 mg/dL (0.0-0.2)
[2022-09-03 11:00] LABS: CREATININE 2.6 mg/dL (0.55-1.3)
[2022-09-03 11:01] LABS: BILIRUBIN,TOTAL 0.3 mg/dL (0.2-1); TOT PROT 6.2 g/dl (6.4-8.2)
[2022-09-03] MEDS ORDERED: POLYETHYLENE GLYCOL (HEALTHYLAX) 3350 17 GM PACKET PO ONE (17:15)
[2022-09-03] MEDS: ATORVASTATIN CA 40 MG TABLET (FP) PO SCH (21:20)
[2022-09-04] MEDS: PIPERACILLIN/TAZOB 2.25 GM 2.25 GM in DEXTROSE 5%-WATER - 50 ML IVPB SCH ×3 (01:24→17:20)
[2022-09-04] MEDS: INSULIN SLIDING SCALE (NOVOLOG) 1 VIAL SQ SCH ×4 (06:33→22:50)
[2022-09-04] MEDS: LABETALOL HCL 200 MG TABLET (FP) PO SCH ×2 (09:13→22:50)
[2022-09-04] MEDS: CLOPIDOGREL BISULFATE 75 MG TABLET (FP) PO SCH (09:13)
[2022-09-04] MEDS: PANTOPRAZOLE 40 MG TABLET PO SCH (09:13)
[2022-09-04] MEDS: SPIRONOLACTONE 25 MG TABLET PO SCH (09:13)
[2022-09-04] MEDS: hydrALAZINE HCL 50 MG TABLET (FP) PO SCH ×2 (09:13→22:49)
[2022-09-04] MEDS: ISOSORBIDE MONONITRATE 60 MG TAB.SR.24H (FP) PO SCH (09:13)
[2022-09-04] MEDS: HEPARIN NA (PORCINE) 5,000 UNITS/ML 1ML VIAL SQ SCH ×2 (09:13→22:49)
[2022-09-04] MEDS: NIFEdipine E.R. 90 MG TABLET PO SCH (09:13)
[2022-09-04] MEDS: BUDESONIDE/FORMETEROL FUMARATE 160/4.5 mcg INHALER IH SCH ×2 (09:13→22:50)
[2022-09-04 11:03] LABS: ALBUMIN 2.8 g/dl (3.4-5.0)
[2022-09-04 11:05] LABS: BILIRUBIN,DIRECT 0.1 mg/dL (0.0-0.2)
[2022-09-04 11:07] LABS: BILIRUBIN,TOTAL 0.4 mg/dL (0.2-1); TOT PROT 6.1 g/dl (6.4-8.2)
[2022-09-04] MEDS ORDERED: FUROSEMIDE 20 MG TABLET (FP) PO ONE (14:54)
[2022-09-04 20:11] LABS: GLIADIN ANTIBODY IGA 7 units (0-19); GLIADIN ANTIBODY IGG 2 units (0-19); TRANSGLUTAMINASE IGG < 2 U/mL (0-5)
[2022-09-04] MEDS: ATORVASTATIN CA 40 MG TABLET (FP) PO SCH (22:49)
[2022-09-05] MEDS: PIPERACILLIN/TAZOB 2.25 GM 2.25 GM in DEXTROSE 5%-WATER - 50 ML IVPB SCH ×3 (02:14→17:04)
[2022-09-05] MEDS: INSULIN SLIDING SCALE (NOVOLOG) 1 VIAL SQ SCH ×4 (06:09→21:30)
[2022-09-05] MEDS: FUROSEMIDE 40 MG TABLET (FP) PO SCH ×2 (06:09→13:48)
[2022-09-05] MEDS: SPIRONOLACTONE 25 MG TABLET PO SCH (09:47)
[2022-09-05] MEDS: hydrALAZINE HCL 50 MG TABLET (FP) PO SCH ×2 (09:47→21:24)
[2022-09-05] MEDS: ISOSORBIDE MONONITRATE 60 MG TAB.SR.24H (FP) PO SCH (09:47)
[2022-09-05] MEDS: CLOPIDOGREL BISULFATE 75 MG TABLET (FP) PO SCH (09:47)
[2022-09-05] MEDS: NIFEdipine E.R. 90 MG TABLET PO SCH (09:47)
[2022-09-05] MEDS: LABETALOL HCL 200 MG TABLET (FP) PO SCH ×2 (09:47→21:25)
[2022-09-05] MEDS: PANTOPRAZOLE 40 MG TABLET PO SCH (09:47)
[2022-09-05] MEDS: BUDESONIDE/FORMETEROL FUMARATE 160/4.5 mcg INHALER IH SCH ×2 (09:48→21:25)
[2022-09-05] MEDS: HEPARIN NA (PORCINE) 5,000 UNITS/ML 1ML VIAL SQ SCH ×2 (09:48→21:24)
[2022-09-05 10:27] LABS: BASO % 0.6 % (0-2.0); EOS % 5.2 % (0-4.5); HEMATOCRIT 25.4 % (32.4-45.2); HEMOGLOBIN 8.2 GM/dL (10.7-15.3); LYMPH % 17.8 % (8-40); MCH 26.9 pg (25.7-33.7); MCHC 32.3 g/dl (32.0-36.0); MEAN CELL VOLUME 83.2 fl (80-96); MEAN PLT VOLUME 8.6 fl (7.5-11.1); MONO % 8.1 % (3.8-10.2); NEUT % 68.3 % (42.8-82.8); PLATELET COUNT 285 10^3/uL (134-434); RBC 3.06 M/mm3 (3.60-5.2); RDW 15.5 % (11.6-15.6); WHITE BLOOD COUNT 7.2 K/mm3 (4.0-10.0)
[2022-09-05 10:56] LABS: CALCIUM 8.7 mg/dL (8.5-10.1)
[2022-09-05 10:58] LABS: ALBUMIN 2.9 g/dl (3.4-5.0); BLOOD UREA NITROGEN 33.1 mg/dL (7-18); CREATININE 2.2 mg/dL (0.55-1.3)
[2022-09-05 10:59] LABS: BILIRUBIN,TOTAL 0.4 mg/dL (0.2-1)
[2022-09-05] MEDS: ATORVASTATIN CA 40 MG TABLET (FP) PO SCH (21:24)
[2022-09-05 23:09] LABS: ALPHA 2 MACROGLOBULINS,QN 161 mg/dL (110-276); ALT(SGPT)P5P 55 IU/L (0-40); APOLIPOPROTEIN A-1. 119 mg/dL (116-209); CHOLESTEROL TOTAL 131 mg/dL (100-199); FIBROSIS SCORE 0.14 (0.00-0.21); GLUCOSE SERUM 195 mg/dL (70-99); HEIGHT 62 in (.); WEIGHT- 212 LBS (.)
[2022-09-06] MEDS: PIPERACILLIN/TAZOB 2.25 GM 2.25 GM in DEXTROSE 5%-WATER - 50 ML IVPB SCH ×3 (02:06→18:27)
[2022-09-06] MEDS: FUROSEMIDE 40 MG TABLET (FP) PO SCH ×2 (05:42→16:12)
[2022-09-06] MEDS: INSULIN SLIDING SCALE (NOVOLOG) 1 VIAL SQ SCH ×4 (06:37→21:15)
[2022-09-06] MEDS: PANTOPRAZOLE 40 MG TABLET PO SCH (10:02)
[2022-09-06] MEDS: CLOPIDOGREL BISULFATE 75 MG TABLET (FP) PO SCH (10:02)
[2022-09-06] MEDS: hydrALAZINE HCL 50 MG TABLET (FP) PO SCH ×2 (10:02→21:16)
[2022-09-06] MEDS: NIFEdipine E.R. 90 MG TABLET PO SCH (10:02)
[2022-09-06] MEDS: LABETALOL HCL 200 MG TABLET (FP) PO SCH ×2 (10:02→21:16)
[2022-09-06] MEDS: SPIRONOLACTONE 25 MG TABLET PO SCH (10:02)
[2022-09-06] MEDS: ISOSORBIDE MONONITRATE 60 MG TAB.SR.24H (FP) PO SCH (10:02)
[2022-09-06] MEDS: BUDESONIDE/FORMETEROL FUMARATE 160/4.5 mcg INHALER IH SCH ×2 (10:03→21:28)
[2022-09-06] MEDS: HEPARIN NA (PORCINE) 5,000 UNITS/ML 1ML VIAL SQ SCH ×2 (10:03→21:16)
[2022-09-06 11:09] LABS: METHYLMALONIC ACID- 287 nmol/L (0-378)
[2022-09-06] MEDS: ATORVASTATIN CA 40 MG TABLET (FP) PO SCH (21:16)
[2022-09-07] MEDS: PIPERACILLIN/TAZOB 2.25 GM 2.25 GM in DEXTROSE 5%-WATER - 50 ML IVPB SCH ×2 (01:55→10:17)
[2022-09-07] MEDS: FUROSEMIDE 40 MG TABLET (FP) PO SCH ×2 (05:54→13:15)
[2022-09-07] MEDS: INSULIN SLIDING SCALE (NOVOLOG) 1 VIAL SQ SCH ×4 (06:00→23:06)
[2022-09-07] MEDS ORDERED: ACETAMINOPHEN 325 MG TABLET (FP) PO ONE (10:15)
[2022-09-07] MEDS: PANTOPRAZOLE 40 MG TABLET PO SCH (10:17)
[2022-09-07] MEDS: hydrALAZINE HCL 50 MG TABLET (FP) PO SCH ×2 (10:17→22:56)
[2022-09-07] MEDS: CLOPIDOGREL BISULFATE 75 MG TABLET (FP) PO SCH (10:17)
[2022-09-07] MEDS: ISOSORBIDE MONONITRATE 60 MG TAB.SR.24H (FP) PO SCH (10:17)
[2022-09-07] MEDS: SPIRONOLACTONE 25 MG TABLET PO SCH (10:17)
[2022-09-07] MEDS: LABETALOL HCL 200 MG TABLET (FP) PO SCH ×2 (10:17→22:56)
[2022-09-07] MEDS: NIFEdipine E.R. 90 MG TABLET PO SCH (10:17)
[2022-09-07] MEDS: BUDESONIDE/FORMETEROL FUMARATE 160/4.5 mcg INHALER IH SCH ×2 (10:18→22:56)
[2022-09-07] MEDS: HEPARIN NA (PORCINE) 5,000 UNITS/ML 1ML VIAL SQ SCH ×2 (10:18→22:56)
[2022-09-07] MEDS: AMOX TR/POT CLAV 500MG/125MG TABLETS (FP) PO SCH (17:27)
[2022-09-07] MEDS ORDERED: AMOX TR/POT CLAV 875MG/125MG TABLETS (FP) PO SCH (17:30)
[2022-09-07] MEDS: ATORVASTATIN CA 40 MG TABLET (FP) PO SCH (22:56)
[2022-09-08] MEDS: FUROSEMIDE 40 MG TABLET (FP) PO SCH ×2 (06:09→14:59)
[2022-09-08] MEDS: INSULIN SLIDING SCALE (NOVOLOG) 1 VIAL SQ SCH ×4 (06:20→21:59)
[2022-09-08] MEDS: LABETALOL HCL 200 MG TABLET (FP) PO SCH ×2 (09:17→22:40)
[2022-09-08] MEDS: ISOSORBIDE MONONITRATE 60 MG TAB.SR.24H (FP) PO SCH (09:17)
[2022-09-08] MEDS: AMOX TR/POT CLAV 500MG/125MG TABLETS (FP) PO SCH ×2 (09:17→17:27)
[2022-09-08] MEDS: PANTOPRAZOLE 40 MG TABLET PO SCH (09:18)
[2022-09-08] MEDS: HEPARIN NA (PORCINE) 5,000 UNITS/ML 1ML VIAL SQ SCH ×2 (09:18→22:41)
[2022-09-08] MEDS: SPIRONOLACTONE 25 MG TABLET PO SCH (09:18)
[2022-09-08] MEDS: hydrALAZINE HCL 50 MG TABLET (FP) PO SCH ×2 (09:18→22:40)
[2022-09-08] MEDS: NIFEdipine E.R. 90 MG TABLET PO SCH (09:18)
[2022-09-08] MEDS: CLOPIDOGREL BISULFATE 75 MG TABLET (FP) PO SCH (09:18)
[2022-09-08] MEDS: BUDESONIDE/FORMETEROL FUMARATE 160/4.5 mcg INHALER IH SCH ×2 (10:25→22:41)
[2022-09-08 11:48] LABS: BASO % 0.6 % (0-2.0); EOS % 4.7 % (0-4.5); HEMATOCRIT 24.5 % (32.4-45.2); LYMPH % 15.5 % (8-40); MCH 27.1 pg (25.7-33.7); MCHC 32.5 g/dl (32.0-36.0); MEAN CELL VOLUME 83.2 fl (80-96); MEAN PLT VOLUME 9.1 fl (7.5-11.1); MONO % 10.3 % (3.8-10.2); NEUT % 68.9 % (42.8-82.8); PLATELET COUNT 289 10^3/uL (134-434); RBC 2.95 M/mm3 (3.60-5.2); RDW 16.1 % (11.6-15.6); WHITE BLOOD COUNT 6.3 K/mm3 (4.0-10.0)
[2022-09-08 12:21] LABS: CALCIUM 8.9 mg/dL (8.5-10.1)
[2022-09-08 12:22] LABS: ALBUMIN 2.8 g/dl (3.4-5.0); BLOOD UREA NITROGEN 29.5 mg/dL (7-18)
[2022-09-08 12:25] LABS: BILIRUBIN,DIRECT 0.2 mg/dL (0.0-0.2)
[2022-09-08 12:26] LABS: BILIRUBIN,TOTAL 0.4 mg/dL (0.2-1); TOT PROT 6.2 g/dl (6.4-8.2)
[2022-09-08] MEDS: ATORVASTATIN CA 40 MG TABLET (FP) PO SCH (22:40)
[2022-09-09] MEDS: FUROSEMIDE 40 MG TABLET (FP) PO SCH ×2 (06:16→14:56)
[2022-09-09] MEDS: INSULIN SLIDING SCALE (NOVOLOG) 1 VIAL SQ SCH ×4 (06:24→21:25)
[2022-09-09] MEDS: AMOX TR/POT CLAV 500MG/125MG TABLETS (FP) PO SCH ×2 (08:22→16:51)
[2022-09-09] MEDS: NIFEdipine E.R. 90 MG TABLET PO SCH (09:00)
[2022-09-09] MEDS: hydrALAZINE HCL 50 MG TABLET (FP) PO SCH ×2 (09:01→21:20)
[2022-09-09] MEDS: CLOPIDOGREL BISULFATE 75 MG TABLET (FP) PO SCH (09:01)
[2022-09-09] MEDS: BUDESONIDE/FORMETEROL FUMARATE 160/4.5 mcg INHALER IH SCH ×2 (09:01→22:18)
[2022-09-09] MEDS: PANTOPRAZOLE 40 MG TABLET PO SCH (09:01)
[2022-09-09] MEDS: ISOSORBIDE MONONITRATE 60 MG TAB.SR.24H (FP) PO SCH (09:01)
[2022-09-09] MEDS: LABETALOL HCL 200 MG TABLET (FP) PO SCH ×2 (09:01→21:19)
[2022-09-09] MEDS: SPIRONOLACTONE 25 MG TABLET PO SCH (09:01)
[2022-09-09] MEDS ORDERED: MAG HYDROX/AL HYDROX/SIMETH 30 ML UNIT-DOSE CUP PO ONE (17:29)
[2022-09-09] MEDS ORDERED: guaiFENesin/D-METHORPHAN HB 10 ML UNIT-DOSE CUPS PO PRN (17:29)
[2022-09-09] MEDS ORDERED: guaiFENesin/D-M SUGAR-FREE/ACLHOL-FREE 5 ML UNIT DOSE PO PRN (17:36)
[2022-09-09] MEDS: ATORVASTATIN CA 40 MG TABLET (FP) PO SCH (21:19)
[2022-09-10 06:34] VITALS: TEMP 98.2
[2022-09-10] MEDS: INSULIN SLIDING SCALE (NOVOLOG) 1 VIAL SQ SCH ×2 (06:42→12:35)
[2022-09-10] MEDS: FUROSEMIDE 40 MG TABLET (FP) PO SCH (06:43)
[2022-09-10] MEDS: AMOX TR/POT CLAV 500MG/125MG TABLETS (FP) PO SCH (08:15)
[2022-09-10] MEDS: PANTOPRAZOLE 40 MG TABLET PO SCH (09:39)
[2022-09-10] MEDS: hydrALAZINE HCL 50 MG TABLET (FP) PO SCH (09:39)
[2022-09-10] MEDS: CLOPIDOGREL BISULFATE 75 MG TABLET (FP) PO SCH (09:39)
[2022-09-10] MEDS: ISOSORBIDE MONONITRATE 60 MG TAB.SR.24H (FP) PO SCH (09:40)
[2022-09-10] MEDS: SPIRONOLACTONE 25 MG TABLET PO SCH (09:40)
[2022-09-10] MEDS: LABETALOL HCL 200 MG TABLET (FP) PO SCH (09:40)
[2022-09-10] MEDS: BUDESONIDE/FORMETEROL FUMARATE 160/4.5 mcg INHALER IH SCH (09:41)
[2022-09-10] MEDS: NIFEdipine E.R. 90 MG TABLET PO SCH (09:41)
[2022-09-10 10:13] VITALS: BP 148/53; PULSE 75; RESP 17
[2022-09-10] MEDS ORDERED: INSULIN SLIDING SCALE (NOVOLOG) 1 VIAL SQ ONE (12:26)
== END 2022-09-10 13:54 | disposition home or self-care (01) | DRG 444 ==
LOC: JER 20:16 → UNDOADMOB 09-01 01:44 → JERBED 09-01 01:44 → INTOOBSV 09-01 01:44 → JERBED 09-01 05:07 → J5S 09-01 05:07 → JERBED 09-01 09:31 → UNDOADMOB 09-01 09:31 → INTOOBSV 09-01 10:26 → J5S 09-01 10:26 → OBSVTOIN 09-01 10:26 → J5S 09-07 13:06
PROVIDERS: ADMIT Internal Medicine; ATTEND Internal Medicine
DX: K82.8 Other specified diseases of gallbladder (principal); I50.33 Acute on chronic diastolic (congestive) heart failure; U07.1 COVID-19; Z68.41 Body mass index [BMI] 40.0-44.9, adult; I13.0 Hypertensive heart and chronic kidney disease with heart failure and stage 1 through stage 4 chronic kidney disease, or unspecified chronic kidney disease; K83.09 Other cholangitis; N17.9 Acute kidney failure, unspecified; J44.9 Chronic obstructive pulmonary disease, unspecified; E78.00 Pure hypercholesterolemia, unspecified; E78.5 Hyperlipidemia, unspecified; K59.00 Constipation, unspecified; K76.0 Fatty (change of) liver, not elsewhere classified; K21.9 Gastro-esophageal reflux disease without esophagitis; E66.01 Morbid (severe) obesity due to excess calories; D64.9 Anemia, unspecified; E11.22 Type 2 diabetes mellitus with diabetic chronic kidney disease; N18.9 Chronic kidney disease, unspecified; Z96.651 Presence of right artificial knee joint; D13.5 Benign neoplasm of extrahepatic bile ducts; K83.8 Other specified diseases of biliary tract; E11.51 Type 2 diabetes mellitus with diabetic peripheral angiopathy without gangrene; G47.30 Sleep apnea, unspecified; R74.8 Abnormal levels of other serum enzymes; I25.119 Atherosclerotic heart disease of native coronary artery with unspecified angina pectoris
CPT/HCPCS: 0241U-QW; 36415; 36430; 71045-TC-FY; 71046-TC-FY; 71250-TC; 76705-TC; 78226-TC; 80048; 80053; 80061; 80076; 82172; 82247; 82272; 82306; 82465; 82607; 82728; 82746; 82784; 82947; 82962; 82977; 83010; 83036; 83516; 83540; 83550; 83605; 83615; 83690; 83735; 83880; 83883; 83921; 84155; 84165; 84443; 84450; 84460; 84478; 84484; 85025; 85045; 85610; 85730; 86140; 86301; 86334; 86705; 86803; 86850; 86900; 86901; 86922; 87340; 87517; 93005; 93010; 99285-25; A9537; C9803-CS; G0378; J0885; J1644; P9058; U0003; U0005

== ENCOUNTER 2022-10-12 17:50 | Observation (INO) | payer OTHER ==
[2022-10-12] MEDS ORDERED: SODIUM CHLORIDE 0.9% 500 ML INFUS.BAG IV ONE ×2 (18:10→18:53)
[2022-10-12 18:27] LABS: VENOUS BASE EXCESS -1.4 mmol/L (-2-2); VENOUS O2 SATURATION 16.9 % (70-80); VENOUS PH 7.202 (7.310-7.410)
[2022-10-12 18:28] LABS: BASO % 0.7 % (0-2.0); EOS % 2.1 % (0-4.5); HEMATOCRIT 35.1 % (32.4-45.2); HEMOGLOBIN 11.6 GM/dL (10.7-15.3); LYMPH % 11.8 % (8-40); MCH 26.9 pg (25.7-33.7); MEAN CELL VOLUME 81.7 fl (80-96); MEAN PLT VOLUME 9.7 fl (7.5-11.1); MONO % 6.7 % (3.8-10.2); NEUT % 78.7 % (42.8-82.8); PLATELET COUNT 308 10^3/uL (134-434); RDW 16.2 % (11.6-15.6); WHITE BLOOD COUNT 7.9 K/mm3 (4.0-10.0)
[2022-10-12 18:35] LABS: VENOUS PCO2 73.9 mmHg (38-52)
[2022-10-12 18:43] LABS: CALCIUM 10.5 mg/dL (8.5-10.1)
[2022-10-12 18:44] LABS: BLOOD UREA NITROGEN 63.8 mg/dL (7-18); MAGNESIUM 2.7 mg/dL (1.8-2.4)
[2022-10-12 18:47] LABS: CREATININE 2.8 mg/dL (0.55-1.3)
[2022-10-12 18:49] LABS: BILIRUBIN,TOTAL 0.4 mg/dL (0.2-1); TOT PROT 8.8 g/dl (6.4-8.2)
[2022-10-12 21:15] LABS: VENOUS BASE EXCESS -2.9 mmol/L (-2-2); VENOUS O2 SATURATION 64.4 % (70-80); VENOUS PCO2 54.8 mmHg (38-52); VENOUS PH 7.269 (7.310-7.410)
[2022-10-12 21:43] LABS: CHLORIDE 97 mmol/L (98-107); SODIUM 131 mmol/L (136-145)
[2022-10-12 21:45] LABS: ANION GAP 7 MMOL/L (8-16); CO2 27 mmol/L (21-32)
[2022-10-12 21:48] LABS: CREATININE 2.9 mg/dL (0.55-1.3)
[2022-10-12 21:52] LABS: GLUCOSE,RANDOM 448 mg/dL (74-106)
[2022-10-13] MEDS ORDERED: ALBUTEROL SO4 HFA INHALER IH PRN (01:23)
[2022-10-13 03:29] VITALS: BMI 36.7
[2022-10-13] MEDS ORDERED: FUROSEMIDE 40 MG TABLET (FP) PO SCH (06:00)
[2022-10-13] MEDS: INSULIN SLIDING SCALE (NOVOLOG) 1 VIAL SQ SCH ×4 (06:28→23:13)
[2022-10-13 07:52] LABS: EPI CELLS 3 /uL (0-25.1); HYALINE CASTS 0 /uL (0-3.1); URINE APPEARANCE CLEAR; URINE BACTERIA 10 /uL (0-1359); URINE BILIRUBIN NEGATIVE (NEGATIVE); URINE COLOR YELLOW; URINE GLUCOSE (UA) 3+ (NEGATIVE); URINE KETONE NEGATIVE (NEGATIVE); URINE LEUK ESTERASE NEGATIVE (NEGATIVE); URINE NITRITE NEGATIVE (NEGATIVE); URINE PROTEIN 2+ (NEGATIVE); URINE RBC 9 /uL (0-23.9); URINE UROBILINOGEN 0.2 mg/dL (0.2-1.0); URINE WBC 8 /uL (0-25.8)
[2022-10-13 09:25] LABS: BASO % 0.7 % (0-2.0); EOS % 2.9 % (0-4.5); HEMATOCRIT 32.1 % (32.4-45.2); HEMOGLOBIN 10.6 GM/dL (10.7-15.3); LYMPH % 23.5 % (8-40); MCHC 33.2 g/dl (32.0-36.0); MEAN CELL VOLUME 81.2 fl (80-96); MEAN PLT VOLUME 9.7 fl (7.5-11.1); MONO % 7.3 % (3.8-10.2); NEUT % 65.6 % (42.8-82.8); PLATELET COUNT 329 10^3/uL (134-434); RBC 3.95 M/mm3 (3.60-5.2); RDW 16.4 % (11.6-15.6); WHITE BLOOD COUNT 8.2 K/mm3 (4.0-10.0)
[2022-10-13] MEDS ORDERED: SPIRONOLACTONE 25 MG TABLET PO SCH (10:00)
[2022-10-13 10:12] LABS: ALBUMIN 3.7 g/dl (3.4-5.0); BLOOD UREA NITROGEN 68.6 mg/dL (7-18)
[2022-10-13 10:15] LABS: CREATININE 2.6 mg/dL (0.55-1.3)
[2022-10-13 10:16] LABS: TOT PROT 7.8 g/dl (6.4-8.2)
[2022-10-13 10:17] LABS: BILIRUBIN,TOTAL 0.4 mg/dL (0.2-1)
[2022-10-13] MEDS ORDERED: INSULIN (NOVOLOG) ASPART 100 UNITS/ML 10ML VIAL ONE (11:26)
[2022-10-13] MEDS: LIPASE/PROTEASE/AMYLASE 36,000 UNIT CAPSULE PO SCH ×3 (11:40→17:47)
[2022-10-13] MEDS: FERROUS SO4 325 MG TABLET (FP) PO SCH ×2 (11:40→23:13)
[2022-10-13] MEDS: PANTOPRAZOLE 40 MG TABLET PO SCH (11:40)
[2022-10-13] MEDS: hydrALAZINE HCL 50 MG TABLET (FP) PO SCH ×2 (11:41→23:11)
[2022-10-13] MEDS: NIFEdipine E.R. 90 MG TABLET PO SCH (11:41)
[2022-10-13] MEDS: CLOPIDOGREL BISULFATE 75 MG TABLET (FP) PO SCH (11:41)
[2022-10-13] MEDS: ISOSORBIDE MONONITRATE 60 MG TAB.SR.24H (FP) PO SCH (11:42)
[2022-10-13] MEDS: DOCUSATE SODIUM 100 MG CAPSULE (FP) PO SCH ×2 (11:42→23:12)
[2022-10-13] MEDS: LABETALOL HCL 200 MG TABLET (FP) PO SCH ×2 (13:28→23:12)
[2022-10-13] MEDS: BUDESONIDE/FORMETEROL FUMARATE 160/4.5 mcg INHALER IH SCH ×2 (13:28→23:14)
[2022-10-13] MEDS ORDERED: SODIUM CHLORIDE 1,000 ML IV SCH (14:30)
[2022-10-13 17:32] VITALS: RESP 20
[2022-10-13] MEDS ORDERED: ATORVASTATIN CA 40 MG TABLET (FP) PO SCH (22:00)
[2022-10-14] MEDS: INSULIN SLIDING SCALE (NOVOLOG) 1 VIAL SQ SCH ×2 (06:42→11:41)
[2022-10-14 09:15] LABS: CALCIUM 9.5 mg/dL (8.5-10.1)
[2022-10-14 09:16] LABS: ALBUMIN 3.4 g/dl (3.4-5.0); BLOOD UREA NITROGEN 69.4 mg/dL (7-18)
[2022-10-14 09:19] LABS: CREATININE 2.6 mg/dL (0.55-1.3)
[2022-10-14 09:21] LABS: BILIRUBIN,TOTAL 0.4 mg/dL (0.2-1)
[2022-10-14] MEDS: CLOPIDOGREL BISULFATE 75 MG TABLET (FP) PO SCH (09:33)
[2022-10-14] MEDS: FERROUS SO4 325 MG TABLET (FP) PO SCH (09:33)
[2022-10-14] MEDS: LABETALOL HCL 200 MG TABLET (FP) PO SCH (09:33)
[2022-10-14] MEDS: DOCUSATE SODIUM 100 MG CAPSULE (FP) PO SCH (09:33)
[2022-10-14] MEDS: ISOSORBIDE MONONITRATE 60 MG TAB.SR.24H (FP) PO SCH (09:33)
[2022-10-14] MEDS: NIFEdipine E.R. 90 MG TABLET PO SCH (09:33)
[2022-10-14] MEDS: PANTOPRAZOLE 40 MG TABLET PO SCH (09:33)
[2022-10-14] MEDS: hydrALAZINE HCL 50 MG TABLET (FP) PO SCH (09:33)
[2022-10-14] MEDS: LIPASE/PROTEASE/AMYLASE 36,000 UNIT CAPSULE PO SCH ×2 (09:34→11:41)
[2022-10-14] MEDS: BUDESONIDE/FORMETEROL FUMARATE 160/4.5 mcg INHALER IH SCH (09:38)
[2022-10-14 14:25] VITALS: BP 121/45; PULSE 66; TEMP 98
== END 2022-10-14 15:20 | disposition home or self-care (01) ==
LOC: JER 17:50 → UNDOADMOB 19:57 → JERBED 19:57 → INTOOBSV 19:57 → JERBED 22:07 → J8W 22:07
PROVIDERS: ADMIT Internal Medicine; ATTEND Internal Medicine
PROC: 3E013VG Introduction of Insulin into Subcutaneous Tissue, Percutaneous Approach (ICD-10-PCS; principal; 2022-10-13)
PROC: 3E0337Z Introduction of Electrolytic and Water Balance Substance into Peripheral Vein, Percutaneous Approach (ICD-10-PCS; 2022-10-13)
DX: I13.0 Hypertensive heart and chronic kidney disease with heart failure and stage 1 through stage 4 chronic kidney disease, or unspecified chronic kidney disease (principal); I50.9 Heart failure, unspecified; N18.9 Chronic kidney disease, unspecified; E11.22 Type 2 diabetes mellitus with diabetic chronic kidney disease; E11.65 Type 2 diabetes mellitus with hyperglycemia; J44.9 Chronic obstructive pulmonary disease, unspecified; K85.90 Acute pancreatitis without necrosis or infection, unspecified; K59.00 Constipation, unspecified; K76.0 Fatty (change of) liver, not elsewhere classified; E66.8 Other obesity; Z68.36 Body mass index [BMI] 36.0-36.9, adult; F14.21 Cocaine dependence, in remission; Z87.891 Personal history of nicotine dependence; E11.649 Type 2 diabetes mellitus with hypoglycemia without coma; Z86.16 Personal history of COVID-19
CPT/HCPCS: 0241U-QW; 36415; 71045-TC-FY; 80048; 80053; 81003; 82803; 82962; 83735; 84484; 85025; 87086; 93005; 93010; 96360; 96372; 99285-25; G0378

== ENCOUNTER 2022-11-03 13:56 | Inpatient (IN) | payer OTHER ==
[2022-11-03] MEDS ORDERED: METOCLOPRAMIDE HCL INJECTION 10 MG/2 ML VIAL IVPUSH ONE (15:26)
[2022-11-03] MEDS ORDERED: ACETAMINOPHEN 1000 MG/100 ML BAG IVPB ONE (15:26)
[2022-11-03] MEDS ORDERED: SODIUM CHLORIDE 0.9% 500 ML INFUS.BAG IV ONE (15:37)
[2022-11-03] MEDS ORDERED: LIDOCAINE 5% TOPICAL PATCH ONE (16:00)
[2022-11-03] MEDS ORDERED: ACETAMINOPHEN INJECTION 100 ML IVPB ONE (16:00)
[2022-11-03] MEDS ORDERED: METOCLOPRAMIDE HCL INJECTION 10 MG/2 ML VIAL ONE (16:00)
[2022-11-03] MEDS: LIDOCAINE 5% TOPICAL PATCH TP SCH (16:11)
[2022-11-03 16:35] LABS: HEMATOCRIT 28.1 % (32.4-45.2); HEMOGLOBIN 9.2 GM/dL (10.7-15.3); MCH 26.9 pg (25.7-33.7); MCHC 32.5 g/dl (32.0-36.0); MEAN CELL VOLUME 82.8 fl (80-96); MEAN PLT VOLUME 9.5 fl (7.5-11.1); PLATELET COUNT 254 10^3/uL (134-434); RDW 16.2 % (11.6-15.6); WHITE BLOOD COUNT 8.4 K/mm3 (4.0-10.0)
[2022-11-03 16:43] LABS: ALBUMIN 3.3 g/dl (3.4-5.0); BLOOD UREA NITROGEN 76.2 mg/dL (7-18); CALCIUM 9.4 mg/dL (8.5-10.1)
[2022-11-03 16:46] LABS: CREATININE 2.8 mg/dL (0.55-1.3)
[2022-11-03 16:48] LABS: BILIRUBIN,TOTAL 0.2 mg/dL (0.2-1)
[2022-11-03 16:49] LABS: ACTIVATED PTT 30.8 SECONDS (25.2-36.5); INR 0.99 (0.83-1.09); PROTHROMBIN TIME (PATIENT) 11.5 SEC (9.7-13.0)
[2022-11-03] MEDS ORDERED: DEXTROSE 50%-WATER - 25 GM/50 ML VIAL IVPUSH ONE ×2 (16:51→16:54)
[2022-11-03] MEDS ORDERED: DEXTROSE 50%-WATER 25 GM/50 ML DISP.SYRIN ONE (16:54)
[2022-11-04] MEDS: LIDOCAINE PATCH REMOVAL MC SCH ×2 (03:54→22:06)
[2022-11-04] MEDS: LIDOCAINE 5% TOPICAL PATCH TP SCH (10:44)
[2022-11-04] MEDS ORDERED: PATIENT'S OWN MEDICATION (NON-FORMULARY) (Dapagliflozin Propanediol [Farxiga] 5 MG Tablet) PO SCH (15:00)
[2022-11-04] MEDS ORDERED: LOSARTAN POTASSIUM 25 MG TABLET PO SCH (15:00)
[2022-11-04] MEDS: SPIRONOLACTONE 25 MG TABLET PO SCH (15:40)
[2022-11-04] MEDS: PANTOPRAZOLE 40 MG TABLET PO SCH (15:40)
[2022-11-04] MEDS: SODIUM CHLORIDE 1,000 ML IV SCH (15:40)
[2022-11-04] MEDS ORDERED: LUBIPROSTONE 8 MCG PO SCH (22:00)
[2022-11-04] MEDS: ATORVASTATIN CA 40 MG TABLET (FP) PO SCH (22:06)
[2022-11-04] MEDS: BUDESONIDE/FORMETEROL FUMARATE 160/4.5 mcg INHALER IH SCH (22:06)
[2022-11-04] MEDS: hydrALAZINE HCL 50 MG TABLET (FP) PO SCH (22:06)
[2022-11-04] MEDS: LABETALOL HCL 200 MG TABLET (FP) PO SCH (22:06)
[2022-11-04] MEDS: CYCLOBENZAPRINE HCL 5 MG TABLET PO SCH (22:06)
[2022-11-05] MEDS: hydrALAZINE HCL 50 MG TABLET (FP) PO SCH ×3 (07:04→21:51)
[2022-11-05] MEDS: SODIUM CHLORIDE 1,000 ML IV SCH (07:04)
[2022-11-05] MEDS: CYCLOBENZAPRINE HCL 5 MG TABLET PO SCH ×2 (07:04→13:16)
[2022-11-05 08:25] LABS: BASO % 0.9 % (0-2.0); EOS % 8.9 % (0-4.5); HEMATOCRIT 26.5 % (32.4-45.2); HEMOGLOBIN 8.9 GM/dL (10.7-15.3); LYMPH % 30.6 % (8-40); MCHC 33.4 g/dl (32.0-36.0); MEAN PLT VOLUME 9.3 fl (7.5-11.1); MONO % 9.7 % (3.8-10.2); NEUT % 49.9 % (42.8-82.8); PLATELET COUNT 228 10^3/uL (134-434); RBC 3.28 M/mm3 (3.60-5.2); RDW 15.9 % (11.6-15.6); WHITE BLOOD COUNT 6.1 K/mm3 (4.0-10.0)
[2022-11-05 08:55] LABS: CREATININE 2.4 mg/dL (0.55-1.3)
[2022-11-05 08:56] LABS: BILIRUBIN,TOTAL 0.3 mg/dL (0.2-1); TOT PROT 6.9 g/dl (6.4-8.2)
[2022-11-05 08:57] LABS: ALBUMIN 3.4 g/dl (3.4-5.0); CALCIUM 9.6 mg/dL (8.5-10.1)
[2022-11-05 09:01] LABS: BLOOD UREA NITROGEN 60.6 mg/dL (7-18)
[2022-11-05] MEDS: SPIRONOLACTONE 25 MG TABLET PO SCH (09:07)
[2022-11-05] MEDS: LABETALOL HCL 200 MG TABLET (FP) PO SCH ×2 (09:07→21:51)
[2022-11-05] MEDS: PANTOPRAZOLE 40 MG TABLET PO SCH (09:07)
[2022-11-05] MEDS: LIDOCAINE 5% TOPICAL PATCH TP SCH (09:07)
[2022-11-05] MEDS: BUDESONIDE/FORMETEROL FUMARATE 160/4.5 mcg INHALER IH SCH ×2 (09:09→21:55)
[2022-11-05] MEDS: ATORVASTATIN CA 40 MG TABLET (FP) PO SCH (21:51)
[2022-11-05] MEDS: LIDOCAINE PATCH REMOVAL MC SCH (21:52)
[2022-11-05] MEDS: INSULIN SLIDING SCALE (NOVOLOG) 1 VIAL SQ SCH (21:53)
[2022-11-06] MEDS: hydrALAZINE HCL 50 MG TABLET (FP) PO SCH ×3 (05:34→21:54)
[2022-11-06] MEDS: INSULIN SLIDING SCALE (NOVOLOG) 1 VIAL SQ SCH ×4 (06:27→21:55)
[2022-11-06 08:45] LABS: BASO % 0.4 % (0-2.0); HEMATOCRIT 25.6 % (32.4-45.2); HEMOGLOBIN 8.5 GM/dL (10.7-15.3); LYMPH % 29.4 % (8-40); MCH 26.9 pg (25.7-33.7); MCHC 33.1 g/dl (32.0-36.0); MEAN CELL VOLUME 81.3 fl (80-96); MEAN PLT VOLUME 9.1 fl (7.5-11.1); MONO % 11.1 % (3.8-10.2); NEUT % 50.1 % (42.8-82.8); PLATELET COUNT 220 10^3/uL (134-434); RBC 3.15 M/mm3 (3.60-5.2); RDW 16.2 % (11.6-15.6); WHITE BLOOD COUNT 5.3 K/mm3 (4.0-10.0)
[2022-11-06 09:29] LABS: ALBUMIN 3.1 g/dl (3.4-5.0); CALCIUM 8.8 mg/dL (8.5-10.1); CREATININE 2.1 mg/dL (0.55-1.3)
[2022-11-06 09:30] LABS: BLOOD UREA NITROGEN 48.1 mg/dL (7-18); TOT PROT 6.6 g/dl (6.4-8.2)
[2022-11-06 09:31] LABS: BILIRUBIN,TOTAL 0.2 mg/dL (0.2-1)
[2022-11-06] MEDS: BUDESONIDE/FORMETEROL FUMARATE 160/4.5 mcg INHALER IH SCH ×2 (11:03→21:56)
[2022-11-06] MEDS: LIDOCAINE 5% TOPICAL PATCH TP SCH (11:03)
[2022-11-06] MEDS: PANTOPRAZOLE 40 MG TABLET PO SCH (11:03)
[2022-11-06] MEDS: SPIRONOLACTONE 25 MG TABLET PO SCH (11:03)
[2022-11-06] MEDS: LABETALOL HCL 200 MG TABLET (FP) PO SCH ×2 (11:03→21:54)
[2022-11-06] MEDS: ACETAMINOPHEN 325 MG TABLET (FP) PO PRN ×2 (12:00→23:03)
[2022-11-06] MEDS: ATORVASTATIN CA 40 MG TABLET (FP) PO SCH (21:54)
[2022-11-06] MEDS: LIDOCAINE PATCH REMOVAL MC SCH (21:54)
[2022-11-07] MEDS: ACETAMINOPHEN 325 MG TABLET (FP) PO PRN ×2 (02:56→22:12)
[2022-11-07] MEDS ORDERED: hydrALAZINE HCL 25 MG TABLET (FP) PO ONE (03:00)
[2022-11-07] MEDS: hydrALAZINE HCL 50 MG TABLET (FP) PO SCH ×3 (06:44→22:12)
[2022-11-07] MEDS: INSULIN SLIDING SCALE (NOVOLOG) 1 VIAL SQ SCH ×4 (06:44→22:18)
[2022-11-07 09:56] LABS: ALBUMIN 3.2 g/dl (3.4-5.0); BLOOD UREA NITROGEN 43.7 mg/dL (7-18); CALCIUM 9.4 mg/dL (8.5-10.1)
[2022-11-07 09:59] LABS: CREATININE 1.9 mg/dL (0.55-1.3)
[2022-11-07 10:01] LABS: BILIRUBIN,TOTAL 0.2 mg/dL (0.2-1); TOT PROT 6.8 g/dl (6.4-8.2)
[2022-11-07] MEDS: SPIRONOLACTONE 25 MG TABLET PO SCH (10:18)
[2022-11-07] MEDS: LABETALOL HCL 200 MG TABLET (FP) PO SCH ×2 (10:18→22:12)
[2022-11-07] MEDS: BUDESONIDE/FORMETEROL FUMARATE 160/4.5 mcg INHALER IH SCH ×2 (10:19→23:00)
[2022-11-07] MEDS: LIDOCAINE 5% TOPICAL PATCH TP SCH (10:19)
[2022-11-07] MEDS: PANTOPRAZOLE 40 MG TABLET PO SCH (10:19)
[2022-11-07] MEDS: ATORVASTATIN CA 40 MG TABLET (FP) PO SCH (22:12)
[2022-11-07] MEDS: LIDOCAINE PATCH REMOVAL MC SCH (22:21)
[2022-11-08] MEDS ORDERED: amLODIPine BESYLATE 5 MG TABLET (FP) PO ONE (01:30)
[2022-11-08] MEDS: INSULIN SLIDING SCALE (NOVOLOG) 1 VIAL SQ SCH ×4 (06:40→22:03)
[2022-11-08] MEDS: hydrALAZINE HCL 50 MG TABLET (FP) PO SCH ×3 (06:45→22:03)
[2022-11-08] MEDS: LIDOCAINE 5% TOPICAL PATCH TP SCH (11:21)
[2022-11-08] MEDS: LABETALOL HCL 200 MG TABLET (FP) PO SCH ×2 (11:22→22:03)
[2022-11-08] MEDS: PANTOPRAZOLE 40 MG TABLET PO SCH (11:22)
[2022-11-08] MEDS: SPIRONOLACTONE 25 MG TABLET PO SCH (11:22)
[2022-11-08] MEDS: BUDESONIDE/FORMETEROL FUMARATE 160/4.5 mcg INHALER IH SCH ×2 (11:23→22:00)
[2022-11-08] MEDS ORDERED: INSULIN (NOVOLOG) ASPART 100 UNITS/ML 10ML VIAL ONE (21:22)
[2022-11-08] MEDS: amLODIPine BESYLATE 5 MG TABLET (FP) PO SCH (22:03)
[2022-11-08] MEDS: ATORVASTATIN CA 40 MG TABLET (FP) PO SCH (22:03)
[2022-11-08] MEDS: LIDOCAINE PATCH REMOVAL MC SCH (22:06)
[2022-11-09] MEDS: hydrALAZINE HCL 50 MG TABLET (FP) PO SCH ×3 (06:18→21:50)
[2022-11-09] MEDS: INSULIN SLIDING SCALE (NOVOLOG) 1 VIAL SQ SCH ×4 (06:56→21:55)
[2022-11-09 07:39] LABS: EOS % 7.8 % (0-4.5); HEMATOCRIT 27.1 % (32.4-45.2); HEMOGLOBIN 9.1 GM/dL (10.7-15.3); LYMPH % 27.9 % (8-40); MCHC 33.4 g/dl (32.0-36.0); MEAN CELL VOLUME 80.8 fl (80-96); MEAN PLT VOLUME 8.6 fl (7.5-11.1); MONO % 9.9 % (3.8-10.2); NEUT % 53.4 % (42.8-82.8); PLATELET COUNT 252 10^3/uL (134-434); RBC 3.36 M/mm3 (3.60-5.2); RDW 16.2 % (11.6-15.6); WHITE BLOOD COUNT 5.4 K/mm3 (4.0-10.0)
[2022-11-09 08:02] LABS: ALBUMIN 3.3 g/dl (3.4-5.0); BLOOD UREA NITROGEN 41.7 mg/dL (7-18); CALCIUM 9.4 mg/dL (8.5-10.1)
[2022-11-09 08:06] LABS: CREATININE 1.9 mg/dL (0.55-1.3)
[2022-11-09 08:07] LABS: BILIRUBIN,TOTAL 0.2 mg/dL (0.2-1)
[2022-11-09] MEDS: SPIRONOLACTONE 25 MG TABLET PO SCH (09:42)
[2022-11-09] MEDS: LABETALOL HCL 200 MG TABLET (FP) PO SCH ×2 (09:42→21:51)
[2022-11-09] MEDS: amLODIPine BESYLATE 5 MG TABLET (FP) PO SCH (09:43)
[2022-11-09] MEDS: PANTOPRAZOLE 40 MG TABLET PO SCH (09:43)
[2022-11-09] MEDS: BUDESONIDE/FORMETEROL FUMARATE 160/4.5 mcg INHALER IH SCH ×2 (09:43→22:01)
[2022-11-09] MEDS: LIDOCAINE 5% TOPICAL PATCH TP SCH ×2 (09:44→09:45)
[2022-11-09] MEDS ORDERED: SODIUM CHLORIDE 0.45% 1,000 ML IV SCH (09:45)
[2022-11-09] MEDS ORDERED: amLODIPine BESYLATE 5 MG TABLET (FP) PO ONE (13:00)
[2022-11-09 13:56] VITALS: BMI 37.5
[2022-11-09] MEDS ORDERED: BUPIVACAINE HCL/PF 0.5% (5MG/ML) 10 ML VIAL ONE (13:56)
[2022-11-09] MEDS ORDERED: ONDANSETRON 4 MG/2 ML VIAL IVPUSH PRN ×3 (15:24→20:30)
[2022-11-09] MEDS ORDERED: PROMETHAZINE HCL 25 MG/1 ML VIAL IVPB PRN ×2 (15:24→20:30)
[2022-11-09] MEDS ORDERED: LACTATED RINGERS SOLUTION 1,000 ML IV SCH (15:30)
[2022-11-09] MEDS ORDERED: PROPOFOL 20 ML ONE ×2 (15:31→16:39)
[2022-11-09] MEDS ORDERED: ROCURONIUM BROMIDE 50 MG/5 ML SYRINGE ONE (15:31)
[2022-11-09] MEDS ORDERED: MIDAZOLAM HCL 2 MG/2 ML SINGLE DOSE VIAL ONE (15:32)
[2022-11-09] MEDS ORDERED: ceFAZolin SODIUM 1 GM VIAL IVPB ONE ×2 (16:02)
[2022-11-09] MEDS ORDERED: ONDANSETRON 4 MG/2 ML VIAL ONE ×2 (16:03→18:00)
[2022-11-09] MEDS ORDERED: DEXAMETHASONE SOD PHOSPHATE 4 MG/1 ML VIAL ONE (16:03)
[2022-11-09] MEDS ORDERED: SODIUM CHLORIDE 0.9% P/F 10 ML VIAL IJ ONE (16:03)
[2022-11-09] MEDS ORDERED: ceFAZolin SODIUM 1 GM VIAL ONE (16:03)
[2022-11-09] MEDS ORDERED: BUPIVACAINE HCL/PF 0.5% (5MG/ML) 10 ML VIAL PNB ONE ×2 (16:14)
[2022-11-09] MEDS ORDERED: METOPROLOL TARTRATE 5 MG/5 ML VIAL ONE (16:18)
[2022-11-09] MEDS ORDERED: SUGAMMADEX SODIUM 200 MG/2 ML VIAL ONE (16:25)
[2022-11-09] MEDS: oxyCODONE HCL 5 MG TABLET PO PRN (20:52)
[2022-11-09] MEDS: ATORVASTATIN CA 40 MG TABLET (FP) PO SCH (21:50)
[2022-11-09] MEDS: LIDOCAINE PATCH REMOVAL MC SCH (21:57)
[2022-11-09] MEDS: SODIUM CHLORIDE 0.45% 1,000 ML IV SCH (21:58)
[2022-11-09] MEDS ORDERED: LIDOCAINE PATCH REMOVAL MC SCH (22:00)
[2022-11-09] MEDS ORDERED: amLODIPine BESYLATE 5 MG TABLET (FP) PO SCH (22:00)
[2022-11-10] MEDS: ACETAMINOPHEN 500 MG TABLET (FP) PO SCH ×4 (03:05→18:26)
[2022-11-10] MEDS: hydrALAZINE HCL 50 MG TABLET (FP) PO SCH ×3 (06:24→21:22)
[2022-11-10] MEDS: SODIUM CHLORIDE 0.45% 1,000 ML IV SCH (06:25)
[2022-11-10] MEDS: INSULIN SLIDING SCALE (NOVOLOG) 1 VIAL SQ SCH ×4 (06:26→21:24)
[2022-11-10 07:46] LABS: BASO % 0.5 % (0-2.0); EOS % 0.1 % (0-4.5); HEMATOCRIT 26.4 % (32.4-45.2); HEMOGLOBIN 8.9 GM/dL (10.7-15.3); LYMPH % 11.5 % (8-40); MCH 27.4 pg (25.7-33.7); MCHC 33.8 g/dl (32.0-36.0); MEAN PLT VOLUME 8.8 fl (7.5-11.1); MONO % 6.7 % (3.8-10.2); NEUT % 81.2 % (42.8-82.8); PLATELET COUNT 244 10^3/uL (134-434); RBC 3.25 M/mm3 (3.60-5.2); RDW 16.2 % (11.6-15.6); WHITE BLOOD COUNT 9.4 K/mm3 (4.0-10.0)
[2022-11-10 08:02] LABS: CALCIUM 9.2 mg/dL (8.5-10.1)
[2022-11-10 08:03] LABS: ALBUMIN 3.2 g/dl (3.4-5.0)
[2022-11-10 08:06] LABS: CREATININE 2.4 mg/dL (0.55-1.3)
[2022-11-10 08:07] LABS: BILIRUBIN,TOTAL 0.2 mg/dL (0.2-1); TOT PROT 6.7 g/dl (6.4-8.2)
[2022-11-10] MEDS: LIDOCAINE 5% TOPICAL PATCH TP SCH (09:35)
[2022-11-10] MEDS: PANTOPRAZOLE 40 MG TABLET PO SCH (09:36)
[2022-11-10] MEDS: LABETALOL HCL 200 MG TABLET (FP) PO SCH ×2 (09:36→21:23)
[2022-11-10] MEDS: amLODIPine BESYLATE 5 MG TABLET (FP) PO SCH ×2 (09:36→21:23)
[2022-11-10] MEDS: BUDESONIDE/FORMETEROL FUMARATE 160/4.5 mcg INHALER IH SCH ×2 (09:37→21:28)
[2022-11-10] MEDS: oxyCODONE HCL 5 MG TABLET PO PRN (09:40)
[2022-11-10] MEDS ORDERED: amLODIPine BESYLATE 5 MG TABLET (FP) PO SCH ×2 (10:00)
[2022-11-10] MEDS ORDERED: SPIRONOLACTONE 25 MG TABLET PO SCH (10:00)
[2022-11-10] MEDS ORDERED: SODIUM CHLORIDE 0.45% 1,000 ML IV SCH (17:00)
[2022-11-10] MEDS ORDERED: SODIUM ZIRCONIUM CYCLOSILICATE (LOKELMA) 5 GM PACKET PO SCH (17:00)
[2022-11-10] MEDS: ATORVASTATIN CA 40 MG TABLET (FP) PO SCH (21:23)
[2022-11-10] MEDS: LIDOCAINE PATCH REMOVAL MC SCH (21:30)
[2022-11-11] MEDS: ACETAMINOPHEN 500 MG TABLET (FP) PO SCH ×3 (02:31→12:37)
[2022-11-11] MEDS: oxyCODONE HCL 5 MG TABLET PO PRN ×2 (03:25→14:20)
[2022-11-11] MEDS: hydrALAZINE HCL 50 MG TABLET (FP) PO SCH ×2 (06:16→13:21)
[2022-11-11] MEDS: INSULIN SLIDING SCALE (NOVOLOG) 1 VIAL SQ SCH ×2 (06:30→11:21)
[2022-11-11 08:09] LABS: BASO % 0.9 % (0-2.0); EOS % 4.8 % (0-4.5); HEMATOCRIT 25.1 % (32.4-45.2); HEMOGLOBIN 8.5 GM/dL (10.7-15.3); LYMPH % 24.5 % (8-40); MCH 27.4 pg (25.7-33.7); MCHC 33.8 g/dl (32.0-36.0); MEAN PLT VOLUME 9.1 fl (7.5-11.1); MONO % 11.4 % (3.8-10.2); NEUT % 58.4 % (42.8-82.8); PLATELET COUNT 242 10^3/uL (134-434); RDW 15.9 % (11.6-15.6); WHITE BLOOD COUNT 7.4 K/mm3 (4.0-10.0)
[2022-11-11 08:36] LABS: ALBUMIN 3.1 g/dl (3.4-5.0); BLOOD UREA NITROGEN 56.7 mg/dL (7-18)
[2022-11-11 08:38] LABS: CREATININE 2.3 mg/dL (0.55-1.3)
[2022-11-11 08:41] LABS: BILIRUBIN,TOTAL 0.2 mg/dL (0.2-1); TOT PROT 6.6 g/dl (6.4-8.2)
[2022-11-11] MEDS: amLODIPine BESYLATE 5 MG TABLET (FP) PO SCH (09:34)
[2022-11-11] MEDS: BUDESONIDE/FORMETEROL FUMARATE 160/4.5 mcg INHALER IH SCH (09:34)
[2022-11-11] MEDS: LABETALOL HCL 200 MG TABLET (FP) PO SCH (09:34)
[2022-11-11] MEDS: PANTOPRAZOLE 40 MG TABLET PO SCH (09:34)
[2022-11-11] MEDS: LIDOCAINE 5% TOPICAL PATCH TP SCH (09:35)
[2022-11-11 12:00] VITALS: RESP 18
[2022-11-11 14:47] VITALS: BP 157/58; PULSE 69; TEMP 99
== END 2022-11-11 14:51 | disposition home or self-care (01) | DRG 418 ==
LOC: JER 13:56 → JERBED 17:17 → J7W 22:30
PROVIDERS: ADMIT Internal Medicine; ATTEND Internal Medicine
PROC: 0FT44ZZ Resection of Gallbladder, Percutaneous Endoscopic Approach (ICD-10-PCS; principal; 2022-11-09 15:00)
DX: K80.10 Calculus of gallbladder with chronic cholecystitis without obstruction (principal); I13.0 Hypertensive heart and chronic kidney disease with heart failure and stage 1 through stage 4 chronic kidney disease, or unspecified chronic kidney disease; I42.8 Other cardiomyopathies; N17.9 Acute kidney failure, unspecified; J44.9 Chronic obstructive pulmonary disease, unspecified; E78.5 Hyperlipidemia, unspecified; I25.10 Atherosclerotic heart disease of native coronary artery without angina pectoris; E11.649 Type 2 diabetes mellitus with hypoglycemia without coma; I25.119 Atherosclerotic heart disease of native coronary artery with unspecified angina pectoris; E66.9 Obesity, unspecified; Z68.37 Body mass index [BMI] 37.0-37.9, adult; K21.9 Gastro-esophageal reflux disease without esophagitis; K76.0 Fatty (change of) liver, not elsewhere classified; K59.00 Constipation, unspecified; E11.51 Type 2 diabetes mellitus with diabetic peripheral angiopathy without gangrene; R10.11 Right upper quadrant pain; G47.30 Sleep apnea, unspecified; M54.9 Dorsalgia, unspecified; E87.5 Hyperkalemia; D13.5 Benign neoplasm of extrahepatic bile ducts; E11.22 Type 2 diabetes mellitus with diabetic chronic kidney disease; N18.9 Chronic kidney disease, unspecified; I50.9 Heart failure, unspecified; Z96.651 Presence of right artificial knee joint
CPT/HCPCS: 36415; 72100-TC-FY; 80053; 82962; 83690; 84484; 85025; 85027; 85610; 85730; 86850; 86900; 86901; 88304-TC; 94760; 99285-25; C9803-CS; U0003; U0005

== ENCOUNTER 2022-12-18 17:53 | Observation (INO) | payer OTHER ==
[2022-12-18 18:53] VITALS: BP 146/67; PULSE 70; RESP 20; TEMP 98.2; BMI 36.9
[2022-12-18] MEDS ORDERED: ACETAMINOPHEN 1000 MG/100 ML BAG IVPB ONE (22:47)
[2022-12-18] MEDS ORDERED: ACETAMINOPHEN INJECTION 100 ML IVPB ONE (22:47)
[2022-12-18 23:00] LABS: BASO % 0.8 % (0-2.0); HEMATOCRIT 25.4 % (32.4-45.2); HEMOGLOBIN 8.4 GM/dL (10.7-15.3); LYMPH % 29.2 % (8-40); MCH 27.4 pg (25.7-33.7); MCHC 32.9 g/dl (32.0-36.0); MEAN CELL VOLUME 83.1 fl (80-96); MEAN PLT VOLUME 8.7 fl (7.5-11.1); PLATELET COUNT 270 10^3/uL (134-434); RBC 3.06 M/mm3 (3.60-5.2); RDW 14.9 % (11.6-15.6); WHITE BLOOD COUNT 5.5 K/mm3 (4.0-10.0)
[2022-12-18 23:04] LABS: POTASSIUM 4.4 mmol/L (3.5-5.1)
[2022-12-18 23:06] LABS: CALCIUM 9.7 mg/dL (8.5-10.1)
[2022-12-18 23:07] LABS: ALBUMIN 3.5 g/dl (3.4-5.0); MAGNESIUM 2.5 mg/dL (1.8-2.4)
[2022-12-18 23:10] LABS: CREATININE 2.4 mg/dL (0.55-1.3); TOT PROT 7.4 g/dl (6.4-8.2)
[2022-12-18 23:13] LABS: BILIRUBIN,TOTAL 0.2 mg/dL (0.2-1); BLOOD UREA NITROGEN 58.4 mg/dL (7-18)
[2022-12-19] MEDS ORDERED: ACETAMINOPHEN 500 MG TABLET (FP) PO ONE (04:15)
== END 2022-12-19 04:51 | disposition home or self-care (01) ==
LOC: JER 17:53 → JERBED 12-19 01:24
PROVIDERS: ADMIT Internal Medicine; ATTEND Internal Medicine
PROC: 3E033GC Introduction of Other Therapeutic Substance into Peripheral Vein, Percutaneous Approach (ICD-10-PCS; principal; 2022-12-19)
DX: R07.89 Other chest pain (principal); E11.22 Type 2 diabetes mellitus with diabetic chronic kidney disease; I13.0 Hypertensive heart and chronic kidney disease with heart failure and stage 1 through stage 4 chronic kidney disease, or unspecified chronic kidney disease; N18.9 Chronic kidney disease, unspecified; I50.9 Heart failure, unspecified; Z87.891 Personal history of nicotine dependence; Z79.4 Long term (current) use of insulin; E78.5 Hyperlipidemia, unspecified; J44.9 Chronic obstructive pulmonary disease, unspecified; D64.9 Anemia, unspecified; Z86.73 Personal history of transient ischemic attack (TIA), and cerebral infarction without residual deficits; Z88.8 Allergy status to other drugs, medicaments and biological substances
CPT/HCPCS: 0241U-QW; 36415; 71045-TC-FY; 80053; 83690; 83735; 84484; 85025; 86850; 86900; 86901; 93005; 93010; 96374; 99285-25; G0378

== ENCOUNTER 2023-04-27 12:26 | Inpatient (IN) | payer OTHER ==
[2023-04-27] MEDS ORDERED: NALOXONE HCL 0.4 MG/ML VIAL ONE ×5 (12:37→14:44)
[2023-04-27] MEDS ORDERED: NALOXONE HCL 0.4 MG/ML VIAL IVPUSH ONE ×5 (12:44→14:32)
[2023-04-27 13:00] LABS: BASO % 0.6 % (0-2.0); EOS % 3.3 % (0-4.5); HEMATOCRIT 26.6 % (32.4-45.2); HEMOGLOBIN 8.3 GM/dL (10.7-15.3); LYMPH % 21.7 % (8-40); MCH 27.2 pg (25.7-33.7); MCHC 31.1 g/dl (32.0-36.0); MEAN CELL VOLUME 87.6 fl (80-96); MEAN PLT VOLUME 9.5 fl (7.5-11.1); MONO % 13.5 % (3.8-10.2); NEUT % 60.9 % (42.8-82.8); PLATELET COUNT 259 10^3/uL (134-434); RBC 3.04 M/mm3 (3.60-5.2); RDW 13.8 % (11.6-15.6); WHITE BLOOD COUNT 6.4 K/mm3 (4.0-10.0)
[2023-04-27 13:07] LABS: INR 0.98 (0.83-1.09); PROTHROMBIN TIME (PATIENT) 11.4 SEC (9.7-13.0)
[2023-04-27 13:09] LABS: ACTIVATED PTT 28.2 SECONDS (25.2-36.5)
[2023-04-27 13:18] LABS: CHLORIDE 110 mmol/L (98-107); POTASSIUM 4.4 mmol/L (3.5-5.1); SODIUM 142 mmol/L (136-145)
[2023-04-27 13:20] LABS: ALBUMIN 3.3 g/dl (3.4-5.0); ANION GAP 6 MMOL/L (8-16); BLOOD UREA NITROGEN 54.5 mg/dL (7-18); CALCIUM 8.4 mg/dL (8.5-10.1); CO2 26 mmol/L (21-32); GLUCOSE,RANDOM 225 mg/dL (74-106)
[2023-04-27 13:23] LABS: CREATININE 2.9 mg/dL (0.55-1.3); SGOT/AST 11 U/L (15-37)
[2023-04-27 13:25] LABS: BILIRUBIN,TOTAL 0.6 mg/dL (0.2-1); TOT PROT 6.6 g/dl (6.4-8.2)
[2023-04-27 13:26] LABS: ALK PHOS 95 U/L (45-117)
[2023-04-27 13:36] LABS: SGPT/ALT 28 U/L (13-61)
[2023-04-27] MEDS ORDERED: ALBUTEROL SO4 2.5/IPRATROPIUM 0.5 INH SOL 3 ML VIAL.NEB. NEB ONE ×2 (13:40→13:49)
[2023-04-27 14:05] LABS: URINE APPEARANCE CLEAR; URINE BILIRUBIN NEGATIVE (NEGATIVE); URINE COLOR YELLOW; URINE GLUCOSE (UA) 2+ (NEGATIVE); URINE KETONE NEGATIVE (NEGATIVE); URINE LEUK ESTERASE NEGATIVE (NEGATIVE); URINE NITRITE NEGATIVE (NEGATIVE); URINE PROTEIN NEGATIVE (NEGATIVE); URINE UROBILINOGEN 0.2 mg/dL (0.2-1.0)
[2023-04-27 14:13] LABS: ARTERIAL BLD GAS O2 SATURATION 96.7 % (95-98); ARTERIAL BLOOD GAS PO2 93.6 mmHg (80-100); ARTERIAL BLOOD GAS pH 7.332 (7.350-7.450)
[2023-04-27] MEDS ORDERED: DEXTROSE 50%-WATER 25 GM/50 ML DISP.SYRIN ONE (14:14)
[2023-04-27] MEDS ORDERED: NALOXONE HCL 2 MG in DEXTROSE 5%-WATER - 495 ML IV SCH (14:15)
[2023-04-27] MEDS ORDERED: DEXTROSE 5%-NORMAL SALINE 1,000 ML IV SCH (14:15)
[2023-04-27 14:16] LABS: ALLENS TEST POSITIVE
[2023-04-27] MEDS ORDERED: DEXTROSE 5%-0.45% SALINE 1,000 ML IV SCH (14:30)
[2023-04-27 16:21] LABS: METHADONE, UR NEGATIVE (NEGATIVE); OPIATES, URI NEGATIVE (NEGATIVE); PHENCYCLIDINE,URINE NEGATIVE (NEGATIVE); URINE AMPHETAMINES NEGATIVE (NEGATIVE); URINE BARBITURATES NEGATIVE (NEGATIVE)
[2023-04-27 16:24] LABS: COCAINE, UR NEGATIVE (NEGATIVE); URINE BENZODIAZEPINES NEGATIVE (NEGATIVE)
[2023-04-28] MEDS ORDERED: ACETAMINOPHEN 1000 MG/100 ML BAG IVPB PRN (03:50)
[2023-04-28 05:06] VITALS: BMI 39.7
[2023-04-28] MEDS: HEPARIN NA (PORCINE) 5,000 UNITS/ML 1ML VIAL SQ SCH ×3 (05:37→21:15)
[2023-04-28] MEDS: FUROSEMIDE 40 MG TABLET (FP) PO SCH ×2 (05:39→13:24)
[2023-04-28] MEDS: hydrALAZINE HCL 50 MG TABLET (FP) PO SCH ×3 (05:39→21:17)
[2023-04-28] MEDS: FERROUS SO4 325 MG TABLET (FP) PO SCH ×3 (05:39→21:17)
[2023-04-28] MEDS: INSULIN SLIDING SCALE (NOVOLOG) 1 VIAL SQ SCH ×4 (07:03→21:15)
[2023-04-28 08:50] LABS: BASO % 0.7 % (0-2.0); EOS % 3.1 % (0-4.5); HEMATOCRIT 26.6 % (32.4-45.2); HEMOGLOBIN 8.5 GM/dL (10.7-15.3); LYMPH % 23.3 % (8-40); MCH 27.9 pg (25.7-33.7); MCHC 32.1 g/dl (32.0-36.0); MEAN CELL VOLUME 86.9 fl (80-96); MEAN PLT VOLUME 9.3 fl (7.5-11.1); MONO % 9.1 % (3.8-10.2); NEUT % 63.8 % (42.8-82.8); PLATELET COUNT 261 10^3/uL (134-434); RBC 3.06 M/mm3 (3.60-5.2); RDW 13.6 % (11.6-15.6); WHITE BLOOD COUNT 6.4 K/mm3 (4.0-10.0)
[2023-04-28 09:06] LABS: POTASSIUM 4.3 mmol/L (3.5-5.1)
[2023-04-28 09:11] LABS: ALBUMIN 3.2 g/dl (3.4-5.0); BLOOD UREA NITROGEN 48.9 mg/dL (7-18)
[2023-04-28 09:13] LABS: PHOSPHOROUS 4.3 mg/dL (2.5-4.9)
[2023-04-28 09:14] LABS: CREATININE 2.4 mg/dL (0.55-1.3)
[2023-04-28 09:15] LABS: BILIRUBIN,TOTAL 0.2 mg/dL (0.2-1); MAGNESIUM 2.4 mg/dL (1.8-2.4); TOT PROT 6.8 g/dl (6.4-8.2)
[2023-04-28] MEDS: CLOPIDOGREL BISULFATE 75 MG TABLET (FP) PO SCH (09:41)
[2023-04-28] MEDS: ISOSORBIDE MONONITRATE 60 MG TAB.SR.24H (FP) PO SCH (09:41)
[2023-04-28] MEDS: NIFEdipine E.R. 90 MG TABLET PO SCH (09:41)
[2023-04-28] MEDS: LOSARTAN POTASSIUM 25 MG TABLET PO SCH (09:41)
[2023-04-28] MEDS: LABETALOL HCL 200 MG TABLET (FP) PO SCH ×2 (09:41→21:17)
[2023-04-28] MEDS: SPIRONOLACTONE 25 MG TABLET PO SCH (09:41)
[2023-04-28] MEDS ORDERED: LUBIPROSTONE 8 MCG PO SCH (10:00)
[2023-04-28] MEDS: POLYETHYLENE GLYCOL (HEALTHYLAX) 3350 17 GM PACKET PO SCH (11:55)
[2023-04-28] MEDS: LIDOCAINE 5% TOPICAL PATCH TP SCH (13:22)
[2023-04-28] MEDS: ATORVASTATIN CA 40 MG TABLET (FP) PO SCH (21:16)
[2023-04-28] MEDS: LIDOCAINE PATCH REMOVAL MC SCH (23:46)
[2023-04-29] MEDS: FUROSEMIDE 40 MG TABLET (FP) PO SCH ×2 (05:46→13:14)
[2023-04-29] MEDS: FERROUS SO4 325 MG TABLET (FP) PO SCH ×3 (05:46→21:21)
[2023-04-29] MEDS: hydrALAZINE HCL 50 MG TABLET (FP) PO SCH ×3 (05:46→21:22)
[2023-04-29] MEDS: HEPARIN NA (PORCINE) 5,000 UNITS/ML 1ML VIAL SQ SCH ×3 (05:47→21:22)
[2023-04-29] MEDS: INSULIN SLIDING SCALE (NOVOLOG) 1 VIAL SQ SCH ×4 (06:03→21:23)
[2023-04-29] MEDS: ISOSORBIDE MONONITRATE 60 MG TAB.SR.24H (FP) PO SCH (09:14)
[2023-04-29] MEDS: SPIRONOLACTONE 25 MG TABLET PO SCH (09:14)
[2023-04-29] MEDS: LABETALOL HCL 200 MG TABLET (FP) PO SCH ×2 (09:14→21:22)
[2023-04-29] MEDS: LIDOCAINE 5% TOPICAL PATCH TP SCH (09:14)
[2023-04-29] MEDS: NIFEdipine E.R. 90 MG TABLET PO SCH (09:14)
[2023-04-29] MEDS: LOSARTAN POTASSIUM 25 MG TABLET PO SCH (09:14)
[2023-04-29] MEDS: CLOPIDOGREL BISULFATE 75 MG TABLET (FP) PO SCH (09:14)
[2023-04-29] MEDS: POLYETHYLENE GLYCOL (HEALTHYLAX) 3350 17 GM PACKET PO SCH (09:14)
[2023-04-29 09:51] LABS: BASO % 0.7 % (0-2.0); EOS % 4.7 % (0-4.5); HEMATOCRIT 27.4 % (32.4-45.2); HEMOGLOBIN 8.9 GM/dL (10.7-15.3); LYMPH % 24.7 % (8-40); MCH 27.9 pg (25.7-33.7); MCHC 32.7 g/dl (32.0-36.0); MEAN CELL VOLUME 85.4 fl (80-96); MEAN PLT VOLUME 9.3 fl (7.5-11.1); MONO % 10.3 % (3.8-10.2); NEUT % 59.6 % (42.8-82.8); PLATELET COUNT 271 10^3/uL (134-434)
[2023-04-29 12:04] LABS: ALBUMIN 3.2 g/dl (3.4-5.0); BILIRUBIN,TOTAL 0.3 mg/dL (0.2-1); BLOOD UREA NITROGEN 53.3 mg/dL (7-18); CALCIUM 9.1 mg/dL (8.5-10.1); CREATININE 2.5 mg/dL (0.55-1.3); MAGNESIUM 2.4 mg/dL (1.8-2.4); PHOSPHOROUS 4.6 mg/dL (2.5-4.9); POTASSIUM 4.9 mmol/L (3.5-5.1)
[2023-04-29] MEDS: ACETAMINOPHEN 325 MG TABLET (FP) PO PRN (14:14)
[2023-04-29] MEDS: ATORVASTATIN CA 40 MG TABLET (FP) PO SCH (21:22)
[2023-04-29] MEDS ORDERED: INSULIN (LEVEMIR) 100 UNITS/ML UNITS SQ SCH (22:00)
[2023-04-29] MEDS: LIDOCAINE PATCH REMOVAL MC SCH (22:23)
[2023-04-30] MEDS: FUROSEMIDE 40 MG TABLET (FP) PO SCH ×2 (05:43→13:36)
[2023-04-30] MEDS: hydrALAZINE HCL 50 MG TABLET (FP) PO SCH ×2 (05:43→13:36)
[2023-04-30] MEDS: HEPARIN NA (PORCINE) 5,000 UNITS/ML 1ML VIAL SQ SCH ×2 (05:44→13:36)
[2023-04-30] MEDS: FERROUS SO4 325 MG TABLET (FP) PO SCH ×2 (05:44→13:36)
[2023-04-30] MEDS: INSULIN SLIDING SCALE (NOVOLOG) 1 VIAL SQ SCH ×2 (06:02→12:44)
[2023-04-30] MEDS ORDERED: FAMOTIDINE 20 MG TABLET PO ONE (09:00)
[2023-04-30] MEDS: POLYETHYLENE GLYCOL (HEALTHYLAX) 3350 17 GM PACKET PO SCH (10:12)
[2023-04-30] MEDS: SPIRONOLACTONE 25 MG TABLET PO SCH (10:13)
[2023-04-30] MEDS: LOSARTAN POTASSIUM 25 MG TABLET PO SCH (10:13)
[2023-04-30] MEDS: ISOSORBIDE MONONITRATE 60 MG TAB.SR.24H (FP) PO SCH (10:13)
[2023-04-30] MEDS: CLOPIDOGREL BISULFATE 75 MG TABLET (FP) PO SCH (10:13)
[2023-04-30] MEDS: LABETALOL HCL 200 MG TABLET (FP) PO SCH (10:13)
[2023-04-30] MEDS: NIFEdipine E.R. 90 MG TABLET PO SCH (10:14)
[2023-04-30] MEDS: LIDOCAINE 5% TOPICAL PATCH TP SCH (10:15)
[2023-04-30 10:30] VITALS: RESP 18
[2023-04-30] MEDS: ACETAMINOPHEN 325 MG TABLET (FP) PO PRN (15:21)
[2023-04-30 18:22] VITALS: BP 133/60; PULSE 77; TEMP 97.9
== END 2023-04-30 15:51 | disposition home or self-care (01) | DRG 917 ==
LOC: JER 12:26 → JERBED 14:50 → OBSVTOIN 04-28 01:52 → JERBED 04-28 03:00 → J5S 04-28 03:19
PROVIDERS: ADMIT Internal Medicine; ATTEND Internal Medicine
DX: T40.2X1A Poisoning by other opioids, accidental (unintentional), initial encounter (principal); G92.8 Other toxic encephalopathy; I13.0 Hypertensive heart and chronic kidney disease with heart failure and stage 1 through stage 4 chronic kidney disease, or unspecified chronic kidney disease; J44.9 Chronic obstructive pulmonary disease, unspecified; I50.9 Heart failure, unspecified; E11.649 Type 2 diabetes mellitus with hypoglycemia without coma; E78.5 Hyperlipidemia, unspecified; N18.9 Chronic kidney disease, unspecified; I25.2 Old myocardial infarction; E11.22 Type 2 diabetes mellitus with diabetic chronic kidney disease; E66.9 Obesity, unspecified; Z68.39 Body mass index [BMI] 39.0-39.9, adult; M54.50 Low back pain, unspecified; Y92.89 Other specified places as the place of occurrence of the external cause
CPT/HCPCS: 36415; 36600; 70450-TC; 71045-TC-FY; 80053; 80307; 81003; 82803; 82962; 83036; 83735; 84100; 84484; 85025; 85610; 85730; 87086; 93005; 93010; 97116-GP; 97162-GP; 99285-25; G0378; J1644

== ENCOUNTER 2023-08-03 12:41 | Inpatient (IN) | payer OTHER ==
[2023-08-03] MEDS ORDERED: METOCLOPRAMIDE HCL INJECTION 10 MG/2 ML VIAL IVPUSH ONE (13:21)
[2023-08-03] MEDS ORDERED: ACETAMINOPHEN 1000 MG/100 ML BAG IVPB ONE (13:21)
[2023-08-03] MEDS ORDERED: ALBUTEROL SO4 2.5/IPRATROPIUM 0.5 INH SOL 3 ML VIAL.NEB. NEB ONE ×3 (13:21→14:56)
[2023-08-03] MEDS ORDERED: methylPREDNISolone NA SUCC 125 MG/2 ML VIAL IVPUSH ONE (13:21)
[2023-08-03] MEDS ORDERED: ACETAMINOPHEN INJECTION 100 ML IVPB ONE (13:48)
[2023-08-03] MEDS ORDERED: METOCLOPRAMIDE HCL INJECTION 10 MG/2 ML VIAL ONE (13:48)
[2023-08-03] MEDS ORDERED: methylPREDNISolone NA SUCC 125 MG/2 ML VIAL ONE (13:49)
[2023-08-03 14:19] LABS: HEMATOCRIT 25.9 % (32.4-45.2); HEMOGLOBIN 8.2 GM/dL (10.7-15.3); MCH 27.2 pg (25.7-33.7); MCHC 31.7 g/dl (32.0-36.0); MEAN CELL VOLUME 85.9 fl (80-96); MEAN PLT VOLUME 9.9 fl (7.5-11.1); NEUT % 73.8 % (42.8-82.8); PLATELET COUNT 278 10^3/uL (134-434); RBC 3.02 M/mm3 (3.60-5.2); RDW 13.2 % (11.6-15.6); WHITE BLOOD COUNT 6.6 K/mm3 (4.0-10.0)
[2023-08-03 14:20] LABS: BASO % 0.7 % (0-2.0); EOS % 2.6 % (0-4.5); LYMPH % 13.1 % (8-40); MONO % 9.8 % (3.8-10.2)
[2023-08-03 14:32] LABS: POTASSIUM 5.3 mmol/L (3.5-5.1)
[2023-08-03 14:35] LABS: ALBUMIN 3.4 g/dl (3.4-5.0); BLOOD UREA NITROGEN 71.2 mg/dL (7-18); CALCIUM 9.1 mg/dL (8.5-10.1)
[2023-08-03 14:39] LABS: CREATININE 3.5 mg/dL (0.55-1.3)
[2023-08-03 14:40] LABS: BILIRUBIN,TOTAL 0.2 mg/dL (0.2-1); TOT PROT 7.6 g/dl (6.4-8.2)
[2023-08-03] MEDS ORDERED: SODIUM CHLORIDE 0.9% 1000 ML INFUS.BAG IV ONE (15:38)
[2023-08-03] MEDS ORDERED: ACETAMINOPHEN 325 MG TABLET (FP) PO PRN (17:32)
[2023-08-03 18:44] LABS: COCAINE, UR NEGATIVE (NEGATIVE)
[2023-08-03 18:45] LABS: METHADONE, UR NEGATIVE (NEGATIVE); PHENCYCLIDINE,URINE NEGATIVE (NEGATIVE); URINE AMPHETAMINES NEGATIVE (NEGATIVE); URINE BARBITURATES NEGATIVE (NEGATIVE); URINE BENZODIAZEPINES NEGATIVE (NEGATIVE)
[2023-08-03 18:48] LABS: OPIATES, URI NEGATIVE (NEGATIVE)
[2023-08-03] MEDS: INSULIN SLIDING SCALE (NOVOLOG) 1 VIAL SQ SCH (21:23)
[2023-08-03] MEDS: HEPARIN NA (PORCINE) 5,000 UNITS/ML 1ML VIAL SQ SCH (21:23)
[2023-08-03] MEDS ORDERED: LABETALOL HCL 200 MG TABLET (FP) PO SCH (22:00)
[2023-08-03] MEDS ORDERED: hydrALAZINE HCL 50 MG TABLET (FP) PO SCH (22:00)
[2023-08-04] MEDS: FUROSEMIDE 20 MG TABLET (FP) PO SCH ×2 (06:39→14:56)
[2023-08-04] MEDS: HEPARIN NA (PORCINE) 5,000 UNITS/ML 1ML VIAL SQ SCH ×3 (06:40→21:22)
[2023-08-04] MEDS: INSULIN SLIDING SCALE (NOVOLOG) 1 VIAL SQ SCH ×4 (06:58→21:22)
[2023-08-04] MEDS ORDERED: ISOSORBIDE MONONITRATE 60 MG TAB.SR.24H (FP) PO SCH (10:00)
[2023-08-04] MEDS ORDERED: NIFEdipine E.R. 90 MG TABLET PO SCH (10:00)
[2023-08-04] MEDS ORDERED: SPIRONOLACTONE 25 MG TABLET PO SCH (10:00)
[2023-08-04 10:01] LABS: MCH 27.4 pg (25.7-33.7); MCHC 32.1 g/dl (32.0-36.0); MEAN CELL VOLUME 85.3 fl (80-96); MEAN PLT VOLUME 9.5 fl (7.5-11.1); PLATELET COUNT 259 10^3/uL (134-434); RBC 2.92 M/mm3 (3.60-5.2); RDW 12.8 % (11.6-15.6); WHITE BLOOD COUNT 8.7 K/mm3 (4.0-10.0)
[2023-08-04 10:17] LABS: POTASSIUM 5.3 mmol/L (3.5-5.1)
[2023-08-04 10:25] LABS: ALBUMIN 3.3 g/dl (3.4-5.0); BLOOD UREA NITROGEN 72.4 mg/dL (7-18); CALCIUM 9.1 mg/dL (8.5-10.1)
[2023-08-04 10:27] LABS: BILIRUBIN,TOTAL 0.2 mg/dL (0.2-1); TOT PROT 7.4 g/dl (6.4-8.2)
[2023-08-04 10:28] LABS: CREATININE 3.1 mg/dL (0.55-1.3)
[2023-08-04] MEDS: ATORVASTATIN CA 40 MG TABLET (FP) PO SCH (11:28)
[2023-08-04] MEDS: CLOPIDOGREL BISULFATE 75 MG TABLET (FP) PO SCH (11:29)
[2023-08-04 16:39] LABS: N-TERMINAL BNP 983.4 pg/ml (5-125)
[2023-08-04] MEDS ORDERED: SODIUM ZIRCONIUM CYCLOSILICATE (LOKELMA) 5 GM PACKET PO ONE (17:02)
[2023-08-04] MEDS ORDERED: INSULIN (NOVOLOG) ASPART 100 UNITS/ML 10ML VIAL ONE (21:07)
[2023-08-05] MEDS: FUROSEMIDE 20 MG TABLET (FP) PO SCH ×2 (06:16→13:06)
[2023-08-05] MEDS: INSULIN SLIDING SCALE (NOVOLOG) 1 VIAL SQ SCH ×4 (06:16→22:03)
[2023-08-05] MEDS: HEPARIN NA (PORCINE) 5,000 UNITS/ML 1ML VIAL SQ SCH ×3 (06:16→22:03)
[2023-08-05] MEDS: ATORVASTATIN CA 40 MG TABLET (FP) PO SCH (09:17)
[2023-08-05] MEDS: CLOPIDOGREL BISULFATE 75 MG TABLET (FP) PO SCH (09:17)
[2023-08-05] MEDS ORDERED: INSULIN (NOVOLOG) ASPART 100 UNITS/ML 10ML VIAL ONE ×2 (12:48→17:59)
[2023-08-05 18:34] VITALS: BMI 38.6
[2023-08-05] MEDS: LABETALOL HCL 200 MG TABLET (FP) PO SCH ×2 (22:03→22:09)
[2023-08-06 02:02] VITALS: RESP 18
[2023-08-06] MEDS: HEPARIN NA (PORCINE) 5,000 UNITS/ML 1ML VIAL SQ SCH ×2 (06:07→13:33)
[2023-08-06] MEDS: FUROSEMIDE 20 MG TABLET (FP) PO SCH ×2 (06:07→13:33)
[2023-08-06] MEDS: INSULIN SLIDING SCALE (NOVOLOG) 1 VIAL SQ SCH ×2 (06:08→11:24)
[2023-08-06] MEDS: hydrALAZINE HCL 50 MG TABLET (FP) PO SCH ×2 (06:11→13:33)
[2023-08-06] MEDS: ATORVASTATIN CA 40 MG TABLET (FP) PO SCH (09:52)
[2023-08-06] MEDS: CLOPIDOGREL BISULFATE 75 MG TABLET (FP) PO SCH (09:52)
[2023-08-06] MEDS: LABETALOL HCL 200 MG TABLET (FP) PO SCH (09:52)
[2023-08-06 10:04] LABS: BASO % 0.9 % (0-2.0); EOS % 3.8 % (0-4.5); HEMATOCRIT 27.8 % (32.4-45.2); HEMOGLOBIN 8.8 GM/dL (10.7-15.3); MCHC 31.9 g/dl (32.0-36.0); MEAN CELL VOLUME 84.7 fl (80-96); MEAN PLT VOLUME 9.5 fl (7.5-11.1); MONO % 9.7 % (3.8-10.2); NEUT % 55.6 % (42.8-82.8); PLATELET COUNT 305 10^3/uL (134-434); RBC 3.28 M/mm3 (3.60-5.2); WHITE BLOOD COUNT 5.3 K/mm3 (4.0-10.0)
[2023-08-06 10:33] LABS: POTASSIUM 4.8 mmol/L (3.5-5.1)
[2023-08-06 10:37] LABS: ALBUMIN 3.2 g/dl (3.4-5.0); BLOOD UREA NITROGEN 67.6 mg/dL (7-18)
[2023-08-06 10:40] LABS: CALCIUM 9.4 mg/dL (8.5-10.1); CREATININE 2.4 mg/dL (0.55-1.3)
[2023-08-06 10:41] LABS: BILIRUBIN,TOTAL 0.2 mg/dL (0.2-1)
[2023-08-06 10:42] LABS: TOT PROT 7.2 g/dl (6.4-8.2)
[2023-08-06] MEDS ORDERED: INSULIN (NOVOLOG) ASPART 100 UNITS/ML 10ML VIAL ONE (11:21)
[2023-08-06 15:14] VITALS: BP 162/67; PULSE 77; TEMP 98.6
== END 2023-08-06 15:52 | disposition home or self-care (01) | DRG 292 ==
LOC: JER 12:41 → JERBED 15:40 → J8W 19:55
PROVIDERS: ADMIT Internal Medicine; ATTEND Internal Medicine
DX: I13.0 Hypertensive heart and chronic kidney disease with heart failure and stage 1 through stage 4 chronic kidney disease, or unspecified chronic kidney disease (principal); J44.1 Chronic obstructive pulmonary disease with (acute) exacerbation; E11.22 Type 2 diabetes mellitus with diabetic chronic kidney disease; N18.30 Chronic kidney disease, stage 3 unspecified; J45.909 Unspecified asthma, uncomplicated; D63.8 Anemia in other chronic diseases classified elsewhere; E66.9 Obesity, unspecified; I25.10 Atherosclerotic heart disease of native coronary artery without angina pectoris; E78.5 Hyperlipidemia, unspecified; E87.5 Hyperkalemia; G47.33 Obstructive sleep apnea (adult) (pediatric); I50.9 Heart failure, unspecified
CPT/HCPCS: 0241U-QW; 36415; 71045-TC-FY; 80053; 80307; 82728; 82962; 83615; 83735; 83880; 84436; 84443; 84484; 85025; 85027; 85045; 86140; 93005; 93010; 93306-TC; 97116-GP; 97161-GP; 99285-25; J1644

== ENCOUNTER 2023-09-05 15:12 | Inpatient (IN) | payer OTHER ==
[2023-09-05] MEDS ORDERED: ACETAMINOPHEN 1000 MG/100 ML BAG IVPB ONE (15:59)
[2023-09-05 16:20] LABS: BASO % 1.1 % (0-2.0); EOS % 2.4 % (0-4.5); HEMATOCRIT 27.4 % (32.4-45.2); HEMOGLOBIN 8.7 GM/dL (10.7-15.3); LYMPH % 17.1 % (8-40); MCH 27.5 pg (25.7-33.7); MCHC 31.8 g/dl (32.0-36.0); MEAN CELL VOLUME 86.5 fl (80-96); MEAN PLT VOLUME 8.7 fl (7.5-11.1); MONO % 8.6 % (3.8-10.2); NEUT % 70.8 % (42.8-82.8); PLATELET COUNT 276 10^3/uL (134-434); RBC 3.17 M/mm3 (3.60-5.2); RDW 13.1 % (11.6-15.6)
[2023-09-05 16:23] LABS: EPI CELLS 28 /uL (0-25.1); HYALINE CASTS 0 /uL (0-3.1); URINE APPEARANCE CLEAR; URINE BACTERIA 125 /uL (0-1359); URINE BILIRUBIN NEGATIVE (NEGATIVE); URINE COLOR YELLOW; URINE GLUCOSE (UA) 2+ (NEGATIVE); URINE KETONE NEGATIVE (NEGATIVE); URINE LEUK ESTERASE 1+ (NEGATIVE); URINE NITRITE NEGATIVE (NEGATIVE); URINE PROTEIN NEGATIVE (NEGATIVE); URINE RBC 10 /uL (0-23.9); URINE UROBILINOGEN 0.2 mg/dL (0.2-1.0); URINE WBC 50 /uL (0-25.8)
[2023-09-05 16:38] LABS: POTASSIUM 4.9 mmol/L (3.5-5.1)
[2023-09-05 16:39] LABS: CALCIUM 8.9 mg/dL (8.5-10.1)
[2023-09-05 16:40] LABS: ALBUMIN 3.8 g/dl (3.4-5.0); BLOOD UREA NITROGEN 68.6 mg/dL (7-18); MAGNESIUM 3.1 mg/dL (1.8-2.4)
[2023-09-05 16:43] LABS: CREATININE 4.2 mg/dL (0.55-1.3)
[2023-09-05 16:45] LABS: BILIRUBIN,TOTAL 0.2 mg/dL (0.2-1); TOT PROT 7.8 g/dl (6.4-8.2)
[2023-09-05] MEDS ORDERED: ACETAMINOPHEN INJECTION 100 ML IVPB ONE (16:46)
[2023-09-05] MEDS ORDERED: CEFTRIAXONE 1,000 MG in DEXTROSE 5%-WATER - 50 ML IVPB ONE (17:03)
[2023-09-05] MEDS ORDERED: SODIUM CHLORIDE 0.9% 500 ML INFUS.BAG IV ONE (17:06)
[2023-09-05] MEDS ORDERED: CEFTRIAXONE 1 GM/50 ML BAG ONE (17:25)
[2023-09-05] MEDS: ATORVASTATIN CA 40 MG TABLET (FP) PO SCH (22:57)
[2023-09-05] MEDS: LABETALOL HCL 200 MG TABLET (FP) PO SCH (22:57)
[2023-09-05] MEDS: HEPARIN NA (PORCINE) 5,000 UNITS/ML 1ML VIAL SQ SCH (22:57)
[2023-09-05] MEDS: hydrALAZINE HCL 50 MG TABLET (FP) PO SCH (22:57)
[2023-09-05] MEDS: INSULIN ASPART SLIDING SCALE (NOVOLOG) 1 VIAL SQ SCH (22:58)
[2023-09-06] MEDS: HEPARIN NA (PORCINE) 5,000 UNITS/ML 1ML VIAL SQ SCH ×3 (06:08→21:23)
[2023-09-06] MEDS: hydrALAZINE HCL 50 MG TABLET (FP) PO SCH ×3 (06:09→21:27)
[2023-09-06] MEDS: INSULIN ASPART SLIDING SCALE (NOVOLOG) 1 VIAL SQ SCH ×4 (06:19→21:34)
[2023-09-06] MEDS: ISOSORBIDE MONONITRATE 60 MG TAB.SR.24H (FP) PO SCH (09:45)
[2023-09-06] MEDS: LOSARTAN POTASSIUM 25 MG TABLET PO SCH (09:45)
[2023-09-06] MEDS: LABETALOL HCL 200 MG TABLET (FP) PO SCH ×2 (09:45→21:23)
[2023-09-06] MEDS: TAMSULOSIN HCL 0.4 MG CAP PO SCH (09:45)
[2023-09-06] MEDS: CLOPIDOGREL BISULFATE 75 MG TABLET (FP) PO SCH (09:45)
[2023-09-06] MEDS ORDERED: PATIENT'S OWN MEDICATION (NON-FORMULARY) (Dapagliflozin Propanediol 10 MG Tablet) PO SCH (10:00)
[2023-09-06] MEDS ORDERED: CEFTRIAXONE 1 GM in DEXTROSE 5%-WATER - 50 ML IVPB ONE (10:00)
[2023-09-06 10:19] LABS: BASO % 0.5 % (0-2.0); HEMATOCRIT 24.4 % (32.4-45.2); HEMOGLOBIN 7.8 GM/dL (10.7-15.3); LYMPH % 30.4 % (8-40); MCH 27.5 pg (25.7-33.7); MEAN PLT VOLUME 9.8 fl (7.5-11.1); MONO % 10.8 % (3.8-10.2); NEUT % 53.3 % (42.8-82.8); PLATELET COUNT 240 10^3/uL (134-434); RBC 2.84 M/mm3 (3.60-5.2); RDW 13.4 % (11.6-15.6); WHITE BLOOD COUNT 4.7 K/mm3 (4.0-10.0)
[2023-09-06 10:44] LABS: POTASSIUM 4.8 mmol/L (3.5-5.1)
[2023-09-06 10:50] LABS: ALBUMIN 3.2 g/dl (3.4-5.0); CALCIUM 8.9 mg/dL (8.5-10.1)
[2023-09-06 10:52] LABS: BLOOD UREA NITROGEN 58.8 mg/dL (7-18); MAGNESIUM 3.1 mg/dL (1.8-2.4)
[2023-09-06 10:55] LABS: BILIRUBIN,TOTAL 0.2 mg/dL (0.2-1); CREATININE 3.5 mg/dL (0.55-1.3); PHOSPHOROUS 4.9 mg/dL (2.5-4.9)
[2023-09-06] MEDS ORDERED: SODIUM CHLORIDE 1,000 ML IV SCH (12:00)
[2023-09-06 13:49] VITALS: BMI 40.7
[2023-09-06] MEDS: SODIUM CHLORIDE 0.45% 1,000 ML IV SCH (14:40)
[2023-09-06] MEDS: ACETAMINOPHEN 1000 MG/100 ML BAG IVPB PRN ×2 (15:24→20:29)
[2023-09-06] MEDS: ATORVASTATIN CA 40 MG TABLET (FP) PO SCH (21:23)
[2023-09-07] MEDS: HEPARIN NA (PORCINE) 5,000 UNITS/ML 1ML VIAL SQ SCH ×3 (05:42→22:15)
[2023-09-07] MEDS: hydrALAZINE HCL 50 MG TABLET (FP) PO SCH ×3 (05:42→22:15)
[2023-09-07] MEDS: INSULIN ASPART SLIDING SCALE (NOVOLOG) 1 VIAL SQ SCH ×4 (06:21→22:16)
[2023-09-07] MEDS: TAMSULOSIN HCL 0.4 MG CAP PO SCH (09:27)
[2023-09-07] MEDS: LABETALOL HCL 200 MG TABLET (FP) PO SCH ×2 (09:28→22:15)
[2023-09-07] MEDS: CLOPIDOGREL BISULFATE 75 MG TABLET (FP) PO SCH (09:28)
[2023-09-07] MEDS: LOSARTAN POTASSIUM 25 MG TABLET PO SCH (09:28)
[2023-09-07] MEDS: ISOSORBIDE MONONITRATE 60 MG TAB.SR.24H (FP) PO SCH (09:28)
[2023-09-07] MEDS ORDERED: CEFTRIAXONE 1 GM in DEXTROSE 5%-WATER - 50 ML IVPB SCH (10:00)
[2023-09-07 10:31] LABS: BASO % 0.7 % (0-2.0); EOS % 5.3 % (0-4.5); HEMOGLOBIN 7.5 GM/dL (10.7-15.3); LYMPH % 25.6 % (8-40); MCH 26.9 pg (25.7-33.7); MCHC 31.2 g/dl (32.0-36.0); MEAN CELL VOLUME 86.2 fl (80-96); MEAN PLT VOLUME 9.4 fl (7.5-11.1); MONO % 8.5 % (3.8-10.2); NEUT % 59.9 % (42.8-82.8); PLATELET COUNT 232 10^3/uL (134-434); RBC 2.78 M/mm3 (3.60-5.2); RDW 13.3 % (11.6-15.6)
[2023-09-07 10:55] LABS: CHLORIDE 113 mmol/L (98-107); POTASSIUM 4.8 mmol/L (3.5-5.1); SODIUM 141 mmol/L (136-145)
[2023-09-07 11:09] LABS: CALCIUM 8.8 mg/dL (8.5-10.1)
[2023-09-07 11:10] LABS: ALBUMIN 3.3 g/dl (3.4-5.0); BLOOD UREA NITROGEN 55.1 mg/dL (7-18); GLUCOSE,RANDOM 182 mg/dL (74-106); SGPT/ALT 11 U/L (13-61)
[2023-09-07 11:11] LABS: ANION GAP 6 mmol/L (4-13); BILIRUBIN,TOTAL < 0.1 mg/dL (0.2-1); CO2 22 mmol/L (21-32); MAGNESIUM 2.8 mg/dL (1.8-2.4); TOT PROT 6.7 g/dl (6.4-8.2)
[2023-09-07 11:13] LABS: ALK PHOS 81 U/L (45-117)
[2023-09-07 11:14] LABS: CREATININE 2.8 mg/dL (0.55-1.3); SGOT/AST 7 U/L (15-37)
[2023-09-07] MEDS: SODIUM CHLORIDE 0.45% 1,000 ML IV SCH ×2 (12:13→13:59)
[2023-09-07] MEDS: ATORVASTATIN CA 40 MG TABLET (FP) PO SCH (22:15)
[2023-09-08] MEDS: hydrALAZINE HCL 50 MG TABLET (FP) PO SCH (06:19)
[2023-09-08] MEDS: HEPARIN NA (PORCINE) 5,000 UNITS/ML 1ML VIAL SQ SCH (06:19)
[2023-09-08] MEDS: INSULIN ASPART SLIDING SCALE (NOVOLOG) 1 VIAL SQ SCH ×2 (06:21→11:46)
[2023-09-08 07:20] VITALS: BP 148/67; PULSE 84; RESP 18; TEMP 98.3
[2023-09-08] MEDS: ISOSORBIDE MONONITRATE 60 MG TAB.SR.24H (FP) PO SCH (09:58)
[2023-09-08] MEDS: CLOPIDOGREL BISULFATE 75 MG TABLET (FP) PO SCH (09:58)
[2023-09-08] MEDS: LABETALOL HCL 200 MG TABLET (FP) PO SCH (09:58)
[2023-09-08] MEDS: TAMSULOSIN HCL 0.4 MG CAP PO SCH (09:58)
[2023-09-08 10:14] LABS: HEMATOCRIT 25.5 % (32.4-45.2); HEMOGLOBIN 8.1 GM/dL (10.7-15.3); MCH 27.5 pg (25.7-33.7); MCHC 31.9 g/dl (32.0-36.0); MEAN CELL VOLUME 86.2 fl (80-96); MEAN PLT VOLUME 9.4 fl (7.5-11.1); PLATELET COUNT 242 10^3/uL (134-434); RBC 2.96 M/mm3 (3.60-5.2); RDW 13.5 % (11.6-15.6); WHITE BLOOD COUNT 4.6 K/mm3 (4.0-10.0)
[2023-09-08 10:35] LABS: POTASSIUM 4.9 mmol/L (3.5-5.1)
[2023-09-08 10:36] LABS: CALCIUM 9.1 mg/dL (8.5-10.1)
[2023-09-08 10:37] LABS: BLOOD UREA NITROGEN 41.5 mg/dL (7-18)
[2023-09-08 10:40] LABS: CREATININE 2.4 mg/dL (0.55-1.3)
== END 2023-09-08 14:43 | disposition home or self-care (01) | DRG 292 ==
LOC: JER 15:12 → JERBED 17:15 → J5S 21:22
PROVIDERS: ADMIT Internal Medicine
DX: I13.0 Hypertensive heart and chronic kidney disease with heart failure and stage 1 through stage 4 chronic kidney disease, or unspecified chronic kidney disease (principal); N12 Tubulo-interstitial nephritis, not specified as acute or chronic; I50.32 Chronic diastolic (congestive) heart failure; Z68.41 Body mass index [BMI] 40.0-44.9, adult; N17.9 Acute kidney failure, unspecified; N20.0 Calculus of kidney; E11.22 Type 2 diabetes mellitus with diabetic chronic kidney disease; N18.9 Chronic kidney disease, unspecified; J44.9 Chronic obstructive pulmonary disease, unspecified; E78.5 Hyperlipidemia, unspecified; I25.10 Atherosclerotic heart disease of native coronary artery without angina pectoris; K21.9 Gastro-esophageal reflux disease without esophagitis; E86.0 Dehydration; D64.9 Anemia, unspecified; K29.00 Acute gastritis without bleeding; K52.9 Noninfective gastroenteritis and colitis, unspecified; E66.01 Morbid (severe) obesity due to excess calories
CPT/HCPCS: 0241U-QW; 36415; 74176-TC; 80048; 80053; 81003; 82962; 83735; 84100; 85025; 85027; 86140; 87086; 97116-GP; 97162-GP; 99285-25; J1644

== ENCOUNTER 2024-04-27 04:21 | Inpatient (IN) | payer OTHER ==
[2024-04-27] MEDS: DEXTROSE 50%-WATER - 25 GM/50 ML VIAL IVPUSH ONE ×3 (04:27→10:52)
[2024-04-27 04:28] VITALS: BMI 32.8
[2024-04-27] MEDS ORDERED: DEXTROSE 50%-WATER 25 GM/50 ML DISP.SYRIN ONE ×2 (04:31→10:29)
[2024-04-27] MEDS ORDERED: NALOXONE HCL 0.4 MG/ML VIAL ONE (04:37)
[2024-04-27] MEDS: LACTATED RINGERS SOLUTION 1,000 ML/1,000 ML INFUS.BAG IV SCH (04:50)
[2024-04-27] MEDS: NALOXONE HCL 0.4 MG/ML VIAL IVPUSH ONE ×2 (05:09→05:15)
[2024-04-27 05:28] LABS: VENOUS BASE EXCESS -13.2 mmol/L (-2-2); VENOUS O2 SATURATION 59.3 % (70-80); VENOUS PCO2 46.8 mmHg (38-52)
[2024-04-27 05:31] LABS: BASO % 0.1 % (0-2.0); EOS % 4.5 % (0-4.5); HEMATOCRIT 21.7 % (32.4-45.2); MCH 27.5 pg (25.7-33.7); MEAN CELL VOLUME 88.8 fl (80-96); MEAN PLT VOLUME 10.7 fl (7.5-11.1); MONO % 5.3 % (3.8-10.2); NEUT % 80.1 % (42.8-82.8); PLATELET COUNT 162 10^3/uL (134-434); RBC 2.45 M/mm3 (3.60-5.2); RDW 13.6 % (11.6-15.6); WHITE BLOOD COUNT 5.7 K/mm3 (4.0-10.0)
[2024-04-27 05:46] LABS: VENOUS PH 7.138 (7.310-7.410)
[2024-04-27 05:52] LABS: CHLORIDE 108 mmol/L (98-107); POTASSIUM 5.9 mmol/L (3.5-5.1); SODIUM 133 mmol/L (136-145)
[2024-04-27 05:54] LABS: ALBUMIN 3.3 g/dl (3.4-5.0); CALCIUM 8.5 mg/dL (8.5-10.1)
[2024-04-27 05:55] LABS: ANION GAP 9 mmol/L (4-13); CO2 15 mmol/L (21-32); GLUCOSE,RANDOM 374 mg/dL (74-106); MAGNESIUM 1.7 mg/dL (1.8-2.4)
[2024-04-27 05:57] LABS: SGOT/AST 8 U/L (15-37); SGPT/ALT 11 U/L (13-61)
[2024-04-27 05:58] LABS: PHOSPHOROUS 4.6 mg/dL (2.5-4.9)
[2024-04-27 05:59] LABS: BILIRUBIN,TOTAL 0.3 mg/dL (0.2-1); HEMOGLOBIN 6.7 GM/dL (10.7-15.3); TOT PROT 6.2 g/dl (6.4-8.2)
[2024-04-27 06:00] LABS: ALK PHOS 71 U/L (45-117); BLOOD UREA NITROGEN 120.3 mg/dL (7-18)
[2024-04-27 06:20] LABS: INR 0.95 (0.83-1.09); PROTHROMBIN TIME (PATIENT) 10.8 SEC (9.7-13.0)
[2024-04-27 06:23] LABS: ACTIVATED PTT 28.8 SECONDS (25.2-36.5)
[2024-04-27 06:24] LABS: N-TERMINAL BNP 227.5 pg/ml (5-125)
[2024-04-27] MEDS ORDERED: SODIUM BICARBONATE 8.4% 50 MEQ/50 ML VIAL ONE (06:31)
[2024-04-27] MEDS ORDERED: CALCIUM CHLORIDE 1 GM/10 ML *DISP.SYRIN ONE (06:31)
[2024-04-27] MEDS ORDERED: SODIUM BICARBONATE 8.4% 50 MEQ/50 ML DISP.SYRIN ONE ×2 (06:33→06:39)
[2024-04-27] MEDS ORDERED: MAGNESIUM 1GM/D5W - 1 GM/100 ML IVPB IVPB ONE (06:33)
[2024-04-27] MEDS: MAGNESIUM SULF 50% (8.12 MEQ/2 ML-1 GM VIAL) IVPB ONE (06:41)
[2024-04-27] MEDS: INSULIN REGULAR HUMAN 100 UNITS/ML *VIAL IVPUSH ONE ×2 (06:41→10:52)
[2024-04-27] MEDS: SODIUM CHLORIDE 1,000 ML IV STA (06:41)
[2024-04-27] MEDS ORDERED: CALCIUM GLUC IN NACL, ISO-OSM 1 GM/50 ML BAG IVPB ONE (06:42)
[2024-04-27] MEDS: SODIUM BICARBONATE 8.4% 50 MEQ/50 ML VIAL IV ONE (06:42)
[2024-04-27] MEDS: CALCIUM GLUCONATE 10% - 1,000 MG/10 ML VIAL IVPUSH ONE (06:46)
[2024-04-27] MEDS: SODIUM BICARBONATE 8.4% 50 MEQ/50 ML VIAL IVPUSH ONE (06:47)
[2024-04-27 08:03] LABS: VENOUS O2 SATURATION 64.2 % (70-80); VENOUS PCO2 44.4 mmHg (38-52); VENOUS PH 7.203 (7.310-7.410)
[2024-04-27 08:30] LABS: EPI CELLS 20 /uL (0-25.1); HYALINE CASTS 2 /uL (0-3.1); URINE APPEARANCE CLEAR; URINE BACTERIA 120 /uL (0-1359); URINE BILIRUBIN NEGATIVE (NEGATIVE); URINE COLOR YELLOW; URINE GLUCOSE (UA) NEGATIVE (NEGATIVE); URINE KETONE NEGATIVE (NEGATIVE); URINE LEUK ESTERASE TRACE (NEGATIVE); URINE NITRITE NEGATIVE (NEGATIVE); URINE PROTEIN NEGATIVE (NEGATIVE); URINE RBC 18 /uL (0-23.9); URINE UROBILINOGEN 0.2 mg/dL (0.2-1.0); URINE WBC 23 /uL (0-25.8)
[2024-04-27 08:39] LABS: CHLORIDE 109 mmol/L (98-107); POTASSIUM 5.7 mmol/L (3.5-5.1); SODIUM 137 mmol/L (136-145)
[2024-04-27 08:41] LABS: ANION GAP 11 mmol/L (4-13); CO2 18 mmol/L (21-32); GLUCOSE,RANDOM 255 mg/dL (74-106)
[2024-04-27 08:42] LABS: BLOOD UREA NITROGEN 121.3 mg/dL (7-18); CALCIUM 10.1 mg/dL (8.5-10.1)
[2024-04-27 08:44] LABS: CREATININE 5.7 mg/dL (0.55-1.3)
[2024-04-27 09:43] LABS: CHLORIDE 109 mmol/L (98-107); POTASSIUM 5.5 mmol/L (3.5-5.1); SODIUM 136 mmol/L (136-145)
[2024-04-27 09:46] LABS: ALBUMIN 3.6 g/dl (3.4-5.0); ANION GAP 9 mmol/L (4-13); CO2 18 mmol/L (21-32); GLUCOSE,RANDOM 213 mg/dL (74-106)
[2024-04-27 09:49] LABS: CREATININE 5.6 mg/dL (0.55-1.3); SGOT/AST 7 U/L (15-37); SGPT/ALT 13 U/L (13-61)
[2024-04-27 09:50] LABS: BILIRUBIN,TOTAL 0.2 mg/dL (0.2-1); TOT PROT 6.7 g/dl (6.4-8.2)
[2024-04-27] MEDS ORDERED: SODIUM ZIRCONIUM CYCLOSILICATE (LOKELMA) 5 GM PACKET PO ONE (09:51)
[2024-04-27] MEDS ORDERED: SODIUM BICARBONATE 4.2% 5 MEQ/10 ML DISP.SYRIN IVPUSH ONE (09:51)
[2024-04-27 09:52] LABS: ALK PHOS 80 U/L (45-117)
[2024-04-27] MEDS: PANTOPRAZOLE SODIUM 40 MG VIAL IVPUSH SCH (10:27)
[2024-04-27] MEDS: SODIUM ZIRCONIUM CYCLOSILICATE (LOKELMA) 5 GM PACKET PO ONE (10:27)
[2024-04-27] MEDS: SODIUM BICARBONATE 8.4% 50 MEQ/50 ML DISP.SYRIN IVPUSH ONE (10:27)
[2024-04-27] MEDS ORDERED: SODIUM BICARBONATE 650 MG TABLET PO SCH (10:45)
[2024-04-27] MEDS: MUPIROCIN 2% TOPICAL OINTMENT FOR DECOLONIZATION NS SCH (10:52)
[2024-04-27] MEDS ORDERED: DEXTROSE 5%-WATER - 1,000 ML with SODIUM BICARBONATE 8.4% - 150 MEQ IV SCH (12:00)
[2024-04-27] MEDS: SODIUM BICARBONATE 650 MG TABLET PO SCH (12:11)
[2024-04-27] MEDS: SODIUM BICARBONATE 8.4% - 150 MEQ in DEXTROSE 5%-WATER - 1,000 ML IV SCH (13:55)
[2024-04-27] MEDS: HEPARIN NA (PORCINE) 5,000 UNITS/ML 1ML VIAL SQ SCH (13:55)
[2024-04-27 15:51] LABS: HEMATOCRIT 24.8 % (32.4-45.2); HEMOGLOBIN 7.9 GM/dL (10.7-15.3); MCH 27.9 pg (25.7-33.7); MEAN CELL VOLUME 87.2 fl (80-96); MEAN PLT VOLUME 10.5 fl (7.5-11.1); PLATELET COUNT 177 10^3/uL (134-434); RBC 2.84 M/mm3 (3.60-5.2); RDW 13.7 % (11.6-15.6); WHITE BLOOD COUNT 5.1 K/mm3 (4.0-10.0)
[2024-04-27 18:16] LABS: CHLORIDE 110 mmol/L (98-107); POTASSIUM 4.7 mmol/L (3.5-5.1); SODIUM 139 mmol/L (136-145)
[2024-04-27 18:18] LABS: ALBUMIN 3.3 g/dl (3.4-5.0); CALCIUM 8.8 mg/dL (8.5-10.1)
[2024-04-27 18:19] LABS: ANION GAP 8 mmol/L (4-13); CO2 21 mmol/L (21-32); GLUCOSE,RANDOM 128 mg/dL (74-106)
[2024-04-27 18:20] LABS: BLOOD UREA NITROGEN 115.2 mg/dL (7-18)
[2024-04-27 18:21] LABS: SGPT/ALT 13 U/L (13-61)
[2024-04-27 18:22] LABS: CREATININE 5.1 mg/dL (0.55-1.3); SGOT/AST 7 U/L (15-37)
[2024-04-27 18:23] LABS: BILIRUBIN,TOTAL 0.5 mg/dL (0.2-1); TOT PROT 6.2 g/dl (6.4-8.2)
[2024-04-27 18:24] LABS: ALK PHOS 76 U/L (45-117)
[2024-04-27] MEDS: CHLORHEXIDINE GLUCONATE 4% CLEANSER FOR DECOLONIZATION TP SCH (21:05)
[2024-04-28 08:30] LABS: BASO % 0.3 % (0-2.0); EOS % 8.5 % (0-4.5); HEMATOCRIT 24.1 % (32.4-45.2); HEMOGLOBIN 7.9 GM/dL (10.7-15.3); MCH 28.2 pg (25.7-33.7); MCHC 32.9 g/dl (32.0-36.0); MEAN CELL VOLUME 85.6 fl (80-96); MEAN PLT VOLUME 10.6 fl (7.5-11.1); MONO % 5.4 % (3.8-10.2); NEUT % 57.8 % (42.8-82.8); PLATELET COUNT 191 10^3/uL (134-434); RBC 2.81 M/mm3 (3.60-5.2); RDW 13.4 % (11.6-15.6)
[2024-04-28 08:38] LABS: ACTIVATED PTT 28.7 SECONDS (25.2-36.5)
[2024-04-28 08:39] LABS: INR 0.96 (0.83-1.09); PROTHROMBIN TIME (PATIENT) 10.9 SEC (9.7-13.0)
[2024-04-28 08:45] LABS: POTASSIUM 4.5 mmol/L (3.5-5.1)
[2024-04-28 08:49] LABS: ALBUMIN 3.3 g/dl (3.4-5.0); BLOOD UREA NITROGEN 98.8 mg/dL (7-18); CALCIUM 8.7 mg/dL (8.5-10.1)
[2024-04-28 08:52] LABS: CREATININE 3.9 mg/dL (0.55-1.3); PHOSPHOROUS 3.4 mg/dL (2.5-4.9)
[2024-04-28 08:54] LABS: BILIRUBIN,TOTAL 0.4 mg/dL (0.2-1); TOT PROT 6.2 g/dl (6.4-8.2)
[2024-04-28] MEDS: SODIUM ZIRCONIUM CYCLOSILICATE (LOKELMA) 5 GM PACKET PO SCH (09:42)
[2024-04-28 10:22] VITALS: RESP 18
[2024-04-28] MEDS: ISOSORBIDE MONONITRATE 30 MG TAB.SR.24H (FP) PO SCH (13:04)
[2024-04-28] MEDS: hydrALAZINE HCL 50 MG TABLET (FP) PO SCH ×2 (13:05→22:22)
[2024-04-28] MEDS: NIFEdipine E.R. 30 MG TABLET PO SCH (13:05)
[2024-04-28] MEDS: LACTATED RINGERS SOLUTION 1,000 ML/1,000 ML INFUS.BAG IV SCH ×2 (13:36→23:33)
[2024-04-28] MEDS: EMPAGLIFLOZIN (JARDIANCE) 10 MG TABLET PO SCH (18:14)
[2024-04-28] MEDS: INSULIN ASPART SLIDING SCALE (NOVOLOG) 1 VIAL SQ SCH (18:14)
[2024-04-28] MEDS: LOSARTAN POTASSIUM 50 MG TABLET PO SCH (18:48)
[2024-04-28] MEDS ORDERED: PATIENT'S OWN MEDICATION (NON-FORMULARY) (Dulaglutide [Trulicity] 0.75 MG) SQ SCH (20:10)
[2024-04-28] MEDS ORDERED: LACTATED RINGERS SOLUTION 1,000 ML/1,000 ML INFUS.BAG IV SCH ×2 (20:10)
[2024-04-28] MEDS ORDERED: ATORVASTATIN CA 10 MG TABLET (FP) PO SCH (22:00)
[2024-04-28] MEDS: ATORVASTATIN CA 10 MG TABLET (FP) PO SCH (22:22)
[2024-04-28] MEDS: HEPARIN NA (PORCINE) 5,000 UNITS/ML 1ML VIAL SQ SCH (22:22)
[2024-04-29 08:47] LABS: HEMATOCRIT 22.7 % (32.4-45.2); HEMOGLOBIN 7.4 GM/dL (10.7-15.3); MCH 28.1 pg (25.7-33.7); MCHC 32.6 g/dl (32.0-36.0); MEAN CELL VOLUME 86.2 fl (80-96); MEAN PLT VOLUME 10.8 fl (7.5-11.1); PLATELET COUNT 174 10^3/uL (134-434); RBC 2.63 M/mm3 (3.60-5.2); RDW 13.2 % (11.6-15.6); WHITE BLOOD COUNT 3.8 K/mm3 (4.0-10.0)
[2024-04-29 09:05] LABS: POTASSIUM 4.5 mmol/L (3.5-5.1)
[2024-04-29 09:07] LABS: CALCIUM 8.8 mg/dL (8.5-10.1)
[2024-04-29 09:08] LABS: ALBUMIN 3.1 g/dl (3.4-5.0); BLOOD UREA NITROGEN 80.7 mg/dL (7-18); MAGNESIUM 1.9 mg/dL (1.8-2.4)
[2024-04-29 09:11] LABS: CREATININE 2.8 mg/dL (0.55-1.3); PHOSPHOROUS 2.9 mg/dL (2.5-4.9)
[2024-04-29 09:12] LABS: BILIRUBIN,TOTAL 0.3 mg/dL (0.2-1); TOT PROT 5.8 g/dl (6.4-8.2)
[2024-04-29] MEDS ORDERED: PATIENT'S OWN MEDICATION (NON-FORMULARY) (Linaclotide [Linzess] 290 MCG) PO SCH (10:00)
[2024-04-29] MEDS ORDERED: LABETALOL HCL 200 MG TABLET (FP) PO SCH (10:00)
[2024-04-29] MEDS ORDERED: PATIENT'S OWN MEDICATION (NON-FORMULARY) (Dapagliflozin Propanediol 10 MG) PO SCH (10:00)
[2024-04-29] MEDS ORDERED: PATIENT'S OWN MEDICATION (NON-FORMULARY) (Linaclotide [Linzess] 290 MCG Capsule) PO SCH (10:00)
[2024-04-29] MEDS: LABETALOL HCL 200 MG TABLET (FP) PO SCH (11:32)
[2024-04-29] MEDS: NIFEdipine E.R. 30 MG TABLET PO SCH (11:32)
[2024-04-29] MEDS: PANTOPRAZOLE SODIUM 40 MG VIAL IVPUSH SCH (11:32)
[2024-04-29] MEDS: SODIUM ZIRCONIUM CYCLOSILICATE (LOKELMA) 5 GM PACKET PO SCH (11:32)
[2024-04-29] MEDS: LOSARTAN POTASSIUM 50 MG TABLET PO SCH (11:32)
[2024-04-29] MEDS: ISOSORBIDE MONONITRATE 60 MG TAB.SR.24H (FP) PO SCH (11:39)
[2024-04-29] MEDS: EPOETIN ALFA 10,000 UNIT/1 ML VIAL SQ ONE (18:11)
[2024-04-30] MEDS: PANTOPRAZOLE 40 MG TABLET PO SCH (11:08)
[2024-04-30] MEDS: ZINC OXIDE 20% TOPICAL OINTMENT 30 GM TUBE TP ONE (11:09)
[2024-04-30 11:23] VITALS: BP 148/73; PULSE 78; TEMP 97.7
[2024-04-30 12:19] LABS: POTASSIUM 4.6 mmol/L (3.5-5.1)
[2024-04-30 12:21] LABS: CALCIUM 9.1 mg/dL (8.5-10.1)
[2024-04-30 12:22] LABS: BLOOD UREA NITROGEN 61.3 mg/dL (7-18)
[2024-04-30 12:24] LABS: CREATININE 2.4 mg/dL (0.55-1.3)
[2024-05-05] MEDS ORDERED: LIRAGLUTIDE 0.6 MG/0.1 ML PEN.INJCTR SQ SCH (07:00)
== END 2024-04-30 13:05 | disposition home or self-care (01) | DRG 682 ==
LOC: JER 04:21 → JERBED 06:27 → JICU 08:34 → J6S 04-28 20:24
PROVIDERS: ADMIT Internal Medicine Pulmonary Disease; ATTEND Internal Medicine
PROC: 30233N1 Transfusion of Nonautologous Red Blood Cells into Peripheral Vein, Percutaneous Approach (ICD-10-PCS; principal; 2024-04-27)
DX: N17.9 Acute kidney failure, unspecified (principal); G92.8 Other toxic encephalopathy; I13.0 Hypertensive heart and chronic kidney disease with heart failure and stage 1 through stage 4 chronic kidney disease, or unspecified chronic kidney disease; E87.20 Acidosis, unspecified; E87.21 Acute metabolic acidosis; J44.9 Chronic obstructive pulmonary disease, unspecified; E11.649 Type 2 diabetes mellitus with hypoglycemia without coma; I25.10 Atherosclerotic heart disease of native coronary artery without angina pectoris; E78.5 Hyperlipidemia, unspecified; D64.9 Anemia, unspecified; N18.5 Chronic kidney disease, stage 5; E87.5 Hyperkalemia
CPT/HCPCS: 36415; 36430; 70450-TC; 71045-TC-FY; 76775-TC; 80048; 80053; 80164; 80307; 81003; 82140; 82550; 82728; 82803; 82962; 83036; 83550; 83605; 83735; 83880; 84100; 84443; 84484; 85025; 85027; 85610; 85730; 86850; 86900; 86901; 86922; 87086; 87635; 93005; 93010; 97116-GP; 97162-GP; 99291; J0885; J1644; P9038; P9058

== ENCOUNTER 2024-05-14 14:41 | Observation (INO) | payer OTHER ==
[2024-05-14 16:18] LABS: BASO % 0.5 % (0-2.0); EOS % 11.9 % (0-4.5); HEMATOCRIT 21.8 % (32.4-45.2); LYMPH % 18.9 % (8-40); MCH 27.8 pg (25.7-33.7); MCHC 31.4 g/dl (32.0-36.0); MEAN CELL VOLUME 88.4 fl (80-96); MEAN PLT VOLUME 9.4 fl (7.5-11.1); MONO % 7.4 % (3.8-10.2); NEUT % 61.3 % (42.8-82.8); PLATELET COUNT 294 10^3/uL (134-434); RBC 2.47 M/mm3 (3.60-5.2); RDW 13.9 % (11.6-15.6); WHITE BLOOD COUNT 5.6 K/mm3 (4.0-10.0)
[2024-05-14 16:24] LABS: PROTHROMBIN TIME (PATIENT) 11.3 SEC (9.7-13.0)
[2024-05-14 16:32] LABS: HEMOGLOBIN 6.9 GM/dL (10.7-15.3)
[2024-05-14 16:40] LABS: POTASSIUM 4.1 mmol/L (3.5-5.1)
[2024-05-14 16:42] LABS: CALCIUM 8.7 mg/dL (8.5-10.1)
[2024-05-14 16:43] LABS: ALBUMIN 3.2 g/dl (3.4-5.0); BLOOD UREA NITROGEN 43.1 mg/dL (7-18)
[2024-05-14 16:45] LABS: CREATININE 2.3 mg/dL (0.55-1.3)
[2024-05-14 16:46] LABS: PHOSPHOROUS 3.3 mg/dL (2.5-4.9)
[2024-05-14 16:47] LABS: BILIRUBIN,TOTAL 0.3 mg/dL (0.2-1); TOT PROT 6.5 g/dl (6.4-8.2)
[2024-05-14] MEDS ORDERED: FUROSEMIDE 40 MG/4 ML INJECTABLE VIAL ONE (16:58)
[2024-05-14] MEDS: FUROSEMIDE 40 MG/4 ML INJECTABLE VIAL IVPUSH ONE (17:26)
[2024-05-14 20:11] LABS: EPI CELLS 11 /uL (0-25.1); HYALINE CASTS 0 /uL (0-3.1); PH,URINE 5.5 (5.0-8.0); URINE APPEARANCE CLEAR; URINE BACTERIA 317 /uL (0-1359); URINE BILIRUBIN NEGATIVE (NEGATIVE); URINE COLOR YELLOW; URINE GLUCOSE (UA) NEGATIVE (NEGATIVE); URINE KETONE NEGATIVE (NEGATIVE); URINE LEUK ESTERASE 1+ (NEGATIVE); URINE NITRITE NEGATIVE (NEGATIVE); URINE PROTEIN NEGATIVE (NEGATIVE); URINE RBC 6 /uL (0-23.9); URINE UROBILINOGEN 0.2 mg/dL (0.2-1.0); URINE WBC 45 /uL (0-25.8)
[2024-05-14] MEDS ORDERED: hydrALAZINE HCL 50 MG TABLET (FP) ONE (22:15)
[2024-05-14] MEDS ORDERED: INSULIN ASPART SLIDING SCALE (NOVOLOG) 1 VIAL SQ ONE (22:16)
[2024-05-14] MEDS: hydrALAZINE HCL 50 MG TABLET (FP) PO SCH (22:20)
[2024-05-14] MEDS: INSULIN ASPART SLIDING SCALE (NOVOLOG) 1 VIAL SQ SCH (22:21)
[2024-05-14] MEDS: TICAGRELOR 60 MG TABLET PO SCH (22:45)
[2024-05-14 22:49] LABS: HEMATOCRIT 23.5 % (32.4-45.2); HEMOGLOBIN 7.6 GM/dL (10.7-15.3); MCH 28.9 pg (25.7-33.7); MCHC 32.5 g/dl (32.0-36.0); MEAN PLT VOLUME 9.1 fl (7.5-11.1); PLATELET COUNT 293 10^3/uL (134-434); RBC 2.64 M/mm3 (3.60-5.2); RDW 14.1 % (11.6-15.6); WHITE BLOOD COUNT 6.4 K/mm3 (4.0-10.0)
[2024-05-14 23:28] LABS: ANISOCYTOSIS 1+; MACROCYTOSIS 0; TARGET CELLS 2+
[2024-05-15 02:29] VITALS: BMI 36.3
[2024-05-15] MEDS: FUROSEMIDE 40 MG TABLET (FP) PO SCH (06:16)
[2024-05-15] MEDS: NIFEdipine E.R. 30 MG TABLET PO SCH (09:46)
[2024-05-15] MEDS: LABETALOL HCL 200 MG TABLET (FP) PO SCH (09:46)
[2024-05-15] MEDS: ISOSORBIDE MONONITRATE 60 MG TAB.SR.24H (FP) PO SCH (09:46)
[2024-05-15] MEDS: SPIRONOLACTONE 25 MG TABLET PO SCH (09:46)
[2024-05-15 10:14] LABS: HEMATOCRIT 27.2 % (32.4-45.2); HEMOGLOBIN 8.9 GM/dL (10.7-15.3); MCH 29.1 pg (25.7-33.7); MCHC 32.8 g/dl (32.0-36.0); MEAN CELL VOLUME 88.8 fl (80-96); MEAN PLT VOLUME 9.5 fl (7.5-11.1); PLATELET COUNT 299 10^3/uL (134-434); RBC 3.07 M/mm3 (3.60-5.2); RDW 13.9 % (11.6-15.6); WHITE BLOOD COUNT 9.7 K/mm3 (4.0-10.0)
[2024-05-15 11:02] LABS: POTASSIUM 4.4 mmol/L (3.5-5.1)
[2024-05-15 11:07] LABS: ALBUMIN 3.3 g/dl (3.4-5.0); BLOOD UREA NITROGEN 41.4 mg/dL (7-18); CALCIUM 9.1 mg/dL (8.5-10.1)
[2024-05-15 11:11] LABS: BILIRUBIN,TOTAL 0.6 mg/dL (0.2-1)
[2024-05-15] MEDS: FUROSEMIDE 40 MG/4 ML INJECTABLE VIAL IVPUSH ONE (11:53)
[2024-05-15] MEDS: FUROSEMIDE 40 MG/4 ML INJECTABLE VIAL IVPUSH SCH (17:24)
[2024-05-16] MEDS ORDERED: FUROSEMIDE 40 MG TABLET (FP) PO SCH (06:00)
[2024-05-16 09:45] LABS: HEMATOCRIT 24.9 % (32.4-45.2); MCH 28.7 pg (25.7-33.7); MCHC 32.1 g/dl (32.0-36.0); MEAN CELL VOLUME 89.6 fl (80-96); MEAN PLT VOLUME 9.2 fl (7.5-11.1); PLATELET COUNT 284 10^3/uL (134-434); RBC 2.78 M/mm3 (3.60-5.2); WHITE BLOOD COUNT 9.1 K/mm3 (4.0-10.0)
[2024-05-16 10:11] LABS: POTASSIUM 4.4 mmol/L (3.5-5.1)
[2024-05-16 10:18] LABS: CALCIUM 9.4 mg/dL (8.5-10.1)
[2024-05-16 10:20] LABS: ALBUMIN 3.2 g/dl (3.4-5.0); BLOOD UREA NITROGEN 45.1 mg/dL (7-18)
[2024-05-16 10:23] LABS: BILIRUBIN,TOTAL 0.6 mg/dL (0.2-1); TOT PROT 6.6 g/dl (6.4-8.2)
[2024-05-16] MEDS: FERROUS GLUCONATE 324 MG TAB (FP) PO SCH (11:20)
[2024-05-16 13:41] VITALS: PULSE 82; TEMP 99
[2024-05-16] MEDS: EPOETIN ALFA-EPBX 10,000 UNIT/ML VIAL SQ ONE (13:44)
[2024-05-16 19:22] VITALS: BP 153/55; RESP 20
== END 2024-05-16 18:50 | disposition home or self-care (01) ==
LOC: JER 14:41 → JERBED 16:06 → J4S 05-15 02:20
PROVIDERS: ADMIT Internal Medicine; ATTEND Internal Medicine
PROC: 3E023GC Introduction of Other Therapeutic Substance into Muscle, Percutaneous Approach (ICD-10-PCS; principal; 2024-05-14)
PROC: 3E033GC Introduction of Other Therapeutic Substance into Peripheral Vein, Percutaneous Approach (ICD-10-PCS; 2024-05-14)
PROC: 3E013VG Introduction of Insulin into Subcutaneous Tissue, Percutaneous Approach (ICD-10-PCS; 2024-05-14)
PROC: 30233N1 Transfusion of Nonautologous Red Blood Cells into Peripheral Vein, Percutaneous Approach (ICD-10-PCS; 2024-05-14)
DX: D64.89 Other specified anemias (principal); I11.0 Hypertensive heart disease with heart failure; E11.22 Type 2 diabetes mellitus with diabetic chronic kidney disease; I13.2 Hypertensive heart and chronic kidney disease with heart failure and with stage 5 chronic kidney disease, or end stage renal disease; J44.9 Chronic obstructive pulmonary disease, unspecified; Z86.16 Personal history of COVID-19; Z87.19 Personal history of other diseases of the digestive system; Z88.8 Allergy status to other drugs, medicaments and biological substances
CPT/HCPCS: 0241U-QW; 36415; 36430; 71045-TC-FY; 80053; 81003; 82272; 82962; 83690; 83735; 84100; 84484; 85025; 85027; 85610; 85730; 86850; 86900; 86901; 86922; 93005; 93010; 96365; 96372; 96375; 96376; 99285-25; G0378; P9058; Q5106

== ENCOUNTER 2024-07-25 20:23 | Inpatient (IN) | payer OTHER ==
[2024-07-25 20:37] VITALS: BMI 34.3
[2024-07-25] MEDS ORDERED: ACETAMINOPHEN INJECTION 100 ML ONE (21:20)
[2024-07-25] MEDS ORDERED: METOCLOPRAMIDE HCL INJECTION 10 MG/2 ML VIAL ONE (21:20)
[2024-07-25 21:22] LABS: BASO % 0.8 % (0-2.0); EOS % 5.1 % (0-4.5); HEMATOCRIT 29.3 % (32.4-45.2); HEMOGLOBIN 9.3 GM/dL (10.7-15.3); MCH 27.9 pg (25.7-33.7); MCHC 31.8 g/dl (32.0-36.0); MEAN CELL VOLUME 87.9 fl (80-96); MEAN PLT VOLUME 9.8 fl (7.5-11.1); NEUT % 70.1 % (42.8-82.8); PLATELET COUNT 256 10^3/uL (134-434); RBC 3.33 M/mm3 (3.60-5.2); RDW 13.8 % (11.6-15.6); WHITE BLOOD COUNT 6.4 K/mm3 (4.0-10.0)
[2024-07-25] MEDS: SODIUM CHLORIDE 0.9% 500 ML INFUS.BAG IV ONE (21:27)
[2024-07-25] MEDS: METOCLOPRAMIDE HCL INJECTION 10 MG/2 ML VIAL IVPB ONE (21:28)
[2024-07-25] MEDS: ACETAMINOPHEN 1000 MG/100 ML BAG IVPB ONE (21:50)
[2024-07-25 22:21] LABS: ANION GAP 9 mmol/L (4-13); CALCIUM 9.4 mg/dL (8.5-10.1); CHLORIDE 106 mmol/L (98-107); CO2 21 mmol/L (21-32); GLUCOSE,RANDOM 169 mg/dL (74-106); SODIUM 137 mmol/L (136-145)
[2024-07-25 22:27] LABS: BILIRUBIN,TOTAL 0.2 mg/dL (0.2-1); CREATININE 4.9 mg/dL (0.55-1.3); SGOT/AST 12 U/L (15-37); SGPT/ALT 23 U/L (13-61); TOT PROT 7.8 g/dl (6.4-8.2)
[2024-07-25 22:44] LABS: ALK PHOS 75 U/L (45-117)
[2024-07-25 23:33] LABS: CHLORIDE 110 mmol/L (98-107); POTASSIUM 5.8 mmol/L (3.5-5.1); SODIUM 140 mmol/L (136-145)
[2024-07-25 23:34] LABS: CALCIUM 8.7 mg/dL (8.5-10.1)
[2024-07-25 23:35] LABS: ANION GAP 8 mmol/L (4-13); CO2 22 mmol/L (21-32); GLUCOSE,RANDOM 167 mg/dL (74-106)
[2024-07-25 23:38] LABS: CREATININE 4.6 mg/dL (0.55-1.3)
[2024-07-25 23:44] LABS: BLOOD UREA NITROGEN 112.4 mg/dL (7-18)
[2024-07-26] MEDS ORDERED: SODIUM ZIRCONIUM CYCLOSILICATE (LOKELMA) 10 GM PACKET ONE ×4 (01:40→21:10)
[2024-07-26] MEDS ORDERED: DEXTROSE 50%-WATER 25 GM/50 ML DISP.SYRIN ONE (01:40)
[2024-07-26] MEDS ORDERED: INSULIN REGULAR HUMAN 100 UNITS/ML *VIAL ONE (01:42)
[2024-07-26] MEDS: INSULIN REGULAR HUMAN 100 UNITS/ML *VIAL IVPUSH ONE (02:00)
[2024-07-26] MEDS: DEXTROSE 50%-WATER 25 GM/50 ML DISP.SYRIN IVPUSH ONE (02:00)
[2024-07-26] MEDS: SODIUM ZIRCONIUM CYCLOSILICATE (LOKELMA) 5 GM PACKET PO ONE (02:00)
[2024-07-26] MEDS: SODIUM CHLORIDE 1,000 ML IV SCH (02:00)
[2024-07-26] MEDS ORDERED: PATIENT'S OWN MEDICATION (NON-FORMULARY) (Lifitegrast [Xiidra] 1 EACH Droperette) OP PRN (03:45)
[2024-07-26] MEDS ORDERED: BEPOTASTINE BESILATE OP PRN (03:45)
[2024-07-26 06:14] LABS: HEMATOCRIT 26.8 % (32.4-45.2); HEMOGLOBIN 8.4 GM/dL (10.7-15.3); MCH 27.9 pg (25.7-33.7); MCHC 31.5 g/dl (32.0-36.0); MEAN CELL VOLUME 88.7 fl (80-96); MEAN PLT VOLUME 9.7 fl (7.5-11.1); PLATELET COUNT 207 10^3/uL (134-434); RBC 3.02 M/mm3 (3.60-5.2); RDW 13.8 % (11.6-15.6); WHITE BLOOD COUNT 5.2 K/mm3 (4.0-10.0)
[2024-07-26] MEDS ORDERED: hydrALAZINE HCL 25 MG TABLET (FP) ONE (06:20)
[2024-07-26] MEDS ORDERED: HEPARIN NA (PORCINE) 5,000 UNITS/ML 1ML VIAL ONE ×3 (06:21→21:10)
[2024-07-26] MEDS: hydrALAZINE HCL 50 MG TABLET (FP) PO SCH (06:28)
[2024-07-26] MEDS: HEPARIN NA (PORCINE) 5,000 UNITS/ML 1ML VIAL SQ SCH (06:28)
[2024-07-26] MEDS: SODIUM ZIRCONIUM CYCLOSILICATE (LOKELMA) 5 GM PACKET PO SCH (06:28)
[2024-07-26 06:36] LABS: CHLORIDE 112 mmol/L (98-107); SODIUM 141 mmol/L (136-145)
[2024-07-26 06:38] LABS: ALBUMIN 3.5 g/dl (3.4-5.0); CALCIUM 8.5 mg/dL (8.5-10.1)
[2024-07-26 06:39] LABS: ANION GAP 8 mmol/L (4-13); CO2 21 mmol/L (21-32); GLUCOSE,RANDOM 134 mg/dL (74-106); MAGNESIUM 2.9 mg/dL (1.8-2.4)
[2024-07-26 06:42] LABS: CREATININE 4.2 mg/dL (0.55-1.3); PHOSPHOROUS 6.9 mg/dL (2.5-4.9); SGOT/AST 8 U/L (15-37); SGPT/ALT 19 U/L (13-61)
[2024-07-26 06:43] LABS: BILIRUBIN,TOTAL 0.2 mg/dL (0.2-1); TOT PROT 6.9 g/dl (6.4-8.2)
[2024-07-26 06:45] LABS: ALK PHOS 68 U/L (45-117)
[2024-07-26] MEDS: INSULIN ASPART SLIDING SCALE (NOVOLOG) 1 VIAL SQ SCH (07:32)
[2024-07-26] MEDS ORDERED: PANTOPRAZOLE 20 MG TABLET PO ONE (07:34)
[2024-07-26] MEDS: PANTOPRAZOLE 40 MG TABLET PO SCH (07:39)
[2024-07-26] MEDS ORDERED: BREXPIPRAZOLE 2 MG PO SCH (10:00)
[2024-07-26] MEDS ORDERED: AZILSARTAN MEDOXOMIL 40 MG PO SCH (10:00)
[2024-07-26] MEDS ORDERED: PATIENT'S OWN MEDICATION (NON-FORMULARY) (Mirabegron [Myrbetriq] 25 MG Tab.Er.24h) PO SCH (10:00)
[2024-07-26] MEDS ORDERED: PATIENT'S OWN MEDICATION (NON-FORMULARY) (Pitavastatin Calcium [Livalo] 2 MG Tablet) PO SCH (10:00)
[2024-07-26] MEDS ORDERED: LABETALOL HCL 100 MG TABLET (FP) ONE (11:22)
[2024-07-26] MEDS ORDERED: CYCLOBENZAPRINE HCL 10 MG TABLET (FP) ONE (11:22)
[2024-07-26] MEDS ORDERED: NIFEdipine E.R. 30 MG TABLET PO ONE (11:23)
[2024-07-26] MEDS ORDERED: ISOSORBIDE MONONITRATE 60 MG TAB.SR.24H (FP) PO ONE (11:23)
[2024-07-26] MEDS: CYCLOBENZAPRINE HCL 10 MG TABLET (FP) PO SCH (11:46)
[2024-07-26] MEDS: BUDESONIDE/FORMOTEROL FUMARATE 160-4.5 MCG (10.3 GM INHALER) IH SCH (11:46)
[2024-07-26] MEDS: PATIENT'S OWN MEDICATION (NON-FORMULARY) (Icosapent Ethyl [Vascepa] 1 GM Capsule) PO SCH (11:46)
[2024-07-26] MEDS: TIOTROPIUM/OLODATEROL HCL (STIOLTO) 4 GM INHALER IH SCH (11:47)
[2024-07-26] MEDS: NIFEdipine E.R. 30 MG TABLET PO SCH (11:47)
[2024-07-26] MEDS: ISOSORBIDE MONONITRATE 60 MG TAB.SR.24H (FP) PO SCH (11:47)
[2024-07-26] MEDS: LABETALOL HCL 200 MG TABLET (FP) PO SCH (11:47)
[2024-07-26] MEDS ORDERED: hydrALAZINE HCL 50 MG TABLET (FP) ONE ×2 (13:21→21:10)
[2024-07-26] MEDS ORDERED: INSULIN ASPART SLIDING SCALE (NOVOLOG) 1 VIAL SQ ONE (17:38)
[2024-07-26] MEDS: SODIUM CHLORIDE 0.45% 1,000 ML IV SCH (18:11)
[2024-07-26] MEDS ORDERED: LABETALOL HCL 200 MG TABLET (FP) ONE (21:09)
[2024-07-27] MEDS ORDERED: SODIUM ZIRCONIUM CYCLOSILICATE (LOKELMA) 10 GM PACKET ONE ×3 (06:10→22:16)
[2024-07-27] MEDS ORDERED: HEPARIN NA (PORCINE) 5,000 UNITS/ML 1ML VIAL ONE ×3 (06:10→22:24)
[2024-07-27] MEDS ORDERED: hydrALAZINE HCL 50 MG TABLET (FP) ONE (06:10)
[2024-07-27 08:25] LABS: BASO % 0.3 % (0-2.0); EOS % 4.4 % (0-4.5); HEMATOCRIT 27.5 % (32.4-45.2); HEMOGLOBIN 8.7 GM/dL (10.7-15.3); MCH 28.1 pg (25.7-33.7); MCHC 31.5 g/dl (32.0-36.0); MEAN CELL VOLUME 89.1 fl (80-96); MEAN PLT VOLUME 10.3 fl (7.5-11.1); MONO % 8.1 % (3.8-10.2); NEUT % 67.2 % (42.8-82.8); PLATELET COUNT 222 10^3/uL (134-434); RBC 3.09 M/mm3 (3.60-5.2); RDW 13.6 % (11.6-15.6); WHITE BLOOD COUNT 5.3 K/mm3 (4.0-10.0)
[2024-07-27 08:36] LABS: POTASSIUM 5.1 mmol/L (3.5-5.1)
[2024-07-27 08:47] LABS: ALBUMIN 3.5 g/dl (3.4-5.0); CALCIUM 9.2 mg/dL (8.5-10.1); CALCIUM 9.3 mg/dL (8.5-10.1)
[2024-07-27 08:50] LABS: CREATININE 3.1 mg/dL (0.55-1.3)
[2024-07-27 08:51] LABS: BLOOD UREA NITROGEN 88.5 mg/dL (7-18); CREATININE 3.1 mg/dL (0.55-1.3)
[2024-07-27 08:52] LABS: BILIRUBIN,TOTAL 0.3 mg/dL (0.2-1)
[2024-07-27] MEDS ORDERED: PANTOPRAZOLE 40 MG TABLET PO ONE (09:38)
[2024-07-28] MEDS ORDERED: PATIENT'S OWN MEDICATION (NON-FORMULARY) (Lifitegrast [Xiidra] 1 EACH) OP PRN (07:31)
[2024-07-28] MEDS ORDERED: SODIUM CHLORIDE 1,000 ML IV SCH (07:31)
[2024-07-28] MEDS ORDERED: BEPOTASTINE BESILATE OP PRN (07:31)
[2024-07-28 09:24] LABS: BASO % 0.4 % (0-2.0); EOS % 4.6 % (0-4.5); HEMATOCRIT 25.6 % (32.4-45.2); HEMOGLOBIN 8.1 GM/dL (10.7-15.3); LYMPH % 21.8 % (8-40); MCH 27.8 pg (25.7-33.7); MCHC 31.6 g/dl (32.0-36.0); MEAN CELL VOLUME 87.8 fl (80-96); MEAN PLT VOLUME 10.3 fl (7.5-11.1); MONO % 10.4 % (3.8-10.2); NEUT % 62.8 % (42.8-82.8); PLATELET COUNT 212 10^3/uL (134-434); RBC 2.91 M/mm3 (3.60-5.2); RDW 13.2 % (11.6-15.6); WHITE BLOOD COUNT 4.8 K/mm3 (4.0-10.0)
[2024-07-28 09:47] LABS: POTASSIUM 4.8 mmol/L (3.5-5.1)
[2024-07-28 09:48] LABS: CALCIUM 9.5 mg/dL (8.5-10.1)
[2024-07-28 09:49] LABS: ALBUMIN 3.4 g/dl (3.4-5.0); BLOOD UREA NITROGEN 72.1 mg/dL (7-18)
[2024-07-28 09:52] LABS: CREATININE 2.4 mg/dL (0.55-1.3)
[2024-07-28 09:53] LABS: BILIRUBIN,TOTAL 0.2 mg/dL (0.2-1)
[2024-07-28 09:54] LABS: TOT PROT 6.8 g/dl (6.4-8.2)
[2024-07-28] MEDS: CYCLOBENZAPRINE HCL 10 MG TABLET (FP) PO SCH (09:54)
[2024-07-28] MEDS: ISOSORBIDE MONONITRATE 60 MG TAB.SR.24H (FP) PO SCH (09:54)
[2024-07-28] MEDS: LABETALOL HCL 200 MG TABLET (FP) PO SCH (09:54)
[2024-07-28] MEDS: NIFEdipine E.R. 30 MG TABLET PO SCH (09:54)
[2024-07-28] MEDS: TIOTROPIUM/OLODATEROL HCL (STIOLTO) 4 GM INHALER IH SCH (09:54)
[2024-07-28] MEDS ORDERED: PATIENT'S OWN MEDICATION (NON-FORMULARY) (Brexpiprazole [Rexulti] 2 MG) PO SCH (10:00)
[2024-07-28] MEDS ORDERED: PATIENT'S OWN MEDICATION (NON-FORMULARY) (Mirabegron [Myrbetriq] 25 MG) PO SCH (10:00)
[2024-07-28] MEDS ORDERED: PATIENT'S OWN MEDICATION (NON-FORMULARY) (Pitavastatin Calcium [Livalo] 2 MG) PO SCH (10:00)
[2024-07-28] MEDS ORDERED: PATIENT'S OWN MEDICATION (NON-FORMULARY) (Icosapent Ethyl [Vascepa] 1 GM) PO SCH (10:00)
[2024-07-28] MEDS: INSULIN ASPART SLIDING SCALE (NOVOLOG) 1 VIAL SQ SCH (12:27)
[2024-07-28] MEDS: hydrALAZINE HCL 50 MG TABLET (FP) PO SCH (13:24)
[2024-07-28] MEDS: SODIUM ZIRCONIUM CYCLOSILICATE (LOKELMA) 10 GM PACKET PO SCH (13:25)
[2024-07-28] MEDS: HEPARIN NA (PORCINE) 5,000 UNITS/ML 1ML VIAL SQ SCH (13:25)
[2024-07-28] MEDS: BUDESONIDE/FORMOTEROL FUMARATE 160-4.5 MCG (10.3 GM INHALER) IH SCH (13:52)
[2024-07-28] MEDS: EPOETIN ALFA-EPBX 20,000 UNIT/ML VIAL SQ ONE (14:22)
[2024-07-28 15:01] VITALS: BP 155/61; PULSE 79; RESP 18; TEMP 98.1
[2024-07-28] MEDS ORDERED: ATORVASTATIN CA 10 MG TABLET (FP) PO SCH (22:00)
[2024-07-29] MEDS ORDERED: PANTOPRAZOLE 20 MG TABLET PO SCH (07:00)
== END 2024-07-28 15:34 | disposition home or self-care (01) | DRG 683 ==
LOC: JER 20:23 → JERBED 23:59 → J8W 07-28 00:35
PROVIDERS: ADMIT Internal Medicine; ATTEND Nurse Practitioner Family
DX: N17.9 Acute kidney failure, unspecified (principal); I13.2 Hypertensive heart and chronic kidney disease with heart failure and with stage 5 chronic kidney disease, or end stage renal disease; I25.10 Atherosclerotic heart disease of native coronary artery without angina pectoris; E87.5 Hyperkalemia; G43.909 Migraine, unspecified, not intractable, without status migrainosus; J44.9 Chronic obstructive pulmonary disease, unspecified; K21.9 Gastro-esophageal reflux disease without esophagitis; E78.5 Hyperlipidemia, unspecified; R11.2 Nausea with vomiting, unspecified; R07.89 Other chest pain; M54.2 Cervicalgia; D64.9 Anemia, unspecified; R42 Dizziness and giddiness; E11.22 Type 2 diabetes mellitus with diabetic chronic kidney disease; N18.5 Chronic kidney disease, stage 5; I50.9 Heart failure, unspecified; K76.0 Fatty (change of) liver, not elsewhere classified; E66.9 Obesity, unspecified; Z68.34 Body mass index [BMI] 34.0-34.9, adult
CPT/HCPCS: 36415; 70450-TC; 71046-TC-FY; 76775-TC; 80048; 80053; 82962; 83735; 84100; 85025; 85027; 93005; 93010; 99285-25; J0131; J1644; J3535

== ENCOUNTER 2024-12-11 10:58 | Inpatient (IN) | payer OTHER ==
[2024-12-11 12:34] LABS: ABSOLUTE IMMATURE GRANULOCYTES 0.03 x10^3/uL (0.0-0.031); BASOPHILS # 0.03 x10^3/uL (0.01-0.08); EOSINOPHIL % 0.9 % (0.7-5.8); EOSINOPHILS # 0.08 x10^3/uL (0.04-0.36); HEMATOCRIT 25.4 % (34.1-44.9); MCHC 31.5 g/dl (32.2-35.5); MEAN CELL VOLUME 87.9 fl (79.4-94.8); MEAN PLT VOLUME 11.3 fl (9.4-12.3); MONOCYTE # 0.37 x10^3/uL (0.24-0.86); PLATELET COUNT 307 x10^3/uL (182-369); RDW 14.3 % (12.4-16.4)
[2024-12-11 12:35] LABS: INR 1.01 (0.83-1.09); PROTHROMBIN TIME (PATIENT) 11.1 SEC (9.7-13.0)
[2024-12-11 12:37] LABS: ACTIVATED PTT 27.8 SECONDS (25.2-36.5)
[2024-12-11 12:53] LABS: POTASSIUM 4.4 mmol/L (3.5-5.1)
[2024-12-11 12:56] LABS: ALBUMIN 3.6 g/dl (3.4-5.0); BLOOD UREA NITROGEN 69.6 mg/dL (7-18); CALCIUM 9.8 mg/dL (8.5-10.1); MAGNESIUM 2.3 mg/dL (1.8-2.4)
[2024-12-11 12:59] LABS: CREATININE 2.1 mg/dL (0.55-1.3)
[2024-12-11 13:01] LABS: BILIRUBIN,TOTAL 0.3 mg/dL (0.2-1); TOT PROT 7.4 g/dl (6.4-8.2)
[2024-12-11 13:04] LABS: N-TERMINAL BNP 1949.6 pg/ml (5-125)
[2024-12-11] MEDS ORDERED: FUROSEMIDE 40 MG/4 ML INJECTABLE VIAL ONE (13:17)
[2024-12-11] MEDS ORDERED: ASPIRIN 81 MG CHEWABLE TABLETS ONE (13:17)
[2024-12-11] MEDS: ASPIRIN 81 MG CHEWABLE TABLETS PO ONE (13:32)
[2024-12-11] MEDS: FUROSEMIDE 40 MG/4 ML INJECTABLE VIAL IVPUSH ONE (13:33)
[2024-12-11] MEDS ORDERED: ALBUTEROL SO4 2.5/IPRATROPIUM 0.5 INH SOL 3 ML VIAL.NEB. NEB PRN (18:19)
[2024-12-11] MEDS: NIFEdipine E.R. 30 MG TABLET PO ONE (21:48)
[2024-12-11] MEDS: INSULIN ASPART SLIDING SCALE (NOVOLOG) 1 VIAL SQ SCH (21:49)
[2024-12-11] MEDS: ISOSORBIDE MONONITRATE 60 MG TAB.SR.24H (FP) PO ONE (21:49)
[2024-12-11] MEDS ORDERED: FLUTICASONE PROPION PO SCH (22:00)
[2024-12-11] MEDS ORDERED: [UNRECOGNIZED DRUG - OTHER] PO SCH (22:00)
[2024-12-11] MEDS ORDERED: SALMETEROL PO SCH (22:00)
[2024-12-12] MEDS: hydrALAZINE HCL 20 MG/ML VIAL IVPUSH ONE ×2 (02:16→21:20)
[2024-12-12] MEDS: NIFEdipine 10 MG CAPSULE (FP) PO ONE (02:21)
[2024-12-12] MEDS: FUROSEMIDE 40 MG/4 ML INJECTABLE VIAL IVPUSH SCH (05:55)
[2024-12-12 07:33] LABS: ABSOLUTE IMMATURE GRANULOCYTES 0.02 x10^3/uL (0.0-0.031); BASOPHILS # 0.04 x10^3/uL (0.01-0.08); EOSINOPHIL % 6.2 % (0.7-5.8); EOSINOPHILS # 0.48 x10^3/uL (0.04-0.36); HEMATOCRIT 22.4 % (34.1-44.9); MCHC 30.8 g/dl (32.2-35.5); MEAN CELL VOLUME 88.5 fl (79.4-94.8); MEAN PLT VOLUME 11.1 fl (9.4-12.3); MONOCYTE # 0.62 x10^3/uL (0.24-0.86); PLATELET COUNT 273 x10^3/uL (182-369); RDW 14.3 % (12.4-16.4)
[2024-12-12 07:50] LABS: HEMOGLOBIN 6.9 g/dL (11.2-15.7)
[2024-12-12 07:51] LABS: POTASSIUM 4.2 mmol/L (3.5-5.1)
[2024-12-12 07:54] LABS: ALBUMIN 3.3 g/dl (3.4-5.0); BLOOD UREA NITROGEN 63.3 mg/dL (7-18); CALCIUM 9.7 mg/dL (8.5-10.1)
[2024-12-12 07:55] LABS: MAGNESIUM 2.2 mg/dL (1.8-2.4)
[2024-12-12 07:57] LABS: CREATININE 2.1 mg/dL (0.55-1.3)
[2024-12-12 07:58] LABS: PHOSPHOROUS 4.2 mg/dL (2.5-4.9)
[2024-12-12 07:59] LABS: BILIRUBIN,TOTAL 0.4 mg/dL (0.2-1); TOT PROT 6.6 g/dl (6.4-8.2)
[2024-12-12 08:43] LABS: HEMATOCRIT 22.5 % (34.1-44.9); HEMOGLOBIN 7.1 g/dL (11.2-15.7); MCHC 31.6 g/dl (32.2-35.5); MEAN CELL VOLUME 87.9 fl (79.4-94.8); MEAN PLT VOLUME 10.8 fl (9.4-12.3); PLATELET COUNT 262 x10^3/uL (182-369); RDW 14.2 % (12.4-16.4)
[2024-12-12] MEDS: ISOSORBIDE MONONITRATE 60 MG TAB.SR.24H (FP) PO SCH (10:32)
[2024-12-12] MEDS: NIFEdipine E.R. 30 MG TABLET PO SCH (10:33)
[2024-12-12] MEDS: FUROSEMIDE 40 MG/4 ML INJECTABLE VIAL IVPUSH ONE (10:45)
[2024-12-12] MEDS: TIOTROPIUM/OLODATEROL HCL (STIOLTO) 4 GM INHALER IH SCH (11:16)
[2024-12-12 11:39] VITALS: BMI 35.6
[2024-12-12 11:56] LABS: Reticulocyte % 2.83 % (0.5-1.7)
[2024-12-13] MEDS: INSULIN ASPART SLIDING SCALE (NOVOLOG) 1 VIAL SQ SCH (06:00)
[2024-12-13 07:43] LABS: HEMATOCRIT 25.3 % (34.1-44.9); HEMOGLOBIN 8.1 g/dL (11.2-15.7); MEAN CELL VOLUME 81.1 fl (79.4-94.8); MEAN PLT VOLUME 11.4 fl (9.4-12.3); PLATELET COUNT 293 x10^3/uL (182-369); RDW 21.2 % (12.4-16.4)
[2024-12-13 08:03] LABS: POTASSIUM 4.1 mmol/L (3.5-5.1)
[2024-12-13 08:06] LABS: CALCIUM 9.6 mg/dL (8.5-10.1)
[2024-12-13 08:07] LABS: BLOOD UREA NITROGEN 54.2 mg/dL (7-18); MAGNESIUM 2.1 mg/dL (1.8-2.4)
[2024-12-13 08:10] LABS: CREATININE 1.9 mg/dL (0.55-1.3)
[2024-12-13] MEDS: FUROSEMIDE 40 MG/4 ML INJECTABLE VIAL IVPUSH SCH (09:56)
[2024-12-13] MEDS: NIFEdipine E.R. 30 MG TABLET PO SCH (09:56)
[2024-12-13] MEDS: LABETALOL HCL 200 MG TABLET (FP) PO SCH (10:22)
[2024-12-13] MEDS: guaiFENesin 200 MG/10 ML 10 ML UNIT-DOSE CUPS PO PRN (10:24)
[2024-12-14] MEDS: hydrALAZINE HCL 50 MG TABLET (FP) PO SCH (06:19)
[2024-12-14] MEDS: PANTOPRAZOLE SODIUM 40 MG VIAL IVPUSH SCH (09:24)
[2024-12-14] MEDS: NIFEdipine E.R. 30 MG TABLET PO SCH (09:25)
[2024-12-14 12:29] LABS: HEMATOCRIT 23.6 % (34.1-44.9); HEMOGLOBIN 7.5 g/dL (11.2-15.7); MCHC 31.8 g/dl (32.2-35.5); MEAN CELL VOLUME 82.8 fl (79.4-94.8); MEAN PLT VOLUME 10.9 fl (9.4-12.3); PLATELET COUNT 261 x10^3/uL (182-369)
[2024-12-14 12:50] LABS: POTASSIUM 4.5 mmol/L (3.5-5.1)
[2024-12-14 12:52] LABS: CALCIUM 8.9 mg/dL (8.5-10.1)
[2024-12-14 12:55] LABS: CREATININE 2.3 mg/dL (0.55-1.3)
[2024-12-14] MEDS: ALBUTEROL SO4 0.083% IH SOL 2.5 MG/3 ML VIAL.NEB. NEB SCH (15:42)
[2024-12-15 06:45] LABS: HEMATOCRIT 26.4 % (34.1-44.9); HEMOGLOBIN 8.3 g/dL (11.2-15.7); MCHC 31.4 g/dl (32.2-35.5); MEAN CELL VOLUME 83.5 fl (79.4-94.8); PLATELET COUNT 262 x10^3/uL (182-369); RDW 18.6 % (12.4-16.4)
[2024-12-15 07:06] LABS: POTASSIUM 4.5 mmol/L (3.5-5.1)
[2024-12-15 07:08] LABS: BLOOD UREA NITROGEN 60.3 mg/dL (7-18)
[2024-12-15 07:11] LABS: CREATININE 2.2 mg/dL (0.55-1.3)
[2024-12-15] MEDS: FLUTICASONE/UMECLIDIN/VILANTER(200-62.5-25 TRELEGY ELLIPTA) INAHLER IH SCH (09:25)
[2024-12-15 14:28] VITALS: BP 130/53; PULSE 67; RESP 18; TEMP 98.3
[2024-12-15] MEDS ORDERED: EPOETIN ALFA-EPBX 10,000 UNIT/ML VIAL SQ ONE (15:00)
== END 2024-12-15 17:11 | disposition home or self-care (01) | DRG 291 ==
LOC: JER 10:58 → JERBED 17:31 → J4W 20:03
PROVIDERS: ADMIT Student in an Organized Health Care Education/Training Program; ATTEND Student in an Organized Health Care Education/Training Program
PROC: 30233N1 Transfusion of Nonautologous Red Blood Cells into Peripheral Vein, Percutaneous Approach (ICD-10-PCS; principal; 2024-12-12)
DX: I13.2 Hypertensive heart and chronic kidney disease with heart failure and with stage 5 chronic kidney disease, or end stage renal disease (principal); I50.33 Acute on chronic diastolic (congestive) heart failure; N18.5 Chronic kidney disease, stage 5; E11.22 Type 2 diabetes mellitus with diabetic chronic kidney disease; D63.8 Anemia in other chronic diseases classified elsewhere; J44.9 Chronic obstructive pulmonary disease, unspecified; E66.9 Obesity, unspecified; Z68.35 Body mass index [BMI] 35.0-35.9, adult; J45.909 Unspecified asthma, uncomplicated; E78.5 Hyperlipidemia, unspecified; I25.10 Atherosclerotic heart disease of native coronary artery without angina pectoris; I16.0 Hypertensive urgency
CPT/HCPCS: 0241U-QW; 36415; 36430; 71045-TC-FY; 80048; 80053; 82272; 82607; 82728; 82746; 82962; 83540; 83550; 83735; 83880; 84100; 84484; 85025; 85027; 85379; 85610; 85730; 86850; 86900; 86901; 86922; 93005; 93010; 93306-TC; 93970-TC; 94640; 94761; 97116-GP; 97161-GP; 99285-25; J3535; P9038; P9058